=== PATIENT | female | born 1940 | race Caucasian/White ===

== ENCOUNTER 2017-05-30 01:22 | Inpatient (IN) | payer MEDICARE ==
[2017-05-30 02:49] LABS: #Basophils 0.1 thou/uL (0.0-0.2); #Eosinphils 0.4 thou/uL (0.0-0.7); #Lymphocytes 1.4 thou/uL (1.20-3.40); #Monocytes 0.7 thou/uL (0.11-0.59); #Neutrophils 4.2 thou/uL (1.40-6.50); %Basophils 0.9 % (0.0-1.0); %Eosinophils 5.6 % (0.0-10.0); %Lymphocytes 21.1 % (21.0-51.0); %Monocytes 10.3 % (0.0-10.0); %Neutrophils 62.1 % (42.0-75.0); Hemoglobin 11.1 g/dL (12.0-16.0); Mean Corpuscular HGB CONC 33.6 g/dL (32.0-36.0); Mean Corpuscular Hemoglobin 33.8 pg (27.0-31.0); Mean Platelet Volume 9.4 fL (7.4-10.4); Platelet Count 146 thou/uL (130-400); RBC Distribution Width 15.7 % (11.5-14.5); White Blood Cell (WBC) Count 6.8 thou/uL (4.8-10.8)
[2017-05-30 03:03] LABS: Anion Gap 23 mmol/L (10-20); BUN (Urea Nitrogen) 61 mg/dL (9.8-20.1); Calc. Creatinine Clearance 0 mL/min (70-130); Calcium 8.5 mg/dL (7.8-10.44); Carbon Dioxide 17 mmol/L (23-31); Chloride 103 mmol/L (98-107); Estimated GFR-MDRD 6; Glucose 126 mg/dL (83-110); Potassium 4.5 mmol/L (3.5-5.1); Sodium 138 mmol/L (136-145)
--- NOTE | 2017-05-30 05:19 | HP-2 ---
CODE STATUS: FULL. PRIMARY CARE PHYSICIAN: Mahi peterson. ATTENDING: Dr. Davenport. RESIDENT: Dr. Ad Shafer. SPECIALIST: Dr. Lamb with Nephrology. CHIEF COMPLAINT: Dialysis port fell out. HISTORY OF PRESENT ILLNESS: A 76-year-old female presents after having her dialysis port follow up d uring sleep. She states she does not recall how it occurred, but notes that she rolled over and felt something wet. She states she had dialysis on Thursday, and Thursday and has not missed any recent appointments. She denies any complaints at this time. Also, notes a black great toe on her left foot. She states that the pain has been in her foot at times because of that as well. She has seen a shadow graph weight operator for that and the shadow graph weight operator is now recommended for a vascular surgeon to manage her toe. No other complaints at this time. PAST MEDICAL HISTORY: Significant for diabetes mellitus type 2, hyperlipidemia, hypertension, end-st age renal disease on hemodialysis Tuesdays, , Saturdays and diastolic congestive heart failu re. PAST SURGICAL HISTORY: Heart valve replacement and triple bypass, hysterectomy, dialysis fistula maeve cement, hernia repair and a left shoulder surgery. ALLERGIES: BACTRIM, CIPRO, CODEINE, PENICILLIN, and SULFA. MEDICATIONS: 1. Carvedilol 6.25 mg b.i.d. 2. Hydralazine 50 mg t.i.d. 3. Pantoprazole 40 mg daily. 4. Glipizide 10 mg daily. 5. Aspirin 325 mg daily. 6. Sensipar 30 mg daily. 7. Renvela 1600 mg t.i.d. FAMILY HISTORY: Noncontributory. SOCIAL HISTORY: No tobacco, alcohol, or drug use. REVIEW OF SYSTEMS: General: Denies any fevers, chills, or weight changes. Eyes: Denies vision katrin nges or eye pain. ENT: Denies nasal congestion or rhinorrhea. Respiratory: Denies cough, congesti on, shortness of breath. Cardiovascular: Denies chest pain, palpitation. GI: Denies nausea, vomit ing. Genitourinary: Denies incontinence, dysuria. Skin: Denies rashes or lesions. Musculoskeleta l: Denies pain, tenderness, stiffness, swelling, arthritis, and joints. Neurologic: Denies any wea kness, numbness. Psychiatric: Denies any anxiety, depression. PHYSICAL EXAMINATION: VITAL SIGNS: BP was 174/68, pulse was 67, respiration is 20, and temperature max is 97.8, pulse ox 9 6% on room air, current weight is 84 kilos. GENERAL: Alert and oriented, and appropriately interactive. HEENT: Eyes: PERRLA. Conjunctivae within normal limits. ENT: Tympanic membranes are pearly shaver without bulging or erythema. Nasal mucosa and oropharynx wi thin normal limits. NECK: Supple, no lymphadenopathy, no thyromegaly. CARDIAC: Regular rate and rhythm with 2/6 systolic ejection murmur present at the left sternal borde r. Radial and pedal pulses equal bilaterally. She also has a left AV fistula in her left arm for di alysis. RESPIRATORY: Normal effort, no retraction clear. LUNGS: Clear to auscultation bilaterally. SKIN: Warm and dry. ABDOMEN: Soft, nontender to palpation. Bowel sounds are present x4. No masses or distention. EXTREMITIES: No clubbing, cyanosis with trace edema present. She does have an eschar on her left gr eat toe approximately 50% of her left great toe. MUSCULOSKELETAL: Structure, tone, muscle strength, range of motion within normal limits. NEUROLOGIC: No focal motor neurologic deficits. Sensation within normal limits. Cranial nerves II- XII grossly intact. GCS was 15. Psych was appropriate. LABORATORY DATA: White blood cell count 6.8, platelet count 146, hemoglobin 11.1, hematocrit 33.2, M CV 100.0, percent neutrophils 62.1. Sodium 138, potassium 4.5, chloride 103.4, bicarbonate 17, BUN 1 6, creatinine 7.11, glucose 126, calcium 8.5. ASSESSMENT AND PLAN: A 76-year-old female. 1. End-stage renal disease on hemodialysis port removal. General surgery consultation for [facility] as well as Dr. Lamb consult for hemodialysis to keep her on Thursday, , and Thursday [facility]. 2. Eschar on her left great toe. General Surgery consult/wound care would be of benefit to this pat ient as well as pain control will be used. 3. Diastolic congestive heart failure. No signs or symptoms currently, but will monitor fluid statu s. 4. Hypertension. Continue her home meds. 5. Diabetes mellitus, we will give her Accu-Cheks and continue her home meds. 6. Chronic anemia likely secondary to #1. We will trend her CBC. 7. Hyperlipidemia. She is currently unmedicated. We will check a fasting lipid panel and initiate statin therapy going forward because of her risk factors. DISPOSITION LENGTH OF HOSPITAL STAY: Will be surgical and 1. Symptomatic medications will be provided. History and physical exam as well as management has been discussed with Dr. Davenport.
[2017-05-30] MEDS ORDERED: Ondansetron HCl/PF 4 MG/2 ML Vial ONE (05:40)
[2017-05-30] MEDS ORDERED: HumaLOG 300 UNITS/3 ML VIAL SC PRN (07:33)
[2017-05-30] MEDS ORDERED: Dextrose 5% in Water 1,000 ML IV PRN (07:33)
[2017-05-30] MEDS ORDERED: Dextrose 50% Abboject 50 ML SYRINGE SLOW IVP PRN (07:33)
[2017-05-30] MEDS ORDERED: Acetaminophen 325 MG TAB PO PRN (07:33)
[2017-05-30 07:57] LABS: Cardiac Risk 6.4 (Less than 4.5)
--- NOTE | 2017-05-30 09:59 | OP ---
DATE OF PROCEDURE: 05/30/2017 PREOPERATIVE DIAGNOSIS: End-stage renal disease, dialysis dependent. POSTOPERATIVE DIAGNOSIS: End-stage renal disease, dialysis dependent. PROCEDURES PERFORMED: Placement of right femoral Trialysis, temporary dialysis catheter. INDICATIONS FOR PROCEDURE: A 76-year-old woman with history of dialysis dependent, end-stage renal d isease. The tunneled catheter was inadvertently pulled out last night by the patient. She requires urgent dialysis and I have been asked to place a temporary dialysis catheter for that purpose. DESCRIPTION OF PROCEDURE: Informed consent obtained from the patient. She was placed in supine posi tion. Her right groin was sterilely prepped and draped in the usual fashion. The skin is anesthetiz ed with 1% lidocaine. I palpated the right femoral artery then cannulated the right femoral vein med ial to this using an 18-gauge introducer needle returning dark venous blood. A guidewire was passed through the needle and advanced into the right femoral vein without resistance. Needle was withdrawn over the guidewire. A stab incision is made adjacent to the guidewire using an 11 scalpel. Dilator was passed over the guidewire dilating subcutaneous tissues. A triple lumen dialysis catheter was t hen advanced over the guidewire and placed in the right femoral vein without resistance. The needle was withdrawn. Dark venous blood was aspirated from all 3 ports, which were then flushed with saline followed by heparin. Catheter was secured to right groin using 3-0 nylon suture at 2 points. Biopa tch and sterile dressings was applied. The patient tolerated the procedure without any apparent comp lication and remains hemodynamically stable following completion procedure.
--- NOTE | 2017-05-30 10:25 | PDOC.EVN ---
Attending Addendum - Attending Addendum I personally evaluated the patient and discussed the management with Dr. Shafer. I agree with the History, Examination, Assessment and Plan documented in his H& P with any addition or exceptions noted below. Patient with is on HD using temporary catheter until her graft has matured admitted after her catheter became dislodged and fell out. She is asymptomatic. She received her normal HD session prior to this incident. General surgery will be consulted for temporary catheter placement, and Nephrology consulted for HD today. Further mgmt per Nephrology as to whether she can be discharged after HD or if she needs to remain for monitoring.
[2017-05-30] MEDS: Sevelamer Carbonate 800 MG TAB PO SCH ×3 (10:26→21:26)
[2017-05-30] MEDS: Aspirin 81 mg Enteric Coated Tablet PO SCH (10:26)
[2017-05-30] MEDS: hydrALAZINE 25 MG TAB PO SCH ×3 (10:26→23:37)
[2017-05-30] MEDS: Carvedilol 6.25 MG TAB PO SCH ×2 (10:27→21:25)
[2017-05-30] MEDS: Famotidine 20 MG TAB PO SCH (10:28)
[2017-05-30] MEDS: Cinacalcet HCl 30 MG TAB PO SCH (10:28)
[2017-05-30] MEDS: Heparin 5,000 UNITS/ML VIAL SC SCH ×2 (10:28→16:13)
--- NOTE | 2017-05-30 14:27 | CON ---
DATE OF CONSULTATION: 05/30/2017 NEPHROLOGY CONSULTATION REASON FOR CONSULTATION: End-stage renal disease. HISTORY OF PRESENT ILLNESS: This is a 76-year-old female who presented to the hospital after her acc ess got dislodged. The patient denies headache, numbness, tingling or weakness and has minimal dyspn ea on exertion. PAST MEDICAL HISTORY: Significant for hypertension, anemia, end-stage renal disease, congestive hear t failure, coronary artery disease, hernia repair, tunneled dialysis catheter, hysterectomy, left hank ulder surgery, and heart valve replacement. SOCIAL HISTORY: No alcohol or drug use. FAMILY HISTORY: Negative for ESRD. HOME MEDICATIONS: List reviewed. HOSPITAL MEDICATIONS: Reviewed. ALLERGIES: Reviewed. REVIEW OF SYSTEMS: A 15point review of systems was performed and was negative except for positives n oted above. GENERAL: Weakness- HEAD: Headache- NECK: No swelling or lumps. NOSE: No epistaxis or discharge. EYES: No diplopia or pain. RESPIRATORY: Dyspnea- CARDIOVASCULAR: Chest pain- GASTROINTESTINAL: Nausea- /FUNERAL ARRANGER: Hematuria- MUSCULOSKELETAL: No joint pain. NEUROPSYCHIATIC SYSTEMS: No suicidal ideation. No ideation. SKIN: Denies any rash or ulcer. CONSTITUTIONAL: No fever or chills. PHYSICAL EXAMINATION: GENERAL: Patient is awake, alert. VITAL SIGNS: Afebrile, pulse 81, breathing at 16, blood pressure 130/62. HEAD/NECK: Normocephalic. Atraumatic. EYES: EOMI. No deformity. EARS: Clear. No ulcers. NOSE: Intact. No lesions. MOUTH: Clear. No discharge. THROAT: Clear. No exudate. LUNGS: Clear. No crackles. CARDIAC: S1, S2. No rub. ABDOMEN: Benign. BS+. GENITALIA/RECTUM: Allen absent. BACK/EXTREMITIES: Edema 0+ Ulcer- NEUROLOGICAL: Alert and motor intact. SKIN: Rash- Bruise- LYMPHATICS: Edema- Ulcer- LABORATORY DATA: Show potassium is 4.5. ASSESSMENT AND RECOMMENDATIONS: 1. Stage 6 chronic kidney disease with dyspnea and volume overload. We will plan hemodialysis. 2. Hypertension, plan ultrafiltration. 3. Anemia, stable. 4. Medications based on glomerular filtration rate are appropriate. Field access surgery consult ap preciated for dialysis catheter insertion.
[2017-05-30] MEDS: Ondansetron ODT 4 MG TAB PO PRN (15:21)
[2017-05-30] MEDS ORDERED: hydrALAZINE 20 MG/ML VIAL SLOW IVP PRN (18:50)
[2017-05-30] MEDS: Atorvastatin Calcium 40 MG TAB PO SCH (23:37)
[2017-05-31] MEDS: Ondansetron HCl/PF 4 MG/2 ML Vial IVP PRN ×3 (00:07→16:52)
[2017-05-31 06:29] LABS: Anion Gap 16 mmol/L (10-20); BUN (Urea Nitrogen) 27 mg/dL (9.8-20.1); Calc. Creatinine Clearance 14 mL/min (70-130); Calcium 9.1 mg/dL (7.8-10.44); Carbon Dioxide 27 mmol/L (23-31); Chloride 98 mmol/L (98-107); Estimated GFR-MDRD 9; Glucose 74 mg/dL (83-110); Potassium 4.7 mmol/L (3.5-5.1); Sodium 136 mmol/L (136-145)
--- NOTE | 2017-05-31 07:29 | PDOC.FM ---
- Subjective Subjective: Patient doing well this AM. She reports that yesterday she had some nausea and vomiting during dialysis and had to stop dialysis 1 hour early. She also has had some pain with her left great toe wound, but that has improved with medication. She has been able to tolerate PO since dialysis and her N/V has improved. - Objective MAR Reviewed: Yes Vital Signs & Weight: Vital Signs (12 hours) Temp Pulse Resp BP BP Pulse Ox 05/31/17 03:51 97.9 F 61 16 164/68 H 92 L 05/31/17 00:00 97.7 F 63 16 169/67 H 94 L 05/30/17 23:37 147/70 H 05/30/17 21:25 147/70 H 05/30/17 20:00 97.7 F 59 L 16 141/63 H 94 L I&O: 05/30/17 05/31/17 06/01/17 06:59 06:59 06:59 Intake Total 240 Balance 240 Result Diagrams: 05/30/17 02:30 05/31/17 05:39 <Denice Harper - Last Filed: 05/31/17 07:27> - Objective Vital Signs & Weight: Vital Signs (12 hours) Temp Pulse Resp BP BP Pulse Ox 05/31/17 09:15 97.9 F 62 16 185/80 H 98 05/31/17 08:27 164/68 H 05/31/17 08:26 61 164/68 H 05/31/17 03:51 97.9 F 61 16 164/68 H 92 L 05/31/17 00:00 97.7 F 63 16 169/67 H 94 L 05/30/17 23:37 147/70 H I&O: 05/30/17 05/31/17 06/01/17 06:59 06:59 06:59 Intake Total 240 Balance 240 Result Diagrams: 05/30/17 02:30 05/31/17 05:39 <Last Davenport - Last Filed: 05/31/17 10:09> Phys Exam - Physical Examination Constitutional: NAD HEENT: moist MMs Respiratory: no wheezing, no rales, no rhonchi, clear to auscultation bilateral Cardiovascular: RRR, no significant murmur, no rub Gastrointestinal: soft, non-tender, no distention, positive bowel sounds Musculoskeletal: no edema, pulses present Neurological: non-focal, moves all 4 limbs Psychiatric: normal affect, A&O x 3 Deviation from normal: black eschar on left great toe <Denice Harper - Last Filed: 05/31/17 07:27> Dx/Plan (1) End stage renal disease on dialysis Code(s): N18.6 - END STAGE RENAL DISEASE; Z99.2 - DEPENDENCE ON RENAL DIALYSIS Status: Chronic (2) Ulcer of toe of left foot Code(s): L97.529 - NON-PRESSURE CHRONIC ULCER OTH PRT LEFT FOOT W UNSP SEVERITY Status: Acute QualifierTitle: Non-pressure ulcer stage: unspecified non-pressure ulcer stage Qualified Code(s): L97.529 - Non-pressure chronic ulcer of other part of left foot with unspecified severity (3) Anemia of renal disease Code(s): D63.1 - ANEMIA IN CHRONIC KIDNEY DISEASE Status: Chronic (4) Diabetes type 2, controlled Code(s): E11.9 - TYPE 2 DIABETES MELLITUS WITHOUT COMPLICATIONS Status: Chronic QualifierTitle: Diabetes mellitus complication status: with skin complications Diabetes mellitus complication detail: with foot ulcer Diabetes mellitus cluster bore operator insulin use: without prison use Qualified Code( s): E11.621 - Type 2 diabetes mellitus with foot ulcer; L97.509 - Non-pressure chronic ulcer of other part of unspecified foot with unspecified severity; L97.509 - Non-pressure chronic ulcer of other part of unspecified foot with unspecified severity; L97.509 - Non-pressure chronic ulcer of other part of unspecified foot with unspecified severity; L97.509 - Non-pressure chronic ulcer of other part of unspecified foot with unspecified severity (5) HLD (hyperlipidemia) Code(s): E78.5 - HYPERLIPIDEMIA, UNSPECIFIED Status: Chronic QualifierTitle: Hyperlipidemia type: unspecified (6) HTN (hypertension) Code(s): I10 - ESSENTIAL (PRIMARY) HYPERTENSION Status: Chronic QualifierTitle: Hypertension type: essential hypertension - Plan Plan: 1. ESRD on HD T//Thu, lost dialysis access when port fell out on 05/30. Temporary R Fem Trialysis Cath placed by Dr. Moya on 05/30 Patient received dialysis on 05/30, but it was cut one hour short 2/2 N/V -Dr. Pickens has been consulted, appreciate recs -Will follow nephro recs for permanent dialysis access. The patient has a left arm fistula that Dr. Feldman placed that has never been approved for access due to patient's limited ability to get rides she never made an appointment. It could be an option to have this evaluated while the patient is in the hospital to see if this could be used as her permanent access. 2. L great toe eschar/ulcer Patient was seeing a hotel controller, but he recommended for her to see a surgeon. -Pain control -Will have the patient f/u outpatient as this was not her reason for admission and there is no signs of infection at this time. 3. HTN The patient's BP were very elevated in the past 24 hours, however all of her BP meds were held due to her nausea. Will control her nausea and instruct the nurses to give the BP medications. -continue home meds 4. DM2 -continue glipizide -Accuchecks ACHS 5. HLD -continue home meds 6. Anemia of CKD -stable, will monitor <Denice Harper - Last Filed: 05/31/17 07:27> Attending Addendum - Attending Addendum I personally evaluated the patient and discussed the management with Dr. Harper. I agree with the History, Examination, Assessment and Plan documented above with any addition or exceptions noted below. Patient with elevated BP today 2/2 nausea and inability to take her medications overnight. She feels improved this morning. Had HD yesterday, though short session per patient due to not feeling well. Has temporary HD catheter in place. Await further nephro recs, consider discharge later today if no further HD. Consult wound care for her necrotic toe and will need outpatient follow up for debridement/amputation. No evidence of infection at this time and can defer further mgmt to outpatient setting. <Last Davenport - Last Filed: 05/31/17 10:09>
[2017-05-31] MEDS: hydrALAZINE 25 MG TAB PO SCH ×3 (08:26→22:01)
[2017-05-31] MEDS: Heparin 5,000 UNITS/ML VIAL SC SCH ×4 (08:26→21:21)
[2017-05-31] MEDS: Carvedilol 6.25 MG TAB PO SCH ×2 (08:27→16:53)
[2017-05-31] MEDS: Sevelamer Carbonate 800 MG TAB PO SCH ×3 (08:27→16:53)
[2017-05-31] MEDS: Cinacalcet HCl 30 MG TAB PO SCH (08:27)
[2017-05-31] MEDS: Famotidine 20 MG TAB PO SCH (08:27)
[2017-05-31] MEDS: Aspirin 81 mg Enteric Coated Tablet PO SCH (08:28)
--- NOTE | 2017-05-31 11:53 | PRG ---
DATE OF SERVICE: 05/31/2017 SUBJECTIVE: This is a 76-year-old female being seen for end-stage renal disease. The patient denies any nausea, vomiting or chest pain. PHYSICAL EXAMINATION: GENERAL: Patient is awake, alert. VITAL SIGNS: Afebrile, pulse 80, breathing at 16, blood pressure 164/68. HEAD/NECK: Normocephalic. Atraumatic. EYES: EOMI. No deformity. EARS: Clear. No ulcers. NOSE: Intact. No lesions. MOUTH: Clear. No discharge. THROAT: Clear. No exudate. LUNGS: Clear. No crackles. CARDIAC: S1, S2. No rub. ABDOMEN: Benign. BS+. GENITALIA/RECTUM: Allen absent. BACK/EXTREMITIES: Edema 0+ Ulcer- NEUROLOGICAL: Alert and motor intact. SKIN: Rash- Bruise- LYMPHATICS: Edema- Ulcer- LABORATORY DATA: Show hemoglobin 11.1. ASSESSMENT AND RECOMMENDATIONS: 1. Stage 6 chronic kidney disease. Plan hemodialysis on Thursday, failed access. The patient's AV f istula has not matured and will need repositioning. Dr. Feldman will be consulted. 2. Anemia, stable. 3. Medications based on GFR are appropriate.
[2017-05-31] MEDS: Atorvastatin Calcium 40 MG TAB PO SCH (21:21)
--- NOTE | 2017-06-01 06:47 | PDOC.FM ---
- Subjective Subjective: Patient doing well this AM. No significant overnight events. Patient denies any chest pain or shortness of breath. She states that she got her left AV fistula awhile ago, but was never able to get it verified as site for dialysis because she did not return to Dr. Feldman's office due to transportation issues. Additionally, patient has left great toe eschar/ulcer which has been present for >1 year. It developed after patient tried to self remove ingrown toenail. She was seeing english composition instructor who recommended vascular studies be performed. She was never able to get those done due to transportation issues. - Objective MAR Reviewed: Yes Vital Signs & Weight: Vital Signs (12 hours) Temp Pulse Resp BP Pulse Ox 06/01/17 04:01 98.2 F 72 16 164/87 H 91 L 06/01/17 00:00 98.3 F 71 16 153/69 H 93 L 05/31/17 22:01 61 05/31/17 20:00 98.6 F 61 16 97 05/31/17 19:38 98.6 F 61 16 157/72 H 57 L I&O: 05/30/17 05/31/17 06/01/17 06:59 06:59 06:59 Intake Total 240 350 Balance 240 350 Result Diagrams: 05/30/17 02:30 05/31/17 05:39 EKG Reviewed by me: Yes Radiology Reviewed by me: Yes <Chica Prajapati - Last Filed: 06/01/17 08:38> - Objective Vital Signs & Weight: Vital Signs (12 hours) Temp Pulse Resp BP BP Pulse Ox 06/01/17 08:34 142/54 H 06/01/17 08:33 72 06/01/17 08:00 97.6 F 86 20 161/73 H 96 06/01/17 04:01 98.2 F 72 16 164/87 H 91 L 06/01/17 00:00 98.3 F 71 16 153/69 H 93 L I&O: 05/31/17 06/01/17 06/02/17 06:59 06:59 06:59 Intake Total 240 350 Balance 240 350 Result Diagrams: 05/30/17 02:30 05/31/17 05:39 <Fabrice Tim - Last Filed: 06/01/17 10:47> Phys Exam - Physical Examination Constitutional: NAD HEENT: moist MMs Neck: supple Respiratory: no wheezing, no rales, no rhonchi, clear to auscultation bilateral Cardiovascular: RRR 2/6 systolic murmur Gastrointestinal: soft, no distention Musculoskeletal: no edema 1+ pedal pulses Neurological: non-focal, moves all 4 limbs Psychiatric: A&O x 3 Skin: no rash, cap refill <2 seconds <Chica Prajapati - Last Filed: 06/01/17 08:38> Dx/Plan (1) End stage renal disease on dialysis Code(s): N18.6 - END STAGE RENAL DISEASE; Z99.2 - DEPENDENCE ON RENAL DIALYSIS Status: Chronic (2) Ulcer of toe of left foot Code(s): L97.529 - NON-PRESSURE CHRONIC ULCER OTH PRT LEFT FOOT W UNSP SEVERITY Status: Acute QualifierTitle: Non-pressure ulcer stage: unspecified non-pressure ulcer stage Qualified Code(s): L97.529 - Non-pressure chronic ulcer of other part of left foot with unspecified severity (3) H/O aortic valve replacement Code(s): Z95.2 - PRESENCE OF PROSTHETIC HEART VALVE Status: Chronic (4) Anemia of renal disease Code(s): D63.1 - ANEMIA IN CHRONIC KIDNEY DISEASE Status: Chronic (5) CAD (coronary artery disease) Code(s): I25.10 - ATHSCL HEART DISEASE OF [place] CORONARY ARTERY W/O ANG PCTRS Status: Chronic (6) Diabetes type 2, controlled Code(s): E11.9 - TYPE 2 DIABETES MELLITUS WITHOUT COMPLICATIONS Status: Chronic QualifierTitle: Diabetes mellitus complication status: with skin complications Diabetes mellitus complication detail: with foot ulcer Diabetes mellitus local company intermodal truck driver insulin use: without snf use Qualified Code( s): E11.621 - Type 2 diabetes mellitus with foot ulcer; L97.509 - Non-pressure chronic ulcer of other part of unspecified foot with unspecified severity; L97.509 - Non-pressure chronic ulcer of other part of unspecified foot with unspecified severity; L97.509 - Non-pressure chronic ulcer of other part of unspecified foot with unspecified severity; L97.509 - Non-pressure chronic ulcer of other part of unspecified foot with unspecified severity (7) HLD (hyperlipidemia) Code(s): E78.5 - HYPERLIPIDEMIA, UNSPECIFIED Status: Chronic QualifierTitle: Hyperlipidemia type: unspecified Qualified Code(s): E78.5 - Hyperlipidemia, unspecified (8) HTN (hypertension) Code(s): I10 - ESSENTIAL (PRIMARY) HYPERTENSION Status: Chronic QualifierTitle: Hypertension type: essential hypertension Qualified Code( s): I10 - Essential (primary) hypertension - Plan Plan: 1. ESRD on HD T//Thu, lost dialysis access when port fell out on 05/30. -Temporary R Fem Trialysis Cath placed by Dr. Moya on 05/30 -Patient received dialysis on 05/30, but it was cut one hour short 05/29 N/V -Dr. Pickens has been consulted, appreciate recs -Will follow nephro recs for permanent dialysis access. The patient has a left arm fistula that Dr. Feldman placed on 07/09/16 that has never been approved for access due to patient's limited ability to get rides. She never made an appointment. It could be an option to have this evaluated while the patient is in the hospital to see if this could be used as her permanent access. -Consult Dr. Feldman this AM -Plans for dialysis 06/[address]ens 2. L great toe eschar/ulcer -Patient was seeing a english composition instructor, but he recommended for her to see a surgeon/ vascular specialist -Pain control -Consider consulting general surgery 3. HTN -continue home meds -BP 142/54 this AM 4. DM2 -continue glipizide -Accuchecks ACHS 5. HLD -continue home meds 6. Anemia of CKD -stable, will monitor <Chica Prajapati - Last Filed: 06/01/17 08:38> Attending Addendum - Attending Addendum I personally evaluated the patient and discussed the management with Dr. Prajapati I agree with the History, Examination, Assessment and Plan documented above with any addition or exceptions noted below. We have consulted Dr. Feldman this morning as she originally was her surgeon for her AV fistula, she will come by today or tomorrow regarding permanent access. TCOMs or MARII today as well as CV surgery recs for eschar vs dry gangrene of L great toe. <Fabrice Tim - Last Filed: 06/01/17 10:47>
[2017-06-01] MEDS: Sevelamer Carbonate 800 MG TAB PO SCH ×3 (08:31→17:43)
[2017-06-01] MEDS: Cinacalcet HCl 30 MG TAB PO SCH (08:32)
[2017-06-01] MEDS: hydrALAZINE 25 MG TAB PO SCH ×3 (08:33→21:49)
[2017-06-01] MEDS: Famotidine 20 MG TAB PO SCH (08:33)
[2017-06-01] MEDS: Carvedilol 6.25 MG TAB PO SCH ×2 (08:34→17:43)
[2017-06-01] MEDS: Aspirin 81 mg Enteric Coated Tablet PO SCH (08:34)
[2017-06-01] MEDS: Heparin 5,000 UNITS/ML VIAL SC SCH ×3 (08:34→21:50)
--- NOTE | 2017-06-01 11:54 | PRG ---
DATE OF SERVICE: 06/01/2017 SUBJECTIVE: Patient was seen and examined at bedside and overnight events noted. Patient denies any shortness of breath or chest pain or palpitation. No history of nausea or vomiting or diarrhea or f ever or chills or cramps. OBJECTIVE: General: This is a well-built female in no apparent distress. VITAL SIGNS: Temperature 97, pulse 72, respirations 18, blood pressure 148/54. HEENT: Atraumatic, normocephalic, Oral mucosa is moist. Neck: Supple. Cardiovascular: S1 and S2 heard. Rate and rhythm regular. Respiratory: Clear to auscultation. Gastrointestinal: Abdomen is soft. Musculoskeletal: No tenderness. No edema. Dermatologic: No skin rash. Neurologic: Alert and awake and oriented X3. No focal neurologic deficits. Moving all the extremitie s. Psychiatric: Mood and affect normal. LABORATORY DATA: Not done today. ASSESSMENT AND PLAN: 1. End-stage renal disease. Continue on dialysis. 2. The patient had access evaluation by a surgeon, we will consult. 3. Anemia, stable. 4. Edema, controlled. 5. Hypertension. 6. Consult Surgery for access evaluation. We will follow.
--- NOTE | 2017-06-01 18:01 | CON ---
DATE OF CONSULTATION: 06/01/2017 REASON FOR CONSULTATION: Need for dialysis access. HISTORY: Ms. Moyer is a 76-year-old woman, who inadvertently pulled out her tunneled hemodialysis catheter. She states that she does not remember how it happened, but when she woke up the catheter was out and she was bleeding from the exit site. Her family helped pressure at the site and called 911. She was quite pale by the report, but did not pass out and has not needed to be transfused. A temporary hemodialysis catheter has been placed in her right groin by Dr. Moya, but she requires permanent access. She has had multiple access procedures on her right upper extremity and had an AV fistula with basilic outflow on the left, but did not return to have a transposed. PAST MEDICAL HISTORY: Diabetes, morbid obesity, hyperlipidemia, hypertension, end-stage renal failure on dialysis, and diastolic congestive heart failure. PAST SURGICAL HISTORY: Three-vessel coronary artery bypass grafting with heart valve replacements, hysterectomy, multiple fistula placements and transpositions on the right side. She has also undergone multiple angioplasties and stenting. She has also had a hernia repair and left shoulder surgery. ALLERGIES: She reports allergies to BACTRIM, CIPRO, CODEINE, PENICILLIN, SULFA , AND HYDROCODONE. OUTPATIENT MEDICATIONS: Include carvedilol, hydralazine, pantoprazole, glipizide, aspirin, Sensipar, and Renvela. FAMILY HISTORY: Noncontributory. SOCIAL HISTORY: She does not smoke, drink or use illicit drugs. REVIEW OF SYSTEMS: Ten system review of systems is negative except as per HPI. She does report a chronic sore on her left great toe where she removed an ingrown toenail and the area turned black and this is not healed. She saw a potato sorter, but he did not want to do anything to it. She also reports that she has a small bed sore as well as some excoriations in the sacral area, but these are healing. PHYSICAL EXAMINATION: VITAL SIGNS: She has been afebrile since her admission. Heart rate 72, respirations 20, 96% saturated on room air, blood pressure 142/54. GENERAL: Reveals an elderly woman, in no acute distress. She is not flushed or toxic in appearance. She is not jaundiced or icteric. HEENT: Unremarkable. NECK: Supple, without lymphadenopathy or thyroid nodules. HEART: Regular in its rate and rhythm with a soft systolic murmur. LUNGS: Clear to auscultation bilaterally. ABDOMEN: Soft, nondistended, and nontender. EXTREMITIES: She has multiple surgical scars on both upper arms. The previous brachiobasilic fistula appears to be thrombosed. There is no palpable thrill and no audible bruit and the superficial veins of the upper arm are varicose. She has a gangrenous patch on the tip of her left great toe without erythema, swelling or fluctuance. No palpable pedal or popliteal pulses, but she has good femoral pulses bilaterally. No sores on the right foot and mild ankle edema. NEUROLOGIC: No focal deficits. PSYCHIATRIC: Alert, oriented, and appropriate. BACK: She has some superficial excoriations to the right sacral area and a grade I decubitus over the sacral area. LABORATORY DATA: White count is normal at 6.8, hematocrit 33.2, platelets 146, BUN and creatinine are 27 and 4.55. Blood sugars have ranged from 73 to 140. Electrolytes are unremarkable. ASSESSMENT AND PLAN: End-stage renal failure with need for permanent access. She currently has a Trialysis catheter in her right groin, but will require a tunneled catheter for ongoing outpatient hemodialysis. She does require a fistula or graft long-term. Unfortunately, she has exhausted most of her veins in the upper arm and the basilic fistula, which was placed last year, appears to have thrombosed. I have ordered bilateral upper extremity vein mapping to see if she has any remaining patent veins. I suspect that the right arm is not usable since she has already had a transposition on that side as well as multiple angioplasties and stents in the axillary area, so we will hope that her axillary vein on the left is patent and accessible. She will likely require a graft. This may worsen the venous hypertension in her left arm; however. She also has dry gangrene of the left great toe with no current signs of infection, but she is at risk for this and may not heal, and may require amputation. I have recommended that she see a vascular surgeon for this problem to see if they can improve the blood flow to her legs. I have asked Dr. Mims's group to see her on a nonurgent basis. Also, ordered repeat labs for the morning. It does not appear that she has had any repeat labs since her admission even though her hemoglobin and hematocrit were very low a that point. Her family reports that she lost a lot of blood when her catheter came out and lab was drawn immediately after this event so this may not represent her true equilibrated hematocrit. ELAINE
--- NOTE | 2017-06-01 19:41 | ULT ---
VEIN MAPPING OF UPPER EXTREMITIES FOR DIALYSIS ACCESS: Technique: Bilateral upper extremity venous duplex study in the veins of upper extremities including color doppler with spectral analysis. Indication: Endstage renal disease. Assess for possible site for venous dialysis fistula. FINDINGS: RIGHT UPPER EXTREMITY Right basilic vein: At the shoulder the right basilic vein measures 1.7 cm. The right basilic vein is unable to be visual ized distal to the proximal humerus. Right cephalic vein: Shoulder 3.4 Proximal humerus 3.7 Middle humerus 3.3 Distal humerus 2.7 Elbow 2.9 Mid forearm 2.8 Right brachial artery 2.8 Right radial artery 1.5 Right ulnar artery 1.8 LEFT UPPER EXTREMITY: Left basilic vein: Shoulder 4.5 Proximal humerus 2.8 Middle humerus 2.1 Distal humerus 2.1 Elbow 1.4 Mid forearm 0.6 Left cephalic vein: Shoulder .9 Proximal humerus 1.5 Mid humerus 1.1 Distal humerus 1.7 Elbow 0.8 Cephalic vein below the elbow was not visualized. Left brachial artery 5.7 Left radial artery 0.7 Left ulnar artery 1.7 Both subclavian veins and axillary veins are patent with normal flow seen with spectral analysis. POS: KAREN
[2017-06-01] MEDS: Atorvastatin Calcium 40 MG TAB PO SCH (21:49)
--- NOTE | 2017-06-01 23:40 | CON ---
DATE OF CONSULTATION: 06/01/2017. REQUESTING PHYSICIAN: Luis Carlos Feldman MD CHIEF COMPLAINT: Left great toe pain. HISTORY OF PRESENT ILLNESS: The patient is a 76-year-old diabetic dialysis patient with known elliott ry disease. She has been dialyzing through a tunneled dialysis catheter that came out when she turne d over in bed and she presented to the hospital. She currently is dialyzing through a temporary cath eter placed in the right groin. She was noted to have a gangrenous tip to the left great toe. She s aid that she was trying to deal with an ingrown toenail herself about 2 months ago, and since trying to manipulate that nail, the tip of the toe has turned dark and scaly with dry gangrenous changes. PAST MEDICAL HISTORY: Significant for diabetes; hyperlipidemia; hypertension; end-stage renal diseas e on a Thursday, , and Thursday dialysis schedule. PAST SURGICAL HISTORY: She has undergone coronary artery bypass grafting and "valve replacement." MEDICATIONS: Coreg 6.25 mg b.i.d., hydralazine 50 mg t.i.d., pantoprazole 40 mg a day, glipizide 10 mg a day, aspirin 325 mg a day, Sensipar 30 mg a day, Renvela 1600 mg t.i.d. ALLERGIES: She reports adverse reaction to CODEINE that causes nausea, vomiting, and hallucinations severe enough that she is not willing to even attempt hydrocodone or oxycodone. She also reports all ergies to BACTRIM, CIPRO, and PENICILLIN; all of which cause rash. REVIEW OF SYSTEMS: Negative for any fever or chills. Negative for any erythema around her wound. N egative for any eye, speech, facial, or extremity symptoms consistent with TIAs. Negative for chest pain. PHYSICAL EXAMINATION: GENERAL: She is an elderly woman in no distress. VITAL SIGNS: Temperature is 98.9, heart rates in the low 50s to low 60s, blood pressure 142/54, room air O2 sats are in the mid 90s. Height is 5 feet tall, weight is 184 pounds. NECK: She has soft bilateral carotid bruits. No JVD. CHEST: Clear to auscultation. CARDIOVASCULAR: Regular rate and rhythm. She has a well-healed surgical scar, status post sternotom y and status post left lower extremity vein harvest. She has palpable radial pulses. She has a dial ysis catheter in the right groin. EXTREMITIES: She has a bounding left femoral pulse. Not able to palpate popliteal, dorsalis pedis, or posterior tibial pulses. She has dry gangrenous changes at the tip of her left great toe. NEUROLOGIC: Grossly nonfocal. LABORATORY DATA: She has a white count of 6.8, hemoglobin 11.1, hematocrit 33.2, platelets 146,000. Her glucoses have ranged from mid 70s to about 140 over the last 24 hours and was 126 on admission. IMPRESSION AND RECOMMENDATIONS: Dry gangrenous changes affecting the left lower extremity. She has a bounding left femoral pulse. I am not able to feel pulses below that point on the left lower extre mity. Unfortunately, vein has already been harvested from that leg, limiting our options for revascu larization should she need an infragenicular procedure. Recommend conventional arteriography to demo nstrate her arterial anatomy and plan out revascularization strategies. From my perspective, these c an be arranged as an outpatient. She is otherwise ready to go home once her dialysis access is dealt with.
--- NOTE | 2017-06-02 07:34 | PDOC.FM ---
- Subjective Subjective: Patient doing well this AM. No significant overnight events. Patient to have tunneled catheter placed as well as possible AV fistula today. She denies any chest pain, shortness of breath or palpitations. - Objective MAR Reviewed: Yes Vital Signs & Weight: Vital Signs (12 hours) Temp Pulse Resp BP BP Pulse Ox 06/02/17 03:47 55 L 192/78 H 06/02/17 00:00 97.7 F 55 L 16 145/65 H 95 06/01/17 21:49 59 L 06/01/17 20:00 98.2 F 59 L 16 164/56 H 93 L Weight Admit Weight 83.659 kg Weight 83.659 kg I&O: 06/01/17 06/02/17 06/03/17 06:59 06:59 06:59 Intake Total 350 Balance 350 Result Diagrams: 05/30/17 02:30 05/31/17 05:39 EKG Reviewed by me: Yes Radiology Reviewed by me: Yes <Chica Prajapati - Last Filed: 06/02/17 08:44> - Objective Vital Signs & Weight: Vital Signs (12 hours) Temp Pulse Resp BP BP Pulse Ox 06/02/17 03:47 55 L 192/78 H 06/02/17 00:00 97.7 F 55 L 16 145/65 H 95 Weight Admit Weight 83.659 kg Weight 83.659 kg I&O: 06/01/17 06/02/17 06/03/17 06:59 06:59 06:59 Intake Total 350 240 Balance 350 240 Result Diagrams: 05/30/17 02:30 05/31/17 05:39 <Fabrice Tim - Last Filed: 06/02/17 10:09> Phys Exam - Physical Examination Constitutional: NAD HEENT: moist MMs Neck: supple Respiratory: clear to auscultation bilateral Cardiovascular: RRR Gastrointestinal: soft, positive bowel sounds Musculoskeletal: no edema Non-palpable pulses below femoral artery Neurological: non-focal, moves all 4 limbs Psychiatric: normal affect Skin: no rash, cap refill <2 seconds <Chica Prajapati - Last Filed: 06/02/17 08:44> Dx/Plan (1) End stage renal disease on dialysis Code(s): N18.6 - END STAGE RENAL DISEASE; Z99.2 - DEPENDENCE ON RENAL DIALYSIS Status: Chronic (2) Dry gangrene Code(s): I96 - GANGRENE, NOT ELSEWHERE CLASSIFIED Status: Acute (3) H/O aortic valve replacement Code(s): Z95.2 - PRESENCE OF PROSTHETIC HEART VALVE Status: Chronic (4) Anemia of renal disease Code(s): D63.1 - ANEMIA IN CHRONIC KIDNEY DISEASE Status: Chronic (5) CAD (coronary artery disease) Code(s): I25.10 - ATHSCL HEART DISEASE OF [place] CORONARY ARTERY W/O ANG PCTRS Status: Chronic (6) Diabetes type 2, controlled Code(s): E11.9 - TYPE 2 DIABETES MELLITUS WITHOUT COMPLICATIONS Status: Chronic QualifierTitle: Diabetes mellitus complication status: with skin complications Diabetes mellitus complication detail: with foot ulcer Diabetes mellitus intermission coordinator insulin use: without intermission coordinator use Qualified Code( s): E11.621 - Type 2 diabetes mellitus with foot ulcer; L97.509 - Non-pressure chronic ulcer of other part of unspecified foot with unspecified severity; L97.509 - Non-pressure chronic ulcer of other part of unspecified foot with unspecified severity; L97.509 - Non-pressure chronic ulcer of other part of unspecified foot with unspecified severity; L97.509 - Non-pressure chronic ulcer of other part of unspecified foot with unspecified severity (7) HLD (hyperlipidemia) Code(s): E78.5 - HYPERLIPIDEMIA, UNSPECIFIED Status: Chronic QualifierTitle: Hyperlipidemia type: unspecified Qualified Code(s): E78.5 - Hyperlipidemia, unspecified (8) HTN (hypertension) Code(s): I10 - ESSENTIAL (PRIMARY) HYPERTENSION Status: Chronic QualifierTitle: Hypertension type: essential hypertension Qualified Code( s): I10 - Essential (primary) hypertension - Plan Plan: 1. ESRD on HD T//Thu, lost dialysis access when port fell out on 05/30. -Temporary R Fem Trialysis Cath placed by Dr. Moya on 05/30 -Patient received dialysis on 05/30, but it was cut one hour short 05/29 N/V -Dr. Pickens has been consulted, appreciate recs -Will follow nephro recs for permanent dialysis access. The patient has a left arm fistula that Dr. Feldman placed on 3/15/17 that has never been approved for access due to patient's limited ability to get rides. She never made an appointment. It could be an option to have this evaluated while the patient is in the hospital to see if this could be used as her permanent access. -Consulted general surgery; appreciate recs - Plan for tunneled catheter and possible AV fistula today -Plans for dialysis 06/[address] Pickens 2. L great toe dry gangrene -Patient was seeing a superintendent of generation, but he recommended for her to see a surgeon/ vascular specialist -Pain control -CV surgery consulted; appreciate recs -TCOM studies pending -CV Sx recommends outpatient angiography 3. HTN -continue home meds -adjust BP medications if still elevated after dialysis; patient did not receive full course of dialysis the other day due to N/V 4. DM2 -continue glipizide -Accuchecks ACHS 5. HLD -continue home meds 6. Anemia of CKD -stable, will monitor <Chica Prajapati - Last Filed: 06/02/17 08:44> Attending Addendum - Attending Addendum I personally evaluated the patient and discussed the management with Dr. Prajapati I agree with the History, Examination, Assessment and Plan documented above with any addition or exceptions noted below. Pt is in dialysis this AM. Plan to follow up outpatient with CV surgery regarding her dry gangrene of the left great toe. Plan for permanent access with Dr. Feldman this stay. Need to work on vein mapping. <Fabrice Tim - Last Filed: 06/02/17 10:09>
[2017-06-02 09:08] LABS: HBSAg Index 0.25 S/CO (0-0.99); Hep B Surf Ag Non-Reactive S/CO (NonReactive)
[2017-06-02] MEDS: Cinacalcet HCl 30 MG TAB PO SCH (13:51)
[2017-06-02] MEDS: Carvedilol 6.25 MG TAB PO SCH ×2 (13:51→18:04)
[2017-06-02] MEDS: Sevelamer Carbonate 800 MG TAB PO SCH ×3 (13:51→18:04)
[2017-06-02] MEDS: Aspirin 81 mg Enteric Coated Tablet PO SCH (13:52)
[2017-06-02] MEDS: Famotidine 20 MG TAB PO SCH (13:52)
[2017-06-02] MEDS: Heparin 5,000 UNITS/ML VIAL SC SCH ×3 (13:55→21:23)
[2017-06-02] MEDS: hydrALAZINE 25 MG TAB PO SCH ×3 (13:56→21:23)
[2017-06-02] MEDS ORDERED: CEFAZOLIN/Water 2 GM/20 ML SYRINGE ONE (15:22)
[2017-06-02] MEDS ORDERED: Heparin 10,000 UNITS/1 ML VIAL ONE (15:26)
[2017-06-02] MEDS ORDERED: Sodium Chloride 0.9% 20 ML ONE (15:26)
[2017-06-02] MEDS ORDERED: Heparin 5,000 UNITS/ML VIAL ONE (15:26)
[2017-06-02] MEDS ORDERED: Protamine Sulfate 50 MG/5 ML VIAL ONE (15:26)
[2017-06-02] MEDS ORDERED: Lidocaine 1% w/Epinephrine 1:200K 30 ML VIAL ONE (15:26)
[2017-06-02] MEDS ORDERED: Midazolam HCl 2 mg/2 ml Vial ONE (15:27)
[2017-06-02] MEDS ORDERED: Fentanyl 100 MCG/2 ML VIAL ONE ×3 (15:27→17:43)
[2017-06-02] MEDS ORDERED: Lidocaine 1% PF 5 ML VIAL ONE (16:14)
[2017-06-02] MEDS ORDERED: Ondansetron HCl/PF 4 MG/2 ML Vial ONE (16:14)
[2017-06-02] MEDS ORDERED: PROPOFOL 200 MG/20 ML VIAL ONE (16:14)
[2017-06-02] MEDS ORDERED: PHENYLEPHRINE-NS 100 MCG/ML 10 ML SYRINGE ONE (16:14)
[2017-06-02] MEDS ORDERED: Heparin 10,000 UNITS/ 10 ML VIAL ONE (16:14)
[2017-06-02] MEDS ORDERED: Promethazine HCl 25 MG/ML VIAL SLOW IVP PRN (19:04)
[2017-06-02] MEDS ORDERED: Ondansetron HCl/PF 4 MG/2 ML Vial IVP PRN (19:04)
[2017-06-02] MEDS ORDERED: Promethazine HCl 25 MG/ML VIAL IM PRN (19:04)
--- NOTE | 2017-06-02 19:22 | PRG ---
DATE OF SERVICE: 06/02/2017 SUBJECTIVE: Patient was seen and examined at bedside and overnight events noted. Patient denies any shortness of breath or chest pain or palpitation. No history of nausea or vomiting or diarrhea or f ever or chills or cramps. OBJECTIVE: GENERAL: This is an obese female and in no apparent distress. VITAL SIGNS: Temperature 98.1, pulse 60, respiratory rate 18, blood pressure 140/62. HEENT: Atraumatic, normocephalic. Oral mucosa is moist NECK: Supple CARDIOVASCULAR: S1, S2 heard. Rate and rhythm regular. RESPIRATORY: Clear to auscultation. GASTROINTESTINAL: Abdomen is soft. MUSCULOSKELETAL: No tenderness. No edema. DERMATOLOGIC: No skin rash. NEUROLOGIC: Alert and awake and oriented x3. No focal neurologic deficits. Moving all the extremit ies. PSYCHIATRIC: Mood and affect normal. LABORATORY DATA: . ASSESSMENT AND PLAN: 1. End-stage renal disease, currently on dialysis TTS. 2. Hypertension. 3. Edema. 4. Anemia. Plan is to continue on dialysis as tolerated and follow up with Surgery for access placement.
[2017-06-02] MEDS ORDERED: Promethazine HCl 25 MG/ML VIAL ONE (19:59)
--- NOTE | 2017-06-02 20:34 | RAD ---
PORTABLE CHEST: 06/02/17 HISTORY: Hemodialysis catheter. COMPARISON: 07/07/16. A large bore dual lumen central line is in place. Tip overlies the SVC. The lungs are clear. No pneum othorax or infiltrate. Postop sternotomy change. Heart size is within normal range. IMPRESSION: No acute abnormality. POS: KAREN
[2017-06-02] MEDS: Atorvastatin Calcium 40 MG TAB PO SCH (21:23)
[2017-06-02] MEDS: traMADol HCl 50 MG TAB PO PRN (23:19)
[2017-06-02] MEDS: Ondansetron ODT 4 MG TAB PO PRN (23:20)
--- NOTE | 2017-06-03 06:56 | PDOC.FM ---
- Subjective Subjective: Patient doing well this AM. No significant overnight events. She had dialysis yesterday and went down to OR to have tunneled catheter placed, along with AV fistula. She is doing well. She states that she is ready to go home. - Objective MAR Reviewed: Yes Vital Signs & Weight: Vital Signs (12 hours) Temp Pulse Resp BP BP Pulse Ox 06/03/17 04:00 97.6 F 71 16 146/75 H 93 L 06/02/17 21:23 72 175/92 H 06/02/17 21:05 97.4 F L 72 16 175/92 H 97 Weight Admit Weight 83.659 kg Weight 83.659 kg I&O: 06/01/17 06/02/17 06/03/17 06:59 06:59 06:59 Intake Total 350 480 Balance 350 480 Result Diagrams: 05/30/17 02:30 05/31/17 05:39 EKG Reviewed by me: Yes Radiology Reviewed by me: Yes <Chica Prajapati - Last Filed: 06/03/17 09:11> - Objective Vital Signs & Weight: Vital Signs (12 hours) Temp Pulse Resp BP BP Pulse Ox 06/03/17 09:25 73 175/92 H 06/03/17 07:21 97.8 F 73 12 144/70 H 93 L 06/03/17 04:00 97.6 F 71 16 146/75 H 93 L Weight Admit Weight 83.659 kg Weight 83.659 kg I&O: 06/02/17 06/03/17 06/04/17 06:59 06:59 06:59 Intake Total 480 Balance 480 Result Diagrams: 06/03/17 09:30 05/31/17 05:39 <Fabrcie Tim - Last Filed: 06/03/17 10:13> Phys Exam - Physical Examination Constitutional: NAD HEENT: moist MMs Neck: supple Respiratory: no wheezing, clear to auscultation bilateral Cardiovascular: RRR systolic murmur Gastrointestinal: soft, positive bowel sounds no pulses palpable on left below femoral pulse Bandage around left cubital fossa Neurological: non-focal Psychiatric: A&O x 3 Skin: no rash, cap refill <2 seconds Deviation from normal: tunneled catheter in place on left <Chica Prajapati - Last Filed: 06/03/17 09:11> Dx/Plan (1) End stage renal disease on dialysis Code(s): N18.6 - END STAGE RENAL DISEASE; Z99.2 - DEPENDENCE ON RENAL DIALYSIS Status: Chronic (2) Dry gangrene Code(s): I96 - GANGRENE, NOT ELSEWHERE CLASSIFIED Status: Acute (3) H/O aortic valve replacement Code(s): Z95.2 - PRESENCE OF PROSTHETIC HEART VALVE Status: Chronic (4) Anemia of renal disease Code(s): D63.1 - ANEMIA IN CHRONIC KIDNEY DISEASE Status: Chronic (5) CAD (coronary artery disease) Code(s): I25.10 - ATHSCL HEART DISEASE OF [place] CORONARY ARTERY W/O ANG PCTRS Status: Chronic (6) Diabetes type 2, controlled Code(s): E11.9 - TYPE 2 DIABETES MELLITUS WITHOUT COMPLICATIONS Status: Chronic QualifierTitle: Diabetes mellitus complication status: with skin complications Diabetes mellitus complication detail: with foot ulcer Diabetes mellitus mcc insulin use: without termite control service representative use Qualified Code( s): E11.621 - Type 2 diabetes mellitus with foot ulcer; L97.509 - Non-pressure chronic ulcer of other part of unspecified foot with unspecified severity; L97.509 - Non-pressure chronic ulcer of other part of unspecified foot with unspecified severity; L97.509 - Non-pressure chronic ulcer of other part of unspecified foot with unspecified severity; L97.509 - Non-pressure chronic ulcer of other part of unspecified foot with unspecified severity (7) HLD (hyperlipidemia) Code(s): E78.5 - HYPERLIPIDEMIA, UNSPECIFIED Status: Chronic QualifierTitle: Hyperlipidemia type: unspecified Qualified Code(s): E78.5 - Hyperlipidemia, unspecified (8) HTN (hypertension) Code(s): I10 - ESSENTIAL (PRIMARY) HYPERTENSION Status: Chronic QualifierTitle: Hypertension type: essential hypertension Qualified Code( s): I10 - Essential (primary) hypertension - Plan Plan: 1. ESRD on HD T//Thu, lost dialysis access when port fell out on 05/30. -Temporary R Fem Trialysis Cath placed by Dr. Moya on 05/30 -Patient received dialysis on 05/30, but it was cut one hour short 05/29 N/V -Received dialysis yesterday 2/6 -Dr. Pickens has been consulted, appreciate recs -Will follow nephro recs for permanent dialysis access. The patient has a left arm fistula that Dr. Feldman placed on 07/09/16 that has never been approved for access due to patient's limited ability to get rides. -Consulted general surgery; appreciate recs -Plan for tunneled catheter and possible AV fistula; waiting on operative report 2. L great toe dry gangrene -Patient was seeing a director process engineering, but he recommended for her to see a surgeon/ vascular specialist -Pain control -CV surgery consulted; appreciate recs -TCOM studies pending -CV Sx recommends outpatient angiography 3. HTN -continue home meds -adjust BP medications -Increased dose of hydralazine for better control 4. DM2 -continue glipizide -Accuchecks ACHS 5. HLD -continue home meds 6. Anemia of CKD -stable, will monitor Dispo: Stable. Possible d/c home today if ok by surgery. <Chica Prajapati - Last Filed: 06/03/17 09:11> Attending Addendum - Attending Addendum I personally evaluated the patient and discussed the management with Dr. Prajapati I agree with the History, Examination, Assessment and Plan documented above with any addition or exceptions noted below. Pt had revision of fistula. We have increased her hydralazine to better control blood pressure. Will await recommendations form surgery prior to discharge, likely today. Follow up outpatient with CV surgery regarding dry gangrene. <Fabrice Tim - Last Filed: 06/03/17 10:13>
[2017-06-03] MEDS ORDERED: Docusate 100 MG CAP PO SCH (09:00)
[2017-06-03] MEDS ORDERED: Lisinopril 2.5 MG TAB PO SCH (09:00)
[2017-06-03] MEDS ORDERED: Polyethylene Glycol 3350 17 GM Packet PO SCH (09:00)
[2017-06-03] MEDS: Aspirin 81 mg Enteric Coated Tablet PO SCH (09:25)
[2017-06-03] MEDS: Carvedilol 6.25 MG TAB PO SCH ×2 (09:25→18:21)
[2017-06-03] MEDS: hydrALAZINE 25 MG TAB PO SCH ×2 (09:25→14:37)
[2017-06-03] MEDS: Sevelamer Carbonate 800 MG TAB PO SCH ×3 (09:25→18:21)
[2017-06-03] MEDS: Cinacalcet HCl 30 MG TAB PO SCH (09:26)
[2017-06-03] MEDS: Famotidine 20 MG TAB PO SCH (09:26)
[2017-06-03] MEDS: Heparin 5,000 UNITS/ML VIAL SC SCH ×2 (09:26→16:13)
[2017-06-03 09:41] LABS: #Basophils 0.1 thou/uL (0.0-0.2); #Eosinphils 0.4 thou/uL (0.0-0.7); #Lymphocytes 1.1 thou/uL (1.20-3.40); #Neutrophils 6.2 thou/uL (1.40-6.50); %Basophils 0.9 % (0.0-1.0); %Eosinophils 4.9 % (0.0-10.0); %Lymphocytes 12.1 % (21.0-51.0); %Monocytes 11.7 % (0.0-10.0); %Neutrophils 70.3 % (42.0-75.0); Hemoglobin 12.9 g/dL (12.0-16.0); Mean Corpuscular HGB CONC 33.3 g/dL (32.0-36.0); Mean Corpuscular Hemoglobin 33.8 pg (27.0-31.0); Mean Platelet Volume 9.3 fL (7.4-10.4); Platelet Count 139 thou/uL (130-400); RBC Distribution Width 15.3 % (11.5-14.5); Red Blood Cell (RBC) Count 3.82 mill/uL (4.20-5.40); White Blood Cell (WBC) Count 8.8 thou/uL (4.8-10.8)
[2017-06-03 10:25] LABS: Anion Gap 17 mmol/L (10-20); Carbon Dioxide 27 mmol/L (23-31); Chloride 97 mmol/L (98-107); Potassium 4.6 mmol/L (3.5-5.1); Sodium 136 mmol/L (136-145)
[2017-06-03 10:26] LABS: ALT (SGPT) 9 U/L (8-55); AST (SGOT) 18 U/L (5-34); Albumin 4.1 g/dL (3.4-4.8); Alkaline Phosphatase 76 U/L (40-150); BUN (Urea Nitrogen) 32 mg/dL (9.8-20.1); Bilirubin, Total 0.6 mg/dL (0.2-1.2); Calc. Creatinine Clearance 11 mL/min (70-130); Calcium 9.1 mg/dL (7.8-10.44); Estimated GFR-MDRD 7; Glucose 121 mg/dL (83-110); Protein, Total 8.1 g/dL (6.0-8.3)
--- NOTE | 2017-06-03 12:51 | PRG ---
Patient Name: COURT BAPTISTE Date of service: 06/03/2017 Subjective: Patient was seen and examined at bedside and overnight events noted. Patient denies any shortness of breath or chest pain or palpitation. No history of nausea or vomiting or diarrhea or fever or chills or cramps. Objective: General: This is a well-built female in no apparent distress. Vital signs: Temperature 97, pulse 70, respiratory rate 18, blood pressure 144/70. HEENT: Atraumatic, normocephalic. Oral mucosa is moist. Neck: Supple. Cardiovascular: S1 S2 heard. Rate and rhythm regular. Respiratory: Clear to auscultation Gastrointestinal: Abdomen is soft. Musculoskeletal: No tenderness. No edema. Dermatologic: No skin rash. Neurologic: Alert and awake and oriented X3. No focal neurologic deficits. Moving all the extremit ies. Psychiatric: Mood and affect normal. LABORATORY DATA: Potassium is 4.6, BUN 32, creatinine 5.8. ASSESSMENT AND PLAN: 1. End-stage renal disease. We continue on hemodialysis as tolerated. 2. Cirrhosis. 3. Hypertension, remove fluid. 4. Edema, controlled. 5. Anemia, continue with dialysis. Hemoglobin is stable. Will monitor. Plan is to continue on dialysis as tolerated.
[2017-06-03 13:29] VITALS: BMI 35.9
[2017-06-03] MEDS: traMADol HCl 50 MG TAB PO PRN (14:37)
[2017-06-03] MEDS ORDERED: Heparin 10,000 UNITS/ 10 ML VIAL ONE (16:04)
[2017-06-03] MEDS: Ondansetron HCl/PF 4 MG/2 ML Vial IVP PRN (18:16)
[2017-06-03 20:57] VITALS: BP 138/71; TEMP 97.9
--- NOTE | 2017-06-04 14:44 | DIS-2 ---
DATE OF ADMISSION: 05/30/2017 DATE OF DISCHARGE: 06/03/2017 ADMITTING ATTENDING: Dr. Last Davenport DISCHARGE ATTENDING: Dr. Fabrice Tim RESIDENT: Dr. Chica Prajapati PROCEDURES: 1. Placement of right femoral Trialysis, temporary dialysis catheter. 2. Vein mapping of upper extremities for dialysis access showed both subclavian veins and axillary veins are patent with normal flow seen on spectral analysis. 3. Tunneled catheter was placed along with AV graft on the left. PRIMARY DIAGNOSES: 1. End-stage renal disease on hemodialysis, status post accidental removal of the port. 2. Dry gangrene on the left great toe. 3. Diastolic congestive heart failure. SECONDARY DIAGNOSES: 1. Chronic anemia, likely secondary to end-stage renal disease. 2. Hyperlipidemia. 3. History of aortic valve replacement. DISCHARGE MEDICATIONS: 1. Atorvastatin 40 mg oral at bedtime. 2. Senna Calcite HCL or Sensipar 30 mg oral every morning with breakfast. 3. Hydralazine 75 mg oral 3 times daily. 4. Sevelamer carbonate 1600 mg oral 3 times daily with meals. 5. Tramadol 50 mg oral q.12 hours as needed. 6. Gabapentin 1 tablet oral twice daily. 7. Insulin Glargine 10 units subcu at bedtime. 8. Carvedilol 6.25 mg oral twice daily with meals. 9. Pantoprazole 40 mg oral daily. 10. Glipizide 5 mg oral daily. 11. Aspirin 325 mg oral daily. DISCONTINUED MEDICATIONS: Hydralazine 50 mg oral 3 times daily changed to 75 mg TID. HISTORY OF PRESENT ILLNESS AND HOSPITAL COURSE: This is a 76-year-old female that presented after having her dialysis port fall out during sleep. She states that she did not recall how it occurred, but noted that she rolled over and felt something wet. She states that she receives dialysis on Thursday, , and Thursday and has not missed any recent appointments. She denies any complaints at this time. Also, she was noted to have a black great toe on her left foot. She states that pain has been in her foot at times because of that as well. This has been present for approximately 1 year; however, she has been told in the past that she needs to have this evaluated via vascular studies , but she has had trouble with transportation and has not been able to get this done. She has seen a maintenance and engineering manager and the maintenance and engineering manager is the one that recommended a vascular surgeon consultation to manage her toe. She had no other complaints at admission. The patient remained stable throughout the course of her hospital stay. Dr. Feldman was consulted as this is the surgeon who performed the AV fistula on the basilic outflow on the left; however, the patient never came back to have it transposed to use as a permanent access site. Dr. Feldman opted to place a tunneled catheter for dialysis as well as an AV fistula on the left for permanent access. Of note, the patient had multiple fistula placements and transpositions on the right side and has undergone multiple angioplasties and stenting. The patient did well status post procedures. Her hemoglobin remained stable at 12.9. The patient did not experience any complications. She received hemodialysis on her scheduled appointment days and was followed closely by Nephrology. There was some difficulty controlling the patient's blood pressure. This was initially thought to be due to the fact that during dialysis session they had to cut it short due to nausea and vomiting and thus they were not able to get off the intended amount of fluid. Blood pressures remained high even after a second dialysis session thus her hydralazine was increased from 50 mg t.i.d. to 75 mg t.i.d. in an effort to lower her blood pressure. The patient did well throughout the course of her hospital stay until a catheter was placed and AV fistula graft was performed on the left upper extremity as indicated previously. The patient is to return in approximately [address] Feldman to reassess AV fistula site. DISPOSITION: Stable. DISCHARGE INSTRUCTIONS: 1. Location: Home. 2. Activity: As tolerated. 3. Diet: Diabetic diet, heart healthy diet, low sodium diet. 4. Followup: The patient is to follow up with primary care physician within 7 days from discharge to ensure that everything is being followed appropriately. Additionally, the patient is to follow up with Dr. Feldman in 2-3 weeks to have the fistula site reassessed. [facility]
--- NOTE | 2017-06-04 14:44 | OP ---
DATE OF PROCEDURE: 06/02/2017 PROCEDURE PERFORMED: Placement of left IJ tunneled hemodialysis catheter and left brachial artery to axillary vein AV graft on 06/12/2017. PREOPERATIVE DIAGNOSIS: End-stage renal failure. POSTOPERATIVE DIAGNOSIS: End-stage renal failure. HISTORY: Ms. Moyer is a 76-year-old woman with end-stage renal failure. She has had multiple access procedures on the right upper extremity and a previous attempted fistula on the left, which thrombosed. She inadvertently pulled out her tunneled hemodialysis catheter and requires placement of a tunneled hemodialysis catheter. Recommendation was made to perform a left AV graft under the same anesthesia for long-term access. The patient was agreeable to this. She did not have any adequate appearing veins on preoperative vein mapping on the left and prefers not to have a procedure on the right. She has peripheral vascular disease and pulses at the wrist are somewhat difficult to palpate, although Nabil testing was normal. She does have an upper arm cephalic on the left, which looks like it could potentially be usable and if this is adequate, then fistula would be performed; however, the patient was told that she would likely need to have the graft. PROCEDURE IN DETAIL: After informed consent was obtained and appropriate preoperative antibiotics administered, the patient was taken to the operating room where she was placed in supine position and anesthesia was administered. She was prepped and draped in the standard sterile fashion and the patent compressible right IJ vein identified by ultrasound. Local anesthesia was infused and the vein was accessed, but the wire would not thread pass the clavicle. On ultrasound, the vein appeared to get smaller in this area and was felt that she likely had a stricture or stenosis. Decision was made to place the catheter on the left side. The patent compressible left IJ vein was identified. Local anesthesia was infused to the skin and subcutaneous tissues overlying this and the vein was accessed under direct ultrasound guidance with excellent flow of dark venous non-pulsatile blood. A wire threaded and was confirmed to be in the superior vena cava by fluoroscopy. Local anesthesia was infused to the skin and subcutaneous tissues overlying the left neck and chest and incisions made at the IJ access site and the infraclavicular area. A left IJ tunneled hemodialysis catheter was brought up from the infraclavicular wound to the IJ access site. The vein was sequentially dilated over the wire and a dilator and sheath placed over the wire following which the dilator and wire were removed leaving the sheath in place. The catheter was tunneled through the sheath, which was split and removed leaving the catheter in place. This was confirmed to be in good position and superior vena cava without kinking or twisting of the course of the catheter. Both ports easily aspirated dark venous nonpulsatile blood and easily flushed without resistance. Heparin was instilled to the quantity specified on the hub and the ports were clamped and capped. The left IJ access site was closed in layers with 4-0 Monocryl suture and Dermabond applied. The skin was snugged up around the catheter at the exit site and Dermabond applied there as well. The hub was secured to the skin with nylon sutures. Once the Dermabond was dry, a Biopatch and Tegaderm dressing was placed and attention was turned to the left AV fistula. The left arm was prepped and draped in standard sterile fashion and anesthesia at the antecubital area was confirmed. An incision was made between the antecubital vein and the palpable brachial pulse and dissection carried down to the antecubital vein. The cephalic vein appeared to be adequate in caliber and quality and was dissected free, ligated and spatulated; however, a dilator would not pass through the vein at the antecubital level and was felt that the vein above this level would not reach over to the artery; therefore, this was ligated. The basilic vein was also stenotic at the antecubital level, so the decision was made to place a graft. An incision was made in the axillary area and dissection carried down to the axillary vein, which was of good caliber and quality. A 12 mm Liz-Wick tunneler was brought up from the antecubital to the axillary position and the 12 mm tip replaced with a 6 mm tip. A tapered PTFE graft was then attached to the Liz-Wick tunneler and brought down to the antecubital incision. Dissection was carried out to the brachial artery, which was of good caliber and quality to support a graft. The radial and ulnar branches were identified and vessel loops placed around all three branches. 4000 units of heparin were administered and allowed to circulate for 3 minutes following which the artery was clamped. An anterior arteriotomy was created and extended with Boone scissors and a 6 mm Prolene suture used to create an end -to-side anastomosis to the tapered portion of the PTFE graft with excellent technical results. The inflow was released and no bleeding seen from the anastomosis. The graft was clamped and flow restored through the distal arteries. The graft was then irrigated with heparinized saline and attention turned to the venous anastomosis. Vessel loops were used to occlude the vein proximally and distally. An anterior arteriotomy was created and extended with Boone scissors and an end-to-side anastomosis was created with a running 6-0 Prolene suture with excellent technical result. Prior to tying down the anastomosis, the inflow was released to flush the graft following which flow was established through the vein. Both anastomoses had excellent hemostasis with some minor oozing through the needle holes, which sealed quickly. The wounds were irrigated and hemostasis verified. The heparin was reversed and excellent flow through the graft was verified by Doppler and by palpation of the axillary vein. Surgicel was placed to the incisions and also into the tunnel around the graft. Skin incisions were closed with a running 3-0 subcutaneous suture and running 4-0 subcuticular Monocryl suture. Dermabond dressings were placed and once the Dermabond was dry an Rodrigo wrap was placed to the upper arm, the patient was taken to the recovery room in good condition. Estimated blood loss was minimal. There were no complications. There were no specimens. ELAINE
== END 2017-06-03 20:30 | disposition home or self-care (01) | DRG 264 ==
LOC: ERS 01:22 → SJJU 07:12 → OBSVTOIN 07:33
PROVIDERS: ADMIT Student in an Organized Health Care Education/Training Program; ATTEND Student in an Organized Health Care Education/Training Program
PROC: 5A1D70Z Performance of Urinary Filtration, Intermittent, Less than 6 Hours Per Day (ICD-10-PCS; principal; 2017-05-30)
PROC: 06HY33Z Insertion of Infusion Device into Lower Vein, Percutaneous Approach (ICD-10-PCS; 2017-05-30)
PROC: B54PZZZ Ultrasonography of Bilateral Upper Extremity Veins (ICD-10-PCS; 2017-06-01)
PROC: 5A1D70Z Performance of Urinary Filtration, Intermittent, Less than 6 Hours Per Day (ICD-10-PCS; 2017-06-02)
PROC: 03180JD Bypass Left Brachial Artery to Upper Arm Vein with Synthetic Substitute, Open Approach (ICD-10-PCS; 2017-06-02)
PROC: 02HV33Z Insertion of Infusion Device into Superior Vena Cava, Percutaneous Approach (ICD-10-PCS; 2017-06-02)
DX: T82.42XA Displacement of vascular dialysis catheter, initial encounter (principal); I13.2 Hypertensive heart and chronic kidney disease with heart failure and with stage 5 chronic kidney disease, or end stage renal disease; I96 Gangrene, not elsewhere classified; N18.6 End stage renal disease; E11.22 Type 2 diabetes mellitus with diabetic chronic kidney disease; I50.32 Chronic diastolic (congestive) heart failure; E11.52 Type 2 diabetes mellitus with diabetic peripheral angiopathy with gangrene; E78.5 Hyperlipidemia, unspecified; K21.9 Gastro-esophageal reflux disease without esophagitis; I25.10 Atherosclerotic heart disease of native coronary artery without angina pectoris; D63.1 Anemia in chronic kidney disease; Z99.2 Dependence on renal dialysis; Z88.1 Allergy status to other antibiotic agents; Z88.5 Allergy status to narcotic agent; Z88.0 Allergy status to penicillin; Z88.2 Allergy status to sulfonamides; Z79.84 Long term (current) use of oral hypoglycemic drugs; Z79.82 Long term (current) use of aspirin; Z79.899 Other long term (current) drug therapy; Z95.2 Presence of prosthetic heart valve; Z95.1 Presence of aortocoronary bypass graft; Y83.8 Other surgical procedures as the cause of abnormal reaction of the patient, or of later complication, without mention of misadventure at the time of the procedure
CPT/HCPCS: 36415; 36416; 71045; 80048; 80053; 80061; 85025; 87340; 90935; 93970; 96374; 96375; A4216; A4353; C1752; C1769; G0257; G0365; J0360; J1642; J1644; J2001; J2250; J2270; J2405; J2550; J2704; J2720; J3010; L8670; Q0162

== ENCOUNTER 2017-07-24 12:34 | Inpatient (IN) | payer MEDICARE ==
[~2017-07-24 12:34] MED LIST: Heparin 1,000 UNITS/ML VIAL ONE; ISOVUE-370 76%-LOCM 1 ML ONE
--- NOTE | 2017-07-24 13:17 | RAD ---
CHEST 1 VIEW: HISTORY: Chest pain. COMPARISON: Chest radiograph 06/02/17. FINDINGS: Dialysis catheter tip extends to the brachiocephalic confluence. Mild pulmonary venous congestion an d early edema. There is a small left effusion. Cardiac silhouette is similar. Aortic valve replace ment is present. IMPRESSION: Findings suggesting mild volume overload. POS: [facility]
[2017-07-24 13:18] LABS: #Basophils 0.1 thou/uL (0.0-0.2); #Eosinphils 0.3 thou/uL (0.0-0.7); #Lymphocytes 0.9 thou/uL (1.20-3.40); #Monocytes 0.5 thou/uL (0.11-0.59); #Neutrophils 4.8 thou/uL (1.40-6.50); %Eosinophils 3.9 % (0.0-10.0); %Lymphocytes 14.2 % (21.0-51.0); %Monocytes 7.9 % (0.0-10.0); Hemoglobin 12.1 g/dL (12.0-16.0); Mean Corpuscular HGB CONC 32.4 g/dL (32.0-36.0); Mean Corpuscular Hemoglobin 33.8 pg (27.0-31.0); Mean Platelet Volume 10.4 fL (7.4-10.4); Platelet Count 134 thou/uL (130-400); RBC Distribution Width 14.7 % (11.5-14.5); Red Blood Cell (RBC) Count 3.58 mill/uL (4.20-5.40); White Blood Cell (WBC) Count 6.6 thou/uL (4.8-10.8)
[2017-07-24 13:44] LABS: CKMB 0.8 ng/mL (0-6.6); Troponin I Less than 0.010 ng/mL (< 0.028)
[2017-07-24 13:49] LABS: ALT (SGPT) 20 U/L (8-55); AST (SGOT) 31 U/L (5-34); Alkaline Phosphatase 95 U/L (40-150); Anion Gap 22 mmol/L (10-20); BUN (Urea Nitrogen) 109 mg/dL (9.8-20.1); Bilirubin, Total 0.6 mg/dL (0.2-1.2); CK (CPK) 30 U/L (29-168); Calc. Creatinine Clearance 0 mL/min (70-130); Calcium 9.2 mg/dL (7.8-10.44); Carbon Dioxide 19 mmol/L (23-31); Chloride 103 mmol/L (98-107); Estimated GFR-MDRD 4; Globulin 4.1 g/dL (2.4-3.5); Glucose 77 mg/dL (83-110); Lipase 32 U/L (8-78); Magnesium 2.8 mg/dL (1.6-2.6); Potassium 5.9 mmol/L (3.5-5.1); Protein, Total 8.1 g/dL (6.0-8.3); Sodium 138 mmol/L (136-145)
--- NOTE | 2017-07-24 14:14 | RAD ---
LEFT TOES 3 VIEWS: HISTORY: Pain. COMPARISON: None. FINDINGS: There are severe vascular calcifications. Bones are osteopenic. Soft tissue ulcer in the tip of the great toe distal phalanx with underling cortical erosions. Os perineum is present. IMPRESSION: Soft tissue ulcer of the distal phalanx of the great toe with underlying osseous erosion of the tuft. This is suggestive of osteomyelitis. POS: [facility]
[2017-07-24] MEDS ORDERED: Calcium Chloride 1 GM/10 ML Abboject SYRINGE ONE ×2 (14:53→14:55)
[2017-07-24] MEDS ORDERED: Insulin Regular 300 UNITS/3 ML VIAL ONE (14:53)
[2017-07-24] MEDS ORDERED: Dextrose 50% Abboject 50 ML SYRINGE ONE (14:53)
[2017-07-24] MEDS ORDERED: Vancomycin HCl 1 GM in Premix Bag 1 BAG IVPB SCH ×2 (15:45→16:00)
[2017-07-24] MEDS ORDERED: Nitroglycerin 0.4 MG TAB (25 Tab Bottle) PO PRN (15:50)
[2017-07-24] MEDS ORDERED: Acetaminophen 650 MG Suppository PR PRN (15:50)
[2017-07-24] MEDS ORDERED: HOLD VANCOMYCIN FOR LEVEL >20 FS SCH (16:00)
[2017-07-24] MEDS ORDERED: Vancomycin HCl 750 MG in Sodium Chloride 0.9% 250 ML 250 ML IVPB SCH (16:00)
[2017-07-24] MEDS ORDERED: Vancomycin Sliding Scale 1 EACH FS ONE (16:00)
[2017-07-24] MEDS ORDERED: Vancomycin HCl 1.25 GM in Sodium Chloride 0.9% 250 ML 250 ML IVPB SCH (16:00)
--- NOTE | 2017-07-24 16:23 | ULT ---
ULTRASOUND VENOUS DOPPLER LEFT UPPER EXTREMITY 07/24/17 HISTORY: Pain and swelling of the fistula graft. COMPARISON: None. TECHNIQUE: Real time shaver scale color doppler and spectral analysis as well as augmentation and compression left upper extremity venous system is performed. There is inability to compress the left internal jugular vein, although there was flow within it, alb eit diminished with velocity less than 20 cm/s. The left internal jugular vein is small. There is thrombosis of the subclavian vein. There is a large thrombus at the graft insertion of the a xillary vein which is incompletely occlusive. Abnormal soft tissue edema throughout the left upper extremity. The graft itself is patent. Graft velocities proximally are 170 cm/s. Mid graft velocity is 141 cm/s and distal graft velocity is approximately 150 cm/s. IMPRESSION: 1. Noncompressible left internal jugular vein with slow flow and narrowing suggesting stenosis. 2. Thrombosis left subclavian vein. 3. Thrombus of the graft insertion left axillary vein incompletely occlusive. POS: [facility]
--- NOTE | 2017-07-24 16:23 | RAD ---
LEFT HUMERUS 2 VIEWS: HISTORY: Chest pressure. Arm pain. COMPARISON: None. FINDINGS: There is extensive swelling of the arm. Graft is noted over the left axilla. Advanced degenerative disease of the glenohumeral and acromioclavicular joints with distal clavicular osteolysis. IMPRESSION: Severe soft tissue swelling. POS: [facility]
--- NOTE | 2017-07-24 17:04 | PDOC.EVN ---
Event Note - Event Note Event Note: Discussed with pt re: DVT. Discussed benefits vs. risks of anticoagulation, including risks of potentially fatal bleeding. After discussion pt made an informed decision to proceed with anticoagulation. Will start pt on heparin drip for now, in case pt needs any surgical procedures in the next few days. ER physician is also ordering a CTA to r/o PE.
[2017-07-24 17:34] LABS: HBSAg Index 0.22 S/CO (0-0.99); Hep B Surf Ag Non-Reactive S/CO (NonReactive)
[2017-07-24 17:47] LABS: Hemoglobin 12.6 g/dL (12.0-16.0); Platelet Count 110 thou/uL (130-400)
--- NOTE | 2017-07-24 18:01 | HP ---
PRIMARY CARE PROVIDER: Kerri Lira MD CHIEF COMPLAINT: Chest discomfort. HISTORY OF PRESENT ILLNESS: Ms. Moyer is a pleasant 76-year-old lady who was seen at [facility] on 07/24/2017. She reports that she was sitting in her recliner chair earlier today. She usually sleeps in the recliner chair. This is because of shortness of breath with lying down. She woke up this morning with chest tightness. She describes it as a sensation of tightness, nonradiating, accompanied by shortness of breath, but not accompanied by nausea, vomiting or lightheadedness. No known aggravating or relieving factors, lasted a few hours until she came to the emergency room. She also reports that she has gangrene of her left great toe. She was supposed to see the vascular surgeon yesterday as outpatient. Therefore, she missed her hemodialysis. However, she also did not make it to the vascular surgeon's office. She reports that her cloth winder is Dr. Newsome. Currently, the patient does not have any chest pain. REVIEW OF SYSTEMS: The following complete review of systems was negative, unless otherwise mentioned in the HPI or below: Constitutional: Weight loss or gain, ability to conduct usual activities. Skin: Rash, itching. Eyes: Double vision, pain. ENT/Mouth: Nose bleeding, neck stiffness, pain, tenderness. Cardiovascular: Palpitations, dyspnea on exertion, orthopnea. Respiratory: Shortness of breath, wheezing, cough, hemoptysis, fever or night sweats. Gastrointestinal: Poor appetite, abdominal pain, heartburn, nausea, vomiting, constipation, or diarrhea. Genitourinary: Urgency, frequency, dysuria, nocturia. Musculoskeletal: Pain, swelling. Neurologic/Psychiatric: Anxiety, depression. Allergy/Immunologic: Skin rash, bleeding tendency. PAST MEDICAL HISTORY: Significant for diabetes mellitus type 2; dyslipidemia; hypertension; end-stage renal disease, on hemodialysis; and diastolic congestive heart failure. PAST SURGICAL HISTORY: Significant for heart valve replacement and triple bypass, hysterectomy, dialysis fistula placement, hernia repair, left shoulder surgery, dialysis port fell out in 05/2017 and she was hospitalized at this facility and underwent placement of right femoral Trialysis temporary dialysis catheter, placement of tunneled catheters along with AV graft on the left side. FAMILY HISTORY: No family history of premature coronary artery disease. ALLERGIES: BACTRIM, CIPRO, CODEINE, PENICILLIN, and SULFA. CURRENT MEDICATIONS: Include carvedilol 6.25 mg 2 times a day, hydralazine 50 mg 3 times a day, pantoprazole 40 mg daily, glipizide 10 mg daily, Renvela 1600 mg t.i.d., Lyrica 75 mg daily, trazodone 150 mg daily, and escitalopram 10 mg daily. SOCIAL HISTORY: The patient denies tobacco use, alcohol use or recreational drug use. She lives with her daughter. CODE STATUS: I discussed her code status. She is FULL CODE. Her daughter is the substitute decision maker. PHYSICAL EXAMINATION: GENERAL: Ms. Moyer is awake and alert, not in acute distress. VITAL SIGNS: Pulse is 61, respiratory rate is 17. She is afebrile. She is saturating 94% on room air. Blood pressure is 177/56. EYES: No scleral icterus. No conjunctival pallor. ENT: Moist mucosal membranes, no oropharyngeal erythema or exudates. NECK: Supple, nontender, normal range of movement, trachea is midline. RESPIRATORY: Accessory muscles of breathing are not active. Chest wall movements are symmetric bilaterally. Lung exam reveals a few bibasilar crackles. CARDIOVASCULAR: S1 and S2 are heard, regular. LUNGS: Peripheral pulses palpable. No carotid bruit, no pericardial rub. ABDOMEN: Soft, nontender, bowel sounds heard, no hepatomegaly, no splenomegaly. NEUROLOGIC: Cranial nerves II-XII intact. Deep tendon reflexes are 2+. MUSCULOSKELETAL: Power is 5/5 in all four extremities. She has edema of the left upper extremity, worse in the left upper arm. SKIN: The patient has gangrene over the tip of her left great toe. Otherwise, no rashes or subcutaneous nodules. LYMPHATIC: No cervical lymphadenopathy. PSYCHIATRIC: Normal mood, normal affect. The patient is oriented to person, place, and time. LABORATORY DATA: Mr. Moyer's labs and investigations were reviewed. I reviewed her electrocardiogram, which shows normal sinus rhythm, no ST changes to suggest an acute coronary syndrome. I also reviewed her chest x-ray, which shows pulmonary venous congestion. She also had x-rays of the left great toe, which showed soft tissue ulcer of the distal phalanx of the great toe with underlying osseous erosion of the tuft, suggestive of osteomyelitis. She also had ultrasound of the left upper extremity, which showed noncompressible left IJV with small amount of fluid and narrowing suggesting stenosis, thrombosis of left subclavian vein and thrombosis of the graft insertion of left axillary vein and completely occlusive. She also had x-rays of the left humerus, which showed soft tissue swelling. She has a normal white count, normal hemoglobin, normal platelet count, normal sodium, elevated potassium of 5.9, elevated blood urea nitrogen of 109, elevated creatinine of 10.24, elevated magnesium of 2.8, unremarkable liver profile, normal lipase, elevated BNP of 847 and troponin I that is negative x2. ASSESSMENT AND PLAN: Ms. Herrera is a pleasant 76-year-old lady who was seen at [facility] on 07/24/2017. Her problem list includes: 1. Chest pain: Ms. Moyer will be admitted to the hospital for further workup including telemetry monitoring and a stress test. We will continue her home medications for now. She is currently free of chest pain. We will administer nitrates as needed. 2. Deep vein thrombosis: ER physician is discussing her case with general surgeon for help with management, given her recent AV fistula. The patient will likely need to be started on heparin drip and transitioned to warfarin. 3. Toe gangrene: We will continue her on intravenous vancomycin for now. We will consult Vascular Surgery once acute cardiac issues including chest pain, resolved. 4. Diabetes mellitus. Resume home medications, start Accu-Cheks and insulin sliding scale. 5. Hypertension: Monitor vital signs, titrate antihypertensives as needed. 6. Volume overload: I discussed her case with her director of home care hospice for hemodialysis. 7. End-stage renal disease: Dialysis per Nephrology Service. Many thanks for allowing me to participate in your patient's care. Please feel free to contact me with any questions or concerns. LEVEL OF RISK: High. LEVEL OF COMPLEXITY: High. MTDD
--- NOTE | 2017-07-24 18:21 | CON ---
DATE OF CONSULTATION: 07/24/2017 NEPHROLOGY CONSULT REASON FOR CONSULTATION: Hyperkalemia as well as metabolic acidosis and uremia. HISTORY OF PRESENT ILLNESS: This is a very pleasant 76-year-old female with a history of end-stage r enal disease on hemodialysis Thursday, , and Thursday, presented to the hospital after missing dialysis and yesterday was noted to have severe metabolic acidosis as well as hyperkalemia and we we re consulted. The patient at this time denies any nausea or vomiting, but has dyspnea on minimal exe rtion. The patient denies any fever, chills, headache, numbness, tingling or weakness. The patient states she is taking her blood pressure medications regularly. PAST MEDICAL HISTORY: Significant for end-stage renal disease, hypertension, diabetes mellitus, mckinley nary artery disease, history of CABG, history of aortic valve replacement, hysterectomy, right fistul a repair, hernia repair, cholecystectomy, and history of thrombosis. HOME MEDICATIONS: List reviewed. HOSPITAL MEDICATIONS: Reviewed. ALLERGIES: Reviewed. SOCIAL HISTORY: No alcohol or drug use. FAMILY HISTORY: Negative for ESRD. REVIEW OF SYSTEMS: A 15-point review of systems was performed and negative except positives noted ab ove. General: Weakness-. Head: Headache-. Neck: No swelling or lumps. Nose: No epistaxis or d ischarge. Eyes: No diplopia or pain. Respiratory: Dyspnea-. Cardiovascular: Chest pain-. Gastr ointestinal: Nausea-. Genitourinary/Gynecology: Hematuria-. Musculoskeletal: No joint pain. [place] ropsychiatric Systems: No suicidal ideation. No ideation. Skin: Denies any rash or ulcer. Consti tutional: No fever or chills. PHYSICAL EXAMINATION: GENERAL: Patient is awake, alert. VITAL SIGNS: Afebrile, pulse 75, breathing 16, blood pressure 130/70. GENERAL APPEARANCE AND MENTAL STATUS: Fair. HEAD/NECK: Normocephalic. Atraumatic. EYES: EOMI. No deformity. EARS: Clear. No ulcers. NOSE: Intact. No lesions. MOUTH: Clear. No discharge. THROAT: Clear. No exudate. LUNGS: Clear. No crackles. CARDIAC: S1, S2. No rub. ABDOMEN: Benign. BS+. GENITALIA/RECTUM: Allen absent. BACK/EXTREMITIES: Edema 0+ Ulcer- NEUROLOGICAL: Alert and motor intact. SKIN: Rash- Bruise- LYMPHATICS: Edema- Ulcer- LABORATORY DATA: Potassium 5.9, creatinine is 10.24, BUN 109. ASSESSMENT AND RECOMMENDATIONS: 1. Stage 6 chronic kidney disease. We will plan urgent hemodialysis. 3. Hyperkalemia. Plan dialysis. 4. Metabolic acidosis. Plan dialysis. 5. Uremia, plan dialysis. 6. Subclavian vein thrombosis. Management per primary team. 7. Uremia, plan dialysis, congestive heart failure. Plan dialysis.
[2017-07-24 19:47] LABS: Troponin I Less than 0.010 ng/mL (< 0.028)
[2017-07-24 20:29] LABS: Vancomycin, Random 19.5 ug/mL (See Comment)
[2017-07-24] MEDS ORDERED: Heparin 5,000 UNITS/ML VIAL SC SCH (21:00)
[2017-07-24] MEDS: Vancomycin HCl 500 MG in Sodium Chloride 0.9% 100 ML IVPB SCH (21:05)
[2017-07-24 23:05] LABS: INR-International Normal Ratio 1.1; Prothrombin Time 14.2 SEC (12.0-14.7)
[2017-07-24] MEDS: Heparin 10,000 UNITS/ 10 ML VIAL SLOW IVP SCH (23:12)
[2017-07-24] MEDS: Heparin 25,000 units/D5W 500 ML IVPB SCH (23:14)
--- NOTE | 2017-07-25 00:03 | CT ---
CTA OF THE THORAX UTILIZING IV CONTRAST AND 3D REFORMATTED IMAGING 07/24/17 INDICATION: Shortness of breath, upper chest pain. FINDINGS: No definite central or segmental pulmonary embolus is evident. Postprocedural changes of an aortic va lvular replacement and CABG. There is nonspecific ground glass opacity seen within the lingula, left lower lobe and right lower lobe which is nonspecific. Some subsegmental volume loss within the right middle lobe. No pleural effusion or pneumothorax is evident. There are gallstones within the gallbla dder. No definite acute osseous abnormality is evident. There is scattered degenerative and osteoarth ritic change. IMPRESSION: 1. No central or segmental pulmonary embolus demonstrated. 2. Nonspecific patchy areas of ground glass opacity within the lingula, left lower lobe and righ t lower lobe may reflect areas of subsegmental volume loss; however, early air space opacity from vol ume overload cannot be entirely excluded. An atypical infectious process also can produce a similar a ppearance. Would recommend correlation with the patient's clinical exam. 3. Postsurgical change of the chest consistent with aortic valvular replacement and coronary art katherine bypass graft. 4. Cholelithiasis. 5. Left IJ dialysis catheter projecting to the level of the SVC. POS: [facility]
[2017-07-25 05:39] LABS: #Basophils 0.1 thou/uL (0.0-0.2); #Eosinphils 0.2 thou/uL (0.0-0.7); #Lymphocytes 0.8 thou/uL (1.20-3.40); #Monocytes 0.5 thou/uL (0.11-0.59); #Neutrophils 3.2 thou/uL (1.40-6.50); %Basophils 1.1 % (0.0-1.0); %Eosinophils 4.6 % (0.0-10.0); %Lymphocytes 15.9 % (21.0-51.0); %Monocytes 11.3 % (0.0-10.0); Hemoglobin 10.5 g/dL (12.0-16.0); Mean Corpuscular HGB CONC 33.1 g/dL (32.0-36.0); Mean Corpuscular Hemoglobin 33.7 pg (27.0-31.0); Mean Platelet Volume 10.1 fL (7.4-10.4); Platelet Count 117 thou/uL (130-400); RBC Distribution Width 14.2 % (11.5-14.5); Red Blood Cell (RBC) Count 3.11 mill/uL (4.20-5.40); White Blood Cell (WBC) Count 4.8 thou/uL (4.8-10.8)
[2017-07-25 05:57] LABS: Anion Gap 13 mmol/L (10-20); BUN (Urea Nitrogen) 62 mg/dL (9.8-20.1); Calc. Creatinine Clearance 9 mL/min (70-130); Calcium 8.6 mg/dL (7.8-10.44); Carbon Dioxide 27 mmol/L (23-31); Chloride 101 mmol/L (98-107); Estimated GFR-MDRD 6; Glucose 99 mg/dL (83-110); Potassium 3.7 mmol/L (3.5-5.1); Sodium 137 mmol/L (136-145)
[2017-07-25 06:13] LABS: PTT Greater than 250.0 SEC (22.9-36.1)
[2017-07-25] MEDS ORDERED: Regadenoson 0.4 MG/5 ML SYRINGE ONE (07:24)
[2017-07-25] MEDS ORDERED: FLU VACC TS2017-18 (>65YR) 0.5 ML SYRINGE IM ONE (09:00)
[2017-07-25 10:18] LABS: Vancomycin, Trough 16.6 ug/mL
[2017-07-25] MEDS ORDERED: Heparin 1,000 UNITS/ML VIAL ONE (11:11)
--- NOTE | 2017-07-25 11:21 | PRG ---
DATE OF SERVICE: 07/25/2017 SUBJECTIVE: This is a 76-year-old female being seen for end-stage renal disease. The patient denies any nausea, vomiting or chest pain. PHYSICAL EXAMINATION: GENERAL: Patient is awake, alert. VITAL SIGNS: Afebrile, pulse 59, breathing 16, blood pressure 168/69. HEAD/NECK: Normocephalic. Atraumatic. EYES: EOMI. No deformity. EARS: Clear. No ulcers. NOSE: Intact. No lesions. MOUTH: Clear. No discharge. THROAT: Clear. No exudate. LUNGS: Clear. No crackles. CARDIAC: S1, S2. No rub. ABDOMEN: Benign. BS+. GENITALIA/RECTUM: Allen absent. BACK/EXTREMITIES: Edema 0+ Ulcer- NEUROLOGICAL: Alert and motor intact. SKIN: Rash- Bruise- LYMPHATICS: Edema- Ulcer- LABORATORY DATA: Show hemoglobin 10.5. ASSESSMENT AND PLAN: 1. Stage 6 chronic kidney disease. Continue hemodialysis. 2. Hypertension, stable. 3. Anemia, stable. 4. Medications based on glomerular filtration rate are appropriate.
[2017-07-25] MEDS: Vancomycin HCl 500 MG in Sodium Chloride 0.9% 100 ML IVPB SCH (12:27)
--- NOTE | 2017-07-25 16:07 | PDOC.PN ---
- Subjective Encounter Start Date: 07/25/17 Encounter Start Time: 16:01 Pt seen for followup re: chest pain. Reports chest pain better. No nausea, vomiting or diarrhea. - Objective Resuscitation Status: Resuscitation Status FULL:Full Resuscitation MAR Reviewed: Yes Vital Signs & Weight: Vital Signs (12 hours) Temp Pulse Resp BP Pulse Ox 07/25/17 08:00 97.9 F 61 18 158/71 H 100 07/25/17 05:32 92 L 07/25/17 04:30 97.7 F 57 L 20 168/69 H 92 L Weight Weight 181 lb 6.4 oz I&O: 07/24/17 07/25/17 07/26/17 06:59 06:59 06:59 Intake Total 1400 Balance 1400 Result Diagrams: 07/25/17 04:50 07/25/17 04:50 Additional Labs: Accuchecks 07/25/17 11:09 POC Glucose 79 EKG Reviewed by me: Yes (Tele: NSR) Phys Exam - Physical Examination Obese HEENT: PERRLA, moist MMs, sclera anicteric, oral pharynx no lesions Neck: no nodes, no JVD, supple, full ROM Respiratory: no wheezing, no rales, no rhonchi, clear to auscultation bilateral Cardiovascular: RRR, no rub Gastrointestinal: soft, positive bowel sounds LUE swelling Neurological: moves all 4 limbs Psychiatric: normal affect Deviation from normal: L great toe gangrene Dx/Plan (1) Chest pain Code(s): R07.9 - CHEST PAIN, UNSPECIFIED Status: Acute Comment: No PE on CTA chest. Pt to have stress test. Chest discomfort could be secondary to volume overload as well. (2) DVT (deep venous thrombosis) Code(s): I82.409 - ACUTE EMBOLISM AND THOMBOS UNSP DEEP VN UNSP LOWER EXTREMITY Status: Acute Comment: continue heparin drip, consult Dr. Feldman on Thursday (AV fistula). (3) Dry gangrene Code(s): I96 - GANGRENE, NOT ELSEWHERE CLASSIFIED Status: Acute Comment: continue IV antibiotics as below. Pt will need gen surg or vascular surg consult on Thursday. (4) Osteomyelitis Code(s): M86.9 - OSTEOMYELITIS, UNSPECIFIED Status: Acute Comment: L great toe. Continue antibiotics (5) Diabetes type 2, controlled Code(s): E11.9 - TYPE 2 DIABETES MELLITUS WITHOUT COMPLICATIONS Status: Chronic Qualifiers: Diabetes mellitus ferry terminal supervisor insulin use: without ferry terminal supervisor use Diabetes mellitus complication status: with skin complications Diabetes mellitus complication detail: with foot ulcer Qualified Code(s): E11.621 - Type 2 diabetes mellitus with foot ulcer; L97.509 - Non-pressure chronic ulcer of other part of unspecified foot with unspecified severity; L97.509 - Non- pressure chronic ulcer of other part of unspecified foot with unspecified severity; L97.509 - Non-pressure chronic ulcer of other part of unspecified foot with unspecified severity; L97.509 - Non-pressure chronic ulcer of other part of unspecified foot with unspecified severity Comment: continue accuchecks, insulin sliding scale (6) End stage renal disease on dialysis Code(s): N18.6 - END STAGE RENAL DISEASE; Z99.2 - DEPENDENCE ON RENAL DIALYSIS Status: Chronic Comment: Dialysis per nephrology service (7) H/O aortic valve replacement Code(s): Z95.2 - PRESENCE OF PROSTHETIC HEART VALVE Status: Chronic (8) HLD (hyperlipidemia) Code(s): E78.5 - HYPERLIPIDEMIA, UNSPECIFIED Status: Chronic Qualifiers: Hyperlipidemia type: unspecified Qualified Code(s): E78.5 - Hyperlipidemia , unspecified (9) HTN (hypertension) Code(s): I10 - ESSENTIAL (PRIMARY) HYPERTENSION Status: Chronic Qualifiers: Hypertension type: essential hypertension Qualified Code(s): I10 - Essential (primary) hypertension - Plan continue antibiotics * . Review of Systems - Review of Systems Constitutional: negative: fever, chills, sweats, weakness, malaise Respiratory: negative: Cough, Dry, Shortness of Breath, Hemoptysis, SOB with Excertion, Pleuritic Pain, Sputum, Wheezing Cardiovascular: chest pain. negative: palpitations, orthopnea, paroxysmal nocturnal dyspnea, edema, light headedness Gastrointestinal: negative: Nausea, Vomiting, Abdominal Pain, Diarrhea, Constipation, Melena, Hematochezia Genitourinary: negative: Dysuria, Frequency, Incontinence, Hematuria, Retention - Medications/Allergies Allergies/Adverse Reactions: Allergies Allergy/AdvReac Type Severity Reaction Status Date / Time ciprofloxacin [From Cipro] Allergy Intermediate Nausea Verified 07/24/17 20:22 Penicillins Allergy Intermediate Hives Verified 07/24/17 20:22 codeine [Codeine] Allergy Anxiety Verified 07/24/17 20:22 hydrocodone Allergy Nausea Verified 07/24/17 20:22 Sulfa (Sulfonamide Allergy Verified 07/24/17 20:22 Antibiotics) sulfamethoxazole Allergy Verified 07/24/17 20:22 [From Bactrim] trimethoprim [From Bactrim] Allergy Verified 07/24/17 20:22 Medications: Current Medications Acetaminophen (Tylenol) 650 mg PO Q4H PRN PRN Reason: Headache/Fever or Pain Acetaminophen (Tylenol) 650 mg [place] Q4H PRN PRN Reason: Headache/Fever or Pain Heparin Sodium (Porcine) (Heparin 1,000 Units/Ml (10 Ml)) 0 units SLOW IVP ASDIR [facility] PRN Reason: Protocol Last Admin: 07/24/17 23:12 Dose: 6,596 unit Vancomycin HCl 1.25 gm/ Sodium (Chloride) 250 mls @ 166.667 mls/hr IVPB WILLCALL [facility] Vancomycin HCl 1 gm/ Device 200 mls @ 200 mls/hr IVPB [facility] Vancomycin HCl 750 mg/ Sodium (Chloride) 250 mls @ 250 mls/hr IVPB [facility] Vancomycin HCl 500 mg/ Sodium (Chloride) 100 mls @ 100 mls/hr IVPB WILLCALL [facility] Last Admin: 07/25/17 12:27 Dose: 100 mls Heparin Sodium/Dextrose (Heparin 25,000 Units/D5w 500 Ml) 500 mls @ 0 mls/hr IVPB INF [facility]; Per Protocol PRN Reason: Protocol Last Admin: 07/24/17 23:14 Dose: 500 mls Miscellaneous Medication (Pharmacy To Dose) 1 each IVPB ONE PRN PRN Reason: Pharmacy to dose Stop: 08/23/17 15:47 Nitroglycerin (Nitrostat) 0.4 mg PO Q5MIN PRN PRN Reason: Chest Pain Hold Vancomycin For (Level >20) 0 each FS .AT DIALYSIS [facility]
[2017-07-25] MEDS ORDERED: traZODone HCl 150 MG TAB PO PRN (16:26)
[2017-07-25] MEDS ORDERED: traMADol HCl 50 MG TAB PO PRN (16:26)
[2017-07-25] MEDS ORDERED: Escitalopram Oxalate 10 mg Tablet PO PRN (16:26)
[2017-07-25] MEDS ORDERED: Carvedilol 6.25 MG TAB PO SCH (17:00)
[2017-07-25 17:23] LABS: PTT 161.1 SEC (22.9-36.1)
[2017-07-25] MEDS: Sevelamer Carbonate 800 MG TAB PO SCH (17:38)
--- NOTE | 2017-07-25 19:18 | NM ---
STRESS ONLY MYOCARDIAL PERFUSION EVALUATION: 07/25/17 INDICATION: Chest pain, coronary artery disease, CABG, ABR, CHF, hypertension, diabetes mellitus, dyslipidemia, p revious Cardiolite scan in 2015. IMPRESSION: No evidence to suggest myocardial ischemia on the stress only examination. There is normal wall motio n and thickening. Estimated LVEF is 82%. COMMENTS: No myocardial perfusion defect is evident. There was normal wall motion and thickening. LVEF is 82%. Not appreciably changed from the comparison. POS: [facility]
[2017-07-25] MEDS ORDERED: Non-Formulary Item 1 EACH (Insulin Glargine,Hum.Rec.Anlog 10 UNIT) SQ SCH (21:00)
[2017-07-25] MEDS: Insulin Detemir 100 UNITS/ML 10 UNITS in Pre-Filled Syringe SC SCH (21:02)
[2017-07-25] MEDS: hydrALAZINE 25 MG TAB PO SCH (21:06)
[2017-07-25] MEDS: Atorvastatin Calcium 40 MG TAB PO SCH (21:07)
[2017-07-25] MEDS ORDERED: Pregabalin 75 MG CAP PO SCH (21:15)
[2017-07-26] MEDS: Acetaminophen 325 MG TAB PO PRN (03:04)
[2017-07-26] MEDS: Heparin 25,000 units/D5W 500 ML IVPB SCH (03:04)
[2017-07-26] MEDS ORDERED: Mag-Al 1200 mg/1200 mg/30 ML UDCUP PO PRN (04:02)
[2017-07-26] MEDS: Ondansetron HCl/PF 4 MG/2 ML Vial SLOW IVP PRN ×2 (04:06→09:22)
[2017-07-26 05:58] LABS: #Basophils 0.1 thou/uL (0.0-0.2); #Eosinphils 0.2 thou/uL (0.0-0.7); #Lymphocytes 0.9 thou/uL (1.20-3.40); #Monocytes 0.6 thou/uL (0.11-0.59); #Neutrophils 3.7 thou/uL (1.40-6.50); %Basophils 0.9 % (0.0-1.0); %Eosinophils 3.3 % (0.0-10.0); %Lymphocytes 16.5 % (21.0-51.0); %Neutrophils 68.2 % (42.0-75.0); Hemoglobin 10.6 g/dL (12.0-16.0); Mean Corpuscular HGB CONC 32.9 g/dL (32.0-36.0); Mean Corpuscular Hemoglobin 33.4 pg (27.0-31.0); Mean Platelet Volume 9.3 fL (7.4-10.4); Platelet Count 105 thou/uL (130-400); RBC Distribution Width 14.3 % (11.5-14.5); Red Blood Cell (RBC) Count 3.17 mill/uL (4.20-5.40); White Blood Cell (WBC) Count 5.4 thou/uL (4.8-10.8)
[2017-07-26 06:18] LABS: Anion Gap 13 mmol/L (10-20); BUN (Urea Nitrogen) 35 mg/dL (9.8-20.1); Calc. Creatinine Clearance 13 mL/min (70-130); Calcium 8.4 mg/dL (7.8-10.44); Carbon Dioxide 26 mmol/L (23-31); Chloride 98 mmol/L (98-107); Estimated GFR-MDRD 9; Glucose 99 mg/dL (83-110); Potassium 4.1 mmol/L (3.5-5.1); Sodium 133 mmol/L (136-145)
[2017-07-26] MEDS ORDERED: Senokot 8.6 MG TAB PO PRN (07:54)
[2017-07-26] MEDS ORDERED: Calcium Carbonate 500 MG ChewTAB PO PRN (07:54)
[2017-07-26] MEDS ORDERED: Loperamide HCl 2 MG CAP PO PRN (07:54)
[2017-07-26] MEDS ORDERED: Ondansetron ODT 4 MG TAB PO PRN (07:54)
[2017-07-26] MEDS ORDERED: Artificial Tear Sol 15 ML BOT EA EYE PRN (07:54)
[2017-07-26] MEDS ORDERED: Zolpidem Tartrate 5 MG TAB PO PRN (07:54)
[2017-07-26] MEDS ORDERED: Chloraseptic Spray 180 ml Bottle PO PRN (07:54)
[2017-07-26] MEDS ORDERED: Milk Of Magnesia 30 ML UDCUP PO PRN (07:54)
[2017-07-26] MEDS ORDERED: Diabetic Tussin 200 MG/10 ML UDCUP PO PRN (07:54)
[2017-07-26] MEDS ORDERED: Eucerin (Mineral Oil/Petrolatum,White) 30 gm Jar TOP PRN (07:54)
[2017-07-26] MEDS ORDERED: Loratadine 10 MG TAB PO PRN (07:54)
[2017-07-26] MEDS ORDERED: Sodium Chloride 0.65% Nasal 44 ML BOT EA NARE PRN (07:54)
[2017-07-26] MEDS: Cinacalcet HCl 30 MG TAB PO SCH (08:48)
[2017-07-26] MEDS: Aspirin 325 MG TAB PO SCH (08:48)
[2017-07-26] MEDS: hydrALAZINE 25 MG TAB PO SCH ×3 (08:49→20:33)
[2017-07-26] MEDS: Sevelamer Carbonate 800 MG TAB PO SCH ×3 (08:49→17:59)
--- NOTE | 2017-07-26 11:17 | PRG ---
DATE OF SERVICE: 07/26/2017 SUBJECTIVE: This is a 76-year-old female being seen for end-stage renal disease. The patient denies any nausea, vomiting, or chest pain. OBJECTIVE: GENERAL: Patient is awake, alert. VITAL SIGNS: Afebrile, pulse 60, breathing 16, blood pressure 139/85. GENERAL APPEARANCE AND MENTAL STATUS: Fair. HEAD/NECK: Normocephalic. Atraumatic. EYES: EOMI. No deformity. EARS: Clear. No ulcers. NOSE: Intact. No lesions. MOUTH: Clear. No discharge. THROAT: Clear. No exudate. LUNGS: Clear. No crackles. CARDIAC: S1, S2. No rub. ABDOMEN: Benign. BS+. GENITALIA/RECTUM: Allen absent. BACK/EXTREMITIES: Edema 0+ Ulcer- NEUROLOGICAL: Alert and motor intact. SKIN: Rash- Bruise- LYMPHATICS: Edema- Ulcer- LABORATORY: Hemoglobin 10.6. IMPRESSION AND RECOMMENDATIONS: 1. CKD Stage 6 to chronic kidney disease, continue hemodialysis. 2. Hypertension, stable. 3. Medications based on glomerular filtration rate are appropriate. 4. Anemia stable. MTDD
--- NOTE | 2017-07-26 11:33 | PDOC.PN ---
- Subjective Encounter Start Date: 07/26/17 Encounter Start Time: 08:20 -: old records requested/rev Patient seen and examined. today she is not feeling good, has nausea and vomiting. No overnight events pt required new IV, she is found with yellowish drainage underneath of her HD dressing site - Objective Resuscitation Status: Resuscitation Status FULL:Full Resuscitation MAR Reviewed: Yes Vital Signs & Weight: Vital Signs (12 hours) Temp Pulse Resp BP BP Pulse Ox 07/26/17 10:34 139/85 07/26/17 09:11 97.7 F 60 16 94 L 07/26/17 08:49 60 147/64 H 07/26/17 08:17 97.7 F 60 16 147/64 H 94 L 07/26/17 04:13 98.1 F 55 L 14 173/80 H 94 L 07/26/17 02:36 96 Weight Weight 184 lb 6.4 oz I&O: 07/25/17 07/26/17 07/27/17 06:59 06:59 06:59 Intake Total 0 960 Output Total 1400 Balance -1400 960 Result Diagrams: 07/26/17 05:07 07/26/17 05:07 Additional Labs: Accuchecks 07/26/17 07/26/17 07/26/17 10:57 05:45 04:22 POC Glucose 163 H 108 101 07/25/17 07/25/17 07/25/17 20:42 16:44 05:50 POC Glucose 151 H 102 88 EKG Reviewed by me: Yes Phys Exam - Physical Examination Constitutional: NAD HEENT: PERRLA, moist MMs, sclera anicteric Neck: no JVD, supple HD tunneled catheter with mild erythema Respiratory: no wheezing, no rales, no rhonchi Cardiovascular: RRR, no significant murmur, no rub Gastrointestinal: soft, non-tender, no distention, positive bowel sounds Musculoskeletal: no edema, pulses present Neurological: non-focal, normal sensation, moves all 4 limbs Lymphatic: no nodes Psychiatric: normal affect, A&O x 3 Skin: no rash, normal turgor Dx/Plan (1) Chest pain Code(s): R07.9 - CHEST PAIN, UNSPECIFIED Status: Acute Comment: ruled out ACS (2) Left subclavian vein thrombosis Code(s): I82.B12 - ACUTE EMBOLISM AND THROMBOSIS OF LEFT SUBCLAVIAN VEIN Status: Acute Comment: on heparin drip (3) Osteomyelitis of toe of left foot Code(s): M86.9 - OSTEOMYELITIS, UNSPECIFIED Status: Acute Comment: will consult ID today (4) Anemia of renal disease Code(s): D63.1 - ANEMIA IN CHRONIC KIDNEY DISEASE Status: Chronic (5) CAD (coronary artery disease) Code(s): I25.10 - ATHSCL HEART DISEASE OF [place] CORONARY ARTERY W/O ANG PCTRS Status: Chronic (6) Cholelithiases Code(s): K80.20 - CALCULUS OF GALLBLADDER W/O CHOLECYSTITIS W/O OBSTRUCTION Status: Chronic (7) Diabetes type 2, controlled Code(s): E11.9 - TYPE 2 DIABETES MELLITUS WITHOUT COMPLICATIONS Status: Chronic Qualifiers: Diabetes mellitus intermediate teacher insulin use: without intermediate teacher use Diabetes mellitus complication status: with skin complications Diabetes mellitus complication detail: with foot ulcer Qualified Code(s): E11.621 - Type 2 diabetes mellitus with foot ulcer; L97.509 - Non-pressure chronic ulcer of other part of unspecified foot with unspecified severity; L97.509 - Non- pressure chronic ulcer of other part of unspecified foot with unspecified severity; L97.509 - Non-pressure chronic ulcer of other part of unspecified foot with unspecified severity; L97.509 - Non-pressure chronic ulcer of other part of unspecified foot with unspecified severity Comment: continue accuchecks, insulin sliding scale (8) End stage renal disease on dialysis Code(s): N18.6 - END STAGE RENAL DISEASE; Z99.2 - DEPENDENCE ON RENAL DIALYSIS Status: Chronic Comment: Dialysis per nephrology service (9) GERD (gastroesophageal reflux disease) Code(s): K21.9 - GASTRO-ESOPHAGEAL REFLUX DISEASE WITHOUT ESOPHAGITIS Status: Chronic (10) H/O aortic valve replacement Code(s): Z95.2 - PRESENCE OF PROSTHETIC HEART VALVE Status: Chronic (11) HLD (hyperlipidemia) Code(s): E78.5 - HYPERLIPIDEMIA, UNSPECIFIED Status: Chronic Qualifiers: Hyperlipidemia type: unspecified Qualified Code(s): E78.5 - Hyperlipidemia , unspecified (12) HTN (hypertension) Code(s): I10 - ESSENTIAL (PRIMARY) HYPERTENSION Status: Chronic Qualifiers: Hypertension type: essential hypertension Qualified Code(s): I10 - Essential (primary) hypertension (13) Macrocytic anemia Code(s): D53.9 - NUTRITIONAL ANEMIA, UNSPECIFIED Status: Chronic (14) Obesity (BMI 30-39.9) Code(s): E66.9 - OBESITY, UNSPECIFIED Status: Chronic (15) Secondary hyperparathyroidism of renal origin Code(s): N25.81 - SECONDARY HYPERPARATHYROIDISM OF RENAL ORIGIN Status: Chronic - Plan cont current plan of care, continue antibiotics * will consider warfarin on discharge * continue vancomycin * medication reviewed as below * symptomatic treatment * ID consult * continue heparin drip. * repeat labs tomorrow Review of Systems - Review of Systems Constitutional: negative: fever, chills, sweats, weakness, malaise, other Eyes: negative: Pain, Vision Change, Conjunctivae Inflammation, Eyelid Inflammation, Redness, Other ENT: negative: Ear Pain, Ear Discharge, Nose Pain, Nose Discharge, Nose Congestion, Mouth Pain, Mouth Swelling, Throat Pain, Throat Swelling, Other Respiratory: negative: Cough, Dry, Shortness of Breath, Hemoptysis, SOB with Excertion, Pleuritic Pain, Sputum, Wheezing Cardiovascular: negative: chest pain, palpitations, orthopnea, paroxysmal nocturnal dyspnea, edema, light headedness, other Gastrointestinal: Nausea, Vomiting. negative: Abdominal Pain, Diarrhea, Constipation, Melena, Hematochezia, Other Genitourinary: negative: Dysuria, Frequency, Incontinence, Hematuria, Retention , Other Musculoskeletal: negative: Neck Pain, Shoulder Pain, Arm Pain, Back Pain, Hand Pain, Leg Pain, Foot Pain, Other Skin: negative: Rash, Lesions, [place], Bruising, Other - Medications/Allergies Allergies/Adverse Reactions: Allergies Allergy/AdvReac Type Severity Reaction Status Date / Time ciprofloxacin [From Cipro] Allergy Intermediate Nausea Verified 07/24/17 20:22 Penicillins Allergy Intermediate Hives Verified 07/24/17 20:22 codeine [Codeine] Allergy Anxiety Verified 07/24/17 20:22 hydrocodone Allergy Nausea Verified 07/24/17 20:22 Sulfa (Sulfonamide Allergy Verified 07/24/17 20:22 Antibiotics) sulfamethoxazole Allergy Verified 07/24/17 20:22 [From Bactrim] trimethoprim [From Bactrim] Allergy Verified 07/24/17 20:22 Medications: Current Medications Acetaminophen (Tylenol) 650 mg PO Q4H PRN PRN Reason: Headache/Fever or Pain Last Admin: 07/26/17 03:04 Dose: 650 mg Al Hydroxide/Mg Hydroxide (Maalox) 30 ml PO Q4H PRN PRN Reason: Heartburn or Indigestion Last Admin: 07/26/17 04:10 Dose: 30 ml Artificial Tears (Tears Renewed 15ml Bottle) 0 drop EA EYE PRN PRN PRN Reason: Dry Eyes Aspirin (Aspirin) 325 mg PO DAILY [facility] Last Admin: 07/26/17 08:48 Dose: 325 mg Atorvastatin Calcium (Lipitor) 40 mg PO HS [facility] Last Admin: 07/25/17 21:07 Dose: 40 mg Calcium Carbonate (Tums) 1,000 mg PO Q4H PRN PRN Reason: Heartburn or Indigestion Cinacalcet (Sensipar) 30 mg PO QAM[facility] Last Admin: 07/26/17 08:48 Dose: 30 mg Escitalopram Oxalate (Lexapro) 10 mg PO HS PRN PRN Reason: Insomnia Glipizide (Glucotrol Xl) 10 mg PO DAILY [facility] Last Admin: 07/26/17 08:50 Dose: Not Given Guaifenesin (Robitussin Sf) 200 mg PO Q4H PRN PRN Reason: Cough Heparin Sodium (Porcine) (Heparin 1,000 Units/Ml (10 Ml)) 0 units SLOW IVP ASDIR [facility] PRN Reason: Protocol Last Admin: 07/24/17 23:12 Dose: 6,596 unit Hydralazine HCl (Apresoline) 50 mg PO TID [facility] Last Admin: 07/26/17 08:49 Dose: 50 mg Hydralazine HCl (Apresoline) 10 mg SLOW IVP Q4H PRN PRN Reason: Systolic BP > 180 Vancomycin HCl 1.25 gm/ Sodium (Chloride) 250 mls @ 166.667 mls/hr IVPB WILLCALL [facility] Vancomycin HCl 1 gm/ Device 200 mls @ 200 mls/hr IVPB WILLCALL [facility] Vancomycin HCl 750 mg/ Sodium (Chloride) 250 mls @ 250 mls/hr IVPB [facility] Vancomycin HCl 500 mg/ Sodium (Chloride) 100 mls @ 100 mls/hr IVPB WILLCALL [facility] Last Admin: 07/25/17 12:27 Dose: 100 mls Heparin Sodium/Dextrose (Heparin 25,000 Units/D5w 500 Ml) 500 mls @ 0 mls/hr IVPB INF [facility]; Per Protocol PRN Reason: Protocol Last Admin: 07/26/17 03:04 Dose: 500 mls Insulin Detemir 10 units/ (Miscellaneous Medication) 0.1 mls @ 0 mls/hr SC HS [facility] Last Admin: 07/25/17 21:02 Dose: Not Given Loperamide HCl (Imodium) 2 mg PO PRN PRN PRN Reason: Diarrhea/Loose Stools Loratadine (Claritin) 10 mg PO DAILYPRN PRN PRN Reason: Sinus Symptoms Magnesium Hydroxide (Milk Of Magnesium) 30 ml PO DAILYPRN PRN PRN Reason: Constipation Mineral Oil/White Petrolatum (Eucerin Cream) 0 gm TOP BIDPRN PRN PRN Reason: Dry Skin Miscellaneous Medication (Pharmacy To Dose) 1 each IVPB ONE PRN PRN Reason: Pharmacy to dose Stop: 08/23/17 15:47 Nitroglycerin (Nitrostat) 0.4 mg PO Q5MIN PRN PRN Reason: Chest Pain Hold Vancomycin For (Level >20) 0 each FS .AT DIALYSIS [facility] Ondansetron HCl (Zofran) 4 mg SLOW IVP Q6H PRN PRN Reason: Nausea/Vomiting Last Admin: 07/26/17 09:22 Dose: 4 mg Ondansetron HCl (Zofran Odt) 4 mg PO Q6H PRN PRN Reason: Nausea/Vomiting Pantoprazole Sodium (Protonix) 40 mg PO DAILY [facility] Last Admin: 07/26/17 08:48 Dose: 40 mg Phenol (Chloraseptic [place] 180 Ml Bot) 0 ml PO PRN PRN PRN Reason: Sore Throat Pregabalin (Lyrica) 75 mg PO [facility] Senna (Senokot) 2 tab PO HSPRN PRN PRN Reason: Constipation Sevelamer Carbonate (Renvela) 1,600 mg PO TID-[facility] Last Admin: 07/26/17 08:49 Dose: Not Given Sodium Chloride ([place]es Nasal [place] 0.65%) 0 ml EA NARE QIDPRN PRN PRN Reason: Nasal Congestion Tramadol HCl (Ultram) 50 mg PO Q12H PRN PRN Reason: Pain Last Admin: 07/25/17 22:51 Dose: 50 mg Trazodone HCl (Desyrel) 150 mg PO HS PRN PRN Reason: Insomnia Zolpidem Tartrate (Ambien) 5 mg PO HSPRN PRN PRN Reason: Insomnia
[2017-07-26 13:09] LABS: PTT 128.3 SEC (22.9-36.1)
[2017-07-26] MEDS: Warfarin Sodium 5 MG TAB PO SCH (17:59)
--- NOTE | 2017-07-26 18:15 | ULT ---
DOPPLER ARTERIAL EVALUATION OF THE LEFT LOWER EXTREMITY WITH SPECTRAL ANALYSIS: Indication: dry gangrene of the left first toe with peripheral vascular disease. FINDINGS: There is elevated velocity to the level of mid common femoral artery suspicious for high grade stenos is at the level of the common femoral artery. There is very slow antegrade monophasic waveform from t he remaining superficial femoral artery through the profunda femoral artery, left popliteal artery, l eft posterior tibial artery, left anterior artery with no appreciably flow documented at the dorsalis pedis consistent with complete occlusion. IMPRESSION: 1. High grade stenosis at the level of the left common femoral artery with tardus parvus type wavefor m involving the remaining arterial structures of the left lower extremity. 2. Complete occlusion of the left dorsalis pedis. POS: [facility]
--- NOTE | 2017-07-26 18:18 | CON ---
DATE OF CONSULTATION: 07/26/2017 REASON FOR CONSULTATION: Left first toe area of dry gangrene and inflammatory changes. HISTORY OF PRESENT ILLNESS: A 76-year-old patient who has a history of type 2 diabetes mellitus with peripheral vascular disease and end-stage renal disease on hemodialysis through a left IJ tunneled c atheter as well as history of coronary artery disease with bypass graft surgery and heart valve repla cement who has a chronic area of ulceration at the tip of the left first toe associated with dry gang dinora. The patient was supposed to see of one of our vascular surgeons tomorrow, but was admitted bec ause of worsening dyspnea. She has some chest tightness as well. No headaches, no visual symptoms t hroughout. No nasal symptoms, sore throat, odynophagia, dysphagia, no back or neck pain, no cough, n o abdominal pain or diarrhea. No genitourinary symptoms and no joint symptoms. PAST MEDICAL HISTORY: Type 2 diabetes, dyslipidemia, end-stage renal disease, coronary artery diseas e, peripheral vascular disease, hemodialysis through a catheter left neck tunneled into the right IJ from the subclavian region. She also has AV fistula which was being used, but now had probably devel oped thrombus. PAST SURGICAL HISTORY: Includes heart valve replacement, triple bypass surgery, hysterectomy, fistul a placement, hernia repair. FAMILY HISTORY: Noncontributory. ALLERGIES: BACTRIM, CIPRO, CODEINE, PENICILLIN, and SULFA DRUGS. MEDICATIONS: Hydralazine, pantoprazole, glipizide, Renvela, Lyrica, trazodone, and citalopram. SOCIAL HISTORY: Never a smoker. CURRENT MEDICATIONS: In addition to the above include vancomycin, sliding scale and warfarin. PHYSICAL EXAMINATION: VITAL SIGNS: T-max 98.6, blood pressure 150/70, pulse 60, respirations 16, O2 sat 93%. SKIN: Shows area of dry gangrene at the tip of the left first toe. A little bit of erythema around the left first toe. Patient has tunneled hemodialysis catheter to the left IJ position externalizing through the left subclavian region. There is an area of erythema in the superior segment of the cat heter site. Very sharp edges under the dressing most likely due to contact dermatitis from the dress ing. The exit site of the catheter appears to be normal. She has an area of induration in the left upper extremity, probably associated with thrombosis of the previous AV fistula access. No lymphaden opathy. HEENT: Ocular movements are conjugate. Oral cavity with still quite a few teeth in place with marke d decay. NECK: Supple, no jugular vein distention. LUNGS: With symmetric air entry. HEART: S1 and S2, regular rate. ABDOMEN: Soft, nondistended or tender. No ascites. No bladder distention. I could not feel any po pliteal or dorsalis pedis pulses in either lower extremity. She is able to move extremities on comma nds. NEUROLOGIC: Her cognitive function appeared to be intact. LABORATORY DATA: White cell count 6.6, hemoglobin 12, and platelets 134. Sodium 133, creatinine 4.8 5. Liver profile normal. Albumin 4.0. BNP 4847. Microbiology studies; two sets of blood cultures thus far no growth. IMAGING STUDIES: There is a toe x-ray from the end of June this year with soft tissue ulcer and und erlying osseous erosion of the tuft suggestive of osteomyelitis. ASSESSMENT: 1. End-stage renal disease associated with diabetes mellitus type 2 on hemodialysis through a tunnel ed catheter, likely thrombosed AV fistula. 2. Contact dermatitis associated with dressing for the left tunneled hemodialysis catheter. 3. Chronic peripheral vascular disease in lower extremities with likely both little macro and microv ascular disease. This is associated with chronic ulcer at the distal end of the left first toe. DISCUSSION: Although she might have an early element of cellulitis, it is more likely that the mauricio es reflect the chronic vascular insufficiency. She needs a vascular evaluation of arterial Dopplers and probably an angiogram to define if she is eligible for percutaneous intervention to improve the s upply to the left foot. I would avoid amputation at this point in time because of the likely risk of nonhealing and further higher levels of amputation. If she would not be eligible for any revascular ization, it is likely that patient would eventually require higher levels of amputation. Antimicrobi als have been started. Those can be discontinued once there is further improvement of inflammatory c hanges or may be transition to oral combination of minocycline and clindamycin for discharge planning . Again, the most important intervention here is to evaluate vascular status with initially an ultra sound and then eventually more invasive vascular study to determine the feasibility for improvement o f the supply to the left foot.
[2017-07-26] MEDS: Insulin Detemir 100 UNITS/ML 10 UNITS in Pre-Filled Syringe SC SCH (20:32)
[2017-07-26] MEDS: Pregabalin 75 MG CAP PO SCH (20:33)
[2017-07-26] MEDS: Atorvastatin Calcium 40 MG TAB PO SCH (20:33)
[2017-07-27 05:57] LABS: #Eosinphils 0.3 thou/uL (0.0-0.7); #Lymphocytes 0.8 thou/uL (1.20-3.40); #Monocytes 0.5 thou/uL (0.11-0.59); #Neutrophils 3.5 thou/uL (1.40-6.50); %Basophils 0.9 % (0.0-1.0); %Eosinophils 5.7 % (0.0-10.0); %Lymphocytes 15.6 % (21.0-51.0); %Monocytes 9.6 % (0.0-10.0); %Neutrophils 68.2 % (42.0-75.0); Hemoglobin 11.4 g/dL (12.0-16.0); Mean Corpuscular HGB CONC 32.9 g/dL (32.0-36.0); Mean Corpuscular Hemoglobin 33.9 pg (27.0-31.0); Mean Platelet Volume 9.4 fL (7.4-10.4); Platelet Count 119 thou/uL (130-400); Red Blood Cell (RBC) Count 3.35 mill/uL (4.20-5.40); White Blood Cell (WBC) Count 5.1 thou/uL (4.8-10.8)
[2017-07-27 06:08] LABS: PTT 70.7 SEC (22.9-36.1)
[2017-07-27 06:29] LABS: Anion Gap 15 mmol/L (10-20); BUN (Urea Nitrogen) 48 mg/dL (9.8-20.1); Calc. Creatinine Clearance 10 mL/min (70-130); Calcium 8.4 mg/dL (7.8-10.44); Carbon Dioxide 25 mmol/L (23-31); Chloride 95 mmol/L (98-107); Estimated GFR-MDRD 6; Glucose 102 mg/dL (83-110); Phosphorus 6.5 mg/dL (2.3-4.7); Potassium 4.4 mmol/L (3.5-5.1); Sodium 131 mmol/L (136-145)
[2017-07-27] MEDS: Sevelamer Carbonate 800 MG TAB PO SCH ×3 (08:47→17:01)
[2017-07-27] MEDS: hydrALAZINE 25 MG TAB PO SCH ×3 (08:47→20:31)
[2017-07-27] MEDS: Aspirin 325 MG TAB PO SCH (08:47)
[2017-07-27] MEDS: Cinacalcet HCl 30 MG TAB PO SCH (08:48)
[2017-07-27 10:02] LABS: INR-International Normal Ratio 1.1; Prothrombin Time 14.2 SEC (12.0-14.7)
[2017-07-27] MEDS: Heparin 25,000 units/D5W 500 ML IVPB SCH (10:10)
--- NOTE | 2017-07-27 10:40 | PDOC.PN ---
- Subjective Encounter Start Date: 07/27/17 Encounter Start Time: 08:50 Patient seen and examined. No new complaints. No overnight events - Objective Resuscitation Status: Resuscitation Status FULL:Full Resuscitation MAR Reviewed: Yes Vital Signs & Weight: Vital Signs (12 hours) Temp Pulse Resp BP Pulse Ox 07/27/17 08:43 98.6 F 56 L 17 123/56 L 92 L 07/27/17 08:00 98.6 F 56 L 17 07/27/17 07:26 95 07/27/17 05:27 97.9 F 68 16 156/67 H 07/27/17 05:14 93 L Weight Admit Weight 181 lb 6.4 oz Weight 184 lb I&O: 07/26/17 07/27/17 07/28/17 06:59 06:59 06:59 Intake Total 960 875 Output Total 300 Balance 960 575 Result Diagrams: 07/27/17 05:38 07/27/17 05:38 Additional Labs: Accuchecks 07/27/17 07/26/17 07/26/17 05:43 20:33 16:36 POC Glucose 101 125 H 170 H 07/26/17 10:57 POC Glucose 163 H Radiology Reviewed by me: Yes (US leg) EKG Reviewed by me: Yes Phys Exam - Physical Examination Constitutional: NAD HEENT: PERRLA, moist MMs, sclera anicteric Neck: no JVD, supple Respiratory: no wheezing, no rales, no rhonchi Cardiovascular: RRR, no significant murmur, no rub Gastrointestinal: soft, non-tender, no distention, positive bowel sounds left UE edema, gangrene toe left great toe Neurological: non-focal, normal sensation Lymphatic: no nodes Psychiatric: normal affect, A&O x 3 Skin: no rash, normal turgor Dx/Plan (1) Chest pain Code(s): R07.9 - CHEST PAIN, UNSPECIFIED Status: Acute Comment: ruled out ACS (2) Left subclavian vein thrombosis Code(s): I82.B12 - ACUTE EMBOLISM AND THROMBOSIS OF LEFT SUBCLAVIAN VEIN Status: Acute Comment: on heparin drip (3) Osteomyelitis of toe of left foot Code(s): M86.9 - OSTEOMYELITIS, UNSPECIFIED Status: Acute Comment: will consult ID today (4) Anemia of renal disease Code(s): D63.1 - ANEMIA IN CHRONIC KIDNEY DISEASE Status: Chronic (5) CAD (coronary artery disease) Code(s): I25.10 - ATHSCL HEART DISEASE OF [place] CORONARY ARTERY W/O ANG PCTRS Status: Chronic (6) Cholelithiases Code(s): K80.20 - CALCULUS OF GALLBLADDER W/O CHOLECYSTITIS W/O OBSTRUCTION Status: Chronic (7) Diabetes type 2, controlled Code(s): E11.9 - TYPE 2 DIABETES MELLITUS WITHOUT COMPLICATIONS Status: Chronic Qualifiers: Diabetes mellitus terminal supervisor insulin use: without jail use Diabetes mellitus complication status: with skin complications Diabetes mellitus complication detail: with foot ulcer Qualified Code(s): E11.621 - Type 2 diabetes mellitus with foot ulcer; L97.509 - Non-pressure chronic ulcer of other part of unspecified foot with unspecified severity; L97.509 - Non- pressure chronic ulcer of other part of unspecified foot with unspecified severity; L97.509 - Non-pressure chronic ulcer of other part of unspecified foot with unspecified severity; L97.509 - Non-pressure chronic ulcer of other part of unspecified foot with unspecified severity Comment: continue accuchecks, insulin sliding scale (8) End stage renal disease on dialysis Code(s): N18.6 - END STAGE RENAL DISEASE; Z99.2 - DEPENDENCE ON RENAL DIALYSIS Status: Chronic Comment: Dialysis per nephrology service (9) GERD (gastroesophageal reflux disease) Code(s): K21.9 - GASTRO-ESOPHAGEAL REFLUX DISEASE WITHOUT ESOPHAGITIS Status: Chronic (10) H/O aortic valve replacement Code(s): Z95.2 - PRESENCE OF PROSTHETIC HEART VALVE Status: Chronic (11) HLD (hyperlipidemia) Code(s): E78.5 - HYPERLIPIDEMIA, UNSPECIFIED Status: Chronic Qualifiers: Hyperlipidemia type: unspecified Qualified Code(s): E78.5 - Hyperlipidemia , unspecified (12) HTN (hypertension) Code(s): I10 - ESSENTIAL (PRIMARY) HYPERTENSION Status: Chronic Qualifiers: Hypertension type: essential hypertension Qualified Code(s): I10 - Essential (primary) hypertension (13) Macrocytic anemia Code(s): D53.9 - NUTRITIONAL ANEMIA, UNSPECIFIED Status: Chronic (14) Obesity (BMI 30-39.9) Code(s): E66.9 - OBESITY, UNSPECIFIED Status: Chronic (15) Secondary hyperparathyroidism of renal origin Code(s): N25.81 - SECONDARY HYPERPARATHYROIDISM OF RENAL ORIGIN Status: Chronic (16) PVD (peripheral vascular disease) Code(s): I73.9 - PERIPHERAL VASCULAR DISEASE, UNSPECIFIED Status: Chronic - Plan cont current plan of care, continue antibiotics * dr shea consulted for nonfunctioning AV fistula. * if not plan for any surgery, then will continue warfarin * continue heparin drip for bridging * continue vancomycin with HD * pt is not a candidate for surgery for toe gangrene due to her severe vascular disease * will consult palliative care for goal of care * prognosis is poor * high risk for readmission * medication reviewed as below * symptomatic treatment Review of Systems - Review of Systems ENT: Nose Congestion. negative: Ear Pain, Ear Discharge, Nose Pain, Nose Discharge, Mouth Pain, Mouth Swelling, Throat Pain, Throat Swelling, Other Respiratory: negative: Cough, Dry, Shortness of Breath, Hemoptysis, SOB with Excertion, Pleuritic Pain, Sputum, Wheezing Cardiovascular: negative: chest pain, palpitations, orthopnea, paroxysmal nocturnal dyspnea, edema, light headedness, other Gastrointestinal: negative: Nausea, Vomiting, Abdominal Pain, Diarrhea, Constipation, Melena, Hematochezia, Other Genitourinary: negative: Dysuria, Frequency, Incontinence, Hematuria, Retention , Other Musculoskeletal: negative: Neck Pain, Shoulder Pain, Arm Pain, Back Pain, Hand Pain, Leg Pain, Foot Pain, Other Skin: negative: Rash, Lesions, [place], Bruising, Other - Medications/Allergies Allergies/Adverse Reactions: Allergies Allergy/AdvReac Type Severity Reaction Status Date / Time ciprofloxacin [From Cipro] Allergy Intermediate Nausea Verified 07/24/17 20:22 Penicillins Allergy Intermediate Hives Verified 07/24/17 20:22 codeine [Codeine] Allergy Anxiety Verified 07/24/17 20:22 hydrocodone Allergy Nausea Verified 07/24/17 20:22 Sulfa (Sulfonamide Allergy Verified 07/24/17 20:22 Antibiotics) sulfamethoxazole Allergy Verified 07/24/17 20:22 [From Bactrim] trimethoprim [From Bactrim] Allergy Verified 07/24/17 20:22 Medications: Current Medications Acetaminophen (Tylenol) 650 mg PO Q4H PRN PRN Reason: Headache/Fever or Pain Last Admin: 07/26/17 03:04 Dose: 650 mg Al Hydroxide/Mg Hydroxide (Maalox) 30 ml PO Q4H PRN PRN Reason: Heartburn or Indigestion Last Admin: 07/26/17 04:10 Dose: 30 ml Artificial Tears (Tears Renewed 15ml Bottle) 0 drop EA EYE PRN PRN PRN Reason: Dry Eyes Aspirin (Aspirin) 325 mg PO DAILY [facility] Last Admin: 07/27/17 08:47 Dose: 325 mg Atorvastatin Calcium (Lipitor) 40 mg PO HS [facility] Last Admin: 07/26/17 20:33 Dose: 40 mg Calcium Carbonate (Tums) 1,000 mg PO Q4H PRN PRN Reason: Heartburn or Indigestion Cinacalcet (Sensipar) 30 mg PO QAM-[facility] Last Admin: 07/27/17 08:48 Dose: 30 mg Escitalopram Oxalate (Lexapro) 10 mg PO HS PRN PRN Reason: Insomnia Glipizide (Glucotrol Xl) 10 mg PO DAILY [facility] Last Admin: 07/27/17 08:48 Dose: 10 mg Guaifenesin (Robitussin Sf) 200 mg PO Q4H PRN PRN Reason: Cough Heparin Sodium (Porcine) (Heparin 1,000 Units/Ml (10 Ml)) 0 units SLOW IVP ASDIR [facility] PRN Reason: Protocol Last Admin: 07/24/17 23:12 Dose: 6,596 unit Hydralazine HCl (Apresoline) 50 mg PO TID [facility] Last Admin: 07/27/17 08:47 Dose: 50 mg Hydralazine HCl (Apresoline) 10 mg SLOW IVP Q4H PRN PRN Reason: Systolic BP > 180 Vancomycin HCl 1.25 gm/ Sodium (Chloride) 250 mls @ 166.667 mls/hr IVPB WILLCALL [facility] Vancomycin HCl 1 gm/ Device 200 mls @ 200 mls/hr IVPB WILLCALL [facility] Vancomycin HCl 750 mg/ Sodium (Chloride) 250 mls @ 250 mls/hr IVPB WILLCALL [facility] Vancomycin HCl 500 mg/ Sodium (Chloride) 100 mls @ 100 mls/hr IVPB WILLCALL [facility] Last Admin: 07/25/17 12:27 Dose: 100 mls Heparin Sodium/Dextrose (Heparin 25,000 Units/D5w 500 Ml) 500 mls @ 0 mls/hr IVPB INF [facility]; Per Protocol PRN Reason: Protocol Last Admin: 07/27/17 10:10 Dose: 500 mls Insulin Detemir 10 units/ (Miscellaneous Medication) 0.1 mls @ 0 mls/hr [facility] Last Admin: 07/26/17 20:32 Dose: Not Given Loperamide HCl (Imodium) 2 mg PO PRN PRN PRN Reason: Diarrhea/Loose Stools Loratadine (Claritin) 10 mg PO DAILYPRN PRN PRN Reason: Sinus Symptoms Magnesium Hydroxide (Milk Of Magnesium) 30 ml PO DAILYPRN PRN PRN Reason: Constipation Mineral Oil/White Petrolatum (Eucerin Cream) 0 gm TOP BIDPRN PRN PRN Reason: Dry Skin Miscellaneous Medication (Pharmacy To Dose) 1 each IVPB ONE PRN PRN Reason: Pharmacy to dose Stop: 08/23/17 15:47 Miscellaneous Medication (Pharmacy To Dose) 0 each PO ASDIR PRN PRN Reason: Pharmacy to Dose WARFARIN Nitroglycerin (Nitrostat) 0.4 mg PO Q5MIN PRN PRN Reason: Chest Pain Hold Vancomycin For (Level >20) 0 each FS .AT DIALYSIS [facility] Ondansetron HCl (Zofran) 4 mg SLOW IVP Q6H PRN PRN Reason: Nausea/Vomiting Last Admin: 07/26/17 09:22 Dose: 4 mg Ondansetron HCl (Zofran Odt) 4 mg PO Q6H PRN PRN Reason: Nausea/Vomiting Pantoprazole Sodium (Protonix) 40 mg PO DAILY [facility] Last Admin: 07/27/17 08:48 Dose: 40 mg Phenol (Chloraseptic [place] 180 Ml Bot) 0 ml PO PRN PRN PRN Reason: Sore Throat Pregabalin (Lyrica) [address] [facility] Last Admin: 07/26/17 20:33 Dose: 75 mg Senna (Senokot) 2 tab PO HSPRN PRN PRN Reason: Constipation Sevelamer Carbonate (Renvela) 1,600 mg PO TID-[facility] Last Admin: 07/27/17 08:47 Dose: 1,600 mg Sodium Chloride ([place] Nasal [place] 0.65%) 0 ml EA NARE QIDPRN PRN PRN Reason: Nasal Congestion Tramadol HCl (Ultram) 50 mg PO Q12H PRN PRN Reason: Pain Last Admin: 07/25/17 22:51 Dose: 50 mg Trazodone HCl (Desyrel) 150 mg PO HS PRN PRN Reason: Insomnia Warfarin Sodium (Coumadin) 5 mg PO 1700 [facility] Last Admin: 07/26/17 17:59 Dose: 5 mg Zolpidem Tartrate (Ambien) 5 mg PO HSPRN PRN PRN Reason: Insomnia
[2017-07-27] MEDS: Heparin 10,000 UNITS/ 10 ML VIAL SLOW IVP SCH (12:24)
[2017-07-27] MEDS ORDERED: Clindamycin/D5W 900 MG in Premix Bag 1 BAG IVPB SCH (14:45)
[2017-07-27] MEDS ORDERED: Vancomycin HCl 1 GM in Premix Bag 1 BAG IVPB SCH (14:45)
[2017-07-27] MEDS: Warfarin Sodium 5 MG TAB PO SCH (17:01)
--- NOTE | 2017-07-27 18:02 | PRG ---
DATE OF SERVICE: 07/27/2017 SUBJECTIVE: Ms. Moyer is awake, alert. Denies any respiratory symptoms or abdominal pain. Left foot is status quo. OBJECTIVE: VITAL SIGNS: Unremarkable except for moderate elevation of systolic blood pressure. EXTREMITIES: Left foot is about the same with the distal areas of dry gangrene. Slight erythema in the first toe, left side. LUNGS: Clear. HEART: S1, S2 regular rate. ABDOMEN: Soft and not distended. LABORATORY DATA: White cell count is 5.1, hemoglobin 11.4, platelets 119, 68% neutrophils. Sodium 1 31, creatinine 6.33. Liver profile is normal. The ultrasound of the extremity showed high grade luisana nosis in left common femoral artery with complete occlusion in dorsalis pedis. ASSESSMENT AND DISCUSSION: End-stage renal disease with type 2 diabetes, on hemodialysis with tunnel ed catheter. Contact dermatitis with left tunneled dialysis catheter and peripheral vascular disease with severe atherosclerotic obstruction of the left lower extremity with evidence of distal gangrene of the left first toe. The changes are likely due to ischemia. This is probably associated with samantha th macro as well as microvascular disease. Probably, we will need a vascular study to see if she is amenable to revascularization either percutaneous or operative. The antimicrobials can be transition ed to oral as I had noted.
--- NOTE | 2017-07-27 19:06 | PRG ---
DATE OF SERVICE: 07/27/2017 SUBJECTIVE: Patient was seen and examined at bedside and overnight events noted. Patient denies any shortness of breath or chest pain or palpitation. No history of nausea or vomiting or diarrhea or f ever or chills or cramps. OBJECTIVE: GENERAL: This is a well-built female in no apparent distress. VITAL SIGNS: Temperature 98.6, pulse 65, respiratory rate 18 and blood pressure 139/63. HEENT: Atraumatic, normocephalic. Oral mucosa is moist. NECK: Supple. CARDIOVASCULAR: S1, S2 heard. Rate and rhythm regular. RESPIRATORY: Clear to auscultation. GASTROINTESTINAL: Abdomen is soft. MUSCULOSKELETAL: No tenderness. No edema. DERMATOLOGIC: No skin rash. NEUROLOGIC: Alert, awake and oriented x3. No focal neurologic deficits. Moving all the extremities . PSYCHIATRIC: Mood and affect normal. LABORATORY DATA: Potassium is 4.4, BUN is 48 and creatinine is 6.3. ASSESSMENT AND PLAN: 1. End-stage renal disease, continue on hemodialysis. 2. Dialysis access with continued clotting, multiple episodes of clotting and multiple accesses clot chidi. The patient was to be started on peritoneal dialysis. We will recommend a Hematology/Oncology consult to rule out any hypercoagulable state. 2. Hypertension. 3. Edema, controlled. 4. We will continue to follow. We will continue dialysis as tolerated. I appreciate help from Bry murphy.
[2017-07-27] MEDS: Atorvastatin Calcium 20 MG TAB PO SCH (20:31)
[2017-07-27] MEDS: Pregabalin 75 MG CAP PO SCH (20:31)
[2017-07-27] MEDS: Insulin Detemir 100 UNITS/ML 10 UNITS in Pre-Filled Syringe SC SCH (20:32)
[2017-07-28] MEDS: hydrALAZINE 20 MG/ML VIAL SLOW IVP PRN (03:57)
--- NOTE | 2017-07-28 04:28 | CON ---
DATE OF CONSULTATION: 07/27/2017 REASON FOR CONSULTATION: Need for dialysis access. HISTORY: Ms. Moyer is a 76-year-old woman with multiple failed dialysis procedures in the past. She recently underwent a left upper arm AV graft as she had no suitable veins in either arm. This was patent and appeared to be well healed when I saw her in my clinic 2 weeks ago and she had no swelling in her arm at that time. She came to the emergency room for multiple reasons including missing dialysis and chest pain with shortness of breath. She was admitted to the Medicine Service, but was noted in the emergency room to have significant swelling of her left arm. She reports that this has been present since her operation, but when I saw her in my clinic 2 weeks ago she did not have any significant edema. She was found on ultrasound to have thrombosis of her subclavian vein, although her graft was patent. There was some nonoccluding clot in the axillary vein as well. She has had multiple thrombosed accesses in the past. She also has a gangrenous lesion of her left great toe. I had referred her to Vascular Surgery for this and she was supposed to follow up with her vascular surgeon, but missed that appointment as well due to weather. She denies any fevers or chills and states that she is not having any chest pain or shortness of breath at this time. She has a left IJ tunneled hemodialysis catheter which is currently being used for dialysis access. PAST MEDICAL HISTORY: Morbid obesity, type 2 diabetes and end-stage renal failure on hemodialysis and diastolic congestive heart failure and hypertension. PAST SURGICAL HISTORY: Triple bypass, aortic and heart valve replacement surgery, hysterectomy, multiple dialysis procedures on both arms, hernia repair with recurrent hernia, shoulder surgery and multiple dialysis catheters. FAMILY HISTORY: Noncontributory. ALLERGIES: She has multiple allergies including BACTRIM, CIPRO, CODEINE, PENICILLIN and SULFA. OUTPATIENT MEDICATIONS: Carvedilol, hydralazine, pantoprazole, glipizide, Renvela, Lyrica, trazodone and escitalopram. SOCIAL HISTORY: She does not smoke, drink or use illicit drugs. REVIEW OF SYSTEMS: Ten system review of systems is negative except per HPI. She denies any rest pain, but does sleep sitting up in a recliner. PHYSICAL EXAMINATION: VITAL SIGNS: The patient has been afebrile during this hospitalization. Heart rate in the 60s, blood pressure moderately elevated in the 150s to 160s systolic , breathing 20 times a minute and room air sats in the low 90s. GENERAL: Reveals a pleasant elderly woman in no acute distress. She is not flushed or toxic in appearance. She is not cyanotic and is breathing easily. HEENT: Unremarkable. Left IJ tunneled dialysis catheter is in place. HEART: Regular in its rate and rhythm with a soft systolic murmur. LUNGS: Clear to auscultation anteriorly. ABDOMEN: Soft, nontender, nondistended. She has a recurrent ventral incisional hernia with palpable mesh in the hernia sac. EXTREMITIES: Her feet are cool, but pink. She has dry gangrene of the left great toe. No palpable pedal or popliteal pulses. Her left arm has significant edema, which is new since I last saw her. Her graft is still palpable near the antecubital fossa, but more difficult to feel in the upper arm due to the edema. There is a palpable thrill and an audible bruit. Her hand is pink and warm with normal capillary refill. IMAGING: X-ray of the foot shows some tuft erosion. CTA was negative for large pulmonary emboli. Vascular ultrasound is as per HPI. Stress test was performed over the weekend and no perfusion defect was noted. Her ejection fraction was 82%. There was normal wall motion. ASSESSMENT: Left subclavian vein thrombosis. This may be related to the presence of a tunneled dialysis catheter in the left IJ position, but the patient may also have a hypercoagulable state. She has had multiple problems with thrombosis of her access surgeries in the past and it is actually quite difficult to thrombose the subclavian vein with a patent functioning graft. At this point, the graft is not usable because of the edema in the arm and the proximal thrombosis, but she is on anticoagulation and may with time recannulate her subclavian vein. Unless this happens, the graft will not really be usable for permanent access. She is running out of access options due to exhausted veins in both arms. If she underwent a graft in her thigh I am worried that this could hasten the ischemic process in her feet and potentially lead to amputation. Her teachers assistant has discussed transitioning her to peritoneal dialysis and I think this may be her best remaining option at this point. She will require repair of her recurrent ventral hernia. This should be able to be done laparoscopically at the same time as her peritoneal dialysis catheter placement. The inherent risks of surgery include, but are not limited to bleeding, infection, risks of anesthesia, damage to internal structures, recurrence of the hernia, and worsening thromboembolic phenomenon due to need to hold anticoagulation perioperatively. She will need to be on long-term oral anticoagulation, so I would prefer to go ahead and get her procedures done during this hospitalization, so we do not need to interrupt this or bridge her. She is currently on IV heparin which could be held perioperatively. I anticipate that she would need to be off of anticoagulation less than 48 hours. The patient is in agreement with this plan and I have placed her on the OR schedule for tomorrow. She will be n.p.o. after midnight and we will hold her heparin beginning the day of the procedure. ELAINE
[2017-07-28 05:36] LABS: INR-International Normal Ratio 1.1; Prothrombin Time 14.5 SEC (12.0-14.7)
[2017-07-28] MEDS ORDERED: Dextrose 50% Abboject 50 ML SYRINGE ONE ×2 (05:55→12:50)
[2017-07-28 07:15] LABS: INR-International Normal Ratio 1.1; PTT 34.7 SEC (22.9-36.1); Prothrombin Time 14.3 SEC (12.0-14.7)
[2017-07-28 07:16] LABS: D-Dimer Test 1.26 *mcg/mL (0.27-0.43)
[2017-07-28 09:41] LABS: Vancomycin, Random 7.2 ug/mL (See Comment)
[2017-07-28] MEDS ORDERED: Dexamethasone 20 MG/5 ML VIAL ONE (11:45)
[2017-07-28] MEDS ORDERED: PROPOFOL 200 MG/20 ML VIAL ONE (11:45)
[2017-07-28] MEDS ORDERED: Ondansetron HCl/PF 4 MG/2 ML Vial ONE (11:45)
[2017-07-28] MEDS ORDERED: Lidocaine 1% PF 5 ML VIAL ONE (11:45)
[2017-07-28] MEDS ORDERED: Glycopyrrolate 0.2 MG/ML 5 ML SYRINGE ONE (11:45)
[2017-07-28] MEDS ORDERED: ePHEDrine/0.9% NaCl/PF SYRINGE 50 mg/10 ml ONE (11:45)
[2017-07-28] MEDS ORDERED: Clindamycin/D5W 900 mg/50 ml Premix Bag ONE (12:28)
[2017-07-28] MEDS ORDERED: Bupivacaine/Epinephrine 0.25% 30 ML VIAL ONE (12:32)
[2017-07-28] MEDS ORDERED: Heparin 10,000 UNITS/1 ML VIAL ONE (12:32)
[2017-07-28] MEDS ORDERED: Fentanyl 100 MCG/2 ML VIAL ONE (12:46)
[2017-07-28] MEDS ORDERED: Midazolam HCl 2 mg/2 ml Vial ONE (12:46)
--- NOTE | 2017-07-28 12:47 | PDOC.PN ---
- Subjective Encounter Start Date: 07/28/17 Encounter Start Time: 09:30 pt seen in HD room, Patient seen and examined. No new complaints. No overnight events - Objective Resuscitation Status: Resuscitation Status FULL:Full Resuscitation MAR Reviewed: Yes Vital Signs & Weight: Vital Signs (12 hours) Temp Pulse Resp BP BP Pulse Ox 07/28/17 04:00 97.5 F L 65 20 188/79 H 94 L 07/28/17 03:57 66 188/79 H 07/28/17 03:24 92 L Weight Admit Weight 181 lb 6.4 oz Weight 184 lb I&O: 07/27/17 07/28/17 07/29/17 06:59 06:59 06:59 Intake Total 875 1305 Output Total 300 250 Balance 575 1055 Result Diagrams: 07/27/17 05:38 07/27/17 05:38 Additional Labs: Accuchecks 07/28/17 07/28/17 07/27/17 06:28 05:54 20:49 POC Glucose 141 H 40 L* 69 L 07/27/17 16:39 POC Glucose 65 L Phys Exam - Physical Examination Constitutional: NAD HEENT: PERRLA, moist MMs, sclera anicteric Neck: no JVD, supple Respiratory: no wheezing, no rales, no rhonchi Cardiovascular: RRR, no significant murmur, no rub Gastrointestinal: soft, non-tender, no distention, positive bowel sounds Musculoskeletal: no edema, pulses present dry gangren left toe Neurological: non-focal, normal sensation Lymphatic: no nodes Psychiatric: normal affect, A&O x 3 Skin: no rash, normal turgor Dx/Plan (1) Left subclavian vein thrombosis Code(s): I82.B12 - ACUTE EMBOLISM AND THROMBOSIS OF LEFT SUBCLAVIAN VEIN Status: Acute Comment: on heparin drip (2) Osteomyelitis of toe of left foot Code(s): M86.9 - OSTEOMYELITIS, UNSPECIFIED Status: Acute Comment: (3) Chest pain Code(s): R07.9 - CHEST PAIN, UNSPECIFIED Status: Resolved Comment: ruled out ACS (4) Anemia of renal disease Code(s): D63.1 - ANEMIA IN CHRONIC KIDNEY DISEASE Status: Chronic (5) CAD (coronary artery disease) Code(s): I25.10 - ATHSCL HEART DISEASE OF [place] CORONARY ARTERY W/O ANG PCTRS Status: Chronic (6) Cholelithiases Code(s): K80.20 - CALCULUS OF GALLBLADDER W/O CHOLECYSTITIS W/O OBSTRUCTION Status: Chronic Qualifiers: Cholelithiasis location: gallbladder Cholecystitis acuity: chronic Biliary obstruction: without biliary obstruction (7) Diabetes type 2, controlled Code(s): E11.9 - TYPE 2 DIABETES MELLITUS WITHOUT COMPLICATIONS Status: Chronic Qualifiers: 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 Diabetes mellitus complication status: with skin complications Diabetes mellitus complication detail: with foot ulcer Qualified Code(s): E11.621 - Type 2 diabetes mellitus with foot ulcer; L97.509 - Non-pressure chronic ulcer of other part of unspecified foot with unspecified severity; L97.509 - Non- pressure chronic ulcer of other part of unspecified foot with unspecified severity; L97.509 - Non-pressure chronic ulcer of other part of unspecified foot with unspecified severity; L97.509 - Non-pressure chronic ulcer of other part of unspecified foot with unspecified severity Comment: continue accuchecks, insulin sliding scale (8) End stage renal disease on dialysis Code(s): N18.6 - END STAGE RENAL DISEASE; Z99.2 - DEPENDENCE ON RENAL DIALYSIS Status: Chronic Comment: Dialysis per nephrology service (9) GERD (gastroesophageal reflux disease) Code(s): K21.9 - GASTRO-ESOPHAGEAL REFLUX DISEASE WITHOUT ESOPHAGITIS Status: Chronic (10) H/O aortic valve replacement Code(s): Z95.2 - PRESENCE OF PROSTHETIC HEART VALVE Status: Chronic (11) HLD (hyperlipidemia) Code(s): E78.5 - HYPERLIPIDEMIA, UNSPECIFIED Status: Chronic Qualifiers: Hyperlipidemia type: unspecified Qualified Code(s): E78.5 - Hyperlipidemia , unspecified (12) HTN (hypertension) Code(s): I10 - ESSENTIAL (PRIMARY) HYPERTENSION Status: Chronic Qualifiers: Hypertension type: essential hypertension Qualified Code(s): I10 - Essential (primary) hypertension (13) Macrocytic anemia Code(s): D53.9 - NUTRITIONAL ANEMIA, UNSPECIFIED Status: Chronic (14) Obesity (BMI 30-39.9) Code(s): E66.9 - OBESITY, UNSPECIFIED Status: Chronic (15) Secondary hyperparathyroidism of renal origin Code(s): N25.81 - SECONDARY HYPERPARATHYROIDISM OF RENAL ORIGIN Status: Chronic (16) PVD (peripheral vascular disease) Code(s): I73.9 - PERIPHERAL VASCULAR DISEASE, UNSPECIFIED Status: Chronic - Plan cont current plan of care, continue antibiotics * currently on HD with tunneled HD catheter * she is not a candidate for any HD catheter access * today plan for PD catheter placement and lap repair of hernia * will add folic acid, vitamin B12 and vitamin B6 for hyper homocystenemia * medication reviewed as below * symptomatic treatment. * continue heparin drip with warfarin after surgery today Review of Systems - Review of Systems ENT: negative: Ear Pain, Ear Discharge, Nose Pain, Nose Discharge, Nose Congestion, Mouth Pain, Mouth Swelling, Throat Pain, Throat Swelling, Other Respiratory: negative: Cough, Dry, Shortness of Breath, Hemoptysis, SOB with Excertion, Pleuritic Pain, Sputum, Wheezing Cardiovascular: negative: chest pain, palpitations, orthopnea, paroxysmal nocturnal dyspnea, edema, light headedness, other Gastrointestinal: negative: Nausea, Vomiting, Abdominal Pain, Diarrhea, Constipation, Melena, Hematochezia, Other Genitourinary: negative: Dysuria, Frequency, Incontinence, Hematuria, Retention , Other Musculoskeletal: negative: Neck Pain, Shoulder Pain, Arm Pain, Back Pain, Hand Pain, Leg Pain, Foot Pain, Other Skin: negative: Rash, Lesions, [place], Bruising, Other - Medications/Allergies Allergies/Adverse Reactions: Allergies Allergy/AdvReac Type Severity Reaction Status Date / Time ciprofloxacin [From Cipro] Allergy Intermediate Nausea Verified 07/24/17 20:22 Penicillins Allergy Intermediate Hives Verified 07/24/17 20:22 codeine [Codeine] Allergy Anxiety Verified 07/24/17 20:22 hydrocodone Allergy Nausea Verified 07/24/17 20:22 Sulfa (Sulfonamide Allergy Verified 07/24/17 20:22 Antibiotics) sulfamethoxazole Allergy Verified 07/24/17 20:22 [From Bactrim] trimethoprim [From Bactrim] Allergy Verified 07/24/17 20:22 Medications: Current Medications Acetaminophen (Tylenol) 650 mg PO Q4H PRN PRN Reason: Headache/Fever or Pain Last Admin: 07/26/17 03:04 Dose: 650 mg Al Hydroxide/Mg Hydroxide (Maalox) 30 ml PO Q4H PRN PRN Reason: Heartburn or Indigestion Last Admin: 07/26/17 04:10 Dose: 30 ml Artificial Tears (Tears Renewed 15ml Bottle) 0 drop EA EYE PRN PRN PRN Reason: Dry Eyes Aspirin (Aspirin) 325 mg PO DAILY [facility] Last Admin: 07/27/17 08:47 Dose: 325 mg Atorvastatin Calcium (Lipitor) 40 mg PO HS [facility] Last Admin: 07/27/17 20:31 Dose: 40 mg Calcium Carbonate (Tums) 1,000 mg PO Q4H PRN PRN Reason: Heartburn or Indigestion Cinacalcet (Sensipar) 30 mg PO QAM-[facility] Last Admin: 07/27/17 08:48 Dose: 30 mg Cyanocobalamin (Vitamin B-12) 1,000 mcg PO DAILY [facility] Escitalopram Oxalate (Lexapro) 10 mg PO HS PRN PRN Reason: Insomnia Fluticasone Propionate (Flonase Nasal [place]) 0 gm NASAL DAILY [facility] Folic Acid (Folvite) 1 mg PO DAILY [facility] Guaifenesin (Robitussin Sf) 200 mg PO Q4H PRN PRN Reason: Cough Hydralazine HCl (Apresoline) 50 mg PO TID [facility] Last Admin: 07/27/17 20:31 Dose: 50 mg Hydralazine HCl (Apresoline) 10 mg SLOW IVP Q4H PRN PRN Reason: Systolic BP > 180 Last Admin: 07/28/17 03:57 Dose: 10 mg Vancomycin HCl 1.25 gm/ Sodium (Chloride) 250 mls @ 166.667 mls/hr IVPB WILLCALL [facility] Vancomycin HCl 1 gm/ Device 200 mls @ 200 mls/hr IVPB WILLCALL RADHA Vancomycin HCl 750 mg/ Sodium (Chloride) 250 mls @ 250 mls/hr IVPB [facility]CALL [facility] Vancomycin HCl 500 mg/ Sodium (Chloride) 100 mls @ 100 mls/hr IVPB [facility]CALL [facility] Last Admin: 07/25/17 12:27 Dose: 100 mls Insulin Detemir 10 units/ (Miscellaneous Medication) 0.1 mls @ 0 mls/hr SC HS [facility] Last Admin: 07/27/17 20:32 Dose: Not Given Clindamycin Phosphate/Dextrose (900 mg/ Device) 50 mls @ 100 mls/hr IVPB ONCALL -OR RADHA Stop: 07/28/17 23:59 Vancomycin HCl 1 gm/ Device 200 mls @ 200 mls/hr IVPB ONCALL-OR [facility] Stop: 07/28/17 23:59 Loperamide HCl (Imodium) 2 mg PO PRN PRN PRN Reason: Diarrhea/Loose Stools Loratadine (Claritin) 10 mg PO DAILYPRN PRN PRN Reason: Sinus Symptoms Magnesium Hydroxide (Milk Of Magnesium) 30 ml PO DAILYPRN PRN PRN Reason: Constipation Mineral Oil/White Petrolatum (Eucerin Cream) 0 gm TOP BIDPRN PRN PRN Reason: Dry Skin Miscellaneous Medication (Pharmacy To Dose) 1 each IVPB ONE PRN PRN Reason: Pharmacy to dose Stop: 08/23/17 15:47 Miscellaneous Medication (Pharmacy To Dose) 0 each PO ASDIR PRN PRN Reason: Pharmacy to Dose WARFARIN Nitroglycerin (Nitrostat) 0.4 mg PO Q5MIN PRN PRN Reason: Chest Pain Hold Vancomycin For (Level >20) 0 each FS .AT DIALYSIS [facility] Ondansetron HCl (Zofran) 4 mg SLOW IVP Q6H PRN PRN Reason: Nausea/Vomiting Last Admin: 07/26/17 09:22 Dose: 4 mg Ondansetron HCl (Zofran Odt) 4 mg PO Q6H PRN PRN Reason: Nausea/Vomiting Pantoprazole Sodium (Protonix) 40 mg PO DAILY [facility] Last Admin: 07/27/17 08:48 Dose: 40 mg Phenol (Chloraseptic [place] 180 Ml Bot) 0 ml PO PRN PRN PRN Reason: Sore Throat Pregabalin (Lyrica) 75 mg PO [facility] Last Admin: 07/27/17 20:31 Dose: 75 mg Pyridoxine HCl (Vitamin B 6) 50 mg PO DAILY [facility] Senna (Senokot) 2 tab PO HSPRN PRN PRN Reason: Constipation Sevelamer Carbonate (Renvela) 1,600 mg PO TID-[facility] Last Admin: 07/27/17 17:01 Dose: 1,600 mg Sodium Chloride ([place] Nasal [place] 0.65%) 0 ml EA NARE QIDPRN PRN PRN Reason: Nasal Congestion Tramadol HCl (Ultram) 50 mg PO Q12H PRN PRN Reason: Pain Last Admin: 07/25/17 22:51 Dose: 50 mg Trazodone HCl (Desyrel) 150 mg PO HS PRN PRN Reason: Insomnia Warfarin Sodium (Coumadin) 5 mg PO 1700 RADHA Last Admin: 07/27/17 17:01 Dose: Not Given Zolpidem Tartrate (Ambien) 5 mg PO HSPRN PRN PRN Reason: Insomnia
[2017-07-28] MEDS ORDERED: Fentanyl 250 MCG/5 ML VIAL ONE (12:50)
[2017-07-28] MEDS: Sevelamer Carbonate 800 MG TAB PO SCH ×3 (14:22→18:07)
[2017-07-28] MEDS: hydrALAZINE 25 MG TAB PO SCH ×3 (14:22→21:49)
[2017-07-28] MEDS ORDERED: hydrALAZINE 20 MG/ML VIAL ONE (15:34)
[2017-07-28] MEDS ORDERED: Promethazine HCl 25 MG/ML VIAL IM PRN (15:38)
[2017-07-28] MEDS ORDERED: Promethazine HCl 25 MG/ML VIAL SLOW IVP PRN (15:38)
[2017-07-28] MEDS ORDERED: Promethazine HCl 25 MG/ML VIAL ONE (15:59)
[2017-07-28] MEDS: Aspirin 325 MG TAB PO SCH (16:51)
[2017-07-28] MEDS: Cyanocobalamin (Vitamin B-12) 1,000 MCG TAB PO SCH (16:51)
[2017-07-28] MEDS: Cinacalcet HCl 30 MG TAB PO SCH (16:51)
[2017-07-28] MEDS: Fluticasone Propionate Nasal Spray 16 gm Bottle NASAL SCH (16:52)
[2017-07-28] MEDS: Folic Acid 1 MG TAB PO SCH (16:53)
[2017-07-28] MEDS: pyridOXINE 50 MG (B6) TAB PO SCH (16:54)
[2017-07-28] MEDS ORDERED: Morphine 5 MG/ML SYRINGE SLOW IVP PRN ×2 (17:47)
[2017-07-28] MEDS ORDERED: traMADol HCl 50 MG TAB PO PRN ×2 (17:48)
[2017-07-28] MEDS: Warfarin Sodium 5 MG TAB PO SCH (18:07)
[2017-07-28] MEDS: Pregabalin 75 MG CAP PO SCH (21:48)
[2017-07-28] MEDS: Atorvastatin Calcium 20 MG TAB PO SCH (21:50)
[2017-07-29] MEDS: Insulin Detemir 100 UNITS/ML 10 UNITS in Pre-Filled Syringe SC SCH (02:03)
[2017-07-29 06:04] LABS: INR-International Normal Ratio 1.1; Prothrombin Time 14.5 SEC (12.0-14.7)
[2017-07-29] MEDS: Aspirin 325 MG TAB PO SCH (09:38)
[2017-07-29] MEDS: Sevelamer Carbonate 800 MG TAB PO SCH ×3 (09:38→17:21)
[2017-07-29] MEDS: Cinacalcet HCl 30 MG TAB PO SCH (09:39)
[2017-07-29] MEDS: hydrALAZINE 25 MG TAB PO SCH ×3 (09:39→23:00)
[2017-07-29] MEDS: pyridOXINE 50 MG (B6) TAB PO SCH (09:40)
[2017-07-29] MEDS: Cyanocobalamin (Vitamin B-12) 1,000 MCG TAB PO SCH (09:40)
[2017-07-29] MEDS: Folic Acid 1 MG TAB PO SCH (09:40)
--- NOTE | 2017-07-29 10:11 | PDOC.PN ---
- Subjective Encounter Start Date: 07/29/17 Encounter Start Time: 07:50 Patient seen and examined. No new complaints. No overnight events PD catheter placed yesterday - Objective Resuscitation Status: Resuscitation Status FULL:Full Resuscitation MAR Reviewed: Yes Vital Signs & Weight: Vital Signs (12 hours) Temp Pulse Resp BP BP Pulse Ox 07/29/17 09:39 61 161/72 H 07/29/17 08:00 97.0 F L 61 18 161/72 H 98 07/29/17 04:00 98.1 F 62 19 110/71 96 07/29/17 00:29 98.3 F 65 18 183/76 H 95 Weight Admit Weight 181 lb 6.4 oz Weight 184 lb I&O: 07/28/17 07/29/17 07/30/17 06:59 06:59 06:59 Intake Total 1305 200 Output Total 250 0 Balance 1055 200 Result Diagrams: 07/27/17 05:38 07/27/17 05:38 Additional Labs: Accuchecks 07/29/17 07/28/17 07/28/17 06:32 21:06 17:25 POC Glucose 138 H 182 H 160 H 07/28/17 07/28/17 13:50 12:50 POC Glucose 137 H 80 Phys Exam - Physical Examination Constitutional: NAD HEENT: PERRLA, moist MMs, sclera anicteric Neck: no JVD, supple Respiratory: no wheezing, no rales, no rhonchi Cardiovascular: RRR, no significant murmur, no rub Gastrointestinal: soft, non-tender, no distention, positive bowel sounds PD catheter+ left UE swelling Neurological: non-focal, normal sensation Lymphatic: no nodes Psychiatric: normal affect Skin: no rash, normal turgor Dx/Plan (1) Left subclavian vein thrombosis Code(s): I82.B12 - ACUTE EMBOLISM AND THROMBOSIS OF LEFT SUBCLAVIAN VEIN Status: Acute Comment: on heparin drip (2) Osteomyelitis of toe of left foot Code(s): M86.9 - OSTEOMYELITIS, UNSPECIFIED Status: Acute Comment: (3) Chest pain Code(s): R07.9 - CHEST PAIN, UNSPECIFIED Status: Resolved Comment: ruled out ACS (4) Anemia of renal disease Code(s): D63.1 - ANEMIA IN CHRONIC KIDNEY DISEASE Status: Chronic (5) CAD (coronary artery disease) Code(s): I25.10 - ATHSCL HEART DISEASE OF [place] CORONARY ARTERY W/O ANG PCTRS Status: Chronic (6) Cholelithiases Code(s): K80.20 - CALCULUS OF GALLBLADDER W/O CHOLECYSTITIS W/O OBSTRUCTION Status: Chronic Qualifiers: Cholelithiasis location: gallbladder Cholecystitis acuity: chronic Biliary obstruction: without biliary obstruction (7) Diabetes type 2, controlled Code(s): E11.9 - TYPE 2 DIABETES MELLITUS WITHOUT COMPLICATIONS Status: Chronic Qualifiers: 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 Diabetes mellitus complication status: with skin complications Diabetes mellitus complication detail: with foot ulcer Qualified Code(s): E11.621 - Type 2 diabetes mellitus with foot ulcer; L97.509 - Non-pressure chronic ulcer of other part of unspecified foot with unspecified severity; L97.509 - Non- pressure chronic ulcer of other part of unspecified foot with unspecified severity; L97.509 - Non-pressure chronic ulcer of other part of unspecified foot with unspecified severity; L97.509 - Non-pressure chronic ulcer of other part of unspecified foot with unspecified severity Comment: continue accuchecks, insulin sliding scale (8) End stage renal disease on dialysis Code(s): N18.6 - END STAGE RENAL DISEASE; Z99.2 - DEPENDENCE ON RENAL DIALYSIS Status: Chronic Comment: Dialysis per nephrology service (9) GERD (gastroesophageal reflux disease) Code(s): K21.9 - GASTRO-ESOPHAGEAL REFLUX DISEASE WITHOUT ESOPHAGITIS Status: Chronic (10) H/O aortic valve replacement Code(s): Z95.2 - PRESENCE OF PROSTHETIC HEART VALVE Status: Chronic (11) HLD (hyperlipidemia) Code(s): E78.5 - HYPERLIPIDEMIA, UNSPECIFIED Status: Chronic Qualifiers: Hyperlipidemia type: unspecified Qualified Code(s): E78.5 - Hyperlipidemia , unspecified (12) HTN (hypertension) Code(s): I10 - ESSENTIAL (PRIMARY) HYPERTENSION Status: Chronic Qualifiers: Hypertension type: essential hypertension Qualified Code(s): I10 - Essential (primary) hypertension (13) Macrocytic anemia Code(s): D53.9 - NUTRITIONAL ANEMIA, UNSPECIFIED Status: Chronic (14) Obesity (BMI 30-39.9) Code(s): E66.9 - OBESITY, UNSPECIFIED Status: Chronic (15) Secondary hyperparathyroidism of renal origin Code(s): N25.81 - SECONDARY HYPERPARATHYROIDISM OF RENAL ORIGIN Status: Chronic (16) PVD (peripheral vascular disease) Code(s): I73.9 - PERIPHERAL VASCULAR DISEASE, UNSPECIFIED Status: Chronic (17) Hyperhomocysteinemia Code(s): E72.11 - HOMOCYSTINURIA Status: Acute - Plan cont current plan of care, continue antibiotics, PT/OT, secondary social studies teacher * continue heparin drip * increase warfarin * monitor inr * pt is asking for SNU/rehab evaluation * consult case management director * medication reviewed as below * symptomatic treatment * continue vancomycin for now * oncology consulted for hypercoagulable state * consult CT surgeon for PVD. * keep left UE elevated, apply bandage for swelling Review of Systems - Review of Systems Eyes: negative: Pain, Vision Change, Conjunctivae Inflammation, Eyelid Inflammation, Redness, Other ENT: negative: Ear Pain, Ear Discharge, Nose Pain, Nose Discharge, Nose Congestion, Mouth Pain, Mouth Swelling, Throat Pain, Throat Swelling, Other Respiratory: negative: Cough, Dry, Shortness of Breath, Hemoptysis, SOB with Excertion, Pleuritic Pain, Sputum, Wheezing Cardiovascular: negative: chest pain, palpitations, orthopnea, paroxysmal nocturnal dyspnea, edema, light headedness, other Gastrointestinal: negative: Nausea, Vomiting, Abdominal Pain, Diarrhea, Constipation, Melena, Hematochezia, Other Genitourinary: negative: Dysuria, Frequency, Incontinence, Hematuria, Retention , Other Musculoskeletal: negative: Neck Pain, Shoulder Pain, Arm Pain, Back Pain, Hand Pain, Leg Pain, Foot Pain, Other Skin: negative: Rash, Lesions, [place], Bruising, Other - Medications/Allergies Allergies/Adverse Reactions: Allergies Allergy/AdvReac Type Severity Reaction Status Date / Time ciprofloxacin [From Cipro] Allergy Intermediate Nausea Verified 07/24/17 20:22 Penicillins Allergy Intermediate Hives Verified 07/24/17 20:22 codeine [Codeine] Allergy Anxiety Verified 07/24/17 20:22 hydrocodone Allergy Nausea Verified 07/24/17 20:22 Sulfa (Sulfonamide Allergy Verified 07/24/17 20:22 Antibiotics) sulfamethoxazole Allergy Verified 07/24/17 20:22 [From Bactrim] trimethoprim [From Bactrim] Allergy Verified 07/24/17 20:22 Medications: Current Medications Acetaminophen (Tylenol) 650 mg PO Q4H PRN PRN Reason: Headache/Fever or Pain Last Admin: 07/26/17 03:04 Dose: 650 mg Al Hydroxide/Mg Hydroxide (Maalox) 30 ml PO Q4H PRN PRN Reason: Heartburn or Indigestion Last Admin: 07/26/17 04:10 Dose: 30 ml Artificial Tears (Tears Renewed 15ml Bottle) 0 drop EA EYE PRN PRN PRN Reason: Dry Eyes Aspirin (Aspirin) 325 mg PO DAILY [facility] Last Admin: 07/29/17 09:38 Dose: 325 mg Atorvastatin Calcium (Lipitor) 40 mg PO HS [facility] Last Admin: 07/28/17 21:50 Dose: 40 mg Calcium Carbonate (Tums) 1,000 mg PO Q4H PRN PRN Reason: Heartburn or Indigestion Cinacalcet (Sensipar) 30 mg PO QA[facility] Last Admin: 07/29/17 09:39 Dose: 30 mg Cyanocobalamin (Vitamin B-12) 1,000 mcg PO DAILY [facility] Last Admin: 07/29/17 09:40 Dose: 1,000 mcg Escitalopram Oxalate (Lexapro) 10 mg PO HS PRN PRN Reason: Insomnia Fluticasone Propionate (Flonase Nasal [place]) 0 gm NASAL DAILY [facility] Last Admin: 07/28/17 16:52 Dose: Not Given Folic Acid (Folvite) 1 mg PO DAILY [facility] Last Admin: 07/29/17 09:40 Dose: 1 mg Guaifenesin (Robitussin Sf) 200 mg PO Q4H PRN PRN Reason: Cough Hydralazine HCl (Apresoline) 50 mg PO TID [facility] Last Admin: 07/29/17 09:39 Dose: 50 mg Hydralazine HCl (Apresoline) 10 mg SLOW IVP Q4H PRN PRN Reason: Systolic BP > 180 Last Admin: 07/28/17 03:57 Dose: 10 mg Vancomycin HCl 1.25 gm/ Sodium (Chloride) 250 mls @ 166.667 mls/hr IVPB WILLCALL [facility] Vancomycin HCl 1 gm/ Device 200 mls @ 200 mls/hr IVPB [facility]CALL [facility] Vancomycin HCl 750 mg/ Sodium (Chloride) 250 mls @ 250 mls/hr IVPB [facility] Vancomycin HCl 500 mg/ Sodium (Chloride) 100 mls @ 100 mls/hr IVPB [facility]CALL [facility] Last Admin: 07/25/17 12:27 Dose: 100 mls Insulin Detemir 10 units/ (Miscellaneous Medication) 0.1 mls @ 0 mls/hr [facility] Last Admin: 07/29/17 02:03 Dose: Not Given Loperamide HCl (Imodium) 2 mg PO PRN PRN PRN Reason: Diarrhea/Loose Stools Loratadine (Claritin) 10 mg PO DAILYPRN PRN PRN Reason: Sinus Symptoms Magnesium Hydroxide (Milk Of Magnesium) 30 ml PO DAILYPRN PRN PRN Reason: Constipation Mineral Oil/White Petrolatum (Eucerin Cream) 0 gm TOP BIDPRN PRN PRN Reason: Dry Skin Miscellaneous Medication (Pharmacy To Dose) 1 each IVPB ONE PRN PRN Reason: Pharmacy to dose Stop: 08/23/17 15:47 Miscellaneous Medication (Pharmacy To Dose) 0 each PO ASDIR PRN PRN Reason: Pharmacy to Dose W[facility]FARIN Morphine Sulfate (Morphine) 1 mg SLOW IVP Q2H PRN PRN Reason: .SEVERE PAIN 1ST LINE Morphine Sulfate (Morphine) 2 mg SLOW IVP Q2H PRN PRN Reason: SEVERE PAIN 2ND LINE Morphine Sulfate (Morphine) 4 mg SLOW IVP Q2H PRN PRN Reason: SEVERE PAIN 3RD LINE Nitroglycerin (Nitrostat) 0.4 mg PO Q5MIN PRN PRN Reason: Chest Pain Hold Vancomycin For (Level >20) 0 each FS .AT DIALYSIS [facility] Ondansetron HCl (Zofran) 4 mg SLOW IVP Q6H PRN PRN Reason: Nausea/Vomiting Last Admin: 07/26/17 09:22 Dose: 4 mg Ondansetron HCl (Zofran Odt) 4 mg PO Q6H PRN PRN Reason: Nausea/Vomiting Pantoprazole Sodium (Protonix) 40 mg PO DAILY [facility] Last Admin: 07/29/17 09:40 Dose: 40 mg Phenol (Chloraseptic [place] 180 Ml Bot) 0 ml PO PRN PRN PRN Reason: Sore Throat Pregabalin (Lyrica) 75 mg PO [facility] Last Admin: 07/28/17 21:48 Dose: 75 mg Pyridoxine HCl (Vitamin B 6) 50 mg PO DAILY [facility] Last Admin: 07/29/17 09:40 Dose: 50 mg Senna (Senokot) 2 tab PO HSPRN PRN PRN Reason: Constipation Sevelamer Carbonate (Renvela) 1,600 mg PO TID-[facility] Last Admin: 07/29/17 09:38 Dose: 1,600 mg Sodium Chloride ([place] Nasal [place] 0.65%) 0 ml EA NARE QIDPRN PRN PRN Reason: Nasal Congestion Tramadol HCl (Ultram) 50 mg PO Q12H PRN PRN Reason: Pain Last Admin: 07/25/17 22:51 Dose: 50 mg Tramadol HCl (Ultram) 50 mg PO Q4H PRN PRN Reason: MILD-MOD Pain 1ST LINE Last Admin: 07/28/17 21:49 Dose: 50 mg Tramadol HCl (Ultram) 100 mg PO Q4H PRN PRN Reason: MILD-MOD PAIN 2ND LINE Trazodone HCl (Desyrel) 150 mg PO HS PRN PRN Reason: Insomnia Warfarin Sodium (Coumadin) 5 mg PO 1700 [facility] Zolpidem Tartrate (Ambien) 5 mg PO HSPRN PRN PRN Reason: Insomnia
--- NOTE | 2017-07-29 10:21 | PRG ---
DATE OF SERVICE: 07/28/2017 SUBJECTIVE: Patient was seen and examined at bedside and overnight events noted. Patient denies any shortness of breath or chest pain or palpitation. No history of nausea or vomiting or diarrhea or f ever or chills or cramps. OBJECTIVE: GENERAL: This is a well-built white female in no apparent distress. VITAL SIGNS: Temperature 97.5, pulse 65, respiratory rate 18, blood pressure 188/79. HEENT: Atraumatic, normocephalic. Oral mucosa is moist. NECK: Supple. CARDIOVASCULAR: S1, S2 heard. Rate and rhythm regular. RESPIRATORY: Clear to auscultation. GASTROINTESTINAL: Abdomen is soft. MUSCULOSKELETAL: No tenderness. 1+ edema. DERMATOLOGIC: No skin rash. NEUROLOGIC: Alert and awake and oriented x3. No focal neurologic deficits. Moving all the extremiti es. PSYCHIATRIC: Mood and affect normal. LABORATORY DATA: No labs done today. ASSESSMENT AND PLAN: 1. End-stage renal disease. Continue on hemodialysis Thursday, , and Thursday. The patient might need to switch to PD catheter . 2. Hypertension. 3. Edema. 4. Anemia. 5. Plan is to continue on dialysis as tolerated. The patient having repeated clotting of her access . We will have HEME/ONC evaluation , panel ordered. We will follow.
--- NOTE | 2017-07-29 11:23 | CON ---
DATE OF CONSULTATION: 07/29/2017 REQUESTING PHYSICIAN: Dr. Pat REASON FOR CONSULTATION: Dry gangrenous changes left great toe. HISTORY OF PRESENT ILLNESS: The patient is a 76-year-old diabetic, dialysis patient. I saw her in may when she was hospitalized to address loss of her dialysis access. At that time she was dialyzing through a dialysis catheter that had come out when she turned over in bed and a right femo ral venous catheter had been placed for temporary access. She was noted to have an eschar at the tip of her left great toe at that time and upon questioning, she related to me that she had cut herself trimming her toenails and it just simply had never healed. The plan at that time had been to address her dialysis access and then electively deal with her vascular disease. She did not keep her clinic appointments because of transportation issues and another time the roads being impassable after a he tremayne rain, but she was recently admitted with some chest pain that she had had that sounds like it has been attributed to volume overload because she missed dialysis. In the meantime, the size of the es hi on the tip of her toe has gotten a bit larger, but it still only involves the tip of the left gr eat toe. PAST MEDICAL HISTORY: Significant for diabetes, hypertension, end-stage renal disease, dialyzing on Thursday, , and Thursday schedule and in 2014, she underwent replacement of her aortic valve w ith a 19 mm Perimount Magna bioprosthesis and bypass of her LAD with a left TERENCE and bypass of diagona l and obtuse marginal with a vein harvested from the left lower extremity. MEDICATIONS: Coreg, hydralazine, pantoprazole, glipizide, aspirin, Sensipar, Renvela. She has been placed on vancomycin. ALLERGIES: She gets nausea and vomiting and dysphoria with CODEINE, severely enough that she voiced an unwillingness to even attempt HYDROCODONE OR OXYCODONE. She develops rashes with BACTRIM, CIPRO a nd PENICILLIN. REVIEW OF SYSTEMS: Positive for recent chest pain. Negative for any eye, speech, facial or extremit y symptoms suggestive of transient ischemic attacks. PHYSICAL EXAMINATION: GENERAL: She is in no distress, comfortable in the bed postop day 1 following laparoscopic placement of peritoneal dialysis catheter. VITAL SIGNS: Heart rate 61, blood pressure 161/72. T-max since cheerleading coach on 07/25/2017 when she was admitted has been 98.7. EXTREMITIES: She has easily palpable femoral pulses, without any palpable pulses below that level on either side, although both feet are fairly warm. Most of the tip of the left great toe is involved with eschar. There is no cellulitic changes. She had previously been noted to have asymptomatic car otid bruits. She has well-healed surgical scars status post sternotomy and left lower extremity vein harvest. IMPRESSION AND RECOMMENDATIONS: Nonhealing wound. It sounds like it is traumatic in origin rather t bernal spontaneous tissue loss. The patient probably would warrant revascularization rather than a toe amputation as the toe is possibly still salvageable and there is some question whether a toe amputati on would heal without revascularization. I have spoken with one of my partners about performing kolby riography to map out her arterial anatomy so that a revascularization strategy can be formulated.
[2017-07-29] MEDS: Fluticasone Propionate Nasal Spray 16 gm Bottle NASAL SCH (12:05)
--- NOTE | 2017-07-29 14:57 | PRG ---
DATE OF SERVICE: 07/29/2017 NEPHROLOGY PROGRESS NOTE SUBJECTIVE: Patient was seen and examined at bedside and overnight events noted. Patient denies any shortness of breath or chest pain or palpitation. No history of nausea or vomiting or diarrhea or f ever or chills or cramps. OBJECTIVE: GENERAL: This is a well-built female in no apparent distress. VITAL SIGNS: Temperature 97.0, pulse 61, respiratory rate 18, blood pressure 161/72. HEENT: Atraumatic, normocephalic. Oral mucosa is moist. NECK: Supple. CARDIOVASCULAR: S1, S2 heard. Rate and rhythm regular. RESPIRATORY: Clear to auscultation. GASTROINTESTINAL: Abdomen is soft. MUSCULOSKELETAL: No tenderness. No edema. DERMATOLOGIC: No skin rash. NEUROLOGIC: Alert and awake and oriented x3. No focal neurologic deficits. Moving all the extremiti es. PSYCHIATRIC: Mood and affect normal. LABORATORY DATA: Not done today. ASSESSMENT AND PLAN: 1. End-stage renal disease, continue on hemodialysis on Thursday, , and Thursday. 2. Hypertension. 3. Edema, controlled. 4. Anemia. We will monitor. 5. Plan is to continue dialysis as tolerated.
--- NOTE | 2017-07-29 15:14 | PDOC.OP ---
Operative Note - Operative Note Operative Note: PROCEDURE: Laparoscopic PD catheter placement and repair of recurrent ventral incisional hernia DATE OF PROCEDURE: 08/24/2017 SURGEON: Luis Carlos Feldman M.D. PREOPERATIVE DIAGNOSES: End-stage renal failure POSTOPERATIVE DIAGNOSIS: End-stage renal failure HISTORY: Patient with end-stage renal failure previously on hemodialysis. She has exhausted access in her right arm and has developed a left subclavian thrombosis. She has severe peripheral vascular disease with dry gangrene so a graft in her thighs not felt to be appropriate. Laparoscopic peritoneal catheter placement was requested by nephrology. PROCEDURE IN DETAIL: After informed consent was obtained and appropriate preoperative antibiotics administered, the patient was taken to the operating room, placed in supine position and general endotracheal anesthesia was administered. The abdomen was prepped and draped in standard sterile fashion and local anesthesia was infused the skin and subcutaneous tissues at the left subcostal position. A transverse skin incision was made and the fascia was elevated. A Veress needle was placed into the abdominal cavity and carbon dioxide gas insufflated. Opening pressure was less than 5 and carbon dioxide gas easily insufflated to an intra-abdominal pressure 15 which the patient tolerated well. The Veress needle was withdrawn and a Bowring port advanced under direct laparoscopic vision into the abdominal cavity which was carefully examined. There was no evidence of Veress needle or of trocar injury. There were dense omental adhesions at the level of the recurrent ventral incisional hernia near the umbilicus, and filmy omental adhesions without evidence of her hernia at the upper abdominal location. Local anesthesia was infused to the skin and subcutaneous tissues at the left lateral location and a trocar was placed at that location. The omentum was drawn down out of the hernia sac. This was done with some difficulty as it was densely adherent some mesh which was also within the hernia sac. Electrocautery was used for hemostasis as necessary and once the omentum was reduced this was carefully examined and hemostasis confirmed. The filmy upper midline adhesions were left in place. The hernia defect measured 5 x 8 cm so an 11 x 14 cm mesh was selected. An 8 mm trocar was placed in the right lateral position tunneled through the subcutaneous and then exiting just above the border of the posterior rectus sheath. The mesh was attempted be placed to this but would not fit. Therefore the subcostal trochars replaced with a 12 mm trocar and the mesh placed through this position. The mesh was unfurled taking care to place the coated nonadherent surface facing the bowel. Ethibond sutures were secured trans-fascially at the 4 cardinal locations 3 cm away from the border of the hernia defect and secured to the fascia. Secure strap device was used to fix the mesh circumferentially under direct laparoscopic vision with excellent coverage of the defect. Attention was then turned to placement of the peritoneal dialysis catheter. The patient was placed in Trendelenburg and the small intestine easily was drawn up out of the pelvis. The patient was noted to have a deep sulcus adjacent to the rectum suitable for placement of the catheter and the omentum did not seem to reach down to the pelvis. The peritoneal dialysis catheter advanced through the right lateral 8 mm trocar. The catheter was held in place with the inner cuff just inside the rectus sheath as the trocar was withdrawn. The end of the catheter was placed down into the rectal cul-de-sac and saline infused into the abdominal cavity. The catheter was placed to gravity and easily drained the fluid. The left subcostal trocar was then withdrawn and a 0 Vicryl suture on a GraNee needle used to close the fascial incision. The suture was placed but not tied down at this point. The trocar was then replaced at the right upper quadrant location and the left lateral abdominal trocar withdrawn and the fascia closed at that location with a 0 Vicryl suture on a GraNee needle. This was secured and hemostasis verified. Carbon dioxide was allowed to desufflate through the left subcostal trocar which was then withdrawn and the previously placed suture secured. The skin incisions were then closed with 4-0 subcuticular Monocryl sutures and Dermabond placed. The peritoneal dialysis catheter was positioned with the external cuff in the subcutaneous tissues and the skin was snugged up around the peritoneal dialysis catheter exit site with 4 -0 subcuticular Monocryl sutures and Dermabond placed there as well. Once the Dermabond was dry a gauze and Tegaderm dressing was placed to the external portion of the peritoneal dialysis catheter and the patient was extubated and taken to the recovery room in good condition. Estimated blood loss was minimal. There were no complications. There were no specimens.
--- NOTE | 2017-07-29 16:39 | PRG ---
DATE OF SERVICE: 07/29/2017 SUBJECTIVE: Ms. Moyer is feeling okay today. She is sore at her operative site. She is tolerat ing her diet and not nauseated. Her left arm is not hurting her much, but it is still swollen. She is afebrile with moderate hypertension, but other vital signs are good. Her left arm is slightly les s swollen than yesterday. She has removed her Rodrigo wrap to eat her lunch. Her incisions are clean, d ry, and intact and there is no evidence of hernia on examination. The PD site is clean. ASSESSMENT: Status post laparoscopic peritoneal dialysis catheter and ventral hernia repair, doing w ell. It is okay to restart her anticoagulation as needed. From my standpoint, I recommend continued elevation of her left arm. I will see her back in my clinic in a couple of weeks.
[2017-07-29] MEDS ORDERED: Warfarin Sodium 5 MG TAB PO SCH (17:00)
[2017-07-29] MEDS: Warfarin Sodium 7.5 MG TAB PO SCH ×2 (17:21→18:14)
[2017-07-29] MEDS: Atorvastatin Calcium 20 MG TAB PO SCH (22:59)
[2017-07-29] MEDS: Pregabalin 75 MG CAP PO SCH (22:59)
[2017-07-29] MEDS: Morphine 5 MG/ML SYRINGE SLOW IVP PRN (23:12)
[2017-07-30] MEDS: Insulin Detemir 100 UNITS/ML 10 UNITS in Pre-Filled Syringe SC SCH ×2 (02:12→20:56)
[2017-07-30] MEDS: hydrALAZINE 20 MG/ML VIAL SLOW IVP PRN ×2 (04:34→11:54)
[2017-07-30 05:17] LABS: #Basophils 0.1 thou/uL (0.0-0.2); #Eosinphils 0.4 thou/uL (0.0-0.7); #Lymphocytes 1.1 thou/uL (1.20-3.40); #Monocytes 0.7 thou/uL (0.11-0.59); #Neutrophils 4.1 thou/uL (1.40-6.50); %Basophils 0.9 % (0.0-1.0); %Eosinophils 6.5 % (0.0-10.0); %Lymphocytes 16.4 % (21.0-51.0); %Monocytes 11.4 % (0.0-10.0); %Neutrophils 64.7 % (42.0-75.0); Mean Corpuscular Hemoglobin 33.3 pg (27.0-31.0); Mean Platelet Volume 8.7 fL (7.4-10.4); Platelet Count 142 thou/uL (130-400); Red Blood Cell (RBC) Count 3.31 mill/uL (4.20-5.40); White Blood Cell (WBC) Count 6.4 thou/uL (4.8-10.8)
[2017-07-30 05:18] LABS: INR-International Normal Ratio 1.1; Prothrombin Time 14.6 SEC (12.0-14.7)
[2017-07-30 05:23] LABS: Albumin 3.6 g/dL (3.4-4.8); Anion Gap 15 mmol/L (10-20); BUN (Urea Nitrogen) 43 mg/dL (9.8-20.1); BUN/Creatinine Ratio 6.32; Calc. Creatinine Clearance 9 mL/min (70-130); Calcium 8.5 mg/dL (7.8-10.44); Carbon Dioxide 25 mmol/L (23-31); Chloride 95 mmol/L (98-107); Estimated GFR-MDRD 6; Glucose 105 mg/dL (83-110); Phosphorus 6.2 mg/dL (2.3-4.7); Potassium 4.5 mmol/L (3.5-5.1); Sodium 130 mmol/L (136-145)
[2017-07-30] MEDS ORDERED: Lidocaine 1% (PF) 30 ML VIAL ONE (08:04)
[2017-07-30] MEDS: Cinacalcet HCl 30 MG TAB PO SCH (08:17)
[2017-07-30] MEDS ORDERED: Midazolam HCl 2 mg/2 ml Vial ONE (08:35)
[2017-07-30] MEDS ORDERED: Fentanyl 100 MCG/2 ML VIAL ONE (08:35)
[2017-07-30] MEDS ORDERED: Heparin 10,000 UNITS/1 ML VIAL ONE (08:36)
[2017-07-30] MEDS ORDERED: hydrALAZINE 20 MG/ML VIAL ONE (09:54)
[2017-07-30] MEDS ORDERED: Protamine Sulfate 50 MG/5 ML VIAL ONE (09:55)
[2017-07-30] MEDS ORDERED: Iopamidol 370 76% 50 ML VIAL FS ONE (10:25)
[2017-07-30] MEDS ORDERED: Metoprolol Tartrate 5 MG/5 ML VIAL ONE (10:35)
[2017-07-30] MEDS: Sevelamer Carbonate 800 MG TAB PO SCH ×3 (11:31→18:05)
[2017-07-30] MEDS: Folic Acid 1 MG TAB PO SCH (11:53)
[2017-07-30] MEDS: Aspirin 325 MG TAB PO SCH (11:53)
[2017-07-30] MEDS: Cyanocobalamin (Vitamin B-12) 1,000 MCG TAB PO SCH (11:53)
[2017-07-30] MEDS: pyridOXINE 50 MG (B6) TAB PO SCH (11:53)
[2017-07-30] MEDS: hydrALAZINE 25 MG TAB PO SCH ×3 (11:54→20:34)
--- NOTE | 2017-07-30 11:57 | PRG ---
DATE OF SERVICE: 07/30/2017 SUBJECTIVE: Patient was seen and examined at bedside and overnight events noted. Patient denies any shortness of breath or chest pain or palpitation. No history of nausea or vomiting or diarrhea or f ever or chills or cramps. OBJECTIVE: GENERAL: This is an obese female in no apparent distress. VITAL SIGNS: Temperature is 97, pulse 70, respiratory rate 18 and blood pressure 177/72. HEENT: Atraumatic, normocephalic. Oral mucosa is moist. NECK: Supple. CARDIOVASCULAR: S1, S2 heard. Rate and rhythm regular. RESPIRATORY: Clear to auscultation. GASTROINTESTINAL: Abdomen is soft. MUSCULOSKELETAL: No tenderness. No edema. DERMATOLOGIC: No skin rash. NEUROLOGIC: Alert and awake and oriented x3. No focal neurologic deficits. Moving all the extremit ies. PSYCHIATRIC: Mood and affect normal. LABORATORY DATA: Potassium is 4.5, BUN is 43 and creatinine is 6.8. ASSESSMENT AND PLAN: 1. End-stage renal disease, continue on hemodialysis as tolerated Thursday, , and Thursday. 2. Edema, controlled. 3. Hypertension. 4. Anemia. Monitor hemoglobin. 5. We will continue on dialysis as tolerated.
--- NOTE | 2017-07-30 12:04 | PDOC.PN ---
- Subjective Encounter Start Date: 07/30/17 Encounter Start Time: 08:15 Patient seen and examined. No new complaints. No overnight events - Objective Resuscitation Status: Resuscitation Status FULL:Full Resuscitation MAR Reviewed: Yes Vital Signs & Weight: Vital Signs (12 hours) Temp Pulse Resp BP BP Pulse Ox 07/30/17 11:49 97.5 F L 66 18 197/79 H 99 07/30/17 08:05 97.7 F 70 16 177/72 H 97 07/30/17 04:34 68 182/75 H 07/30/17 04:00 98.5 F 66 14 182/75 H 98 Weight Admit Weight 181 lb 6.4 oz Weight 175 lb 11.335 oz I&O: 07/29/17 07/30/17 07/31/17 06:59 06:59 06:59 Intake Total 200 1280 Output Total 0 50 Balance 200 1230 Result Diagrams: 07/30/17 04:57 07/30/17 04:57 Additional Labs: Accuchecks 07/30/17 07/30/17 07/29/17 11:03 06:48 20:44 POC Glucose 116 H 112 H 145 H 07/29/17 15:51 POC Glucose 153 H EKG Reviewed by me: Yes Phys Exam - Physical Examination Constitutional: NAD HEENT: PERRLA, moist MMs, sclera anicteric Neck: no JVD, supple Respiratory: no wheezing, no rales, no rhonchi Cardiovascular: RRR, no significant murmur, no rub HD catheter tunneled on left side Gastrointestinal: soft, non-tender, no distention, positive bowel sounds PD catheter+ Musculoskeletal: no edema, pulses present gangrene toe of left great toe Neurological: non-focal, normal sensation Psychiatric: normal affect, A&O x 3 Skin: no rash, normal turgor Dx/Plan (1) Left subclavian vein thrombosis Code(s): I82.B12 - ACUTE EMBOLISM AND THROMBOSIS OF LEFT SUBCLAVIAN VEIN Status: Acute Comment: on heparin drip (2) Osteomyelitis of toe of left foot Code(s): M86.9 - OSTEOMYELITIS, UNSPECIFIED Status: Acute Comment: (3) Chest pain Code(s): R07.9 - CHEST PAIN, UNSPECIFIED Status: Resolved Comment: ruled out ACS (4) Anemia of renal disease Code(s): D63.1 - ANEMIA IN CHRONIC KIDNEY DISEASE Status: Chronic (5) CAD (coronary artery disease) Code(s): I25.10 - ATHSCL HEART DISEASE OF [place] CORONARY ARTERY W/O ANG PCTRS Status: Chronic (6) Cholelithiases Code(s): K80.20 - CALCULUS OF GALLBLADDER W/O CHOLECYSTITIS W/O OBSTRUCTION Status: Chronic Qualifiers: Cholelithiasis location: gallbladder Cholecystitis acuity: chronic Biliary obstruction: without biliary obstruction (7) Diabetes type 2, controlled Code(s): E11.9 - TYPE 2 DIABETES MELLITUS WITHOUT COMPLICATIONS Status: Chronic Qualifiers: Diabetes mellitus joint terminal attack controller insulin use: without senior care use Diabetes mellitus complication status: with skin complications Diabetes mellitus complication detail: with foot ulcer Qualified Code(s): E11.621 - Type 2 diabetes mellitus with foot ulcer; L97.509 - Non-pressure chronic ulcer of other part of unspecified foot with unspecified severity; L97.509 - Non- pressure chronic ulcer of other part of unspecified foot with unspecified severity; L97.509 - Non-pressure chronic ulcer of other part of unspecified foot with unspecified severity; L97.509 - Non-pressure chronic ulcer of other part of unspecified foot with unspecified severity Comment: continue accuchecks, insulin sliding scale (8) End stage renal disease on dialysis Code(s): N18.6 - END STAGE RENAL DISEASE; Z99.2 - DEPENDENCE ON RENAL DIALYSIS Status: Chronic Comment: Dialysis per nephrology service (9) GERD (gastroesophageal reflux disease) Code(s): K21.9 - GASTRO-ESOPHAGEAL REFLUX DISEASE WITHOUT ESOPHAGITIS Status: Chronic (10) H/O aortic valve replacement Code(s): Z95.2 - PRESENCE OF PROSTHETIC HEART VALVE Status: Chronic (11) HLD (hyperlipidemia) Code(s): E78.5 - HYPERLIPIDEMIA, UNSPECIFIED Status: Chronic Qualifiers: Hyperlipidemia type: unspecified Qualified Code(s): E78.5 - Hyperlipidemia , unspecified (12) HTN (hypertension) Code(s): I10 - ESSENTIAL (PRIMARY) HYPERTENSION Status: Chronic Qualifiers: Hypertension type: essential hypertension Qualified Code(s): I10 - Essential (primary) hypertension (13) Macrocytic anemia Code(s): D53.9 - NUTRITIONAL ANEMIA, UNSPECIFIED Status: Chronic (14) Obesity (BMI 30-39.9) Code(s): E66.9 - OBESITY, UNSPECIFIED Status: Chronic (15) Secondary hyperparathyroidism of renal origin Code(s): N25.81 - SECONDARY HYPERPARATHYROIDISM OF RENAL ORIGIN Status: Chronic (16) PVD (peripheral vascular disease) Code(s): I73.9 - PERIPHERAL VASCULAR DISEASE, UNSPECIFIED Status: Chronic (17) Hyperhomocysteinemia Code(s): E72.11 - HOMOCYSTINURIA Status: Acute - Plan cont current plan of care, continue antibiotics, PT/OT, social services designee * continue heparin drip with warfarin until INR therapeutic * continue antibiotics as per dr renee on discharge * await rehab decision * today plan for angiogram and possible revascularization based on that finding * medication reviewed as below * symptomatic treatment. Review of Systems - Review of Systems ENT: negative: Ear Pain, Ear Discharge, Nose Pain, Nose Discharge, Nose Congestion, Mouth Pain, Mouth Swelling, Throat Pain, Throat Swelling, Other Respiratory: negative: Cough, Dry, Shortness of Breath, Hemoptysis, SOB with Excertion, Pleuritic Pain, Sputum, Wheezing Cardiovascular: negative: chest pain, palpitations, orthopnea, paroxysmal nocturnal dyspnea, edema, light headedness, other Gastrointestinal: negative: Nausea, Vomiting, Abdominal Pain, Diarrhea, Constipation, Melena, Hematochezia, Other Genitourinary: negative: Dysuria, Frequency, Incontinence, Hematuria, Retention , Other Musculoskeletal: negative: Neck Pain, Shoulder Pain, Arm Pain, Back Pain, Hand Pain, Leg Pain, Foot Pain, Other Skin: negative: Rash, Lesions, [place], Bruising, Other - Medications/Allergies Allergies/Adverse Reactions: Allergies Allergy/AdvReac Type Severity Reaction Status Date / Time ciprofloxacin [From Cipro] Allergy Intermediate Nausea Verified 07/24/17 20:22 Penicillins Allergy Intermediate Hives Verified 07/24/17 20:22 codeine [Codeine] Allergy Anxiety Verified 07/24/17 20:22 hydrocodone Allergy Nausea Verified 07/24/17 20:22 Sulfa (Sulfonamide Allergy Verified 07/24/17 20:22 Antibiotics) sulfamethoxazole Allergy Verified 07/24/17 20:22 [From Bactrim] trimethoprim [From Bactrim] Allergy Verified 07/24/17 20:22 Medications: Current Medications Acetaminophen (Tylenol) 650 mg PO Q4H PRN PRN Reason: Headache/Fever or Pain Last Admin: 07/26/17 03:04 Dose: 650 mg Al Hydroxide/Mg Hydroxide (Maalox) 30 ml PO Q4H PRN PRN Reason: Heartburn or Indigestion Last Admin: 07/26/17 04:10 Dose: 30 ml Artificial Tears (Tears Renewed 15ml Bottle) 0 drop EA EYE PRN PRN PRN Reason: Dry Eyes Aspirin (Aspirin) 325 mg PO DAILY [facility] Last Admin: 07/30/17 11:53 Dose: 325 mg Atorvastatin Calcium (Lipitor) 40 mg PO HS [facility] Last Admin: 07/29/17 22:59 Dose: 40 mg Calcium Carbonate (Tums) 1,000 mg PO Q4H PRN PRN Reason: Heartburn or Indigestion Cinacalcet (Sensipar) 30 mg PO QA-[facility] Last Admin: 07/29/17 09:39 Dose: 30 mg Cyanocobalamin (Vitamin B-12) 1,000 mcg PO DAILY [facility] Last Admin: 07/30/17 11:53 Dose: 1,000 mcg Escitalopram Oxalate (Lexapro) 10 mg PO HS PRN PRN Reason: Insomnia Fluticasone Propionate (Flonase Nasal [place]) 0 gm NASAL DAILY [facility] Last Admin: 07/29/17 12:05 Dose: 2 spr Folic Acid (Folvite) 1 mg PO DAILY [facility] Last Admin: 07/30/17 11:53 Dose: 1 mg Guaifenesin (Robitussin Sf) 200 mg PO Q4H PRN PRN Reason: Cough Hydralazine HCl (Apresoline) 50 mg PO TID [facility] Last Admin: 07/30/17 11:54 Dose: Not Given Hydralazine HCl (Apresoline) 10 mg SLOW IVP Q4H PRN PRN Reason: Systolic BP > 180 Last Admin: 07/30/17 11:54 Dose: 10 mg Vancomycin HCl 1.25 gm/ Sodium (Chloride) 250 mls @ 166.667 mls/hr IVPB WILLCALL [facility] Vancomycin HCl 1 gm/ Device 200 mls @ 200 mls/hr IVPB [facility] Vancomycin HCl 750 mg/ Sodium (Chloride) 250 mls @ 250 mls/hr IVPB [facility] Vancomycin HCl 500 mg/ Sodium (Chloride) 100 mls @ 100 mls/hr IVPB [facility] Last Admin: 07/25/17 12:27 Dose: 100 mls Insulin Detemir 10 units/ (Miscellaneous Medication) 0.1 mls @ 0 mls/hr [facility] Last Admin: 07/30/17 02:12 Dose: Not Given Loperamide HCl (Imodium) 2 mg PO PRN PRN PRN Reason: Diarrhea/Loose Stools Loratadine (Claritin) 10 mg PO DAILYPRN PRN PRN Reason: Sinus Symptoms Magnesium Hydroxide (Milk Of Magnesium) 30 ml PO DAILYPRN PRN PRN Reason: Constipation Mineral Oil/White Petrolatum (Eucerin Cream) 0 gm TOP BIDPRN PRN PRN Reason: Dry Skin Miscellaneous Medication (Pharmacy To Dose) 1 each IVPB ONE PRN PRN Reason: Pharmacy to dose Stop: 08/23/17 15:47 Miscellaneous Medication (Pharmacy To Dose) 0 each PO ASDIR PRN PRN Reason: Pharmacy to Dose WARFARIN Morphine Sulfate (Morphine) 1 mg SLOW IVP Q2H PRN PRN Reason: .SEVERE PAIN 1ST LINE Last Admin: 07/29/17 23:12 Dose: 1 mg Morphine Sulfate (Morphine) 2 mg SLOW IVP Q2H PRN PRN Reason: SEVERE PAIN 2ND LINE Morphine Sulfate (Morphine) 4 mg SLOW IVP Q2H PRN PRN Reason: SEVERE PAIN 3RD LINE Nitroglycerin (Nitrostat) 0.4 mg PO Q5MIN PRN PRN Reason: Chest Pain Hold Vancomycin For (Level >20) 0 each FS .AT DIALYSIS [facility] Ondansetron HCl (Zofran) 4 mg SLOW IVP Q6H PRN PRN Reason: Nausea/Vomiting Last Admin: 07/26/17 09:22 Dose: 4 mg Ondansetron HCl (Zofran Odt) 4 mg PO Q6H PRN PRN Reason: Nausea/Vomiting Pantoprazole Sodium (Protonix) 40 mg PO DAILY [facility] Last Admin: 07/30/17 11:53 Dose: 40 mg Phenol (Chloraseptic Ken[place] 180 Ml Bot) 0 ml PO PRN PRN PRN Reason: Sore Throat Pregabalin (Lyrica) 75 mg PO [facility] Last Admin: 07/29/17 22:59 Dose: 75 mg Pyridoxine HCl (Vitamin B 6) 50 mg PO DAILY [facility] Last Admin: 07/30/17 11:53 Dose: 50 mg Senna (Senokot) 2 tab PO HSPRN PRN PRN Reason: Constipation Sevelamer Carbonate (Renvela) 1,600 mg PO TID-[facility] Last Admin: 07/30/17 11:31 Dose: Not Given Sodium Chloride ([place] Nasal [place] 0.65%) 0 ml EA NARE QIDPRN PRN PRN Reason: Nasal Congestion Tramadol HCl (Ultram) 50 mg PO Q4H PRN PRN Reason: MILD-MOD Pain 1ST LINE Last Admin: 07/28/17 21:49 Dose: 50 mg Tramadol HCl (Ultram) 100 mg PO Q4H PRN PRN Reason: MILD-MOD PAIN 2ND LINE Last Admin: 07/29/17 15:01 Dose: 100 mg Trazodone HCl (Desyrel) 150 mg PO HS PRN PRN Reason: Insomnia Warfarin Sodium (Coumadin) 7.5 mg PO 1700 RADHA Zolpidem Tartrate (Ambien) 5 mg PO HSPRN PRN PRN Reason: Insomnia
[2017-07-30] MEDS: Fluticasone Propionate Nasal Spray 16 gm Bottle NASAL SCH (12:16)
--- NOTE | 2017-07-30 12:20 | OP ---
DATE OF OPERATION: 07/30/2017 PREOPERATIVE DIAGNOSIS: Peripheral vascular disease with left great toe ulceration. POSTOPERATIVE DIAGNOSIS: Peripheral vascular disease with left great toe ulceration. PROCEDURE: 1. Abdominal Aortogram x2. 2. Left external iliac angiogram. 3. Left common femoral artery angiogram. 4. Left superficial femoral artery angiogram. 5. Left popliteal artery angiogram. 6. Left tibioperoneal trunk angiogram. 7. Left peroneal artery angiogram. 8. Left posterior tibial artery angiogram. 9. Left peroneal artery [employer]CR[employer]E [place]ON with a 2.5 x 60 [place] balloon taken to 8 mmHg for 2 minutes. 10. Left posterior tibial artery [place]CR[employer] [place]ON with a 2.5 x 60 [place] balloon taken to 6 mmHg for 2 minutes. 11. Left distal SFA [place]CR[employer]E [place]ON with a 5 x 60 Lutonix drug-eluting balloon taken to 8 mmHg for 3 minutes. 12. Left proximal SFA [place]CR[place]E [place]ON with a 5 x 40 Lutonix drug-eluting balloon taken to 6 mmHg for 3 minutes. 13. US guided vascular access TOTAL CONTRAST: 54 mL. TOTAL FLUORO TIME 13.5 minutes. MEDICATIONS: Heparin 1000 units, protamine 25 mg. Sedation 1 mg Versed and 25 mcg fentanyl. PROCEDURE IN DETAIL: After consent was obtained, the patient was brought to laboratory manager, placed in supine position on the laboratory manager table. Appropriate monitoring was placed. Groins were prepped and draped in usual sterile fashion. IV sedation was begun. Using ultrasound guidance, the right groin was anesthetized and percutaneous access to the common femoral artery obtained. A micropuncture sheath was placed. The sheath was then exchanged for a 5- [place] sheath. Contra catheter was passed in the upper abdominal aorta. Hand injected aortogram was performed showing an angulated aorta. There was no significant aortic stenosis. Contra catheter was withdrawn to the aortic bifurcation and a secondhand injected arteriogram was performed alluding the iliac vasculature showing no evidence of any significant stenosis. The Contra catheter was guided over the aortic bifurcation and positioned in the external iliac artery. Hand injected arteriogram was performed and using digital angiography contrast was chased from groin to foot. The common iliac and common femoral arteries were widely patent. Proximal superficial femoral artery had an occlusion for a less than 2 cm segment. The profunda was widely patent. Superficial femoral artery reconstituted and more distally had a longer segment approximately 5 cm occlusion. The distal superficial femoral artery and popliteal artery were patent. The Contra catheter was exchanged over an angled Glidewire for an angled glide catheter. This was positioned in the common femoral artery. Hand ejected angulated arteriogram was performed opening the femoral bifurcation. Roadmapping was used to guide the catheter and guidewire through the area of occlusion into the superficial femoral artery. Hand injected arteriogram was again performed and roadmapping was used to guide the catheter and guidewire through the area of occlusion in the superficial femoral artery. Catheter was positioned in the popliteal artery. Hand injected arteriogram was performed and the tibial arteries were illuminated. The anterior tibial artery was widely patent and a large vessel which passed down into the foot. Both the posterior tibial and peroneal arteries were nearly occluded for approximately 1 cm at their origin. The angled glide catheter and Glidewire were used to traverse the near occlusion in the peroneal artery. Glidewire was removed. Hand injected arteriogram was performed. The tip of the catheter in the peroneal artery confirming intraluminal location. An 014 Luge wire was then placed. Catheter was removed and a 2.5 x 60 [place] balloon was selected. This was positioned and inflated over the area of near occlusion. Balloon was removed. An angled glide catheter positioned in the tibioperoneal trunk. Hand injected arteriogram was performed and showed a good result from the angioplasty. The loose wire was removed and the peroneal guided down into the posterior tibial artery. Catheter was positioned in the distal posterior tibial artery and hand injected arteriogram performed confirming intraluminal location. Luge wire was left in place and the catheter removed. The 2.5 x 60 [place] balloon was used to angioplasty the proximal posterior tibial artery. Balloon was removed with guidewire left in place. The angled glide catheter was then used to inject to the tibioperoneal trunk showing an excellent result in both the posterior tibial and peroneal arteries. A Magic Torque guidewire was then replaced after removing the Luge wire. A 5 x 60 Lutonix balloon was selected for angioplasty of the distal SFA. Hand injected arteriogram was performed. Tip of the sheath in the superficial femoral artery and the balloon was then positioned in appropriate position. Balloon was inflated for 3 minutes. Over the area of near occlusion. Followup angiogram showed an excellent result. Angled views were then used to open the femoral artery bifurcation. Hand injected arteriogram was performed through the sheath in the external iliac artery. A 5 x 40 Lutonix balloon was inflated up to 6 mmHg for 3 minutes and the area of occlusion in the proximal SFA. Followup angiogram showed an excellent result. Sheath was withdrawn back into the right iliac system. Guidewire was then removed. Sheath was removed after checking the ACT which was treated with protamine. Manual pressure was held for hemostasis. After adequate hemostasis had been obtained, the patient was transferred to the recovery area and back to the floor in good condition. ELAINE
[2017-07-30] MEDS ORDERED: Warfarin Sodium 7.5 MG TAB PO SCH (17:00)
[2017-07-30] MEDS: Morphine 5 MG/ML SYRINGE SLOW IVP PRN (19:01)
[2017-07-30] MEDS: Pregabalin 75 MG CAP PO SCH (20:33)
[2017-07-30] MEDS: Atorvastatin Calcium 20 MG TAB PO SCH (20:33)
[2017-07-31 05:21] LABS: INR-International Normal Ratio 1.1; Prothrombin Time 14.7 SEC (12.0-14.7)
[2017-07-31] MEDS: Cinacalcet HCl 30 MG TAB PO SCH (08:31)
[2017-07-31] MEDS: Sevelamer Carbonate 800 MG TAB PO SCH ×3 (08:32→17:22)
[2017-07-31] MEDS: Clopidogrel Bisulfate 75 MG TAB PO SCH (08:32)
[2017-07-31] MEDS: Folic Acid 1 MG TAB PO SCH (08:33)
[2017-07-31] MEDS: pyridOXINE 50 MG (B6) TAB PO SCH (08:33)
[2017-07-31] MEDS: Aspirin 325 MG TAB PO SCH (08:33)
[2017-07-31] MEDS: Cyanocobalamin (Vitamin B-12) 1,000 MCG TAB PO SCH (08:33)
[2017-07-31] MEDS: Fluticasone Propionate Nasal Spray 16 gm Bottle NASAL SCH (08:34)
[2017-07-31] MEDS: hydrALAZINE 25 MG TAB PO SCH ×3 (08:34→23:05)
[2017-07-31] MEDS: Morphine 5 MG/ML SYRINGE SLOW IVP PRN (09:38)
--- NOTE | 2017-07-31 11:11 | PDOC.PN ---
- Subjective Encounter Start Date: 07/31/17 Encounter Start Time: 07:30 Patient seen and examined. No new complaints. No overnight events - Objective Resuscitation Status: Resuscitation Status FULL:Full Resuscitation MAR Reviewed: Yes Vital Signs & Weight: Vital Signs (12 hours) Temp Pulse Resp BP Pulse Ox 07/31/17 08:27 97.8 F 78 17 140/61 96 07/31/17 04:00 98.3 F 67 18 138/61 96 Weight Admit Weight 181 lb 6.4 oz Weight 180 lb 12.465 oz I&O: 07/30/17 07/31/17 08/01/17 06:59 06:59 06:59 Intake Total 1280 420 Output Total 50 0 Balance 1230 420 Result Diagrams: 07/30/17 04:57 07/30/17 04:57 Additional Labs: Accuchecks 07/31/17 07/30/17 07/30/17 05:43 21:02 11:03 POC Glucose 115 H 162 H 116 H EKG Reviewed by me: Yes Phys Exam - Physical Examination Constitutional: NAD HEENT: PERRLA, moist MMs, sclera anicteric Neck: no JVD, supple Respiratory: no wheezing, no rales, no rhonchi Cardiovascular: RRR, no significant murmur, no rub Tunneled catheter+ Gastrointestinal: soft, non-tender, no distention, positive bowel sounds PD catheter+, Musculoskeletal: no edema, pulses present Neurological: non-focal, normal sensation Lymphatic: no nodes Psychiatric: normal affect Skin: no rash, normal turgor Dx/Plan (1) Left subclavian vein thrombosis Code(s): I82.B12 - ACUTE EMBOLISM AND THROMBOSIS OF LEFT SUBCLAVIAN VEIN Status: Acute Comment: on heparin drip (2) Osteomyelitis of toe of left foot Code(s): M86.9 - OSTEOMYELITIS, UNSPECIFIED Status: Acute Comment: (3) Chest pain Code(s): R07.9 - CHEST PAIN, UNSPECIFIED Status: Resolved Comment: ruled out ACS (4) Anemia of renal disease Code(s): D63.1 - ANEMIA IN CHRONIC KIDNEY DISEASE Status: Chronic (5) CAD (coronary artery disease) Code(s): I25.10 - ATHSCL HEART DISEASE OF [place] CORONARY ARTERY W/O ANG PCTRS Status: Chronic (6) Cholelithiases Code(s): K80.20 - CALCULUS OF GALLBLADDER W/O CHOLECYSTITIS W/O OBSTRUCTION Status: Chronic Qualifiers: Cholelithiasis location: gallbladder Cholecystitis acuity: chronic Biliary obstruction: without biliary obstruction (7) Diabetes type 2, controlled Code(s): E11.9 - TYPE 2 DIABETES MELLITUS WITHOUT COMPLICATIONS Status: Chronic Qualifiers: 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: without truck trailer mechanic use Diabetes mellitus complication status: with skin complications Diabetes mellitus complication detail: with foot ulcer Qualified Code(s): E11.621 - Type 2 diabetes mellitus with foot ulcer; L97.509 - Non-pressure chronic ulcer of other part of unspecified foot with unspecified severity; L97.509 - Non- pressure chronic ulcer of other part of unspecified foot with unspecified severity; L97.509 - Non-pressure chronic ulcer of other part of unspecified foot with unspecified severity; L97.509 - Non-pressure chronic ulcer of other part of unspecified foot with unspecified severity Comment: continue accuchecks, insulin sliding scale (8) End stage renal disease on dialysis Code(s): N18.6 - END STAGE RENAL DISEASE; Z99.2 - DEPENDENCE ON RENAL DIALYSIS Status: Chronic Comment: Dialysis per nephrology service (9) GERD (gastroesophageal reflux disease) Code(s): K21.9 - GASTRO-ESOPHAGEAL REFLUX DISEASE WITHOUT ESOPHAGITIS Status: Chronic (10) H/O aortic valve replacement Code(s): Z95.2 - PRESENCE OF PROSTHETIC HEART VALVE Status: Chronic (11) HLD (hyperlipidemia) Code(s): E78.5 - HYPERLIPIDEMIA, UNSPECIFIED Status: Chronic Qualifiers: Hyperlipidemia type: unspecified Qualified Code(s): E78.5 - Hyperlipidemia , unspecified (12) HTN (hypertension) Code(s): I10 - ESSENTIAL (PRIMARY) HYPERTENSION Status: Chronic Qualifiers: Hypertension type: essential hypertension Qualified Code(s): I10 - Essential (primary) hypertension (13) Macrocytic anemia Code(s): D53.9 - NUTRITIONAL ANEMIA, UNSPECIFIED Status: Chronic (14) Obesity (BMI 30-39.9) Code(s): E66.9 - OBESITY, UNSPECIFIED Status: Chronic (15) Secondary hyperparathyroidism of renal origin Code(s): N25.81 - SECONDARY HYPERPARATHYROIDISM OF RENAL ORIGIN Status: Chronic (16) PVD (peripheral vascular disease) Code(s): I73.9 - PERIPHERAL VASCULAR DISEASE, UNSPECIFIED Status: Chronic (17) Hyperhomocysteinemia Code(s): E72.11 - HOMOCYSTINURIA Status: Acute - Plan cont current plan of care, continue antibiotics, PT/OT, social services manager * angiography done * medically stable * tele unremarkable * today dc tele * transfer to medical * medication reviewed as below * symptomatic treatment * await rehab decision * continue vancomycin with HD * she will not need iv antibiotics on discharge. Review of Systems - Review of Systems Eyes: negative: Pain, Vision Change, Conjunctivae Inflammation, Eyelid Inflammation, Redness, Other ENT: negative: Ear Pain, Ear Discharge, Nose Pain, Nose Discharge, Nose Congestion, Mouth Pain, Mouth Swelling, Throat Pain, Throat Swelling, Other Respiratory: negative: Cough, Dry, Shortness of Breath, Hemoptysis, SOB with Excertion, Pleuritic Pain, Sputum, Wheezing Cardiovascular: negative: chest pain, palpitations, orthopnea, paroxysmal nocturnal dyspnea, edema, light headedness, other Gastrointestinal: negative: Nausea, Vomiting, Abdominal Pain, Diarrhea, Constipation, Melena, Hematochezia, Other Genitourinary: negative: Dysuria, Frequency, Incontinence, Hematuria, Retention , Other Musculoskeletal: negative: Neck Pain, Shoulder Pain, Arm Pain, Back Pain, Hand Pain, Leg Pain, Foot Pain, Other Skin: negative: Rash, Lesions, [place], Bruising, Other - Medications/Allergies Allergies/Adverse Reactions: Allergies Allergy/AdvReac Type Severity Reaction Status Date / Time ciprofloxacin [From Cipro] Allergy Intermediate Nausea Verified 07/24/17 20:22 Penicillins Allergy Intermediate Hives Verified 07/24/17 20:22 codeine [Codeine] Allergy Anxiety Verified 07/24/17 20:22 hydrocodone Allergy Nausea Verified 07/24/17 20:22 Sulfa (Sulfonamide Allergy Verified 07/24/17 20:22 Antibiotics) sulfamethoxazole Allergy Verified 07/24/17 20:22 [From Bactrim] trimethoprim [From Bactrim] Allergy Verified 07/24/17 20:22 Medications: Current Medications Acetaminophen (Tylenol) 650 mg PO Q4H PRN PRN Reason: Headache/Fever or Pain Last Admin: 07/26/17 03:04 Dose: 650 mg Al Hydroxide/Mg Hydroxide (Maalox) 30 ml PO Q4H PRN PRN Reason: Heartburn or Indigestion Last Admin: 07/26/17 04:10 Dose: 30 ml Artificial Tears (Tears Renewed 15ml Bottle) 0 drop EA EYE PRN PRN PRN Reason: Dry Eyes Aspirin (Aspirin) 325 mg PO DAILY [facility] Last Admin: 07/31/17 08:33 Dose: 325 mg Atorvastatin Calcium (Lipitor) 40 mg PO HS [facility] Last Admin: 07/30/17 20:33 Dose: 40 mg Calcium Carbonate (Tums) 1,000 mg PO Q4H PRN PRN Reason: Heartburn or Indigestion Cinacalcet (Sensipar) 30 mg PO QAM[facility] Last Admin: 07/31/17 08:31 Dose: 30 mg Clopidogrel Bisulfate (Plavix) 75 mg PO DAILY [facility] Last Admin: 07/31/17 08:32 Dose: 75 mg Cyanocobalamin (Vitamin B-12) 1,000 mcg PO DAILY [facility] Last Admin: 07/31/17 08:33 Dose: 1,000 mcg Escitalopram Oxalate (Lexapro) 10 mg PO HS PRN PRN Reason: Insomnia Fluticasone Propionate (Flonase Nasal [place]) 0 gm NASAL DAILY [facility] Last Admin: 07/31/17 08:34 Dose: Not Given Folic Acid (Folvite) 1 mg PO DAILY [facility] Last Admin: 07/31/17 08:33 Dose: 1 mg Guaifenesin (Robitussin Sf) 200 mg PO Q4H PRN PRN Reason: Cough Hydralazine HCl (Apresoline) 50 mg PO TID [facility] Last Admin: 07/31/17 08:34 Dose: 50 mg Hydralazine HCl (Apresoline) 10 mg SLOW IVP Q4H PRN PRN Reason: Systolic BP > 180 Last Admin: 07/30/17 11:54 Dose: 10 mg Vancomycin HCl 1.25 gm/ Sodium (Chloride) 250 mls @ 166.667 mls/hr IVPB WILLCALL [facility] Vancomycin HCl 1 gm/ Device 200 mls @ 200 mls/hr IVPB WILLCALL [facility] Vancomycin HCl 750 mg/ Sodium (Chloride) 250 mls @ 250 mls/hr IVPB [facility]CALL [facility] Vancomycin HCl 500 mg/ Sodium (Chloride) 100 mls @ 100 mls/hr IVPB [facility]CALL [facility] Last Admin: 07/25/17 12:27 Dose: 100 mls Insulin Detemir 10 units/ (Miscellaneous Medication) 0.1 mls @ 0 mls/hr [facility] Last Admin: 07/30/17 20:56 Dose: Not Given Loperamide HCl (Imodium) 2 mg PO PRN PRN PRN Reason: Diarrhea/Loose Stools Loratadine (Claritin) 10 mg PO DAILYPRN PRN PRN Reason: Sinus Symptoms Magnesium Hydroxide (Milk Of Magnesium) 30 ml PO DAILYPRN PRN PRN Reason: Constipation Mineral Oil/White Petrolatum (Eucerin Cream) 0 gm TOP BIDPRN PRN PRN Reason: Dry Skin Miscellaneous Medication (Pharmacy To Dose) 1 each IVPB ONE PRN PRN Reason: Pharmacy to dose Stop: 08/23/17 15:47 Miscellaneous Medication (Pharmacy To Dose) 0 each PO ASDIR PRN PRN Reason: Pharmacy to Dose WARFARIN Morphine Sulfate (Morphine) 1 mg SLOW IVP Q2H PRN PRN Reason: .SEVERE PAIN 1ST LINE Last Admin: 07/31/17 09:38 Dose: 1 mg Morphine Sulfate (Morphine) 2 mg SLOW IVP Q2H PRN PRN Reason: SEVERE PAIN 2ND LINE Morphine Sulfate (Morphine) 4 mg SLOW IVP Q2H PRN PRN Reason: SEVERE PAIN 3RD LINE Nitroglycerin (Nitrostat) 0.4 mg PO Q5MIN PRN PRN Reason: Chest Pain Hold Vancomycin For (Level >20) 0 each FS .AT DIALYSIS [facility] Ondansetron HCl (Zofran) 4 mg SLOW IVP Q6H PRN PRN Reason: Nausea/Vomiting Last Admin: 07/26/17 09:22 Dose: 4 mg Ondansetron HCl (Zofran Odt) 4 mg PO Q6H PRN PRN Reason: Nausea/Vomiting Pantoprazole Sodium (Protonix) 40 mg PO DAILY [facility] Last Admin: 07/31/17 08:33 Dose: 40 mg Phenol (Chloraseptic [place] 180 Ml Bot) 0 ml PO PRN PRN PRN Reason: Sore Throat Pregabalin (Lyrica) 75 mg PO [facility] Last Admin: 07/30/17 20:33 Dose: 75 mg Pyridoxine HCl (Vitamin B 6) 50 mg PO DAILY [facility] Last Admin: 07/31/17 08:33 Dose: 50 mg Senna (Senokot) 2 tab PO HSPRN PRN PRN Reason: Constipation Sevelamer Carbonate (Renvela) 1,600 mg PO TID-[facility] Last Admin: 07/31/17 08:32 Dose: 1,600 mg Sodium Chloride ([place] Nasal [place] 0.65%) 0 ml EA NARE QIDPRN PRN PRN Reason: Nasal Congestion Tramadol HCl (Ultram) 50 mg PO Q4H PRN PRN Reason: MILD-MOD Pain 1ST LINE Last Admin: 07/28/17 21:49 Dose: 50 mg Tramadol HCl (Ultram) 100 mg PO Q4H PRN PRN Reason: MILD-MOD PAIN 2ND LINE Last Admin: 07/29/17 15:01 Dose: 100 mg Trazodone HCl (Desyrel) 150 mg PO HS PRN PRN Reason: Insomnia Warfarin Sodium (Coumadin) 7.5 mg PO 1700 [facility] Last Admin: 07/30/17 19:05 Dose: 7.5 mg Zolpidem Tartrate (Ambien) 5 mg PO HSPRN PRN PRN Reason: Insomnia
--- NOTE | 2017-07-31 11:41 | PRG ---
DATE OF SERVICE: 07/31/2017 SUBJECTIVE: Patient was seen and examined at bedside and overnight events noted. Patient denies any shortness of breath or chest pain or palpitation. No history of nausea or vomiting or diarrhea or f ever or chills or cramps. OBJECTIVE: GENERAL: This is an obese female in no apparent distress. VITAL SIGNS: Temperature 97.8, pulse 70, respiratory 18, blood pressure 140/61. HEENT: Atraumatic, normocephalic. Oral mucosa is moist. NECK: Supple. CARDIOVASCULAR: S1, S2 heard. Rate and rhythm regular. RESPIRATORY: Clear to auscultation. GASTROINTESTINAL: Abdomen is soft. MUSCULOSKELETAL: No tenderness, no edema. DERMATOLOGIC: No skin rash. NEUROLOGIC: Alert and awake and oriented x3. No focal neurologic deficits. Moving all the extremit ies. PSYCHIATRIC: Mood and affect normal. LABORATORY DATA: Not done today. ASSESSMENT AND PLAN: 1. End-stage renal disease. Continue on hemodialysis as tolerated, Thursday, , Thursday. Garg d dialysis today, tolerated well. 2. PD catheter placed. Complains of mild pain from hernia repair. 3. Edema. 4. Hypertension. 5. Anemia. Plan is to continue on dialysis as tolerated, Thursday, , and Thursday.
[2017-07-31 12:14] LABS: Protein C Activity 74 % (78-152)
[2017-07-31 12:17] LABS: Factor VIII Test 241.6 % ACTIVE (56-157)
[2017-07-31 13:57] LABS: Vancomycin, Random 14.1 ug/mL (See Comment)
[2017-07-31] MEDS: Warfarin Sodium 10 MG TAB PO SCH (17:22)
[2017-07-31] MEDS: Pregabalin 75 MG CAP PO SCH (23:05)
[2017-07-31] MEDS: Atorvastatin Calcium 20 MG TAB PO SCH (23:06)
[2017-07-31] MEDS: Insulin Detemir 100 UNITS/ML 10 UNITS in Pre-Filled Syringe SC SCH (23:09)
[2017-08-01 04:23] LABS: INR-International Normal Ratio 1.2; Prothrombin Time 15.8 SEC (12.0-14.7)
--- NOTE | 2017-08-01 10:07 | PDOC.PN ---
- Subjective Encounter Start Date: 08/01/17 Encounter Start Time: 07:40 Patient seen and examined. No new complaints. No overnight events - Objective Resuscitation Status: Resuscitation Status FULL:Full Resuscitation MAR Reviewed: Yes Vital Signs & Weight: Vital Signs (12 hours) Temp Pulse Resp BP Pulse Ox 08/01/17 07:21 98.2 F 70 18 92 L 07/31/17 23:05 70 177/72 H Weight Admit Weight 181 lb 6.4 oz Weight 180 lb 12.465 oz I&O: 07/31/17 08/01/17 08/02/17 06:59 06:59 06:59 Intake Total 420 450 Output Total 0 Balance 420 450 Result Diagrams: 07/30/17 04:57 07/30/17 04:57 Additional Labs: Accuchecks 08/01/17 07/31/17 07/31/17 04:16 23:24 16:07 POC Glucose 101 134 H 105 07/31/17 11:26 POC Glucose 176 H Phys Exam - Physical Examination Constitutional: NAD HEENT: PERRLA, moist MMs, sclera anicteric Neck: no JVD, supple Respiratory: no wheezing, no rales, no rhonchi Cardiovascular: RRR, no significant murmur, no rub tunneled HD catheter + Gastrointestinal: soft, non-tender, no distention, positive bowel sounds PD catheter+, Musculoskeletal: no edema, pulses present left foot with dressing Neurological: non-focal, normal sensation Lymphatic: no nodes Psychiatric: normal affect Skin: no rash, normal turgor Dx/Plan (1) Left subclavian vein thrombosis Code(s): I82.B12 - ACUTE EMBOLISM AND THROMBOSIS OF LEFT SUBCLAVIAN VEIN Status: Acute Comment: on warfarin (2) Osteomyelitis of toe of left foot Code(s): M86.9 - OSTEOMYELITIS, UNSPECIFIED Status: Acute Comment: on vancomycin with HD (3) Anemia of renal disease Code(s): D63.1 - ANEMIA IN CHRONIC KIDNEY DISEASE Status: Chronic (4) CAD (coronary artery disease) Code(s): I25.10 - ATHSCL HEART DISEASE OF [place] CORONARY ARTERY W/O ANG PCTRS Status: Chronic (5) Cholelithiases Code(s): K80.20 - CALCULUS OF GALLBLADDER W/O CHOLECYSTITIS W/O OBSTRUCTION Status: Chronic Qualifiers: Cholelithiasis location: gallbladder Cholecystitis acuity: chronic Biliary obstruction: without biliary obstruction (6) Diabetes type 2, controlled Code(s): E11.9 - TYPE 2 DIABETES MELLITUS WITHOUT COMPLICATIONS Status: Chronic Qualifiers: Diabetes mellitus long-term insulin use: without intermodal truck driver use Diabetes mellitus complication status: with skin complications Diabetes mellitus complication detail: with foot ulcer Qualified Code(s): E11.621 - Type 2 diabetes mellitus with foot ulcer; L97.509 - Non-pressure chronic ulcer of other part of unspecified foot with unspecified severity; L97.509 - Non- pressure chronic ulcer of other part of unspecified foot with unspecified severity; L97.509 - Non-pressure chronic ulcer of other part of unspecified foot with unspecified severity; L97.509 - Non-pressure chronic ulcer of other part of unspecified foot with unspecified severity Comment: continue accuchecks, insulin sliding scale (7) End stage renal disease on dialysis Code(s): N18.6 - END STAGE RENAL DISEASE; Z99.2 - DEPENDENCE ON RENAL DIALYSIS Status: Chronic Comment: Dialysis per nephrology service (8) GERD (gastroesophageal reflux disease) Code(s): K21.9 - GASTRO-ESOPHAGEAL REFLUX DISEASE WITHOUT ESOPHAGITIS Status: Chronic (9) H/O aortic valve replacement Code(s): Z95.2 - PRESENCE OF PROSTHETIC HEART VALVE Status: Chronic (10) HLD (hyperlipidemia) Code(s): E78.5 - HYPERLIPIDEMIA, UNSPECIFIED Status: Chronic Qualifiers: Hyperlipidemia type: unspecified Qualified Code(s): E78.5 - Hyperlipidemia , unspecified (11) HTN (hypertension) Code(s): I10 - ESSENTIAL (PRIMARY) HYPERTENSION Status: Chronic Qualifiers: Hypertension type: essential hypertension Qualified Code(s): I10 - Essential (primary) hypertension (12) Macrocytic anemia Code(s): D53.9 - NUTRITIONAL ANEMIA, UNSPECIFIED Status: Chronic (13) Obesity (BMI 30-39.9) Code(s): E66.9 - OBESITY, UNSPECIFIED Status: Chronic (14) Secondary hyperparathyroidism of renal origin Code(s): N25.81 - SECONDARY HYPERPARATHYROIDISM OF RENAL ORIGIN Status: Chronic (15) PVD (peripheral vascular disease) Code(s): I73.9 - PERIPHERAL VASCULAR DISEASE, UNSPECIFIED Status: Chronic (16) Hyperhomocysteinemia Code(s): E72.11 - HOMOCYSTINURIA Status: Acute - Plan cont current plan of care, continue antibiotics * continue increased dose of warfarin, still subtherapeutic INR,. * await rehab placement * wound care * HD as per nephrology * medication reviewed as below * symptomatic treatment Review of Systems - Review of Systems ENT: negative: Ear Pain, Ear Discharge, Nose Pain, Nose Discharge, Nose Congestion, Mouth Pain, Mouth Swelling, Throat Pain, Throat Swelling, Other Respiratory: negative: Cough, Dry, Shortness of Breath, Hemoptysis, SOB with Excertion, Pleuritic Pain, Sputum, Wheezing Cardiovascular: negative: chest pain, palpitations, orthopnea, paroxysmal nocturnal dyspnea, edema, light headedness, other Gastrointestinal: negative: Nausea, Vomiting, Abdominal Pain, Diarrhea, Constipation, Melena, Hematochezia, Other Genitourinary: negative: Dysuria, Frequency, Incontinence, Hematuria, Retention , Other Musculoskeletal: negative: Neck Pain, Shoulder Pain, Arm Pain, Back Pain, Hand Pain, Leg Pain, Foot Pain, Other Skin: negative: Rash, Lesions, [place], Bruising, Other - Medications/Allergies Allergies/Adverse Reactions: Allergies Allergy/AdvReac Type Severity Reaction Status Date / Time ciprofloxacin [From Cipro] Allergy Intermediate Nausea Verified 07/24/17 20:22 Penicillins Allergy Intermediate Hives Verified 07/24/17 20:22 codeine [Codeine] Allergy Anxiety Verified 07/24/17 20:22 hydrocodone Allergy Nausea Verified 07/24/17 20:22 Sulfa (Sulfonamide Allergy Verified 07/24/17 20:22 Antibiotics) sulfamethoxazole Allergy Verified 07/24/17 20:22 [From Bactrim] trimethoprim [From Bactrim] Allergy Verified 07/24/17 20:22 Medications: Current Medications Acetaminophen (Tylenol) 650 mg PO Q4H PRN PRN Reason: Headache/Fever or Pain Last Admin: 07/26/17 03:04 Dose: 650 mg Al Hydroxide/Mg Hydroxide (Maalox) 30 ml PO Q4H PRN PRN Reason: Heartburn or Indigestion Last Admin: 07/26/17 04:10 Dose: 30 ml Artificial Tears (Tears Renewed 15ml Bottle) 0 drop EA EYE PRN PRN PRN Reason: Dry Eyes Aspirin (Aspirin) 325 mg PO DAILY [facility] Last Admin: 07/31/17 08:33 Dose: 325 mg Atorvastatin Calcium (Lipitor) 40 mg PO HS [facility] Last Admin: 07/31/17 23:06 Dose: 40 mg Calcium Carbonate (Tums) 1,000 mg PO Q4H PRN PRN Reason: Heartburn or Indigestion Cinacalcet (Sensipar) 30 mg PO QAM[facility] Last Admin: 07/31/17 08:31 Dose: 30 mg Clopidogrel Bisulfate (Plavix) 75 mg PO DAILY [facility] Last Admin: 07/31/17 08:32 Dose: 75 mg Cyanocobalamin (Vitamin B-12) 1,000 mcg PO DAILY [facility] Last Admin: 07/31/17 08:33 Dose: 1,000 mcg Escitalopram Oxalate (Lexapro) 10 mg PO HS PRN PRN Reason: Insomnia Fluticasone Propionate (Flonase Nasal [place]) 0 gm NASAL DAILY [facility] Last Admin: 07/31/17 08:34 Dose: Not Given Folic Acid (Folvite) 1 mg PO DAILY [facility] Last Admin: 07/31/17 08:33 Dose: 1 mg Guaifenesin (Robitussin Sf) 200 mg PO Q4H PRN PRN Reason: Cough Hydralazine HCl (Apresoline) 50 mg PO TID [facility] Last Admin: 07/31/17 23:05 Dose: 50 mg Hydralazine HCl (Apresoline) 10 mg SLOW IVP Q4H PRN PRN Reason: Systolic BP > 180 Last Admin: 07/30/17 11:54 Dose: 10 mg Vancomycin HCl 1.25 gm/ Sodium (Chloride) 250 mls @ 166.667 mls/hr IVPB [facility] Vancomycin HCl 1 gm/ Device 200 mls @ 200 mls/hr [facility]PB [facility] Vancomycin HCl 750 mg/ Sodium (Chloride) 250 mls @ 250 mls/hr [facility] Vancomycin HCl 500 mg/ Sodium (Chloride) 100 mls @ 100 mls/hr [facility] Last Admin: 07/25/17 12:27 Dose: 100 mls Insulin Detemir 10 units/ (Miscellaneous Medication) 0.1 mls @ 0 mls/hr SC [facility] Last Admin: 07/31/17 23:09 Dose: Not Given Loperamide HCl (Imodium) 2 mg PO PRN PRN PRN Reason: Diarrhea/Loose Stools Loratadine (Claritin) 10 mg PO DAILYPRN PRN PRN Reason: Sinus Symptoms Magnesium Hydroxide (Milk Of Magnesium) 30 ml PO DAILYPRN PRN PRN Reason: Constipation Mineral Oil/White Petrolatum (Eucerin Cream) 0 gm TOP BIDPRN PRN PRN Reason: Dry Skin Miscellaneous Medication (Pharmacy To Dose) 1 each IVPB ONE PRN PRN Reason: Pharmacy to dose Stop: 08/23/17 15:47 Miscellaneous Medication (Pharmacy To Dose) 0 each PO ASDIR PRN PRN Reason: Pharmacy to Dose WARFARIN Morphine Sulfate (Morphine) 1 mg SLOW IVP Q2H PRN PRN Reason: .SEVERE PAIN 1ST LINE Last Admin: 07/31/17 09:38 Dose: 1 mg Morphine Sulfate (Morphine) 2 mg SLOW IVP Q2H PRN PRN Reason: SEVERE PAIN 2ND LINE Morphine Sulfate (Morphine) 4 mg SLOW IVP Q2H PRN PRN Reason: SEVERE PAIN 3RD LINE Nitroglycerin (Nitrostat) 0.4 mg PO Q5MIN PRN PRN Reason: Chest Pain Hold Vancomycin For (Level >20) 0 each FS .AT DIALYSIS [facility] Ondansetron HCl (Zofran) 4 mg SLOW IVP Q6H PRN PRN Reason: Nausea/Vomiting Last Admin: 07/26/17 09:22 Dose: 4 mg Ondansetron HCl (Zofran Odt) 4 mg PO Q6H PRN PRN Reason: Nausea/Vomiting Pantoprazole Sodium (Protonix) 40 mg PO DAILY [facility] Last Admin: 07/31/17 08:33 Dose: 40 mg Phenol (Chloraseptic [place] 180 Ml Bot) 0 ml PO PRN PRN PRN Reason: Sore Throat Pregabalin (Lyrica) 75 mg PO [facility] Last Admin: 07/31/17 23:05 Dose: 75 mg Pyridoxine HCl (Vitamin B 6) 50 mg PO DAILY [facility] Last Admin: 07/31/17 08:33 Dose: 50 mg Senna (Senokot) 2 tab PO HSPRN PRN PRN Reason: Constipation Sevelamer Carbonate (Renvela) 1,600 mg PO TID-[facility] Last Admin: 07/31/17 17:22 Dose: 1,600 mg Sodium Chloride ([place] Nasal [place] 0.65%) 0 ml EA NARE QIDPRN PRN PRN Reason: Nasal Congestion Tramadol HCl (Ultram) 50 mg PO Q4H PRN PRN Reason: MILD-MOD Pain 1ST LINE Last Admin: 07/28/17 21:49 Dose: 50 mg Tramadol HCl (Ultram) 100 mg PO Q4H PRN PRN Reason: MILD-MOD PAIN 2ND LINE Last Admin: 07/29/17 15:01 Dose: 100 mg Trazodone HCl (Desyrel) 150 mg PO HS PRN PRN Reason: Insomnia Warfarin Sodium (Coumadin) 10 mg PO 1700 [facility] Last Admin: 07/31/17 17:22 Dose: 10 mg Zolpidem Tartrate (Ambien) 5 mg PO HSPRN PRN PRN Reason: Insomnia
[2017-08-01] MEDS: Cinacalcet HCl 30 MG TAB PO SCH (10:12)
[2017-08-01] MEDS: Sevelamer Carbonate 800 MG TAB PO SCH ×3 (10:12→15:46)
[2017-08-01] MEDS: Fluticasone Propionate Nasal Spray 16 gm Bottle NASAL SCH (10:13)
[2017-08-01 11:05] LABS: Vancomycin, Random 7.4 ug/mL (See Comment)
[2017-08-01] MEDS ORDERED: Heparin 1,000 UNITS/ML VIAL ONE (11:11)
[2017-08-01] MEDS: Aspirin 325 MG TAB PO SCH (15:31)
[2017-08-01] MEDS: hydrALAZINE 25 MG TAB PO SCH ×3 (15:31→20:56)
[2017-08-01] MEDS: Cyanocobalamin (Vitamin B-12) 1,000 MCG TAB PO SCH (15:31)
[2017-08-01] MEDS: Folic Acid 1 MG TAB PO SCH (15:32)
[2017-08-01] MEDS: pyridOXINE 50 MG (B6) TAB PO SCH (15:32)
[2017-08-01] MEDS: Clopidogrel Bisulfate 75 MG TAB PO SCH (15:32)
[2017-08-01] MEDS: Warfarin Sodium 10 MG TAB PO SCH (15:36)
--- NOTE | 2017-08-01 17:21 | PRG ---
DATE OF SERVICE: 08/01/2017 SUBJECTIVE: Patient was seen and examined at bedside and overnight events noted. Patient denies any shortness of breath or chest pain or palpitation. No history of nausea or vomiting or diarrhea or f ever or chills or cramps. OBJECTIVE: GENERAL: This is an obese female in no apparent distress. VITAL SIGNS: Temperature 98.6, pulse 69, blood pressure 148/64. HEENT: Atraumatic, normocephalic. Oral mucosa is moist. NECK: Supple. CARDIOVASCULAR: S1, S2 heard. Rate and rhythm regular. RESPIRATORY: Clear to auscultation. GASTROINTESTINAL: Abdomen is soft. MUSCULOSKELETAL: No tenderness. No edema. DERMATOLOGIC: No skin rash. NEUROLOGIC: Alert and awake and oriented x3. No focal neurologic deficits. Moving all the extremit ies. PSYCHIATRIC: Mood and affect normal. LABORATORY DATA: No labs done today. ASSESSMENT AND PLAN: 1. End-stage renal disease, on hemodialysis. 2. Edema, controlled. 3. Hypertension. 4. Anemia. We will monitor hemoglobin. 5. Plan is to continue on dialysis Thursday, , and Thursday as tolerated.
[2017-08-01] MEDS: Insulin Detemir 100 UNITS/ML 10 UNITS in Pre-Filled Syringe SC SCH (20:40)
[2017-08-01] MEDS: Atorvastatin Calcium 20 MG TAB PO SCH (20:54)
[2017-08-01] MEDS: Pregabalin 75 MG CAP PO SCH (20:54)
[2017-08-02 04:36] LABS: INR-International Normal Ratio 1.9
[2017-08-02] MEDS: pyridOXINE 50 MG (B6) TAB PO SCH (08:33)
[2017-08-02] MEDS: Aspirin 325 MG TAB PO SCH (08:34)
[2017-08-02] MEDS: Folic Acid 1 MG TAB PO SCH (08:34)
[2017-08-02] MEDS: Clindamycin 150 MG CAP PO SCH ×3 (08:34→23:49)
[2017-08-02] MEDS: hydrALAZINE 25 MG TAB PO SCH ×3 (08:34→20:35)
[2017-08-02] MEDS: Cinacalcet HCl 30 MG TAB PO SCH (08:34)
[2017-08-02] MEDS: Cyanocobalamin (Vitamin B-12) 1,000 MCG TAB PO SCH (08:34)
[2017-08-02] MEDS: Sevelamer Carbonate 800 MG TAB PO SCH ×3 (08:34→16:45)
[2017-08-02] MEDS: Clopidogrel Bisulfate 75 MG TAB PO SCH (08:34)
--- NOTE | 2017-08-02 09:18 | PDOC.PN ---
- Subjective Encounter Start Date: 08/02/17 Encounter Start Time: 07:10 Patient seen and examined. c/o constipation. No overnight events - Objective Resuscitation Status: Resuscitation Status FULL:Full Resuscitation MAR Reviewed: Yes Vital Signs & Weight: Vital Signs (12 hours) Temp Pulse Resp BP BP Pulse Ox 08/02/17 08:34 72 135/56 L 08/02/17 07:48 98.2 F 71 16 135/56 L 91 L 08/02/17 02:00 94 L 08/02/17 00:00 98.2 F 66 18 119/87 98 Weight Admit Weight 181 lb 6.4 oz Weight 179 lb 3.773 oz I&O: 08/01/17 08/02/17 08/03/17 06:59 06:59 06:59 Intake Total 450 360 Balance 450 360 Result Diagrams: 07/30/17 04:57 07/30/17 04:57 Additional Labs: Accuchecks 08/02/17 08/01/17 08/01/17 04:54 20:54 12:52 POC Glucose 105 105 130 H Phys Exam - Physical Examination Constitutional: NAD HEENT: PERRLA, moist MMs, sclera anicteric Neck: no JVD, supple Respiratory: no wheezing, no rales, no rhonchi Cardiovascular: RRR, no significant murmur, no rub HD tunneled catheter+ Gastrointestinal: soft, non-tender, no distention, positive bowel sounds PD catheter+ Musculoskeletal: no edema, pulses present Neurological: non-focal, normal sensation Psychiatric: normal affect, A&O x 3 Skin: no rash, normal turgor Dx/Plan (1) Left subclavian vein thrombosis Code(s): I82.B12 - ACUTE EMBOLISM AND THROMBOSIS OF LEFT SUBCLAVIAN VEIN Status: Acute Comment: on warfarin (2) Osteomyelitis of toe of left foot Code(s): M86.9 - OSTEOMYELITIS, UNSPECIFIED Status: Acute Comment: on vancomycin with HD (3) Anemia of renal disease Code(s): D63.1 - ANEMIA IN CHRONIC KIDNEY DISEASE Status: Chronic (4) CAD (coronary artery disease) Code(s): I25.10 - ATHSCL HEART DISEASE OF [place] CORONARY ARTERY W/O ANG PCTRS Status: Chronic (5) Cholelithiases Code(s): K80.20 - CALCULUS OF GALLBLADDER W/O CHOLECYSTITIS W/O OBSTRUCTION Status: Chronic Qualifiers: Cholelithiasis location: gallbladder Cholecystitis acuity: chronic Biliary obstruction: without biliary obstruction (6) Diabetes type 2, controlled Code(s): E11.9 - TYPE 2 DIABETES MELLITUS WITHOUT COMPLICATIONS Status: Chronic Qualifiers: Diabetes mellitus halfway insulin use: without halfway use Diabetes mellitus complication status: with skin complications Diabetes mellitus complication detail: with foot ulcer Qualified Code(s): E11.621 - Type 2 diabetes mellitus with foot ulcer; L97.509 - Non-pressure chronic ulcer of other part of unspecified foot with unspecified severity; L97.509 - Non- pressure chronic ulcer of other part of unspecified foot with unspecified severity; L97.509 - Non-pressure chronic ulcer of other part of unspecified foot with unspecified severity; L97.509 - Non-pressure chronic ulcer of other part of unspecified foot with unspecified severity Comment: continue accuchecks, insulin sliding scale (7) End stage renal disease on dialysis Code(s): N18.6 - END STAGE RENAL DISEASE; Z99.2 - DEPENDENCE ON RENAL DIALYSIS Status: Chronic Comment: Dialysis per nephrology service (8) GERD (gastroesophageal reflux disease) Code(s): K21.9 - GASTRO-ESOPHAGEAL REFLUX DISEASE WITHOUT ESOPHAGITIS Status: Chronic (9) H/O aortic valve replacement Code(s): Z95.2 - PRESENCE OF PROSTHETIC HEART VALVE Status: Chronic (10) HLD (hyperlipidemia) Code(s): E78.5 - HYPERLIPIDEMIA, UNSPECIFIED Status: Chronic Qualifiers: Hyperlipidemia type: unspecified Qualified Code(s): E78.5 - Hyperlipidemia , unspecified (11) HTN (hypertension) Code(s): I10 - ESSENTIAL (PRIMARY) HYPERTENSION Status: Chronic Qualifiers: Hypertension type: essential hypertension Qualified Code(s): I10 - Essential (primary) hypertension (12) Macrocytic anemia Code(s): D53.9 - NUTRITIONAL ANEMIA, UNSPECIFIED Status: Chronic (13) Obesity (BMI 30-39.9) Code(s): E66.9 - OBESITY, UNSPECIFIED Status: Chronic (14) Secondary hyperparathyroidism of renal origin Code(s): N25.81 - SECONDARY HYPERPARATHYROIDISM OF RENAL ORIGIN Status: Chronic (15) PVD (peripheral vascular disease) Code(s): I73.9 - PERIPHERAL VASCULAR DISEASE, UNSPECIFIED Status: Chronic (16) Hyperhomocysteinemia Code(s): E72.11 - HOMOCYSTINURIA Status: Acute - Plan cont current plan of care, continue antibiotics, PT/OT, criminal justice social worker * DC vancomycin * start oral minocycline and clindamycin as per ID * await rehab placement * fleet enema for constipation * medication reviewed as below * symptomatic treatment. Review of Systems - Review of Systems Constitutional: negative: fever, chills, sweats, weakness, malaise, other Eyes: negative: Pain, Vision Change, Conjunctivae Inflammation, Eyelid Inflammation, Redness, Other ENT: negative: Ear Pain, Ear Discharge, Nose Pain, Nose Discharge, Nose Congestion, Mouth Pain, Mouth Swelling, Throat Pain, Throat Swelling, Other Respiratory: negative: Cough, Dry, Shortness of Breath, Hemoptysis, SOB with Excertion, Pleuritic Pain, Sputum, Wheezing Cardiovascular: negative: chest pain, palpitations, orthopnea, paroxysmal nocturnal dyspnea, edema, light headedness, other Gastrointestinal: Constipation. negative: Nausea, Vomiting, Abdominal Pain, Diarrhea, Melena, Hematochezia, Other Genitourinary: negative: Dysuria, Frequency, Incontinence, Hematuria, Retention , Other Musculoskeletal: negative: Neck Pain, Shoulder Pain, Arm Pain, Back Pain, Hand Pain, Leg Pain, Foot Pain, Other Skin: negative: Rash, Lesions, [place], Bruising, Other - Medications/Allergies Allergies/Adverse Reactions: Allergies Allergy/AdvReac Type Severity Reaction Status Date / Time ciprofloxacin [From Cipro] Allergy Intermediate Nausea Verified 07/24/17 20:22 Penicillins Allergy Intermediate Hives Verified 07/24/17 20:22 codeine [Codeine] Allergy Anxiety Verified 07/24/17 20:22 hydrocodone Allergy Nausea Verified 07/24/17 20:22 Sulfa (Sulfonamide Allergy Verified 07/24/17 20:22 Antibiotics) sulfamethoxazole Allergy Verified 07/24/17 20:22 [From Bactrim] trimethoprim [From Bactrim] Allergy Verified 07/24/17 20:22 Medications: Current Medications Acetaminophen (Tylenol) 650 mg PO Q4H PRN PRN Reason: Headache/Fever or Pain Last Admin: 07/26/17 03:04 Dose: 650 mg Al Hydroxide/Mg Hydroxide (Maalox) 30 ml PO Q4H PRN PRN Reason: Heartburn or Indigestion Last Admin: 07/26/17 04:10 Dose: 30 ml Artificial Tears (Tears Renewed 15ml Bottle) 0 drop EA EYE PRN PRN PRN Reason: Dry Eyes Aspirin (Aspirin) 325 mg PO DAILY [facility] Last Admin: 08/02/17 08:34 Dose: 325 mg Atorvastatin Calcium (Lipitor) 40 mg PO HS [facility] Last Admin: 08/01/17 20:54 Dose: 40 mg Calcium Carbonate (Tums) 1,000 mg PO Q4H PRN PRN Reason: Heartburn or Indigestion Cinacalcet (Sensipar) 30 mg PO QAM-[facility] Last Admin: 08/02/17 08:34 Dose: 30 mg Clindamycin HCl (Cleocin) 300 mg PO 0000,0800,1600 [facility] Last Admin: 08/02/17 08:34 Dose: 300 mg Clopidogrel Bisulfate (Plavix) 75 mg PO DAILY [facility] Last Admin: 08/02/17 08:34 Dose: 75 mg Cyanocobalamin (Vitamin B-12) 1,000 mcg PO DAILY [facility] Last Admin: 08/02/17 08:34 Dose: 1,000 mcg Escitalopram Oxalate (Lexapro) 10 mg PO HS PRN PRN Reason: Insomnia Fluticasone Propionate (Flonase Nasal [place]) 0 gm NASAL DAILY [facility] Last Admin: 08/01/17 10:13 Dose: 2 spr Folic Acid (Folvite) 1 mg PO DAILY [facility] Last Admin: 08/02/17 08:34 Dose: 1 mg Guaifenesin (Robitussin Sf) 200 mg PO Q4H PRN PRN Reason: Cough Hydralazine HCl (Apresoline) 50 mg PO TID [facility] Last Admin: 08/02/17 08:34 Dose: 50 mg Hydralazine HCl (Apresoline) 10 mg SLOW IVP Q4H PRN PRN Reason: Systolic BP > 180 Last Admin: 07/30/17 11:54 Dose: 10 mg Insulin Detemir 10 units/ (Miscellaneous Medication) 0.1 mls @ 0 mls/hr [facility] Last Admin: 08/01/17 20:40 Dose: Not Given Loperamide HCl (Imodium) 2 mg PO PRN PRN PRN Reason: Diarrhea/Loose Stools Loratadine (Claritin) 10 mg PO DAILYPRN PRN PRN Reason: Sinus Symptoms Magnesium Hydroxide (Milk Of Magnesium) 30 ml PO DAILYPRN PRN PRN Reason: Constipation Mineral Oil/White Petrolatum (Eucerin Cream) 0 gm TOP BIDPRN PRN PRN Reason: Dry Skin Minocycline HCl (Minocycline Hcl) 100 mg PO BID [facility] Last Admin: 08/02/17 08:35 Dose: 100 mg Miscellaneous Medication (Pharmacy To Dose) 0 each PO ASDIR PRN PRN Reason: Pharmacy to Dose WARFARIN Morphine Sulfate (Morphine) 1 mg SLOW IVP Q2H PRN PRN Reason: .SEVERE PAIN 1ST LINE Last Admin: 07/31/17 09:38 Dose: 1 mg Morphine Sulfate (Morphine) 2 mg SLOW IVP Q2H PRN PRN Reason: SEVERE PAIN 2ND LINE Nitroglycerin (Nitrostat) 0.4 mg PO Q5MIN PRN PRN Reason: Chest Pain Hold Vancomycin For (Level >20) 0 each FS .AT DIALYSIS [facility] Ondansetron HCl (Zofran) 4 mg SLOW IVP Q6H PRN PRN Reason: Nausea/Vomiting Last Admin: 07/26/17 09:22 Dose: 4 mg Ondansetron HCl (Zofran Odt) 4 mg PO Q6H PRN PRN Reason: Nausea/Vomiting Pantoprazole Sodium (Protonix) 40 mg PO DAILY [facility] Last Admin: 08/02/17 08:34 Dose: 40 mg Phenol (Chloraseptic [place] 180 Ml Bot) 0 ml PO PRN PRN PRN Reason: Sore Throat Polyethylene Glycol (Miralax) 17 gm PO DAILYPRN PRN PRN Reason: Constipation Pregabalin (Lyrica) 75 mg PO [facility] Last Admin: 08/01/17 20:54 Dose: 75 mg Pyridoxine HCl (Vitamin B 6) 50 mg PO DAILY [facility] Last Admin: 08/02/17 08:33 Dose: 50 mg Senna (Senokot) 2 tab PO HSPRN PRN PRN Reason: Constipation Sevelamer Carbonate (Renvela) 1,600 mg PO TID-[facility] Last Admin: 08/02/17 08:34 Dose: 1,600 mg Sodium Chloride ([place] Nasal [place] 0.65%) 0 ml EA NARE QIDPRN PRN PRN Reason: Nasal Congestion Tramadol HCl (Ultram) 50 mg PO Q4H PRN PRN Reason: MILD-MOD Pain 1ST LINE Last Admin: 07/28/17 21:49 Dose: 50 mg Trazodone HCl (Desyrel) 150 mg PO HS PRN PRN Reason: Insomnia Warfarin Sodium (Coumadin) 5 mg PO 1700 [facility] Zolpidem Tartrate (Ambien) 5 mg PO HSPRN PRN PRN Reason: Insomnia
[2017-08-02] MEDS ORDERED: Fleet Enema 133 ML BOT PR SCH (09:30)
--- NOTE | 2017-08-02 15:01 | PRG ---
DATE OF SERVICE: 08/02/2017 SUBJECTIVE: Patient was seen and examined at bedside and overnight events noted. Patient denies any shortness of breath or chest pain or palpitation. No history of nausea or vomiting or diarrhea or f ever or chills or cramps. OBJECTIVE: GENERAL: This is a well-built female in no apparent distress. VITAL SIGNS: Temperature 98.2, pulse 71, respirations 18, blood pressure 134/56. HEENT: Atraumatic, normocephalic. Oral mucosa is moist. NECK: Supple CARDIOVASCULAR: S1, S2 heard. Rate and rhythm regular. RESPIRATORY: Clear to auscultation. GASTROINTESTINAL: Abdomen is soft. MUSCULOSKELETAL: No tenderness. No edema. DERMATOLOGIC: No skin rash. NEUROLOGIC: Alert and awake and oriented x3. No focal neurologic deficits. Moving all the extremit ies. PSYCHIATRIC: Mood and affect normal. LABORATORY DATA: Not done today. ASSESSMENT AND PLAN: 1. End-stage renal disease, on hemodialysis. 2. Edema, controlled. 3. Hypertension. 4. Anemia. Plan is to continue on dialysis Thursday, , and Thursday as tolerated. Follow up with outpati ent dialysis clinic for PD catheter.
[2017-08-02] MEDS: Polyethylene Glycol 3350 17 GM Packet PO PRN (16:44)
[2017-08-02] MEDS ORDERED: Promethazine HCl 25 MG/ML VIAL IM/IV SCH (16:45)
[2017-08-02] MEDS: Fluticasone Propionate Nasal Spray 16 gm Bottle NASAL SCH (16:46)
[2017-08-02] MEDS ORDERED: Warfarin Sodium 2.5 MG TAB PO SCH (17:00)
[2017-08-02] MEDS ORDERED: Warfarin Sodium 5 MG TAB PO SCH (17:00)
[2017-08-02] MEDS: Atorvastatin Calcium 20 MG TAB PO SCH (20:36)
[2017-08-02] MEDS: Pregabalin 75 MG CAP PO SCH (20:36)
[2017-08-02] MEDS: Insulin Detemir 100 UNITS/ML 10 UNITS in Pre-Filled Syringe SC SCH (20:40)
[2017-08-03 04:59] LABS: INR-International Normal Ratio 2.8
[2017-08-03 05:00] LABS: #Basophils 0.1 thou/uL (0.0-0.2); #Eosinphils 0.5 thou/uL (0.0-0.7); #Lymphocytes 1.2 thou/uL (1.20-3.40); #Monocytes 0.9 thou/uL (0.11-0.59); #Neutrophils 4.3 thou/uL (1.40-6.50); %Eosinophils 7.5 % (0.0-10.0); %Lymphocytes 17.1 % (21.0-51.0); %Monocytes 12.8 % (0.0-10.0); %Neutrophils 61.6 % (42.0-75.0); Mean Corpuscular HGB CONC 33.5 g/dL (32.0-36.0); Mean Corpuscular Hemoglobin 33.1 pg (27.0-31.0); Mean Corpuscular Volume 98.8 fl (81.0-99.0); Mean Platelet Volume 8.5 fL (7.4-10.4); Platelet Count 188 thou/uL (130-400); RBC Distribution Width 14.1 % (11.5-14.5); Red Blood Cell (RBC) Count 3.32 mill/uL (4.20-5.40)
[2017-08-03 05:03] LABS: Albumin 3.7 g/dL (3.4-4.8); Anion Gap 16 mmol/L (10-20); BUN (Urea Nitrogen) 53 mg/dL (9.8-20.1); BUN/Creatinine Ratio 7.38; Calc. Creatinine Clearance 9 mL/min (70-130); Calcium 8.9 mg/dL (7.8-10.44); Carbon Dioxide 27 mmol/L (23-31); Chloride 93 mmol/L (98-107); Estimated GFR-MDRD 6; Glucose 121 mg/dL (83-110); Phosphorus 4.7 mg/dL (2.3-4.7); Potassium 4.6 mmol/L (3.5-5.1); Sodium 131 mmol/L (136-145)
[2017-08-03] MEDS: Folic Acid 1 MG TAB PO SCH (07:47)
[2017-08-03] MEDS: Cinacalcet HCl 30 MG TAB PO SCH (07:47)
[2017-08-03] MEDS: Clopidogrel Bisulfate 75 MG TAB PO SCH (07:47)
[2017-08-03] MEDS: pyridOXINE 50 MG (B6) TAB PO SCH (07:47)
[2017-08-03] MEDS: Clindamycin 150 MG CAP PO SCH ×2 (07:48→15:12)
--- NOTE | 2017-08-03 07:48 | DIS ---
PRIMARY CARE PHYSICIAN: Liz Taveras MD DATE OF ADMISSION: 07/24/2017 DATE OF DISCHARGE: 08/03/2017 DISCHARGE DISPOSITION: Rehabilitation. 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 SECONDARY DISCHARGE DIAGNOSES: Anemia of renal disease, coronary artery disease, cholelithiasis, faith betes type 2 disease, ESRD on hemodialysis, gastroesophageal reflux disease, history of aortic valve replacement, dyslipidemia, hypertension, macrocytic anemia, peripheral vascular disease, secondary hy perparathyroidism of renal origin. PRIMARY PROCEDURE/OPERATION: Patient was getting maintenance hemodialysis while in hospital. The [place] had angiography by Dr. Kareem Davis. The patient had a peritoneal dialysis catheter and a lap aroscopic ventral hernia repair by Dr. Feldman. RADIOLOGICAL INVESTIGATION: CT angiography on admission negative for pulmonary embolism. It showed cholelithiasis, nonspecific patchy area of ground glass opacity within the lingula, post-surgical katrin nges of aortic valve replacement and CABG. Chest x-ray on admission showed mild volume overload. To e x-ray on admission showed soft tissue ulcer of the distal phalanx of the great toe suggestive of os teomyelitis. Humeral x-ray negative for any fracture or dislocation, showed soft tissue swelling. U ltrasound of upper extremity showed narrowing of left internal jugular vein thrombosis of left subcla vian vein thrombosis of the graft stress test was negative for any reversible ischemia. Lower extrem ity Doppler ultrasound was suggestive of high-grade stenoses and left common femoral artery and compl ete occlusion of left dorsalis pedis. SIGNIFICANT LABORATORY DATA: WBC 7.0, hemoglobin 11.0, platelet 188. INR 2.8. Sodium 131, potassiu m 4.6, BUN 53, creatinine 7.18, calcium 8.9, phosphorus 4.7, albumin 3.7. DISCHARGE MEDICATIONS: Aspirin 81 mg p.o. daily, Lipitor 40 mg p.o. at bedtime, Coreg 6.25 mg p.o. b .i.d., Sensipar 30 mg p.o. daily, clindamycin 300 mg p.o. q.8 hourly for 10 days, Plavix 75 mg p.o. d aily, vitamin B12 of 1000 mcg p.o. daily, Lexapro 10 mg p.o. at bedtime p.r.n., folic acid 1 mg p.o. daily, hydralazine 50 mg p.o. t.i.d., Lantus insulin 10 units subcutaneously at bedtime, minocycline 100 mg p.o. b.i.d. for 10 days, Protonix 40 mg p.o. daily, MiraLax 17 grams p.o. daily p.r.n., pyrido xine 550 mg p.o. daily, Renvela 1600 mg p.o. t.i.d., tramadol 50 mg q.12 hourly p.r.n., trazodone 150 mg p.o. at bedtime p.r.n., warfarin 5 mg p.o. daily, goal of INR is 2-3. CONTRAINDICATIONS: None. CODE STATUS: FULL CODE. INPATIENT CONSULTANTS: Dr. Pickens was following for maintenance hemodialysis. Dr. Wilkinson was consulted for osteomyelitis of the left great toe. Dr. Feldman was consulted for dialysis graft thrombosis. Hematology/Oncology was following while in hospital for hypercoagulable state. Dr. Kareem Malagon wa s consulted for angiography. TEST RESULTS PENDING ON DISCHARGE: Hypercoagulable workup. ALLERGIES: CIPRO, PENICILLIN, CODEINE, HYDROCODONE. DISCHARGE PLAN: Post hospital, the patient is planned for discharge to rehabilitation. Subsequently , patient will follow up with primary care physician and above-mentioned it architecture consultant as needed. HOSPITAL COURSE: A 76-year-old female who was admitted by Dr. Alvares on 07/24/2017. Please see his H and P for further detail. The patient presented to ER with chest discomfort. She was admitted to t elemetry floor and she had serial cardiac enzyme that were negative. Patient underwent stress test a nd that came back negative as well. Patient was also having left upper extremity swelling and that is for ultrasound was done and it show ed thrombosis of the left subclavian vein as well as thrombosis of the AV fistula graft. At that poi nt, the patient was treated with heparin drip. We were monitoring heparin drip as per protocol order . Patient also had a left great toe ulcer and that is why we did an x-ray which suggestive of osteomyel itis of the left great toe. We consulted Dr. Wilkinson and Dr. Wilkinson ordered a vascular ultrasound which was showing high grade stenosis of left common femoral vein and complete occlusion of the dorsalis p hola artery. At that point, we consulted Cardiovascular. Cardiovascular surgeon did angiography and possible revascularization. The patient was not required any surgery for toe osteomyelitis. Patidevika maldonado was receiving vancomycin with hemodialysis and Dr. Wilkinson recommended to change to minocycline and c lindamycin for another 10 days. Wound care team was also following while in hospital. Regarding kidney failure, patient was getting maintenance hemodialysis with Dr. Pickens. The patient wa s having multiple dialysis access occlusion and that is why we sent hypercoagulable workup and Hemato logy was consulted, complete hypercoagulable workup is pending. Dr. Feldman ran out all options to p ut him access for hemodialysis and that is why during this admission, the peritoneal dialysis cathete r was placed and her ventral hernia was repaired laparoscopically. The patient was also started on Plavix by CT surgeon. At that point, we discontinued heparin drip an d changed to warfarin and warfarin dose adjusted to the level to maintain therapeutic range. Patient is doing very well. She is tolerating p.o. well. She became very weak physically while in h ospital and that is why with help of supportive employment case manager, we arranged rehabilitation for her. Upon stabiliz ation, we also transferred to the medical floor where patient continued to get her maintenance hemodi alysis and her home medication. The patient's INR needs to be monitored every day basis and dose nee ds to be adjusted. PHYSICAL EXAMINATION: The patient is seen and examined at bedside today. VITAL SIGNS: Her current vital signs, temperature 97.7, pulse 63, respiratory rate 18, saturation 92 % on room air, blood pressure 150/81, weight 183 pounds. GENERAL: The patient is currently alert, awake, no obvious acute distress. HEAD: Normocephalic, atraumatic. LUNGS: Clear to auscultation without any rhonchi or rales. CARDIAC: S1, S2 regular without any murmur. ABDOMEN: Soft and benign. Peritoneal dialysis catheter in place. EXTREMITIES: No edema. NEUROLOGIC: Nonfocal examination. Once patient have rehabilitation arranged, then we will consider discharging this patient to [facility].
[2017-08-03] MEDS: Sevelamer Carbonate 800 MG TAB PO SCH ×3 (07:49→17:13)
[2017-08-03] MEDS: Aspirin 325 MG TAB PO SCH (07:49)
[2017-08-03] MEDS: Fluticasone Propionate Nasal Spray 16 gm Bottle NASAL SCH (07:50)
[2017-08-03] MEDS: Cyanocobalamin (Vitamin B-12) 1,000 MCG TAB PO SCH (07:50)
[2017-08-03] MEDS: hydrALAZINE 25 MG TAB PO SCH ×3 (07:50→20:40)
--- NOTE | 2017-08-03 09:25 | PDOC.PN ---
- Subjective Encounter Start Date: 08/03/17 Encounter Start Time: 07:40 Patient seen and examined. No new complaints. No overnight events - Objective Resuscitation Status: Resuscitation Status FULL:Full Resuscitation MAR Reviewed: Yes Vital Signs & Weight: Vital Signs (12 hours) Temp Pulse Resp BP Pulse Ox 08/03/17 08:00 97.6 F 63 20 142/55 H 92 L 08/03/17 04:00 97.7 F 63 150/81 H 92 L 08/02/17 23:46 98.1 F 75 17 130/59 L 93 L Weight Admit Weight 181 lb 6.4 oz Weight 183 lb 6.793 oz I&O: 08/02/17 08/03/17 08/04/17 06:59 06:59 06:59 Intake Total 360 1040 Balance 360 1040 Result Diagrams: 08/03/17 04:29 08/03/17 04:29 Additional Labs: Accuchecks 08/03/17 08/02/17 08/02/17 04:59 20:41 16:17 POC Glucose 126 H 152 H 120 H 08/02/17 11:35 POC Glucose 192 H Phys Exam - Physical Examination Constitutional: NAD HEENT: PERRLA, moist MMs, sclera anicteric Neck: no JVD, supple Respiratory: no wheezing, no rales, no rhonchi Cardiovascular: RRR, no significant murmur, no rub PD catheter+ Gastrointestinal: soft, non-tender, no distention Musculoskeletal: no edema, pulses present Neurological: non-focal, normal sensation Lymphatic: no nodes Psychiatric: normal affect, A&O x 3 Dx/Plan (1) Left subclavian vein thrombosis Code(s): I82.B12 - ACUTE EMBOLISM AND THROMBOSIS OF LEFT SUBCLAVIAN VEIN Status: Acute Comment: on warfarin (2) Osteomyelitis of toe of left foot Code(s): M86.9 - OSTEOMYELITIS, UNSPECIFIED Status: Acute Comment: on vancomycin with HD (3) Anemia of renal disease Code(s): D63.1 - ANEMIA IN CHRONIC KIDNEY DISEASE Status: Chronic (4) CAD (coronary artery disease) Code(s): I25.10 - ATHSCL HEART DISEASE OF [place] CORONARY ARTERY W/O ANG PCTRS Status: Chronic (5) Cholelithiases Code(s): K80.20 - CALCULUS OF GALLBLADDER W/O CHOLECYSTITIS W/O OBSTRUCTION Status: Chronic Qualifiers: Cholelithiasis location: gallbladder Cholecystitis acuity: chronic Biliary obstruction: without biliary obstruction (6) Diabetes type 2, controlled Code(s): E11.9 - TYPE 2 DIABETES MELLITUS WITHOUT COMPLICATIONS Status: Chronic Qualifiers: Diabetes mellitus senior care insulin use: without local intermodal truck driver use Diabetes mellitus complication status: with skin complications Diabetes mellitus complication detail: with foot ulcer Qualified Code(s): E11.621 - Type 2 diabetes mellitus with foot ulcer; L97.509 - Non-pressure chronic ulcer of other part of unspecified foot with unspecified severity; L97.509 - Non- pressure chronic ulcer of other part of unspecified foot with unspecified severity; L97.509 - Non-pressure chronic ulcer of other part of unspecified foot with unspecified severity; L97.509 - Non-pressure chronic ulcer of other part of unspecified foot with unspecified severity Comment: continue accuchecks, insulin sliding scale (7) End stage renal disease on dialysis Code(s): N18.6 - END STAGE RENAL DISEASE; Z99.2 - DEPENDENCE ON RENAL DIALYSIS Status: Chronic Comment: Dialysis per nephrology service (8) GERD (gastroesophageal reflux disease) Code(s): K21.9 - GASTRO-ESOPHAGEAL REFLUX DISEASE WITHOUT ESOPHAGITIS Status: Chronic (9) H/O aortic valve replacement Code(s): Z95.2 - PRESENCE OF PROSTHETIC HEART VALVE Status: Chronic (10) HLD (hyperlipidemia) Code(s): E78.5 - HYPERLIPIDEMIA, UNSPECIFIED Status: Chronic Qualifiers: Hyperlipidemia type: unspecified Qualified Code(s): E78.5 - Hyperlipidemia , unspecified (11) HTN (hypertension) Code(s): I10 - ESSENTIAL (PRIMARY) HYPERTENSION Status: Chronic Qualifiers: Hypertension type: essential hypertension Qualified Code(s): I10 - Essential (primary) hypertension (12) Macrocytic anemia Code(s): D53.9 - NUTRITIONAL ANEMIA, UNSPECIFIED Status: Chronic (13) Obesity (BMI 30-39.9) Code(s): E66.9 - OBESITY, UNSPECIFIED Status: Chronic (14) Secondary hyperparathyroidism of renal origin Code(s): N25.81 - SECONDARY HYPERPARATHYROIDISM OF RENAL ORIGIN Status: Chronic (15) PVD (peripheral vascular disease) Code(s): I73.9 - PERIPHERAL VASCULAR DISEASE, UNSPECIFIED Status: Chronic (16) Hyperhomocysteinemia Code(s): E72.11 - HOMOCYSTINURIA Status: Acute - Plan cont current plan of care, continue antibiotics, PT/OT, social services analyst * medication reviewed as below * symptomatic treatment * stable for discharge once placement arranged * see discharge preeti. Review of Systems - Review of Systems ENT: negative: Ear Pain, Ear Discharge, Nose Pain, Nose Discharge, Nose Congestion, Mouth Pain, Mouth Swelling, Throat Pain, Throat Swelling, Other Respiratory: negative: Cough, Dry, Shortness of Breath, Hemoptysis, SOB with Excertion, Pleuritic Pain, Sputum, Wheezing Cardiovascular: negative: chest pain, palpitations, orthopnea, paroxysmal nocturnal dyspnea, edema, light headedness, other Gastrointestinal: negative: Nausea, Vomiting, Abdominal Pain, Diarrhea, Constipation, Melena, Hematochezia, Other Genitourinary: negative: Dysuria, Frequency, Incontinence, Hematuria, Retention , Other Musculoskeletal: negative: Neck Pain, Shoulder Pain, Arm Pain, Back Pain, Hand Pain, Leg Pain, Foot Pain, Other - Medications/Allergies Allergies/Adverse Reactions: Allergies Allergy/AdvReac Type Severity Reaction Status Date / Time ciprofloxacin [From Cipro] Allergy Intermediate Nausea Verified 07/24/17 20:22 Penicillins Allergy Intermediate Hives Verified 07/24/17 20:22 codeine [Codeine] Allergy Anxiety Verified 07/24/17 20:22 hydrocodone Allergy Nausea Verified 07/24/17 20:22 Sulfa (Sulfonamide Allergy Verified 07/24/17 20:22 Antibiotics) sulfamethoxazole Allergy Verified 07/24/17 20:22 [From Bactrim] trimethoprim [From Bactrim] Allergy Verified 07/24/17 20:22 Medications: Current Medications Acetaminophen (Tylenol) 650 mg PO Q4H PRN PRN Reason: Headache/Fever or Pain Last Admin: 07/26/17 03:04 Dose: 650 mg Al Hydroxide/Mg Hydroxide (Maalox) 30 ml PO Q4H PRN PRN Reason: Heartburn or Indigestion Last Admin: 07/26/17 04:10 Dose: 30 ml Artificial Tears (Tears Renewed 15ml Bottle) 0 drop EA EYE PRN PRN PRN Reason: Dry Eyes Aspirin (Aspirin) 325 mg PO DAILY RADHA Last Admin: 08/03/17 07:49 Dose: 325 mg Atorvastatin Calcium (Lipitor) 40 mg PO HS [facility] Last Admin: 08/02/17 20:36 Dose: 40 mg Calcium Carbonate (Tums) 1,000 mg PO Q4H PRN PRN Reason: Heartburn or Indigestion Cinacalcet (Sensipar) 30 mg PO QAM-WM [facility] Last Admin: 08/03/17 07:47 Dose: 30 mg Clindamycin HCl (Cleocin) 300 mg PO 0000,0800,1600 [facility] Last Admin: 08/03/17 07:48 Dose: 300 mg Clopidogrel Bisulfate (Plavix) 75 mg PO DAILY [facility] Last Admin: 08/03/17 07:47 Dose: 75 mg Cyanocobalamin (Vitamin B-12) 1,000 mcg PO DAILY [facility] Last Admin: 08/03/17 07:50 Dose: 1,000 mcg Escitalopram Oxalate (Lexapro) 10 mg PO HS PRN PRN Reason: Insomnia Fluticasone Propionate (Flonase Nasal [place]) 0 gm NASAL DAILY [facility] Last Admin: 08/03/17 07:50 Dose: Not Given Folic Acid (Folvite) 1 mg PO DAILY [facility] Last Admin: 08/03/17 07:47 Dose: 1 mg Guaifenesin (Robitussin Sf) 200 mg PO Q4H PRN PRN Reason: Cough Hydralazine HCl (Apresoline) 50 mg PO TID [facility] Last Admin: 08/03/17 07:50 Dose: 50 mg Hydralazine HCl (Apresoline) 10 mg SLOW IVP Q4H PRN PRN Reason: Systolic BP > 180 Last Admin: 07/30/17 11:54 Dose: 10 mg Insulin Detemir 10 units/ (Miscellaneous Medication) 0.1 mls @ 0 mls/hr [facility] Last Admin: 08/02/17 20:40 Dose: 0.1 mls Loperamide HCl (Imodium) 2 mg PO PRN PRN PRN Reason: Diarrhea/Loose Stools Loratadine (Claritin) 10 mg PO DAILYPRN PRN PRN Reason: Sinus Symptoms Magnesium Hydroxide (Milk Of Magnesium) 30 ml PO DAILYPRN PRN PRN Reason: Constipation Mineral Oil/White Petrolatum (Eucerin Cream) 0 gm TOP BIDPRN PRN PRN Reason: Dry Skin Minocycline HCl (Minocycline Hcl) 100 mg PO BID [facility] Last Admin: 08/03/17 07:54 Dose: 100 mg Miscellaneous Medication (Pharmacy To Dose) 0 each PO ASDIR PRN PRN Reason: Pharmacy to Dose WARFARIN Morphine Sulfate (Morphine) 1 mg SLOW IVP Q2H PRN PRN Reason: .SEVERE PAIN 1ST LINE Last Admin: 07/31/17 09:38 Dose: 1 mg Morphine Sulfate (Morphine) 2 mg SLOW IVP Q2H PRN PRN Reason: SEVERE PAIN 2ND LINE Nitroglycerin (Nitrostat) 0.4 mg PO Q5MIN PRN PRN Reason: Chest Pain Hold Vancomycin For (Level >20) 0 each FS .AT DIALYSIS [facility] Ondansetron HCl (Zofran) 4 mg SLOW IVP Q6H PRN PRN Reason: Nausea/Vomiting Last Admin: 07/26/17 09:22 Dose: 4 mg Ondansetron HCl (Zofran Odt) 4 mg PO Q6H PRN PRN Reason: Nausea/Vomiting Pantoprazole Sodium (Protonix) 40 mg PO DAILY [facility] Last Admin: 08/03/17 07:47 Dose: 40 mg Phenol (Chloraseptic [place] 180 Ml Bot) 0 ml PO PRN PRN PRN Reason: Sore Throat Polyethylene Glycol (Miralax) 17 gm PO DAILYPRN PRN PRN Reason: Constipation Last Admin: 08/02/17 16:44 Dose: 17 gm Pregabalin (Lyrica) 75 mg PO HS [facility] Last Admin: 08/02/17 20:36 Dose: 75 mg Pyridoxine HCl (Vitamin B 6) 50 mg PO DAILY [facility] Last Admin: 08/03/17 07:47 Dose: 50 mg Senna (Senokot) 2 tab PO HSPRN PRN PRN Reason: Constipation Sevelamer Carbonate (Renvela) 1,600 mg PO TID-[facility] Last Admin: 08/03/17 07:49 Dose: 1,600 mg Sodium Chloride ([place] Nasal [place] 0.65%) 0 ml EA NARE QIDPRN PRN PRN Reason: Nasal Congestion Tramadol HCl (Ultram) 50 mg PO Q4H PRN PRN Reason: MILD-MOD Pain 1ST LINE Last Admin: 07/28/17 21:49 Dose: 50 mg Trazodone HCl (Desyrel) 150 mg PO HS PRN PRN Reason: Insomnia Warfarin Sodium (Coumadin) 2.5 mg PO 1700 RADHA Zolpidem Tartrate (Ambien) 5 mg PO HSPRN PRN PRN Reason: Insomnia
--- NOTE | 2017-08-03 11:55 | PRG ---
DATE OF SERVICE: 08/03/2017 SUBJECTIVE: A 76-year-old female being seen for end-stage renal disease. The patient denies any jenna sea, vomiting, or chest pain. PHYSICAL EXAMINATION: GENERAL APPEARANCE: The patient is awake and alert. VITAL SIGNS: Afebrile, pulse 60, breathing 16, blood pressure 103/55. HEAD/NECK: Normocephalic. Atraumatic. EYES: EOMI. No deformity. EARS: Clear. No ulcers. NOSE: Intact. No lesions. MOUTH: Clear. No discharge. THROAT: Clear. No exudate. LUNGS: Clear. No crackles. CARDIAC: S1, S2. No rub. ABDOMEN: Benign. BS+. GENITALIA/RECTUM: Allen absent. BACK/EXTREMITIES: Edema 0+ Ulcer- NEUROLOGICAL: Alert and motor intact. SKIN: Rash- Bruise- LYMPHATICS: Edema- Ulcer- LABORATORY DATA: Show hemoglobin 11. ASSESSMENT AND RECOMMENDATIONS: 1. Stage 6 chronic kidney disease. Continue hemodialysis. 2. Hypertension, stable. 3. Anemia, stable. 4. Medications based on glomerular filtration rate are appropriate.
[2017-08-03] MEDS ORDERED: Promethazine HCl 25 MG/ML VIAL IM/IV SCH (12:30)
[2017-08-03] MEDS ORDERED: Warfarin Sodium 5 MG TAB PO SCH (17:00)
[2017-08-03] MEDS: Atorvastatin Calcium 20 MG TAB PO SCH (20:40)
[2017-08-03] MEDS: Pregabalin 75 MG CAP PO SCH (20:40)
[2017-08-03] MEDS: Insulin Detemir 100 UNITS/ML 10 UNITS in Pre-Filled Syringe SC SCH (20:41)
[2017-08-04] MEDS: Clindamycin 150 MG CAP PO SCH ×4 (00:34→23:35)
[2017-08-04 01:09] LABS: Activated Protein C Resistance 2.7 ratio (.); Hexagonal Phospholipid Neut 5 sec (.)
[2017-08-04 05:30] LABS: INR-International Normal Ratio 3.8; Prothrombin Time 39.2 SEC (12.0-14.7)
[2017-08-04] MEDS: Sevelamer Carbonate 800 MG TAB PO SCH ×3 (07:50→17:38)
[2017-08-04] MEDS: Cinacalcet HCl 30 MG TAB PO SCH (07:50)
[2017-08-04] MEDS: hydrALAZINE 25 MG TAB PO SCH ×3 (07:50→20:50)
[2017-08-04] MEDS: Aspirin 325 MG TAB PO SCH (07:51)
[2017-08-04] MEDS: pyridOXINE 50 MG (B6) TAB PO SCH (07:51)
[2017-08-04] MEDS: Folic Acid 1 MG TAB PO SCH (07:51)
[2017-08-04] MEDS: Clopidogrel Bisulfate 75 MG TAB PO SCH (07:51)
[2017-08-04] MEDS: Cyanocobalamin (Vitamin B-12) 1,000 MCG TAB PO SCH (07:51)
[2017-08-04] MEDS: Fluticasone Propionate Nasal Spray 16 gm Bottle NASAL SCH (07:55)
--- NOTE | 2017-08-04 09:37 | PRG ---
DATE OF SERVICE: 08/04/2017 SUBJECTIVE: This is a 76-year-old female being seen for end-stage renal disease. Patient denies any nausea, vomiting or chest pain. PHYSICAL EXAMINATION: GENERAL: Patient is awake, alert. VITAL SIGNS: Afebrile, pulse 71, breathing 16, blood pressure 150/60. HEAD/NECK: Normocephalic. Atraumatic. EYES: EOMI. No deformity. EARS: Clear. No ulcers. NOSE: Intact. No lesions. MOUTH: Clear. No discharge. THROAT: Clear. No exudate. LUNGS: Clear. No crackles. CARDIAC: S1, S2. No rub. ABDOMEN: Benign. BS+. GENITALIA/RECTUM: Allen absent. BACK/EXTREMITIES: Edema 0+ Ulcer- NEUROLOGICAL: Alert and motor intact. SKIN: Rash- Bruise- LYMPHATICS: Edema- Ulcer- LABORATORY DATA: Show hemoglobin 11. ASSESSMENT AND PLAN: 1. Stage 6 chronic kidney disease, plan dialysis. 2. Hypertension, stable. 3. Anemia, stable. 4. Medications based on glomerular filtration rate are appropriate. MTDD
[2017-08-04] MEDS ORDERED: Heparin 10,000 UNITS/ 10 ML VIAL ONE (10:00)
--- NOTE | 2017-08-04 10:59 | PDOC.PN ---
- Subjective Encounter Start Date: 08/04/17 Encounter Start Time: 08:15 Patient seen and examined. No new complaints. No overnight events - Objective Resuscitation Status: Resuscitation Status FULL:Full Resuscitation MAR Reviewed: Yes Vital Signs & Weight: Vital Signs (12 hours) Temp Pulse Resp BP Pulse Ox 08/04/17 07:54 97.8 F 71 14 140/60 94 L 08/04/17 07:09 97.6 F 65 18 08/04/17 00:00 97.6 F 65 18 141/57 H 95 Weight Admit Weight 181 lb 6.4 oz Weight 187 lb 2.759 oz I&O: 08/03/17 08/04/17 08/05/17 06:59 06:59 06:59 Intake Total 1040 Balance 1040 Result Diagrams: 08/03/17 04:29 08/03/17 04:29 Additional Labs: Accuchecks 08/04/17 08/03/17 08/03/17 05:32 20:29 17:14 POC Glucose 159 H 117 H 219 H 08/03/17 11:33 POC Glucose 123 H Phys Exam - Physical Examination Constitutional: NAD HEENT: PERRLA, moist MMs, sclera anicteric Neck: no JVD, supple Respiratory: no wheezing, no rales, no rhonchi HD tunneled catheter+ Cardiovascular: RRR, no significant murmur, no rub Gastrointestinal: soft, non-tender, no distention, positive bowel sounds PD catheter+ Musculoskeletal: no edema, pulses present left great toe with dressing-dry gangrene changes at tip Neurological: non-focal, normal sensation Lymphatic: no nodes Psychiatric: normal affect, A&O x 3 Skin: no rash, normal turgor Dx/Plan (1) Left subclavian vein thrombosis Code(s): I82.B12 - ACUTE EMBOLISM AND THROMBOSIS OF LEFT SUBCLAVIAN VEIN Status: Acute Comment: on warfarin (2) Osteomyelitis of toe of left foot Code(s): M86.9 - OSTEOMYELITIS, UNSPECIFIED Status: Acute Comment: (3) Anemia of renal disease Code(s): D63.1 - ANEMIA IN CHRONIC KIDNEY DISEASE Status: Chronic (4) CAD (coronary artery disease) Code(s): I25.10 - ATHSCL HEART DISEASE OF [place] CORONARY ARTERY W/O ANG PCTRS Status: Chronic (5) Cholelithiases Code(s): K80.20 - CALCULUS OF GALLBLADDER W/O CHOLECYSTITIS W/O OBSTRUCTION Status: Chronic Qualifiers: Cholelithiasis location: gallbladder Cholecystitis acuity: chronic Biliary obstruction: without biliary obstruction (6) Diabetes type 2, controlled Code(s): E11.9 - TYPE 2 DIABETES MELLITUS WITHOUT COMPLICATIONS Status: Chronic Qualifiers: Diabetes mellitus furniture sander insulin use: without furniture sander use Diabetes mellitus complication status: with skin complications Diabetes mellitus complication detail: with foot ulcer Qualified Code(s): E11.621 - Type 2 diabetes mellitus with foot ulcer; L97.509 - Non-pressure chronic ulcer of other part of unspecified foot with unspecified severity; L97.509 - Non- pressure chronic ulcer of other part of unspecified foot with unspecified severity; L97.509 - Non-pressure chronic ulcer of other part of unspecified foot with unspecified severity; L97.509 - Non-pressure chronic ulcer of other part of unspecified foot with unspecified severity Comment: continue accuchecks, insulin sliding scale (7) End stage renal disease on dialysis Code(s): N18.6 - END STAGE RENAL DISEASE; Z99.2 - DEPENDENCE ON RENAL DIALYSIS Status: Chronic Comment: Dialysis per nephrology service (8) GERD (gastroesophageal reflux disease) Code(s): K21.9 - GASTRO-ESOPHAGEAL REFLUX DISEASE WITHOUT ESOPHAGITIS Status: Chronic (9) H/O aortic valve replacement Code(s): Z95.2 - PRESENCE OF PROSTHETIC HEART VALVE Status: Chronic (10) HLD (hyperlipidemia) Code(s): E78.5 - HYPERLIPIDEMIA, UNSPECIFIED Status: Chronic Qualifiers: Hyperlipidemia type: unspecified Qualified Code(s): E78.5 - Hyperlipidemia , unspecified (11) HTN (hypertension) Code(s): I10 - ESSENTIAL (PRIMARY) HYPERTENSION Status: Chronic Qualifiers: Hypertension type: essential hypertension Qualified Code(s): I10 - Essential (primary) hypertension (12) Macrocytic anemia Code(s): D53.9 - NUTRITIONAL ANEMIA, UNSPECIFIED Status: Chronic (13) Obesity (BMI 30-39.9) Code(s): E66.9 - OBESITY, UNSPECIFIED Status: Chronic (14) Secondary hyperparathyroidism of renal origin Code(s): N25.81 - SECONDARY HYPERPARATHYROIDISM OF RENAL ORIGIN Status: Chronic (15) PVD (peripheral vascular disease) Code(s): I73.9 - PERIPHERAL VASCULAR DISEASE, UNSPECIFIED Status: Chronic (16) Hyperhomocysteinemia Code(s): E72.11 - HOMOCYSTINURIA Status: Acute - Plan cont current plan of care, continue antibiotics, clinical social work therapist * hold warfarin today * medication reviewed as below * symptomatic treatment * await rehab placement pending insurance approval * continue oral antibiotics as ordered below * HD today. * pt gets intermittent nausea or vomiting likely due to gastroparesis Review of Systems - Review of Systems Constitutional: negative: fever, chills, sweats, weakness, malaise, other Eyes: negative: Pain, Vision Change, Conjunctivae Inflammation, Eyelid Inflammation, Redness, Other ENT: negative: Ear Pain, Ear Discharge, Nose Pain, Nose Discharge, Nose Congestion, Mouth Pain, Mouth Swelling, Throat Pain, Throat Swelling, Other Respiratory: negative: Cough, Dry, Shortness of Breath, Hemoptysis, SOB with Excertion, Pleuritic Pain, Sputum, Wheezing Cardiovascular: negative: chest pain, palpitations, orthopnea, paroxysmal nocturnal dyspnea, edema, light headedness, other Gastrointestinal: negative: Nausea, Vomiting, Abdominal Pain, Diarrhea, Constipation, Melena, Hematochezia, Other Genitourinary: negative: Dysuria, Frequency, Incontinence, Hematuria, Retention , Other Musculoskeletal: negative: Neck Pain, Shoulder Pain, Arm Pain, Back Pain, Hand Pain, Leg Pain, Foot Pain, Other Skin: negative: Rash, Lesions, [place], Bruising, Other - Medications/Allergies Allergies/Adverse Reactions: Allergies Allergy/AdvReac Type Severity Reaction Status Date / Time ciprofloxacin [From Cipro] Allergy Intermediate Nausea Verified 07/24/17 20:22 Penicillins Allergy Intermediate Hives Verified 07/24/17 20:22 codeine [Codeine] Allergy Anxiety Verified 07/24/17 20:22 hydrocodone Allergy Nausea Verified 07/24/17 20:22 Sulfa (Sulfonamide Allergy Verified 07/24/17 20:22 Antibiotics) sulfamethoxazole Allergy Verified 07/24/17 20:22 [From Bactrim] trimethoprim [From Bactrim] Allergy Verified 07/24/17 20:22 Medications: Current Medications Acetaminophen (Tylenol) 650 mg PO Q4H PRN PRN Reason: Headache/Fever or Pain Last Admin: 07/26/17 03:04 Dose: 650 mg Al Hydroxide/Mg Hydroxide (Maalox) 30 ml PO Q4H PRN PRN Reason: Heartburn or Indigestion Last Admin: 07/26/17 04:10 Dose: 30 ml Artificial Tears (Tears Renewed 15ml Bottle) 0 drop EA EYE PRN PRN PRN Reason: Dry Eyes Aspirin (Aspirin) 325 mg PO DAILY [facility] Last Admin: 08/04/17 07:51 Dose: 325 mg Atorvastatin Calcium (Lipitor) 40 mg PO HS [facility] Last Admin: 08/03/17 20:40 Dose: 40 mg Calcium Carbonate (Tums) 1,000 mg PO Q4H PRN PRN Reason: Heartburn or Indigestion Cinacalcet (Sensipar) 30 mg PO QAM-[facility] Last Admin: 08/04/17 07:50 Dose: 30 mg Clindamycin HCl (Cleocin) 300 mg PO 0000,0800,1600 [facility] Last Admin: 08/04/17 07:50 Dose: 300 mg Clopidogrel Bisulfate (Plavix) 75 mg PO DAILY [facility] Last Admin: 08/04/17 07:51 Dose: 75 mg Cyanocobalamin (Vitamin B-12) 1,000 mcg PO DAILY [facility] Last Admin: 08/04/17 07:51 Dose: 1,000 mcg Escitalopram Oxalate (Lexapro) 10 mg PO HS PRN PRN Reason: Insomnia Fluticasone Propionate (Flonase Nasal [place]) 0 gm NASAL DAILY [facility] Last Admin: 08/04/17 07:55 Dose: 2 spr Folic Acid (Folvite) 1 mg PO DAILY [facility] Last Admin: 08/04/17 07:51 Dose: 1 mg Guaifenesin (Robitussin Sf) 200 mg PO Q4H PRN PRN Reason: Cough Hydralazine HCl (Apresoline) 50 mg PO TID [facility] Last Admin: 08/04/17 07:50 Dose: 50 mg Hydralazine HCl (Apresoline) 10 mg SLOW IVP Q4H PRN PRN Reason: Systolic BP > 180 Last Admin: 07/30/17 11:54 Dose: 10 mg Insulin Detemir 10 units/ (Miscellaneous Medication) 0.1 mls @ 0 mls/hr SC [facility] Last Admin: 08/03/17 20:41 Dose: Not Given Loperamide HCl (Imodium) 2 mg PO PRN PRN PRN Reason: Diarrhea/Loose Stools Loratadine (Claritin) 10 mg PO DAILYPRN PRN PRN Reason: Sinus Symptoms Magnesium Hydroxide (Milk Of Magnesium) 30 ml PO DAILYPRN PRN PRN Reason: Constipation Mineral Oil/White Petrolatum (Eucerin Cream) 0 gm TOP BIDPRN PRN PRN Reason: Dry Skin Minocycline HCl (Minocycline Hcl) 100 mg PO BID [facility] Last Admin: 08/04/17 07:49 Dose: 100 mg Miscellaneous Medication (Pharmacy To Dose) 0 each PO ASDIR PRN PRN Reason: Pharmacy to Dose WARFARIN Morphine Sulfate (Morphine) 1 mg SLOW IVP Q2H PRN PRN Reason: .SEVERE PAIN 1ST LINE Last Admin: 07/31/17 09:38 Dose: 1 mg Morphine Sulfate (Morphine) 2 mg SLOW IVP Q2H PRN PRN Reason: SEVERE PAIN 2ND LINE Nitroglycerin (Nitrostat) 0.4 mg PO Q5MIN PRN PRN Reason: Chest Pain Hold Vancomycin For (Level >20) 0 each FS .AT DIALYSIS [facility] Ondansetron HCl (Zofran) 4 mg SLOW IVP Q6H PRN PRN Reason: Nausea/Vomiting Last Admin: 07/26/17 09:22 Dose: 4 mg Ondansetron HCl (Zofran Odt) 4 mg PO Q6H PRN PRN Reason: Nausea/Vomiting Pantoprazole Sodium (Protonix) 40 mg PO DAILY [facility] Last Admin: 08/04/17 07:50 Dose: 40 mg Phenol (Chloraseptic [place] 180 Ml Bot) 0 ml PO PRN PRN PRN Reason: Sore Throat Polyethylene Glycol (Miralax) 17 gm PO DAILYPRN PRN PRN Reason: Constipation Last Admin: 08/02/17 16:44 Dose: 17 gm Pregabalin (Lyrica) 75 mg PO [facility] Last Admin: 08/03/17 20:40 Dose: 75 mg Pyridoxine HCl (Vitamin B 6) 50 mg PO DAILY [facility] Last Admin: 08/04/17 07:51 Dose: 50 mg Senna (Senokot) 2 tab PO HSPRN PRN PRN Reason: Constipation Sevelamer Carbonate (Renvela) 1,600 mg PO TID-[facility] Last Admin: 08/04/17 09:35 Dose: Not Given Sodium Chloride ([place] Nasal [place] 0.65%) 0 ml EA NARE QIDPRN PRN PRN Reason: Nasal Congestion Sodium Chloride (Flush - Normal Saline) 10 ml IVF Q12HR [facility] Last Admin: 08/04/17 07:56 Dose: 10 ml Sodium Chloride (Flush - Normal Saline) 10 ml IVF PRN PRN PRN Reason: Saline Flush Tramadol HCl (Ultram) 50 mg PO Q4H PRN PRN Reason: MILD-MOD Pain 1ST LINE Last Admin: 07/28/17 21:49 Dose: 50 mg Trazodone HCl (Desyrel) 150 mg PO HS PRN PRN Reason: Insomnia Warfarin Sodium (Coumadin) 2.5 mg PO 1700 [facility] Last Admin: 08/03/17 17:12 Dose: 2.5 mg Zolpidem Tartrate (Ambien) 5 mg PO HSPRN PRN PRN Reason: Insomnia
[2017-08-04 13:19] VITALS: BMI 36.5
[2017-08-04] MEDS: Pregabalin 75 MG CAP PO SCH (20:45)
[2017-08-04] MEDS: Atorvastatin Calcium 20 MG TAB PO SCH (20:50)
[2017-08-04] MEDS: Insulin Detemir 100 UNITS/ML 10 UNITS in Pre-Filled Syringe SC SCH (20:52)
[2017-08-05 05:13] LABS: INR-International Normal Ratio 2.6; Prothrombin Time 29.2 SEC (12.0-14.7)
[2017-08-05] MEDS: pyridOXINE 50 MG (B6) TAB PO SCH (08:25)
[2017-08-05] MEDS: Cyanocobalamin (Vitamin B-12) 1,000 MCG TAB PO SCH (08:25)
[2017-08-05] MEDS: Sevelamer Carbonate 800 MG TAB PO SCH ×2 (08:25→12:01)
[2017-08-05] MEDS: Clopidogrel Bisulfate 75 MG TAB PO SCH (08:26)
[2017-08-05] MEDS: Clindamycin 150 MG CAP PO SCH ×2 (08:26→15:10)
[2017-08-05] MEDS: Aspirin 325 MG TAB PO SCH (08:26)
[2017-08-05] MEDS: Folic Acid 1 MG TAB PO SCH (08:26)
[2017-08-05] MEDS: hydrALAZINE 25 MG TAB PO SCH ×2 (08:27→15:11)
[2017-08-05] MEDS: Fluticasone Propionate Nasal Spray 16 gm Bottle NASAL SCH (08:28)
[2017-08-05] MEDS: Cinacalcet HCl 30 MG TAB PO SCH (08:33)
[2017-08-05] MEDS: Polyethylene Glycol 3350 17 GM Packet PO PRN (08:33)
--- NOTE | 2017-08-05 08:47 | PDOC.PN ---
- Subjective Encounter Start Date: 08/05/17 Encounter Start Time: 07:00 Patient seen and examined. No new complaints. No overnight events had mild epistaxis, which is resolved - Objective Resuscitation Status: Resuscitation Status FULL:Full Resuscitation MAR Reviewed: Yes Vital Signs & Weight: Vital Signs (12 hours) Temp Pulse Resp BP Pulse Ox 08/05/17 08:27 76 138/69 08/05/17 07:59 99.2 F 76 16 91 L 08/04/17 21:00 99.2 F 76 16 08/04/17 20:50 76 127/57 L Weight Admit Weight 181 lb 6.4 oz Weight 187 lb 2.759 oz I&O: 08/04/17 08/05/17 08/06/17 06:59 06:59 06:59 Intake Total 550 Balance 550 Result Diagrams: 08/03/17 04:29 08/03/17 04:29 Additional Labs: Accuchecks 08/05/17 08/04/17 08/04/17 04:17 23:38 20:34 POC Glucose 94 154 H 157 H 08/04/17 16:31 POC Glucose 198 H Phys Exam - Physical Examination Constitutional: NAD HEENT: PERRLA, moist MMs, sclera anicteric Neck: no JVD, supple Respiratory: no wheezing, no rales, no rhonchi HD tunneled catheter Cardiovascular: RRR, no significant murmur, no rub Gastrointestinal: soft, non-tender, no distention, positive bowel sounds PD catheter+ Musculoskeletal: no edema, pulses present Neurological: non-focal, normal sensation Lymphatic: no nodes Psychiatric: normal affect, A&O x 3 Skin: no rash, normal turgor Dx/Plan (1) Left subclavian vein thrombosis Code(s): I82.B12 - ACUTE EMBOLISM AND THROMBOSIS OF LEFT SUBCLAVIAN VEIN Status: Acute Comment: on warfarin (2) Osteomyelitis of toe of left foot Code(s): M86.9 - OSTEOMYELITIS, UNSPECIFIED Status: Acute Comment: (3) Anemia of renal disease Code(s): D63.1 - ANEMIA IN CHRONIC KIDNEY DISEASE Status: Chronic (4) CAD (coronary artery disease) Code(s): I25.10 - ATHSCL HEART DISEASE OF [place] CORONARY ARTERY W/O ANG PCTRS Status: Chronic (5) Cholelithiases Code(s): K80.20 - CALCULUS OF GALLBLADDER W/O CHOLECYSTITIS W/O OBSTRUCTION Status: Chronic Qualifiers: Cholelithiasis location: gallbladder Cholecystitis acuity: chronic Biliary obstruction: without biliary obstruction (6) Diabetes type 2, controlled Code(s): E11.9 - TYPE 2 DIABETES MELLITUS WITHOUT COMPLICATIONS Status: Chronic Qualifiers: Diabetes mellitus terminal operations supervisor insulin use: without group home use Diabetes mellitus complication status: with skin complications Diabetes mellitus complication detail: with foot ulcer Qualified Code(s): E11.621 - Type 2 diabetes mellitus with foot ulcer; L97.509 - Non-pressure chronic ulcer of other part of unspecified foot with unspecified severity; L97.509 - Non- pressure chronic ulcer of other part of unspecified foot with unspecified severity; L97.509 - Non-pressure chronic ulcer of other part of unspecified foot with unspecified severity; L97.509 - Non-pressure chronic ulcer of other part of unspecified foot with unspecified severity Comment: continue accuchecks, insulin sliding scale (7) End stage renal disease on dialysis Code(s): N18.6 - END STAGE RENAL DISEASE; Z99.2 - DEPENDENCE ON RENAL DIALYSIS Status: Chronic Comment: Dialysis per nephrology service (8) GERD (gastroesophageal reflux disease) Code(s): K21.9 - GASTRO-ESOPHAGEAL REFLUX DISEASE WITHOUT ESOPHAGITIS Status: Chronic (9) H/O aortic valve replacement Code(s): Z95.2 - PRESENCE OF PROSTHETIC HEART VALVE Status: Chronic (10) HLD (hyperlipidemia) Code(s): E78.5 - HYPERLIPIDEMIA, UNSPECIFIED Status: Chronic Qualifiers: Hyperlipidemia type: unspecified Qualified Code(s): E78.5 - Hyperlipidemia , unspecified (11) HTN (hypertension) Code(s): I10 - ESSENTIAL (PRIMARY) HYPERTENSION Status: Chronic Qualifiers: Hypertension type: essential hypertension Qualified Code(s): I10 - Essential (primary) hypertension (12) Macrocytic anemia Code(s): D53.9 - NUTRITIONAL ANEMIA, UNSPECIFIED Status: Chronic (13) Obesity (BMI 30-39.9) Code(s): E66.9 - OBESITY, UNSPECIFIED Status: Chronic (14) Secondary hyperparathyroidism of renal origin Code(s): N25.81 - SECONDARY HYPERPARATHYROIDISM OF RENAL ORIGIN Status: Chronic (15) PVD (peripheral vascular disease) Code(s): I73.9 - PERIPHERAL VASCULAR DISEASE, UNSPECIFIED Status: Chronic (16) Hyperhomocysteinemia Code(s): E72.11 - HOMOCYSTINURIA Status: Acute - Plan cont current plan of care, continue antibiotics, PT/OT, social worker psychiatric * medication reviewed as below * symptomatic treatment * Dc to home with home health or rehab. Review of Systems - Review of Systems ENT: negative: Ear Pain, Ear Discharge, Nose Pain, Nose Discharge, Nose Congestion, Mouth Pain, Mouth Swelling, Throat Pain, Throat Swelling, Other Respiratory: negative: Cough, Dry, Shortness of Breath, Hemoptysis, SOB with Excertion, Pleuritic Pain, Sputum, Wheezing Cardiovascular: negative: chest pain, palpitations, orthopnea, paroxysmal nocturnal dyspnea, edema, light headedness, other Gastrointestinal: negative: Nausea, Vomiting, Abdominal Pain, Diarrhea, Constipation, Melena, Hematochezia, Other Genitourinary: negative: Dysuria, Frequency, Incontinence, Hematuria, Retention , Other Musculoskeletal: negative: Neck Pain, Shoulder Pain, Arm Pain, Back Pain, Hand Pain, Leg Pain, Foot Pain, Other Skin: negative: Rash, Lesions, [place], Bruising, Other - Medications/Allergies Allergies/Adverse Reactions: Allergies Allergy/AdvReac Type Severity Reaction Status Date / Time ciprofloxacin [From Cipro] Allergy Intermediate Nausea Verified 07/24/17 20:22 Penicillins Allergy Intermediate Hives Verified 07/24/17 20:22 codeine [Codeine] Allergy Anxiety Verified 07/24/17 20:22 hydrocodone Allergy Nausea Verified 07/24/17 20:22 Sulfa (Sulfonamide Allergy Verified 07/24/17 20:22 Antibiotics) sulfamethoxazole Allergy Verified 07/24/17 20:22 [From Bactrim] trimethoprim [From Bactrim] Allergy Verified 07/24/17 20:22 Medications: Current Medications Acetaminophen (Tylenol) 650 mg PO Q4H PRN PRN Reason: Headache/Fever or Pain Last Admin: 07/26/17 03:04 Dose: 650 mg Al Hydroxide/Mg Hydroxide (Maalox) 30 ml PO Q4H PRN PRN Reason: Heartburn or Indigestion Last Admin: 07/26/17 04:10 Dose: 30 ml Artificial Tears (Tears Renewed 15ml Bottle) 0 drop EA EYE PRN PRN PRN Reason: Dry Eyes Aspirin (Aspirin) 325 mg PO DAILY [facility] Last Admin: 08/05/17 08:26 Dose: 325 mg Atorvastatin Calcium (Lipitor) 40 mg PO HS [facility] Last Admin: 08/04/17 20:50 Dose: 40 mg Calcium Carbonate (Tums) 1,000 mg PO Q4H PRN PRN Reason: Heartburn or Indigestion Cinacalcet (Sensipar) 30 mg PO QAM-[facility] Last Admin: 08/05/17 08:33 Dose: 30 mg Clindamycin HCl (Cleocin) 300 mg PO 0000,0800,1600 [facility] Last Admin: 08/05/17 08:26 Dose: 300 mg Clopidogrel Bisulfate (Plavix) 75 mg PO DAILY [facility] Last Admin: 08/05/17 08:26 Dose: 75 mg Cyanocobalamin (Vitamin B-12) 1,000 mcg PO DAILY [facility] Last Admin: 08/05/17 08:25 Dose: 1,000 mcg Escitalopram Oxalate (Lexapro) 10 mg PO HS PRN PRN Reason: Insomnia Fluticasone Propionate (Flonase Nasal [place]) 0 gm NASAL DAILY [facility] Last Admin: 08/05/17 08:28 Dose: 2 spr Folic Acid (Folvite) 1 mg PO DAILY [facility] Last Admin: 08/05/17 08:26 Dose: 1 mg Guaifenesin (Robitussin Sf) 200 mg PO Q4H PRN PRN Reason: Cough Hydralazine HCl (Apresoline) 50 mg PO TID [facility] Last Admin: 08/05/17 08:27 Dose: 50 mg Hydralazine HCl (Apresoline) 10 mg SLOW IVP Q4H PRN PRN Reason: Systolic BP > 180 Last Admin: 07/30/17 11:54 Dose: 10 mg Insulin Detemir 10 units/ (Miscellaneous Medication) 0.1 mls @ 0 mls/hr SC [facility] Last Admin: 08/04/17 20:52 Dose: 0.1 mls Loperamide HCl (Imodium) 2 mg PO PRN PRN PRN Reason: Diarrhea/Loose Stools Loratadine (Claritin) 10 mg PO DAILYPRN PRN PRN Reason: Sinus Symptoms Magnesium Hydroxide (Milk Of Magnesium) 30 ml PO DAILYPRN PRN PRN Reason: Constipation Mineral Oil/White Petrolatum (Eucerin Cream) 0 gm TOP BIDPRN PRN PRN Reason: Dry Skin Minocycline HCl (Minocycline Hcl) 100 mg PO BID [facility] Last Admin: 08/05/17 08:26 Dose: 100 mg Miscellaneous Medication (Pharmacy To Dose) 0 each PO ASDIR PRN PRN Reason: Pharmacy to Dose WARFARIN Morphine Sulfate (Morphine) 1 mg SLOW IVP Q2H PRN PRN Reason: .SEVERE PAIN 1ST LINE Last Admin: 07/31/17 09:38 Dose: 1 mg Morphine Sulfate (Morphine) 2 mg SLOW IVP Q2H PRN PRN Reason: SEVERE PAIN 2ND LINE Nitroglycerin (Nitrostat) 0.4 mg PO Q5MIN PRN PRN Reason: Chest Pain Hold Vancomycin For (Level >20) 0 each FS .AT DIALYSIS [facility] Ondansetron HCl (Zofran) 4 mg SLOW IVP Q6H PRN PRN Reason: Nausea/Vomiting Last Admin: 07/26/17 09:22 Dose: 4 mg Ondansetron HCl (Zofran Odt) 4 mg PO Q6H PRN PRN Reason: Nausea/Vomiting Pantoprazole Sodium (Protonix) 40 mg PO DAILY [facility] Last Admin: 08/05/17 08:26 Dose: 40 mg Phenol (Chloraseptic [place] 180 Ml Bot) 0 ml PO PRN PRN PRN Reason: Sore Throat Polyethylene Glycol (Miralax) 17 gm PO DAILYPRN PRN PRN Reason: Constipation Last Admin: 08/05/17 08:33 Dose: 17 gm Pregabalin (Lyrica) 75 mg PO [facility] Last Admin: 08/04/17 20:45 Dose: 75 mg Pyridoxine HCl (Vitamin B 6) 50 mg PO DAILY [facility] Last Admin: 08/05/17 08:25 Dose: 50 mg Senna (Senokot) 2 tab PO HSPRN PRN PRN Reason: Constipation Sevelamer Carbonate (Renvela) 1,600 mg PO TID-[facility] Last Admin: 08/05/17 08:25 Dose: 1,600 mg Sodium Chloride ([place] Nasal [place] 0.65%) 0 ml EA NARE QIDPRN PRN PRN Reason: Nasal Congestion Sodium Chloride (Flush - Normal Saline) 10 ml IVF Q12HR [facility] Last Admin: 08/05/17 08:28 Dose: 10 ml Sodium Chloride (Flush - Normal Saline) 10 ml IVF PRN PRN PRN Reason: Saline Flush Tramadol HCl (Ultram) 50 mg PO Q4H PRN PRN Reason: MILD-MOD Pain 1ST LINE Last Admin: 07/28/17 21:49 Dose: 50 mg Trazodone HCl (Desyrel) 150 mg PO HS PRN PRN Reason: Insomnia Warfarin Sodium (Coumadin) 2.5 mg PO 1700 [facility] Zolpidem Tartrate (Ambien) 5 mg PO HSPRN PRN PRN Reason: Insomnia
[2017-08-05 08:51] VITALS: TEMP 99
[2017-08-05] MEDS ORDERED: Fleet Enema 133 ML BOT PR SCH (09:45)
--- NOTE | 2017-08-05 11:45 | ADD-DIS ---
ADDENDUM Please see my discharge summary dictated on 08/03/2017 for more detail. This patient was planned for discharge on that day. At that point, we were waiting for rehab placement. Unfortunately, the cristina ent was declined from her insurance for inpatient rehabilitation. After that, we discussed with the patient about next option and she decided to go home with home health and physical therapy and that w e are arranging with help of lining caser. Otherwise, the patient is medically stable for discharge. She is at high risk for recurrent admissio n given her multiple comorbidities. Patient has significant constipation and that is why she require d Fleet enema and the patient is instructed to use stool softener over the counter basis. The patient is seen and examined at bedside today. Please see my progress note from today for furthe r detail. Today, we have reduced dose of warfarin to 2.5 mg p.o. daily and the patient is instructed to monitor PT/INR with help of the Coumadin clinic versus primary care physician. Necessary patient instruction about any kind of bleeding with blood thinner medication was discussed with the patient.
--- NOTE | 2017-08-05 12:56 | PRG ---
DATE OF SERVICE: 08/05/2017 SUBJECTIVE: This is a 76-year-old female being seen for end-stage renal disease. The patient denies any nausea, vomiting, or chest pain. OBJECTIVE: GENERAL: The patient is awake, alert. VITAL SIGNS: Pulse 76, breathing 16, and blood pressure 130/69. GENERAL APPEARANCE AND MENTAL STATUS: Fair. HEAD/NECK: Normocephalic. Atraumatic. EYES: EOMI. No deformity. EARS: Clear. No ulcers. NOSE: Intact. No lesions. MOUTH: Clear. No discharge. THROAT: Clear. No exudate. LUNGS: Clear. No crackles. CARDIAC: S1, S2. No rub. ABDOMEN: Benign. BS+. GENITALIA/RECTUM: Allen absent. BACK/EXTREMITIES: Edema 0+ Ulcer- NEUROLOGICAL: Alert and motor intact. SKIN: Rash- Bruise- LYMPHATICS: Edema- Ulcer- LABORATORY DATA: Show hemoglobin 11. ASSESSMENT AND RECOMMENDATIONS: 1. Stage 6 chronic kidney disease, plan hemodialysis. 2. Hypertension, stable. 3. Anemia, stable. 5. Medication based on glomerular filtration rate are appropriate. The patient is okay for discharg e from Nephrology.
[2017-08-05 15:11] VITALS: BP 173/75
[2017-08-05] MEDS: Acetaminophen 325 MG TAB PO PRN (15:11)
[2017-08-05] MEDS ORDERED: Warfarin Sodium 2.5 MG TAB PO SCH (17:00)
--- NOTE | 2017-08-12 15:06 | EKG ---
Test Reason : CP Blood Pressure : / mmHG Vent. Rate : 050 BPM Atrial Rate : 050 BPM P-R Int : 196 ms QRS Dur : 082 ms QT Int : 464 ms P-R-T Axes : 066 068 088 degrees QTc Int : 423 ms Sinus bradycardia Otherwise normal ECG Confirmed by TY MOSS ([id number]), story editor FABI SALAZAR ([id number]) on 08/12/2017 3:05:21 PM Referred By: GLADYS OLSON Confirmed By:TY MOSS
--- NOTE | 2017-09-01 13:46 | STRESS ---
Acquisition Time: 2017-07-25 14:57:12 Total Exercise Time: 00:01:00 Test Indications: CHEST PAIN Medications: Protocol: LEXISCAN Max HR: 089 BPM 61% of Pred: 144 BPM Max BP: 120/080 mmHG Max Work Load: 1.0 METS THE PATIENT WAS INJECTED WITH LEXISCAN. SHE DID DEVELOP CHEST PAIN. THERE WAS NO SIGNIFICANT ST DEPRESSION. AWAIT NUCLEAR IMAGES FOR DEFINITIVE DIAGNOSIS. Confirmed by ERNESTINA ACUNA ([id number]), editorial writer TAMIKA COSTELLO ([id number]) on 09/01/2017 1:46:06 PM Referred By: MD Suze CLAROS Confirmed By:ERNESTINA ACUNA
== END 2017-08-05 15:40 | disposition home health service (06) | DRG 252 ==
LOC: ERS 12:34 → ERHOLD 15:21 → 2NO 18:04 → T4-A 07-31 15:56
PROVIDERS: ADMIT Internal Medicine; ATTEND Internal Medicine
PROC: 5A1D70Z Performance of Urinary Filtration, Intermittent, Less than 6 Hours Per Day (ICD-10-PCS; 2017-07-24)
PROC: 5A1D70Z Performance of Urinary Filtration, Intermittent, Less than 6 Hours Per Day (ICD-10-PCS; 2017-07-25)
PROC: C23GYZZ Positron Emission Tomographic (PET) Imaging of Myocardium using Other Radionuclide (ICD-10-PCS; 2017-07-26)
PROC: 0WUF4JZ Supplement Abdominal Wall with Synthetic Substitute, Percutaneous Endoscopic Approach (ICD-10-PCS; 2017-07-28)
PROC: 0WHG43Z Insertion of Infusion Device into Peritoneal Cavity, Percutaneous Endoscopic Approach (ICD-10-PCS; 2017-07-28)
PROC: 5A1D70Z Performance of Urinary Filtration, Intermittent, Less than 6 Hours Per Day (ICD-10-PCS; 2017-07-28)
PROC: 5A1D70Z Performance of Urinary Filtration, Intermittent, Less than 6 Hours Per Day (ICD-10-PCS; 2017-07-28)
PROC: B4101ZZ Fluoroscopy of Abdominal Aorta using Low Osmolar Contrast (ICD-10-PCS; principal; 2017-07-30)
PROC: 047U3Z1 Dilation of Left Peroneal Artery using Drug-Coated Balloon, Percutaneous Approach (ICD-10-PCS; 2017-07-30)
PROC: 047L3Z1 Dilation of Left Femoral Artery using Drug-Coated Balloon, Percutaneous Approach (ICD-10-PCS; 2017-07-30)
PROC: 047S3Z1 Dilation of Left Posterior Tibial Artery using Drug-Coated Balloon, Percutaneous Approach (ICD-10-PCS; 2017-07-30)
PROC: B41G1ZZ Fluoroscopy of Left Lower Extremity Arteries using Low Osmolar Contrast (ICD-10-PCS; 2017-07-30)
PROC: 5A1D70Z Performance of Urinary Filtration, Intermittent, Less than 6 Hours Per Day (ICD-10-PCS; 2017-07-30)
PROC: 5A1D70Z Performance of Urinary Filtration, Intermittent, Less than 6 Hours Per Day (ICD-10-PCS; 2017-08-01)
PROC: 3E1M39Z Irrigation of Peritoneal Cavity using Dialysate, Percutaneous Approach (ICD-10-PCS; 2017-08-04)
PROC: 5A1D70Z Performance of Urinary Filtration, Intermittent, Less than 6 Hours Per Day (ICD-10-PCS; 2017-08-04)
DX: I82.B12 Acute embolism and thrombosis of left subclavian vein (principal); N18.6 End stage renal disease; I13.2 Hypertensive heart and chronic kidney disease with heart failure and with stage 5 chronic kidney disease, or end stage renal disease; I96 Gangrene, not elsewhere classified; E87.2 Acidosis; E11.22 Type 2 diabetes mellitus with diabetic chronic kidney disease; E72.11 Homocystinuria; E11.69 Type 2 diabetes mellitus with other specified complication; M86.9 Osteomyelitis, unspecified; I50.33 Acute on chronic diastolic (congestive) heart failure; E11.52 Type 2 diabetes mellitus with diabetic peripheral angiopathy with gangrene; N25.81 Secondary hyperparathyroidism of renal origin; D63.1 Anemia in chronic kidney disease; Z95.1 Presence of aortocoronary bypass graft; Z99.2 Dependence on renal dialysis; Z79.84 Long term (current) use of oral hypoglycemic drugs; Z95.2 Presence of prosthetic heart valve; Z88.1 Allergy status to other antibiotic agents; Z88.5 Allergy status to narcotic agent; Z88.0 Allergy status to penicillin; Z88.2 Allergy status to sulfonamides; E66.9 Obesity, unspecified; Z68.36 Body mass index [BMI] 36.0-36.9, adult; K59.00 Constipation, unspecified; I25.10 Atherosclerotic heart disease of native coronary artery without angina pectoris; K21.9 Gastro-esophageal reflux disease without esophagitis; E78.5 Hyperlipidemia, unspecified; Z79.82 Long term (current) use of aspirin; Z79.01 Long term (current) use of anticoagulants; Z79.4 Long term (current) use of insulin; E87.5 Hyperkalemia; K80.20 Calculus of gallbladder without cholecystitis without obstruction
CPT/HCPCS: 36415; 36416; 37224; 37228; 37232; 71045; 71275; 76942; 78452; 80048; 80053; 80069; 80202; 81240; 82550; 82553; 83090; 83690; 83735; 83880; 84100; 84484; 85025; 85240; 85300; 85303; 85305; 85307; 85379; 85598; 85610; 85652; 85730; 86140; 87040; 87340; 90935; 93005; 93017; 93923; 94760; 96365; 96375; 99152; 99153; J2270; A4216; A9500; C1769; C1887; G0257; G8978-GP-CN; G8979-GP-CI; G8987-GO-CL; G8988-GO-CJ; J0360; J1100; J1644; J1815; J2001; J2250; J2405; J2550; J2704; J2720; J2785; J3010; J3370; J3490; J7050; Q0162

== ENCOUNTER 2017-10-27 18:10 | Observation (INO) | payer MEDICARE ==
[2017-10-27 21:30] LABS: INR-International Normal Ratio 1.2; PTT 29.6 SEC (22.9-36.1); Prothrombin Time 15.4 SEC (12.0-14.7)
[2017-10-27 21:51] VITALS: BMI 36.1
[2017-10-27] MEDS ORDERED: Ondansetron HCl/PF 4 MG/2 ML Vial IVP PRN (23:01)
--- NOTE | 2017-10-28 02:32 | HP ---
CODE STATUS: FULL CODE. PRIMARY CARE PHYSICIAN: Dr. Liz Taveras TIME OF EVALUATION: 8:00 p.m. CHIEF COMPLAINT: Dialysis port malfunction. HISTORY OF PRESENT ILLNESS: This is a 77-year-old female patient with past medical history of end-stage renal disease on hemodialysis, the patient has reported that she does not recall what was the last time that she got for hemodialysis, she has been told that in the last dialysis that the port was not working properly, for that reason she was sent to the ER. The patient reported no significant symptoms other than generalized weakness, symptoms are reported as mild to moderate, no shortness of breath. No clear triggers, or alleviating factors. REVIEW OF SYSTEMS: Constitutional: No fever, no chills, she reported generalized weakness. Respiratory: No cough, no sputum production or shortness of breath. Cardiovascular: No chest pain, palpitation, shortness of breath. Gastrointestinal: No nausea, vomiting, diarrhea or abdominal pain. PULP BLEACHER : No dizziness, headache, feeling lightheaded. Genitourinary: No burning with urination. Extremity: No leg swelling. All other systems were reviewed and were negative except for the findings mentioned above. PAST MEDICAL HISTORY: The patient had a history of end-stage renal disease on hemodialysis, diabetes, hyperlipidemia, and hypertension. She gets dialysis TTS , history of congestive heart failure. PAST SURGICAL HISTORY: Dialysis shunt, hernia repair, hysterectomy, patient also has peritoneal dialysis catheter that has not been used yet, heart valve replacement, CABG x3, left AV fistula. PSYCHIATRIC HISTORY: No history of psych history. FAMILY HISTORY: Mother Alzheimer, father history of lung cancer. MEDICATIONS: Carvedilol, hydralazine, pantoprazole, Renvela, Lyrica, warfarin, aspirin. PHYSICAL EXAMINATION: VITAL SIGNS: On presentation, blood pressure 163/75 with heart rate 56, respirations 12, temperature 97.9, oxygen saturation 95. GENERAL: The patient is alert, oriented, no acute distress. HEENT: Eye, normal conjunctivae. Moist oral mucosa, anicteric. NECK: No JVD. Left-sided dialysis catheter. RESPIRATORY: Bilateral air entry. No rales, no wheezing. Symmetric expansion. CARDIOVASCULAR: Normal rate, regular rhythm, no murmurs, no gallop. No edema. ABDOMEN: Soft, normal bowel sounds. The patient has a peritoneal dialysis catheter. MUSCULOSKELETAL: Baseline range of motion and strength. No tenderness. SKIN: Warm and intact. No pallor, no rash, no redness. NEUROLOGIC: Baseline sensorium. No evidence of any new focal weakness. Baseline speech. Cranial nerves seems to be intact. PSYCHIATRIC: Good mood. No anxiety. Oriented. Optimal judgment. LABORATORY DATA: Labs were reviewed. The patient's PT 15.4, INR 1.2, PTT 29.6 , glucose 85. Labs prior to transfer were discussed with the ER physician. The only positive lab reported both elevated BUN and creatinine and potassium 5.1. The rest was reported as normal. ASSESSMENT AND PLAN: The patient was placed in the hospital for a medical condition. 1. End-stage renal disease on hemodialysis. Patient gets dialysis TTS, her paste worker, Dr. Lamb has been called from the ER as per report, potassium 5.1. Discussed with the ER physician. BUN and creatinine is elevated than as expected given the renal failure and because the last hemodialysis have not been received completely. 2. Dialysis catheter malfunction, might need Surgery evaluation in the morning for replacement. 3. Uncontrolled hypertension, patient had systolic 163, is elevated, will need dialysis, reconcile home medications. 4. History of diabetes, is controlled, regular home meds, sliding scale. 5. Hyperlipidemia, low cholesterol diet is advised. 6. Obesity. Advised to lose weight. 7. History of congestive heart failure has been reported, patient will need dialysis for fluid removal, reconsult home medications. 8. Deep venous thrombosis prophylaxis. MTDD
[2017-10-28 06:18] LABS: INR-International Normal Ratio 1.3; Prothrombin Time 15.9 SEC (12.0-14.7)
[2017-10-28 06:25] LABS: #Basophils 0.1 thou/uL (0.0-0.2); #Eosinphils 0.6 thou/uL (0.0-0.7); #Lymphocytes 1.1 thou/uL (1.20-3.40); #Monocytes 0.6 thou/uL (0.11-0.59); #Neutrophils 3.6 thou/uL (1.40-6.50); %Basophils 1.3 % (0.0-1.0); %Eosinophils 10.1 % (0.0-10.0); %Lymphocytes 18.1 % (21.0-51.0); %Monocytes 9.8 % (0.0-10.0); %Neutrophils 60.8 % (42.0-75.0); Hemoglobin 11.1 g/dL (12.0-16.0); Mean Corpuscular HGB CONC 32.2 g/dL (32.0-36.0); Mean Corpuscular Hemoglobin 31.8 pg (27.0-31.0); Mean Corpuscular Volume 98.7 fL (78.0-98.0); Mean Platelet Volume 9.1 fL (7.4-10.4); Platelet Count 107 thou/uL (130-400); Red Blood Cell (RBC) Count 3.48 mill/uL (4.20-5.40); White Blood Cell (WBC) Count 5.9 thou/uL (4.8-10.8)
[2017-10-28 06:44] LABS: Anion Gap 19 mmol/L (10-20); Calc. Creatinine Clearance 6 mL/min (70-130); Calcium 8.9 mg/dL (7.8-10.44); Carbon Dioxide 15 mmol/L (23-31); Chloride 107 mmol/L (98-107); Estimated GFR-MDRD 4; Glucose 134 mg/dL (83-110); Potassium 5.1 mmol/L (3.5-5.1); Sodium 136 mmol/L (136-145)
[2017-10-28 06:55] LABS: BUN (Urea Nitrogen) 127 mg/dL (9.8-20.1)
[2017-10-28] MEDS: Carvedilol 6.25 MG TAB PO SCH ×2 (08:36→16:19)
[2017-10-28] MEDS: hydrALAZINE 25 MG TAB PO SCH ×3 (08:37→21:17)
[2017-10-28] MEDS: Aspirin 325 MG TAB PO SCH (08:37)
[2017-10-28] MEDS: Sevelamer Carbonate 800 MG TAB PO SCH ×4 (08:37→16:20)
[2017-10-28] MEDS: Pregabalin 75 MG CAP PO SCH (08:38)
[2017-10-28] MEDS ORDERED: Heparin 5,000 UNITS/ML VIAL SC SCH (09:00)
[2017-10-28] MEDS ORDERED: Activase 2 MG VIAL CATH SCH (10:00)
[2017-10-28 13:10] LABS: HBSAg Index 0.24 S/CO (0-0.99); Hep B Surf Ag Non-Reactive S/CO (NonReactive)
--- NOTE | 2017-10-28 13:17 | PRG ---
DATE OF SERVICE: 10/28/2017 SUBJECTIVE: This a 77-year-old female being seen for end-stage renal disease. The patient denies an y nausea, vomiting or chest pain. PHYSICAL EXAMINATION: GENERAL: Patient is awake, alert. VITAL SIGNS: Afebrile, pulse 61, breathing 16, blood pressure 179/62. OBJECTIVE: See above. Awake, alert, in no acute distress. GENERAL APPEARANCE AND MENTAL STATUS: Fair. HEAD/NECK: Normocephalic. Atraumatic. EYES: EOMI. No deformity. EARS: Clear. No ulcers. NOSE: Intact. No lesions. MOUTH: Clear. No discharge. THROAT: Clear. No exudate. LUNGS: Clear. No crackles. CARDIAC: S1, S2. No rub. ABDOMEN: Benign. BS+. GENITALIA/RECTUM: Allen absent. BACK/EXTREMITIES: Edema 0+ Ulcer- NEUROLOGICAL: Alert and motor intact. SKIN: Rash- Bruise- LYMPHATICS: Edema- Ulcer- LABORATORY DATA: Hemoglobin 9.1, potassium 5.1. ASSESSMENT AND RECOMMENDATIONS: 1. Stage 6 chronic kidney disease, plan hemodialysis. 2. Hypertension, stable. 3. Anemia, stable. 4. Medication based on glomerular filtration rate are appropriate. 5. Access is working. The patient's tunneled dialysis catheter can be removed.
[2017-10-28] MEDS ORDERED: Lidocaine 1% w/Epinephrine 1:200K 30 ML VIAL FS SCH (13:30)
--- NOTE | 2017-10-28 13:30 | CON ---
DATE OF CONSULTATION: 10/27/2017 NEPHROLOGY CONSULTATION REASON FOR CONSULTATION: Failed dialysis access. HISTORY OF PRESENT ILLNESS: This is a very pleasant, 77-year-old female, whose catheter has been not functioning for the last 1-2 weeks, presents to the hospital after unable to dialyze. The patient denies nausea, vomiting or chest pain. The patient had mild hyperkalemia and acidosis. PAST MEDICAL HISTORY: End-stage renal disease, hypertension, diabetes mellitus , coronary artery disease, CABG, aortic valve replacement, right AV fistula, hernia, cholecystectomy. MEDICATIONS: Reviewed. HOSPITAL MEDICATIONS: List reviewed. SOCIAL HISTORY: No alcohol or drug use. FAMILY HISTORY: Negative for ESRD. REVIEW OF SYSTEMS: A-12 point review of systems was performed and was negative except for positives noted above. General: Weakness. Head: Headache. Neck: No swelling or lumps. Nose: No epistaxis or discharge. Eyes: No diplopia or pain. Respiratory: Dyspnea. Cardiovascular: Chest pain. Gastrointestinal: Nausea. /MILLER ROD MILL: Hematuria. Musculoskeletal: No joint pain. Neuropsychiatic Systems: No suicidal ideation. No ideation. Skin: Denies any rash or ulcer. Constitutional: No fever or chills. PHYSICAL EXAMINATION: VITAL SIGNS: Afebrile, pulse 90, breathing 16, blood pressure 125/75. GENERAL APPEARANCE AND MENTAL STATUS: Fair. Patient is awake, alert. HEAD/NECK: Normocephalic. Atraumatic. EYES: EOMI. No deformity. EARS: Clear. No ulcers. NOSE: Intact. No lesions. MOUTH: Clear. No discharge. THROAT: Clear. No exudate. LUNGS: Clear. No crackles. CARDIAC: S1, S2. No rub. ABDOMEN: Benign. BS+. GENITALIA/RECTUM: Allen absent. BACK/EXTREMITIES: Edema 0+ Ulcer. NEUROLOGICAL: Alert and motor intact. SKIN: Rash- . Bruise -. LYMPHATICS: Edema- Ulcer- LABORATORY: potassium 5.2, bicarbonate 16. ASSESSMENT AND RECOMMENDATIONS: 1. Stage 6 chronic kidney disease. We will plan dialysis after catheter is fixed. 2. Metabolic acidosis. We will start sodium bicarbonate. 3. Hyperkalemia. Would give Kayexalate and bicarbonate. We will plan dialysis in the morning. [facility]
[2017-10-28] MEDS ORDERED: Lidocaine 1% w/Epinephrine 1:100K 20 ML VIAL NERVE BLCK SCH (15:00)
[2017-10-28] MEDS ORDERED: Lidocaine 1% w/Epinephrine 1:100K 20 ML VIAL FS SCH (15:15)
[2017-10-28] MEDS: Acetaminophen 325 MG TAB PO PRN ×2 (15:39→23:29)
[2017-10-28] MEDS: Warfarin Sodium 7.5 MG TAB PO SCH (16:19)
--- NOTE | 2017-10-28 17:28 | OP ---
PREOPERATIVE DIAGNOSES: Functional left arm dialysis graft, dysfunctional hemodialysis catheter. POSTOPERATIVE DIAGNOSES: Functional left arm dialysis graft, dysfunctional hemodialysis catheter. PROCEDURE: Removal of hemodialysis catheter, left IJ. SURGEON: Trino Pelayo M.D. ANESTHESIA: A 1% xylocaine with epinephrine. DESCRIPTION OF PROCEDURE: At the patient's bedside, the catheter exit site was prepared with alcohol and anesthetized with local anesthetic, 1% Xylocaine with epinephrine 10 mL. Sutures were removed. Catheter and cuff dissected free, pressure held to hemostatic. Patient tolerated procedure well.
--- NOTE | 2017-10-28 18:28 | PDOC.PN ---
- Subjective Encounter Start Date: 10/28/17 Encounter Start Time: 18:25 Subjective: f/u for non-functioning L IJ HD catheter s/p removal 10/28/17. No new -: complaints. Tolerating use of LUE AV fistula for HD. - Objective Resuscitation Status: Resuscitation Status FULL:Full Resuscitation MAR Reviewed: Yes Vital Signs & Weight: Vital Signs (12 hours) Temp Pulse Resp BP BP Pulse Ox 10/28/17 16:19 176/61 H 10/28/17 15:39 60 176/61 H 10/28/17 15:35 97.7 F 60 16 176/61 H 99 10/28/17 08:37 61 179/62 H 10/28/17 08:36 179/62 H 10/28/17 08:13 97.5 F L 61 16 179/62 H 96 10/28/17 08:00 97.5 F L 61 16 I&O: 10/27/17 10/28/17 10/29/17 06:59 06:59 06:59 Intake Total 120 Output Total 300 Balance -180 Result Diagrams: 10/28/17 05:54 10/28/17 05:54 Additional Labs: Accuchecks 10/28/17 10/28/17 10/27/17 16:10 06:19 22:15 POC Glucose 86 127 H 85 Laboratory Tests 10/28/17 05:54 PT 15.9 H INR 1.3 Phys Exam - Physical Examination Constitutional: NAD HEENT: PERRLA, sclera anicteric, oral pharynx no lesions Neck: no nodes, no JVD, supple, full ROM Respiratory: no wheezing, no rales, no rhonchi, clear to auscultation bilateral Cardiovascular: RRR, no significant murmur, no rub, gallop Gastrointestinal: soft, non-tender, no distention, positive bowel sounds LUE with AV fistula in place Musculoskeletal: no edema, pulses present Neurological: non-focal, normal sensation, moves all 4 limbs Psychiatric: normal affect, A&O x 3 Skin: no rash, normal turgor, cap refill <2 seconds Dx/Plan (1) Hemodialysis catheter malfunction Code(s): T82.41XA - BREAKDOWN (MECHANICAL) OF VASCULAR DIALYSIS CATHETER, INIT Status: Acute Comment: s/p removal of tunneled L IJ HD catheter, stable (2) Anemia of renal disease Code(s): D63.1 - ANEMIA IN CHRONIC KIDNEY DISEASE Status: Chronic Comment: Stable, no evidence of acute blood loss, serial CBC (3) End stage renal disease on dialysis Code(s): N18.6 - END STAGE RENAL DISEASE; Z99.2 - DEPENDENCE ON RENAL DIALYSIS Status: Chronic Comment: HD per Nephrology using LUE AV fistula (4) HTN (hypertension) Code(s): I10 - ESSENTIAL (PRIMARY) HYPERTENSION Status: Chronic Qualifiers: Hypertension type: essential hypertension Qualified Code(s): I10 - Essential (primary) hypertension Comment: Labile, follow trend post HD, may need additional titration of regimen - Plan PT/OT, elementary school social worker, out of bed/ambulate Stable overall -: HD per Renal service -: Continue Carvedilol and Hydralazine -: Discuss chronic anticoagulation with Coumadin -: AM lab: BMP, CBC * .
[2017-10-28] MEDS ORDERED: Non-Formulary Item 1 EACH (Insulin Glargine,Hum.Rec.Anlog [Lantus Solostar] 10 UNIT) SQ SCH (21:00)
[2017-10-28] MEDS ORDERED: Insulin Glargine 10 UNITS in Pre-Filled Syringe 1 EACH SC SCH (21:00)
--- NOTE | 2017-10-28 23:03 | OP ---
Report for dysfunctional hemodialysis catheter. She had a left arm dialysis graft placed over 4 week s ago. She has good thrill and bruit. I have asked hemodialysis to use that for access which they h ave successfully. Plan today is to remove her hemodialysis catheter. We will do this at the bedside under local. She understands risks and benefits and she consents.
[2017-10-29] MEDS ORDERED: Dextrose 5% in Water 1,000 ML IV PRN (04:18)
[2017-10-29] MEDS ORDERED: HumaLOG 300 UNITS/3 ML VIAL SC PRN (04:18)
[2017-10-29] MEDS ORDERED: Dextrose 50% Abboject 50 ML SYRINGE IVP PRN (04:18)
[2017-10-29] MEDS: Acetaminophen 325 MG TAB PO PRN (04:41)
[2017-10-29 06:01] LABS: Anion Gap 17 mmol/L (10-20); BUN (Urea Nitrogen) 48 mg/dL (9.8-20.1); Calc. Creatinine Clearance 11 mL/min (70-130); Calcium 9.4 mg/dL (7.8-10.44); Carbon Dioxide 25 mmol/L (23-31); Chloride 98 mmol/L (98-107); Estimated GFR-MDRD 7; Glucose 94 mg/dL (83-110); Potassium 4.1 mmol/L (3.5-5.1); Sodium 136 mmol/L (136-145)
[2017-10-29 06:17] LABS: Band 6 % (5-11); Eosinophils 5 % (0-10); Hemoglobin 12.1 g/dL (12.0-16.0); Lymphocytes 23 % (21-51); MDiff Complete? YES; Mean Corpuscular HGB CONC 33.9 g/dL (32.0-36.0); Mean Corpuscular Hemoglobin 32.6 pg (27.0-31.0); Mean Corpuscular Volume 96.2 fL (78.0-98.0); Mean Platelet Volume 8.8 fL (7.4-10.4); Monocytes 6 % (0-10); Neutrophil 60 % (42-75); PLT Morphology Comment Appears Decreased; Platelet Count 114 thou/uL (130-400); RBC Distribution Width 14.9 % (11.5-14.5); Red Blood Cell (RBC) Count 3.71 mill/uL (4.20-5.40); White Blood Cell (WBC) Count 5.8 thou/uL (4.8-10.8)
[2017-10-29 06:18] LABS: INR-International Normal Ratio 1.3; Prothrombin Time 15.8 SEC (12.0-14.7)
[2017-10-29] MEDS: Carvedilol 6.25 MG TAB PO SCH ×2 (08:07→15:54)
[2017-10-29] MEDS: Aspirin 325 MG TAB PO SCH (08:07)
[2017-10-29] MEDS: Pregabalin 75 MG CAP PO SCH (08:08)
[2017-10-29] MEDS: Sevelamer Carbonate 800 MG TAB PO SCH ×3 (08:13→15:55)
[2017-10-29] MEDS: hydrALAZINE 25 MG TAB PO SCH ×2 (08:13→15:53)
--- NOTE | 2017-10-29 11:49 | PRG ---
DATE OF SERVICE: 10/29/2017 SUBJECTIVE: A 77-year-old female being seen for end-stage renal disease. The patient denies any jenna sea, vomiting or chest pain. PHYSICAL EXAMINATION: GENERAL: Patient is awake, alert. VITAL SIGNS: Afebrile, pulse 72, breathing 16, blood pressure 103/68. HEAD/NECK: Normocephalic. Atraumatic. EYES: EOMI. No deformity. EARS: Clear. No ulcers. NOSE: Intact. No lesions. MOUTH: Clear. No discharge. THROAT: Clear. No exudate. LUNGS: Clear. No crackles. CARDIAC: S1, S2. No rub. ABDOMEN: Benign. BS+. GENITALIA/RECTUM: Allen absent. BACK/EXTREMITIES: Edema 0+ Ulcer- NEUROLOGICAL: Alert and motor intact. SKIN: Rash- Bruise- LYMPHATICS: Edema- Ulcer- LABORATORY DATA: Show hemoglobin 12.1 and potassium is 4.1. ASSESSMENT AND RECOMMENDATIONS: 1. Stage 6 chronic kidney disease. No indication for dialysis. 2. Hypertension, stable. 3. Anemia, stable. Patient will follow up for outpatient dialysis on Thursday.
[2017-10-29] MEDS ORDERED: Triple Antibiotic Oint 1 GM Packet TOP SCH (14:45)
[2017-10-29] MEDS: Warfarin Sodium 7.5 MG TAB PO SCH (15:55)
[2017-10-29 15:56] VITALS: BP 136/65
[2017-10-29 15:57] VITALS: TEMP 97.5
--- NOTE | 2017-10-29 22:59 | DIS ---
DATE OF ADMISSION: 10/27/2017 DATE OF DISCHARGE: 10/29/2017 DISCHARGE DIAGNOSES: 1. Malfunctioning hemodialysis catheter, status post removal. 2. Anemia secondary to chronic kidney disease. 3. End-stage renal disease with hemodialysis. 4. Hypertension, labile. 5. History of aortic valve replacement, on chronic anticoagulation with Coumadin. 6. Diabetes mellitus type 2, insulin requiring. CONSULTATIONS: Dr. Pelayo with General Surgery Service. Dr. Pickens with Nephrology Service. PERTINENT LABORATORY AND X-RAY FINDINGS: Creatinine ranged between 5.65-10.53, calcium 9.4. CBC hank wed a hemoglobin ranged between 11.1-12.1, platelet count ranged between 107-114. INR ranged between 1.2-1.3. Hepatitis B surface antigen nonreactive, 10/28/2017. HOSPITAL COURSE: The patient was observed after presenting with nonfunctioning dialysis tunneled hem odialysis catheter. The patient underwent evaluation with recommendations for removal of the cathete r and to initiate use of the left upper extremity AV fistula. The patient underwent successful remov al of the tunneled left IJ hemodialysis catheter on 10/28/2017 without complication. The patient kendra erated hemodialysis using the left upper extremity AV fistula, 10/28/2017. The patient overall remai kat clinically stable throughout the hospital course. Current recommendations are to continue antico agulation after discussing appropriate dosing with her primary care provider after discharge. I have examined the patient at the time of discharge and discussed followup instructions. The patient verb alized understanding and agreement and ready for discharge on 10/29/2017. DISCHARGE MEDICATIONS: 1. Aspirin 325 mg 1 tab p.o. daily. 2. Coreg 6.25 mg p.o. b.i.d. 3. Hydralazine 50 mg p.o. t.i.d. 4. Glargine insulin 10 units subcutaneously at bedtime. 5. Protonix 40 mg p.o. daily. 6. Lyrica 75 mg 1 tab p.o. daily. 7. Renvela 1600 mg p.o. t.i.d. 8. Coumadin 7.5 mg p.o. daily. FOLLOWUP: The patient will follow up with her primary care provider, Dr. Kerri Lira, within 7 d ays of discharge. Recommend repeat PT/INR within 48 hours of discharge. ACTIVITY: Ad brooklynn. DIET: Coumadin prudent, ADA, and heart healthy. CODE STATUS: FULL. DISPOSITION: Home, 10/29/2017.
[2017-10-30] MEDS ORDERED: Triple Antibiotic Oint 1 GM Packet TOP SCH (09:00)
== END 2017-10-29 18:04 | disposition home or self-care (01) ==
LOC: ERS 18:10 → SURG B 21:40
PROVIDERS: ADMIT Hospitalist; ATTEND Specialist
PROC: 05PY33Z Removal of Infusion Device from Upper Vein, Percutaneous Approach (ICD-10-PCS; principal; 2017-10-28)
DX: T82.49XA Other complication of vascular dialysis catheter, initial encounter (principal); I13.2 Hypertensive heart and chronic kidney disease with heart failure and with stage 5 chronic kidney disease, or end stage renal disease; E11.22 Type 2 diabetes mellitus with diabetic chronic kidney disease; N18.6 End stage renal disease; E78.5 Hyperlipidemia, unspecified; I50.9 Heart failure, unspecified; E66.9 Obesity, unspecified; D63.1 Anemia in chronic kidney disease; Z95.2 Presence of prosthetic heart valve; Z79.01 Long term (current) use of anticoagulants; Z79.82 Long term (current) use of aspirin; Z79.899 Other long term (current) drug therapy; Z79.4 Long term (current) use of insulin
CPT/HCPCS: 36589; 80048 ×2; 82962 ×3; 85007; 85025; 85027; 85610 ×3; 85730; 87340; 96374; 99285; G0378; J2997; 36415; 36416; 90935; G0257; J2001; J2405

== ENCOUNTER 2017-12-22 06:21 | Observation (INO) | payer MEDICARE ==
[2017-12-22 07:22] LABS: #Eosinphils 0.3 thou/uL (0.0-0.7); #Lymphocytes 1.3 thou/uL (1.20-3.40); #Monocytes 0.5 thou/uL (0.11-0.59); %Basophils 0.8 % (0.0-1.0); %Eosinophils 4.9 % (0.0-10.0); %Lymphocytes 21.7 % (21.0-51.0); %Monocytes 7.4 % (0.0-10.0); %Neutrophils 65.2 % (42.0-75.0); Hemoglobin 10.3 g/dL (12.0-16.0); Mean Corpuscular Hemoglobin 34.5 pg (27.0-31.0); Mean Platelet Volume 8.5 fL (7.4-10.4); Platelet Count 130 thou/uL (130-400); RBC Distribution Width 15.7 % (11.5-14.5); Red Blood Cell (RBC) Count 2.97 mill/uL (4.20-5.40); White Blood Cell (WBC) Count 6.1 thou/uL (4.8-10.8)
[2017-12-22 07:30] LABS: INR-International Normal Ratio 1.1; PTT 28.4 SEC (22.9-36.1); Prothrombin Time 14.7 SEC (12.0-14.7)
[2017-12-22 07:44] LABS: ALT (SGPT) 13 U/L (8-55); AST (SGOT) 14 U/L (5-34); Albumin 4.1 g/dL (3.4-4.8); Alkaline Phosphatase 85 U/L (40-150); Anion Gap 18 mmol/L (10-20); BUN (Urea Nitrogen) 46 mg/dL (9.8-20.1); Bilirubin, Total 0.7 mg/dL (0.2-1.2); Calc. Creatinine Clearance 0 mL/min (70-130); Calcium 9.8 mg/dL (7.8-10.44); Carbon Dioxide 22 mmol/L (23-31); Chloride 102 mmol/L (98-107); Estimated GFR-MDRD 6; Globulin 3.7 g/dL (2.4-3.5); Glucose 138 mg/dL (83-110); Protein, Total 7.8 g/dL (6.0-8.3); Sodium 138 mmol/L (136-145)
--- NOTE | 2017-12-22 07:51 | ULT ---
ULTRASOUND LEFT UPPER EXTREMITY VENOUS DOPPLER: Date: 12/22/17 HISTORY: Swelling. Pain. COMPARISON: Ultrasound dated 07/26/17. FINDINGS: Real-time Wright scale and color Doppler with spectral analysis of the left upper extremity graft was p erformed. The graft is patent. Adjacent to the graft is a large hematoma. This may account for the pa tient's swelling. There are large collaterals along the left neck, suggesting at least a high grade s tenosis of the internal jugular vein. IMPRESSION: 1. Patent graft. 2. Large hematoma adjacent to the graft, likely accounting for patient's upper extremity swelling. 3. Large collaterals along the left internal jugular vein, suggesting at least a high grade stenosis . POS: [facility]
[2017-12-22] MEDS ORDERED: hydrALAZINE 20 MG/ML VIAL SLOW IVP PRN (09:32)
[2017-12-22] MEDS ORDERED: Nitroglycerin 0.4 MG TAB (25 Tab Bottle) ONE (09:45)
--- NOTE | 2017-12-22 10:40 | CON ---
DATE OF CONSULTATION: 12/22/2017 REASON FOR CONSULTATION: Stage 6 chronic kidney disease for maintenance hemodialysis. HISTORY OF PRESENT ILLNESS: This is a very pleasant 77-year-old female who presented to the hospital with left arm swelling after dialysis. The patient denies a headache, numbness, tingling or weaknes s. Denies any nausea, vomiting, or chest pain. PAST MEDICAL HISTORY: Significant for end-stage renal disease, hypertension, hyperlipidemia, dialysi s, TTS, congestive heart failure. PAST SURGICAL HISTORY: Hernia repair, dialysis, AV fistula surgery in right arm and left arm, CABG, heart valve surgery, AV fistula. SOCIAL/ECONIMIC HISTORY: No alcohol or drugs. FAMILY HISTORY: Negative for ESRD. HOME MEDICATIONS: List reviewed. HOSPITAL MEDICATIONS: List reviewed. ALLERGIES: Reviewed. REVIEW OF SYSTEMS: A 15-point review of systems was performed and negative except positives noted ab ove. GENERAL: Weakness- HEAD: Headache- NECK: No swelling or lumps. NOSE: No epistaxis or discharge. EYES: No diplopia or pain. RESPIRATORY: Dyspnea- CARDIOVASCULAR: Chest pain- GASTROINTESTINAL: Nausea- /TROUBLE DISPATCHER: Hematuria- MUSCULOSKELETAL: No joint pain. NEUROPSYCHIATIC SYSTEMS: No suicidal ideation. No ideation. SKIN: Denies any rash or ulcer. CONSTITUTIONAL: No fever or chills. PHYSICAL EXAMINATION: GENERAL: Patient is awake, alert. VITAL SIGNS: Afebrile, pulse 80, breathing at 16, and blood pressure was 180/70. GENERAL APPEARANCE AND MENTAL STATUS: Fair. HEAD/NECK: Normocephalic. Atraumatic. EYES: EOMI. No deformity. EARS: Clear. No ulcers. NOSE: Intact. No lesions. MOUTH: Clear. No discharge. THROAT: Clear. No exudate. LUNGS: Clear. No crackles. CARDIAC: S1, S2. No rub. ABDOMEN: Benign. BS+. GENITALIA/RECTUM: Allen absent. BACK/EXTREMITIES: Edema 0+ Ulcer-. Left arm has swelling. NEUROLOGICAL: Alert and motor intact. SKIN: Rash- Bruise- LABORATORY DATA: Hemoglobin is 10.3, creatinine 7.0. ASSESSMENT AND RECOMMENDATIONS: 1. Stage 6 chronic kidney disease. We will plan dialysis. 2. Left arm swelling. Management per Surgery. 3. Hypertension, stable. 4. Anemia, stable. 5. Medication based on glomerular filtration rate are appropriate.
[2017-12-22] MEDS ORDERED: Ondansetron HCl/PF 4 MG/2 ML Vial IVP PRN ×2 (11:04→16:26)
[2017-12-22] MEDS ORDERED: Ondansetron ODT 4 MG TAB SL PRN (11:04)
[2017-12-22] MEDS ORDERED: Acetaminophen 325 MG TAB PO PRN ×2 (11:04→16:26)
[2017-12-22 13:20] VITALS: BMI 34.8
--- NOTE | 2017-12-22 16:07 | SS ---
CHIEF COMPLAINT: Left arm swelling. HISTORY OF PRESENT ILLNESS: Patient is a 77-year-old female with end-stage renal disease on hemodialysis who presented to the emergency room with swelling of the left upper extremity that started 2 days ago after dialysis. Swelling progressively got worse. She had minimal discomfort over the site. There was no fall, injury, fever, or chills reported. She was able to complete dialysis on Thursday. Patient initially presented to [place] and was transferred to this facility for hospital admission. PAST MEDICAL HISTORY: 1. End-stage renal disease on hemodialysis. 2. Hyperlipidemia. 3. Hypertension. 4. Diabetes mellitus type 2. 5. CAD 6. Chronic Anemia PAST SURGICAL HISTORY: 1. Dialysis access. 2. Hysterectomy. 3. Coronary artery bypass grafting. 4. Peritoneal dialysis catheter in the past. ALLERGIES: Patient is allergic to several medications including CIPROFLOXACIN, PENICILLIN, CODEINE, HYDROCODONE, SULFA, and BACTRIM. CURRENT HOME MEDICATIONS: Aspirin 325 mg daily, hydralazine 50 mg 3 times a day , Lantus 10 units daily, Protonix 40 mg daily, Lyrica 75 mg daily, Coumadin 7.5 mg daily, carvedilol 6.25 mg b.i.d., Renvela 1600 mg 3 times a day. SOCIAL HISTORY: Patient currently lives at home. Denies any smoking, alcohol or drug use. She makes her own decision with the help of her family. She is FULL CODE. REVIEW OF SYSTEMS: The following complete review of systems was negative, unless otherwise mentioned in the HPI or below: Constitutional: Weight loss or gain, ability to conduct usual activities. Skin: Rash, itching. Eyes: Double vision, pain. ENT/Mouth: Nose bleeding, neck stiffness, pain, tenderness. Cardiovascular: Palpitations, dyspnea on exertion, orthopnea. Respiratory: Shortness of breath, wheezing, cough, hemoptysis, fever or night sweats. Gastrointestinal: Poor appetite, abdominal pain, heartburn, nausea, vomiting, constipation, or diarrhea. Genitourinary: Urgency, frequency, dysuria, nocturia. Musculoskeletal: Pain, swelling. Neurologic/Psychiatric: Anxiety, depression. Allergy/Immunologic: Skin rash, bleeding tendency. FAMILY HISTORY: Positive for mother with Alzheimer's disease. Father with lung cancer. PHYSICAL EXAMINATION: VITAL SIGNS: Temperature 97.9, respirations 16, pulse rate of 51, blood pressure 163/58 with O2 saturation 98% on room air. GENERAL: A 77-year-old female in no apparent distress. Denies any pain at this time. HEENT: Head is atraumatic, normocephalic. Sclerae are anicteric. Moist mucous membrane, no oral lesion. NECK: Supple, no JVD appreciated. No carotid bruit. LUNGS: Clear to auscultation bilaterally, no wheezing, rales or rhonchi. HEART: S1 and S2 present. Regular rate and rhythm. No murmur appreciated. No heaves or pulsation. ABDOMEN: Soft, bowel sounds present. EXTREMITIES: There is significant swelling on the left upper extremity along with mild warmth. There was no significant tenderness. SKIN: As discussed above. LYMPH NODES: No palpable lymph nodes in the neck. NEUROLOGIC: Grossly nonfocal, moves all four extremities. PSYCHIATRIC: Alert, awake and oriented x3. LABORATORY DATA AND IMAGING DATA: 1. CBC showed WBC 6.1 with hemoglobin 10.3, hematocrit 30.2, platelet 130 2. PT, INR, PTT normal range. 3. Chemistries showed sodium 138, potassium 4, chloride 102, bicarbonate 22, BUN 46, creatinine 7.03. LFTs in normal range. 4. Left upper extremity vascular ultrasound showed a large hematoma adjacent to graft along with large collateral along the left internal jugular vein. IMPRESSION: 1. Dialysis access malfunction. 2. End-stage renal disease on hemodialysis. 3. Hyperlipidemia. 4. Hypertension. 5. Diabetes mellitus type 2. 6. CAD 7. Chronic Anemia HOSPITAL COURSE: The patient was admitted to the hospital with a diagnosis of malfunctioning dialysis access. The fistulogram was performed. 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 Dr. Feldman will refer her to a different facility for revision as outpatient. She will undergo dialysis today. She will be discharged home after dialysis. She will be started on sliding scale while in the hospital. Home medications will be resumed. Coumadin will be clarified. The patient's INR is 1.1. It is unclear whether patient takes Coumadin on a daily basis. Plan of care was discussed with the patient in detail. She stated understanding. MTDD
--- NOTE | 2017-12-22 16:16 | SPC ---
LEFT UPPER EXTREMITY ARTERIAL VENOUS DIALYSIS FISTOGRAM AND VENOGRAM TO THE SVC: Date: 12-22-17 History: Left upper extremity swelling in a patient with left upper extremity arterial venous dialysi s fistula. Fluoroscopy: Total fluoroscopy time is 2.6 minutes with total dose of 20,095 mGy*cm^2. Technique: After informed consent was obtained, patient was placed on the angiography table in the caro pine position. Limited sonographic evaluation left upper extremity was performed. Left upper extremit y was then prepped and draped in the usual sterile fashion. Skin subcutaneous tissues were infiltrated with buffered 1% Lidocaine for local anesthesia at the int ended puncture site. The left upper extremity arterial venous dialysis fistula graft was accessed pro jecting in the venous direction with micropuncture technique and a 5 [place] introducer sheath was maeve elio. A fistulogram and venogram to the level of the SVC were performed. However, no flow was seen distal t o the level of the innominate vein. Attempts at refluxing the arterial venous anastomosis were unsucc essful due to patient's elevated blood pressure and brisk flow within the fistula. Attempts at manipulating a .035 inch glide wire distal to the level of the obstruction were unsuccess ful. Multiple collateral vessels were seen at the level of the shoulder. Introducer sheath was removed, and hemostatis was achieved with direct pressure. The patient tolerated the procedure well and without immediate complication. FINDINGS: Technically successful left upper extremity arterial venous dialysis fistulogram and venogram to the SVC. There is evidence of occlusion of the left innominate vein. A .035 inch Glidewire was unable to be manipulated Through the obstruction and into the SVC. Prominent collateral vessels are seen at the left neck and to a lesser extent about the left shoulder. The arterial venous anastomosis unable to be refluxed due to elevated blood pressure and brisk flow w ithin the fistula. Separate puncture site was not performed to evaluate the arterial venous anastomos is. These findings were discussed with Dr. Feldman at the time of this examination. IMPRESSION: Left upper extremity arterial venous dialysis fistula with occlusion at the level of the innominate v ein on the left. POS: [facility]
[2017-12-22] MEDS ORDERED: Calcium Carbonate 500 MG ChewTAB PO PRN (16:26)
[2017-12-22] MEDS ORDERED: Insulin Regular 300 UNITS/3 ML VIAL SC PRN ×2 (16:26)
[2017-12-22] MEDS ORDERED: Dextrose 50% Abboject 50 ML SYRINGE SLOW IVP PRN (16:26)
[2017-12-22] MEDS ORDERED: Dextrose 5% in Water 1,000 ML IV PRN (16:26)
[2017-12-22] MEDS ORDERED: Ondansetron ODT 4 MG TAB PO PRN (16:26)
[2017-12-22] MEDS ORDERED: Milk Of Magnesia 30 ML UDCUP PO PRN (16:26)
[2017-12-22] MEDS: Sevelamer Carbonate 800 MG TAB PO SCH (17:23)
[2017-12-22 18:12] LABS: HBSAg Index 0.21 S/CO (0-0.99); Hep B Surf Ag Non-Reactive S/CO (NonReactive)
[2017-12-22] MEDS ORDERED: Heparin 10,000 UNITS/ 10 ML VIAL ONE (19:16)
[2017-12-22] MEDS ORDERED: Famotidine 20 MG TAB PO SCH (21:00)
[2017-12-22] MEDS: Docusate 100 MG CAP PO SCH (22:00)
[2017-12-22] MEDS: Carvedilol 6.25 MG TAB PO SCH (22:00)
[2017-12-22] MEDS: hydrALAZINE 25 MG TAB PO SCH (22:01)
[2017-12-23] MEDS ORDERED: Melatonin 3 MG TAB PO SCH (01:00)
[2017-12-23] MEDS ORDERED: Pregabalin 75 MG CAP PO SCH ×3 (01:15→21:00)
--- NOTE | 2017-12-23 02:23 | CON ---
DATE OF CONSULTATION: 12/22/2017 HISTORY OF PRESENT ILLNESS: Ms. Moyer is a 77-year-old woman well known to me from previous admi ssions. She has had multiple access procedures on both arms and has basically exhausted her access o ptions. She has a left upper arm graft, but has had problems with intermittent swelling in her left upper arm. 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 She had a peritoneal di alysis catheter placed a couple of months ago and I had cleared her at her last appointment visits ab out a month ago to start using this. She states that she was supposed to undergo PD catheter trainin g, but has not done so. She has had issues with noncompliance with dialysis, which she states are du e to transportation issues. She came back to the hospital today because of swelling in her arm after dialysis on Thursday and concern for recurrent DVT. However, ultrasound was performed in the ER, it was negative for this. She did have a small hematoma next to her graft, but this was only a couple of centimeters in size and her swelling is not localized to that area, but includes her entire firm. Patient states that her health has otherwise been fairly stable. She denies any new health problems since I saw her in clinic. PAST MEDICAL HISTORY: Includes end-stage renal failure on hemodialysis with a peritoneal dialysis ca theter in place, which has not been used yet for dialysis; morbid obesity; type 2 diabetes; diastolic congestive heart failure; hypertension; and noncompliance with medical therapy. PAST SURGICAL HISTORY: Includes 3-vessel CABG, aortic heart valve replacements, hysterectomy, multip le dialysis procedures on both arms, hernia repair, and peritoneal dialysis catheter placement and sh oulder surgery and multiple dialysis catheters which have all been removed. FAMILY HISTORY: Noncontributory. REVIEW OF SYSTEMS: Ten-system review of systems is negative except per HPI. OUTPATIENT MEDICATIONS: Include glargine insulin, Coumadin, carvedilol, hydralazine, pantoprazole, p regabalin, sevelamer. INPATIENT MEDICATIONS: Include calcium carbonate, carvedilol, docusate, Pepcid, sliding scale insuli n, hydralazine, pantoprazole, pregabalin, sevelamer. ALLERGIES: Include CIPROFLOXACIN, PENICILLIN, CODEINE, HYDROCODONE, SULFA. SOCIAL HISTORY: Patient lives with family. She does not smoke, drink, or use illicit drugs. PHYSICAL EXAMINATION: VITAL SIGNS: Temperature 98.5, heart rate 56, respirations 17, 96% saturated on room air, blood pres sure 105/49. GENERAL: Reveals an obese elderly woman, in no acute distress. She is not flushed or toxic in appea elizabeth. She is not jaundiced or icteric. She appears to be breathing and resting comfortably. HEENT: Unremarkable. NECK: Supple without lymphadenopathy or thyroid nodules. HEART: Regular in its rate and rhythm with a systolic murmur which is audible over the entire precor dium. Do not appreciate any rubs or gallops. Breath sounds are clear but distant. ABDOMEN: Soft, nontender, nondistended without any palpable hernias or masses. Her PD catheter site is clean. EXTREMITIES: Warm. Her toes are cool, but her hands are pink with normal capillary refill. Her lef t arm is [id number] swollen and she does have a thrill in her left upper arm graft. LABORATORY DATA: White count 6.1, hematocrit 30.2, platelets 130,000. Electrolytes unremarkable. B UN and creatinine are 46 and 7.03. INR is 1.1. I would order a fistulogram earlier today and Dr. 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 She has multiple collaterals draining the arm an d neck on the left. ASSESSMENT AND PLAN: End-stage renal failure needing dialysis. I have previously discussed this in detail with the patient and agreed with her document review attorney's assessment that she needs to transition to peritoneal dialysis. She has exhausted her access options in the upper extremities and given her pe ripheral vascular disease. I am concerned that a fistula in the leg could lead to seal a limb mass. 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 If the patient can successfully perform peritoneal dialysis and I would recommend ref erring her to a vascular surgeon in [place] or [place] for consideration for a HeRO procedure by zayda ng the innominate vein to a catheter in the right internal jugular, assuming that this can be success fully accessed. This was not accessible by usual techniques on previous attempts. The patient is in agreement with this plan and had planned to transition to peritoneal dialysis, but had not completed the training. She will likely require significant family support to be successful with peritoneal d ialysis, but her other options are very limited and poor.
--- NOTE | 2017-12-23 07:03 | PRG ---
DATE OF SERVICE: 12/23/2017 SUBJECTIVE: This is a 77-year-old female being seen for end-stage renal disease. Patient denies any nausea, vomiting or chest pain. PHYSICAL EXAMINATION: GENERAL: Patient is awake, alert. VITAL SIGNS: Afebrile, pulse 60, breathing at 16, blood pressure 134/61. OBJECTIVE: See above. Awake, alert, in no acute distress. GENERAL APPEARANCE AND MENTAL STATUS: Fair. HEAD/NECK: Normocephalic. Atraumatic. EYES: EOMI. No deformity. EARS: Clear. No ulcers. NOSE: Intact. No lesions. MOUTH: Clear. No discharge. THROAT: Clear. No exudate. LUNGS: Clear. No crackles. CARDIAC: S1, S2. No rub. ABDOMEN: Benign. BS+. GENITALIA/RECTUM: Allen absent. BACK/EXTREMITIES: Edema 0+ Ulcer- NEUROLOGICAL: Alert and motor intact. SKIN: Rash- Bruise- LYMPHATICS: Edema- Ulcer- LABORATORY: Show hemoglobin 10.3. ASSESSMENT AND RECOMMENDATIONS: 1. Stage 6 chronic kidney disease. We will plan dialysis per schedule. 2. Hypertension, stable. 3. Anemia, stable. Failed access. The patient will need a procedure or peritoneal dialysis, which can be set up as an outpatient.
[2017-12-23] MEDS: Carvedilol 6.25 MG TAB PO SCH (08:52)
[2017-12-23] MEDS: Sevelamer Carbonate 800 MG TAB PO SCH ×2 (08:52→13:05)
[2017-12-23] MEDS: hydrALAZINE 25 MG TAB PO SCH (08:53)
[2017-12-23] MEDS: Docusate 100 MG CAP PO SCH (08:53)
[2017-12-23] MEDS ORDERED: cloNIDine 0.1 MG TAB PO PRN (09:50)
[2017-12-23 12:32] LABS: Hemoglobin 10.3 g/dL (12.0-16.0); Platelet Count 137 thou/uL (130-400)
[2017-12-23 12:59] LABS: Anion Gap 17 mmol/L (10-20); BUN (Urea Nitrogen) 22 mg/dL (9.8-20.1); Calc. Creatinine Clearance 13 mL/min (70-130); Calcium 9.2 mg/dL (7.8-10.44); Carbon Dioxide 22 mmol/L (23-31); Chloride 99 mmol/L (98-107); Estimated GFR-MDRD 9; Glucose 148 mg/dL (83-110); Potassium 4.7 mmol/L (3.5-5.1); Sodium 133 mmol/L (136-145)
[2017-12-23 13:08] VITALS: BP 139/63; TEMP 98.7
--- NOTE | 2017-12-23 14:26 | EKG ---
Test Reason : Blood Pressure : / mmHG Vent. Rate : 057 BPM Atrial Rate : 057 BPM P-R Int : 206 ms QRS Dur : 068 ms QT Int : 470 ms P-R-T Axes : 034 018 079 degrees QTc Int : 457 ms Sinus bradycardia Anterior infarct , age undetermined Abnormal ECG Confirmed by GILBERTO CALVILLO, GARRETT ([id number]), television news video editor FABI SALAZAR ([id number]) on 12/23/2017 2:26:09 PM Referred By: GLADYS MACIAS Confirmed By:GARRETT MACIAS MD
== END 2017-12-23 14:00 | disposition home or self-care (01) ==
LOC: ERS 06:21 → 2SW 08:32 → 3SE 11:19 → 2SW 11:23
PROVIDERS: ADMIT Internal Medicine; ATTEND Internal Medicine
DX: T82.590A Other mechanical complication of surgically created arteriovenous fistula, initial encounter (principal); I12.0 Hypertensive chronic kidney disease with stage 5 chronic kidney disease or end stage renal disease; E11.22 Type 2 diabetes mellitus with diabetic chronic kidney disease; N18.6 End stage renal disease; I50.30 Unspecified diastolic (congestive) heart failure; D63.1 Anemia in chronic kidney disease; I25.10 Atherosclerotic heart disease of native coronary artery without angina pectoris; E78.5 Hyperlipidemia, unspecified; Z79.01 Long term (current) use of anticoagulants; Z79.4 Long term (current) use of insulin; Z79.82 Long term (current) use of aspirin; Z79.899 Other long term (current) drug therapy; Z88.0 Allergy status to penicillin; Z88.1 Allergy status to other antibiotic agents; Z88.2 Allergy status to sulfonamides; Z88.5 Allergy status to narcotic agent; Z91.15 Patient's noncompliance with renal dialysis; Z95.1 Presence of aortocoronary bypass graft; Z99.2 Dependence on renal dialysis
CPT/HCPCS: 36901; 80048; 80053; 82962 ×2; 85014; 85018; 85025; 85049; 85610; 85730; 87340; 93005; 93971; 96374; 99285; G0378 ×2; 36415; 36416; 90935; G0257; J0360; J1644; Q0162

== ENCOUNTER 2017-12-27 13:18 | Emergency (ER) | payer MEDICARE ==
[2017-12-27 13:55] LABS: Hemoglobin 10.8 g/dL (12.0-16.0); Mean Corpuscular HGB CONC 33.9 g/dL (32.0-36.0); Mean Corpuscular Hemoglobin 34.7 pg (27.0-31.0); RBC Distribution Width 15.2 % (11.5-14.5); White Blood Cell (WBC) Count 5.9 thou/uL (4.8-10.8)
[2017-12-27 14:08] LABS: ALT (SGPT) 14 U/L (8-55); AST (SGOT) 15 U/L (5-34); Albumin 3.8 g/dL (3.4-4.8); Alkaline Phosphatase 80 U/L (40-150); Anion Gap 17 mmol/L (10-20); BUN (Urea Nitrogen) 37 mg/dL (9.8-20.1); Bilirubin, Total 0.6 mg/dL (0.2-1.2); Calc. Creatinine Clearance 0 mL/min (70-130); Calcium 9.5 mg/dL (7.8-10.44); Carbon Dioxide 21 mmol/L (23-31); Chloride 105 mmol/L (98-107); Estimated GFR-MDRD 6; Globulin 3.5 g/dL (2.4-3.5); Glucose 126 mg/dL (83-110); Potassium 4.5 mmol/L (3.5-5.1); Protein, Total 7.3 g/dL (6.0-8.3); Sodium 138 mmol/L (136-145)
[2017-12-27 14:11] LABS: #Eosinphils 0.3 thou/uL (0.0-0.7); #Monocytes 0.5 thou/uL (0.11-0.59); #Neutrophils 4.1 thou/uL (1.40-6.50); %Basophils 0.7 % (0.0-1.0); %Eosinophils 4.3 % (0.0-10.0); %Lymphocytes 17.5 % (21.0-51.0); %Monocytes 8.6 % (0.0-10.0); %Neutrophils 68.9 % (42.0-75.0); Anisocytosis SLIGHT = 6-15 cells (100X) (0-5/hpf); MDiff Complete? YES; Mean Platelet Volume 8.6 fL (7.4-10.4); PLT Morphology Comment Appears Decreased; Platelet Count 118 thou/uL (130-400)
[2017-12-27 14:18] LABS: CKMB 0.9 ng/mL (0-6.6)
[2017-12-27] MEDS ORDERED: Nitroglycerin 2% Ointment 1 INCH/1 GM Packet ONE ×2 (14:36→14:37)
[2017-12-27] MEDS ORDERED: Nitroglycerin 0.4 MG TAB (25 Tab Bottle) ONE (14:43)
[2017-12-27] MEDS ORDERED: hydrALAZINE 20 MG/ML VIAL ONE (16:10)
[2017-12-27] MEDS ORDERED: cloNIDine 0.1 MG TAB ONE (16:23)
[2017-12-27 16:34] LABS: CKMB 0.6 ng/mL (0-6.6); Troponin I 0.016 ng/mL (< 0.028)
== END 2017-12-27 20:05 | disposition home or self-care (01) ==
LOC: ERS 13:18
DX: R07.89 Other chest pain (principal); E78.5 Hyperlipidemia, unspecified; I13.2 Hypertensive heart and chronic kidney disease with heart failure and with stage 5 chronic kidney disease, or end stage renal disease; E11.22 Type 2 diabetes mellitus with diabetic chronic kidney disease; N18.6 End stage renal disease; I50.9 Heart failure, unspecified; Z99.2 Dependence on renal dialysis; Z79.899 Other long term (current) drug therapy
CPT/HCPCS: 36415; 80053; 82553; 84484; 85025; 93005; J0360

== ENCOUNTER 2018-04-04 12:17 | Inpatient (IN) | payer MEDICARE ==
[2018-04-04 14:58] LABS: #Eosinphils 0.3 thou/uL (0.0-0.7); #Lymphocytes 0.8 thou/uL (1.20-3.40); #Monocytes 0.4 thou/uL (0.11-0.59); #Neutrophils 3.6 thou/uL (1.40-6.50); %Basophils 0.8 % (0.0-1.0); %Eosinophils 5.9 % (0.0-10.0); %Lymphocytes 15.6 % (21.0-51.0); %Neutrophils 69.8 % (42.0-75.0); Hemoglobin 9.6 g/dL (12.0-16.0); Mean Corpuscular HGB CONC 32.5 g/dL (32.0-36.0); Mean Corpuscular Hemoglobin 31.6 pg (27.0-31.0); Mean Corpuscular Volume 97.1 fL (78.0-98.0); Mean Platelet Volume 9.9 fL (7.4-10.4); Platelet Count 94 thou/uL (130-400); RBC Distribution Width 14.9 % (11.5-14.5); Red Blood Cell (RBC) Count 3.04 mill/uL (4.20-5.40); White Blood Cell (WBC) Count 5.1 thou/uL (4.8-10.8)
[2018-04-04 15:14] LABS: ALT (SGPT) 15 U/L (8-55); AST (SGOT) 18 U/L (5-34); Albumin 3.4 g/dL (3.4-4.8); Alkaline Phosphatase 80 U/L (40-150); Anion Gap 25 mmol/L (10-20); BUN (Urea Nitrogen) 114 mg/dL (9.8-20.1); Bilirubin, Total 0.7 mg/dL (0.2-1.2); Calc. Creatinine Clearance 0 mL/min (70-130); Calcium 7.4 mg/dL (7.8-10.44); Carbon Dioxide 14 mmol/L (23-31); Chloride 109 mmol/L (98-107); Estimated GFR-MDRD 3; Globulin 3.9 g/dL (2.4-3.5); Glucose 124 mg/dL (83-110); Potassium 5.3 mmol/L (3.5-5.1); Protein, Total 7.3 g/dL (6.0-8.3); Sodium 143 mmol/L (136-145)
[2018-04-04 15:37] LABS: CKMB 1.9 ng/mL (0-6.6)
--- NOTE | 2018-04-04 15:44 | RAD ---
PORTABLE CHEST: DATE: 04/04/2018. PROVIDED CLINICAL HISTORY: Shortness of breath. FINDINGS: Comparison 10/27/2017. Cardiac silhouette appears enlarged. Median sternotomy changes, prosthetic aor tic valve, and vascular stent material are seen. There is obscuration of the left hemidiaphragm that may be on the basis of cardiomegaly and/or left basilar pleural parenchymal opacity. Prominence of the pulmonary vasculature and pulmonary interstitium. No evidence for pneumothorax. IMPRESSION: Cardiomegaly and findings suggesting congestive failure. Obscuration of the left hemidiaphragm may b e on the basis of cardiomegaly and/or left basilar pleural parenchymal opacity. Followup is recommen ded. POS: [facility]
[2018-04-04 16:17] LABS: Bilirubin Negative (Negative); Blood, Urine Moderate (Negative); Clarity CLOUDY (Clear); Glucose, Urine (Dipstick) Negative (Negative); Leukocyte Moderate (Negative); Nitrite Negative (Negative); Protein, Urine (Dipstick) 100 mg/dL (Neg-Trace); Specific Gravity, Urine 1.015 (1.002-1.036); Urobilinogen 0.2 mg/dL (0.2-1.0); pH, Urine 5.5 (5.0-9.0)
[2018-04-04 16:20] LABS: Bacteria/HPF 4+ HPF (None Seen); Hyaline Casts/LPF 4-6 HYALINE CAST LPF (0-3 Hyaline); Pathc Cast-AUWi Flag 0.72 (0-2.49)
[2018-04-04] MEDS ORDERED: cefTRIAXone\\ROCEPHIN 1 GM VIAL ONE (16:43)
[2018-04-04] MEDS ORDERED: cloNIDine 0.1 MG TAB PO PRN (18:41)
[2018-04-04] MEDS ORDERED: Bisacodyl 5 MG TAB PO PRN (18:41)
[2018-04-04] MEDS ORDERED: Nitroglycerin 0.4 MG TAB (25 Tab Bottle) SL PRN (18:41)
[2018-04-04] MEDS ORDERED: hydrALAZINE 20 MG/ML VIAL SLOW IVP PRN (18:41)
[2018-04-04] MEDS ORDERED: Ondansetron PF 4 MG/2 ML Vial IVP PRN (18:41)
[2018-04-04] MEDS ORDERED: Senokot S 8.6-50 MG TAB PO PRN ×2 (18:41)
[2018-04-04] MEDS ORDERED: Bisacodyl 10 MG SUPP PR PRN (18:41)
[2018-04-04] MEDS ORDERED: Benzonatate 100 MG CAP PO PRN (18:41)
[2018-04-04] MEDS ORDERED: Diabetic Tussin 200 MG/10 ML UDCUP PO PRN (18:41)
[2018-04-04] MEDS ORDERED: Dextrose 50% Abboject 50 ML SYRINGE SLOW IVP PRN (19:23)
[2018-04-04] MEDS ORDERED: HumaLOG 300 UNITS/3 ML VIAL SC PRN ×2 (19:23)
[2018-04-04] MEDS ORDERED: Dextrose 5% in Water 1,000 ML IV PRN (19:23)
[2018-04-04 19:47] VITALS: BMI 34.6
--- NOTE | 2018-04-04 20:57 | HP ---
PRIMARY CARE PHYSICIAN: Ileana. CHIEF COMPLAINT: Unable to do peritoneal dialysis with the PD catheter and shortness of breath. HISTORY OF PRESENTING ILLNESS: Ms. Moyer is a pleasant 77-year-old female with end-stage renal disease, on peritoneal dialysis, who presented to the emergency room with the above-mentioned complaint. History is mainly obtained by the patient herself and the electronic medical records have been reviewed. Case has been discussed with the attending ER physician. Ms. Moyer reports that she has been doing peritoneal dialysis for the last 2 or 3 months. According to the record review, she was seen here in November 2017, at which time, it was decided that she would be changed from hemodialysis to peritoneal dialysis as she has exhausted her hemodialysis access because of thrombosis. She reports that she is able to do it by herself every night, but for the last 3 nights, the access and the catheter is clogged. She has not been able to do her dialysis as expected. She has started to retain fluid and has been getting more and more short of breath, so she called EMS, who brought her here. She was somewhat hypertensive in the ambulance, requiring labetalol. In the emergency room, she underwent general evaluation. Her blood pressure in the ER was 167/67. She was in no acute respiratory distress. EKG was unremarkable. Chest x-ray showed cardiomegaly and pulmonary vascular congestion. Her lab examination showed potassium of 5.3, BUN 114, and creatinine 12.30. Troponin mildly elevated at 0.036. Her high school library media specialist, Dr. Pickens, was consulted and she is now being admitted for emergency dialysis. I have discussed the case with Dr. Pickens and the plan was as above. She was also found to have +4 bacteria in her urine for which she has received one dose of Rocephin in the emergency room. She otherwise denies any other recent illnesses. No fevers, chills, nausea, vomiting, diarrhea. She denies any chest pain or palpitations. PAST MEDICAL HISTORY: 1. End-stage renal disease, on peritoneal dialysis. 2. Diabetes mellitus. 3. Dyslipidemia. 4. Hypertension. 5. History of congestive heart failure. Her last echocardiogram was done in June 2016 in our facility, which showed EF of 60% to 65% and diastolic dysfunction, and moderately thickened trileaflet aortic valve with decreased excursion and mild aortic stenosis. PAST SURGICAL HISTORY: 1. Multiple dialysis access surgeries including in both arm. 2. History of heart valve replacement. 3. History of coronary artery bypass graft. 4. Hysterectomy. 5. Hernia repair. 6. Left shoulder surgery. 7. Multiple temporary dialysis catheter accesses. FAMILY HISTORY: No significant family history of premature coronary artery disease or stroke. ALLERGIES: INCLUDE: 1. BACTRIM. 2. CIPROFLOXACIN. 3. CODEINE. 4. PENICILLIN. 5. SULFA. SOCIAL HISTORY: She lives at home with her daughter and is otherwise independent with her ADLs. She has no history of drug, tobacco, or alcohol abuse. CODE STATUS: Full code discussed with the patient. Her daughter is a surrogate decision maker. HOME MEDICATIONS: As listed below, 1. Hydralazine 50 t.i.d. 2. Renvela 1600 t.i.d. 3. Lyrica 75 daily. 4. Protonix 40 mg daily. 5. Lantus 10 units at bedtime. 6. Carvedilol 12.5 mg p.o. b.i.d. 7. Eliquis 5 mg p.o. b.i.d. REVIEW OF SYSTEMS: A 12-point review of system is done, it is negative except for those mentioned in the history and physical. LAB EXAMINATION: CBC shows hemoglobin 9.6, hematocrit 29.5, and platelet count of 94. Serum chemistries show potassium 5.3, chloride 109, bicarb 14, anion gap 25, BUN 114, and creatinine 12.30. Troponin 0.036. Urinalysis show moderate leukocyte esterase, multiple wbc's, squamous epithelial cells, and +4 bacteria. DIAGNOSTIC STUDIES: Chest x-ray by my review shows bilateral pulmonary vascular congestion and cardiomegaly and possible left basilar pleural opacity. 12-lead EKG by my review shows first-degree AV block without any acute ST or T-wave changes. Normal sinus rhythm at 60 beats per minute. PHYSICAL EXAMINATION: VITAL SIGNS: Upon presentation, pulse of 67, respirations 22, saturating 95% on 2 L oxygen, temperature 97.9, and blood pressure 167/67. GENERAL EXAMINATION: No acute distress. She is awake, alert, and oriented x3. She appears weak and tired, otherwise in no respiratory distress. HEENT: Mucous membrane is moist and pink. No oropharyngeal exudate or erythema. Head is normocephalic and atraumatic. Pupils equal, reactive to light and accommodation. Extraocular movement intact. NECK: Supple without any lymphadenopathy, JVD, or bruit. CHEST: Evaluation show bibasilar crackles with decreased breath sounds at bases. Rate and rhythm are regular. ABDOMEN: Obese, soft, nontender, and nondistended. EXTREMITIES: Free of any cyanosis, clubbing, or edema. NEUROLOGICAL: Nonfocal. SKIN: Free of any rashes or bruises, was warm and dry to touch. PSYCHIATRIC: Normal affect. IMPRESSION AND PLAN: 1. Fluid overload. This is secondary to missed peritoneal dialysis. Dr. Pickens has put orders for hemodialysis. It will be attempted with left arm fistula that she has. If it does not work, we will consult General Surgery for placement of a temporary dialysis catheter. Fluid removal will be initiated as tolerated. Most likely, the patient will need [id number] hemodialysis and we will attempt to get her PD catheter declogged. Monitor renal function on a daily basis. 2. Hyperkalemia. This is secondary to missed hemodialysis and acute renal insufficiency. We will avoid any nephrotoxic medications and monitor labs on a daily basis. No EKG changes. 3. High anion gap metabolic acidosis. This is secondary to acute renal insufficiency. Once the dialysis is started, her acidosis is expected to resolve. 4. Acute on chronic kidney insufficiency. This is once again secondary to missed peritoneal dialysis. Dialysis will be initiated emergently. 5. Urinary tract infection. We will send the urine for culture. We will put her on meropenem as she has multiple antibiotic resistance including ciprofloxacin, penicillin, sulfonamide, and Bactrim. This will also cover any possible pneumonia as suspected in her chest x-ray. 6. Hypertension, currently controlled. We will restart her home medications of hydralazine and carvedilol. 7. Diabetes mellitus type 2. Restart Lantus and add insulin sliding scale with frequent Accu-Cheks. 8. End-stage renal disease, on peritoneal dialysis. Restart Renvela. 9. Anemia of chronic kidney disease, stable. 10. History of bioprosthetic aortic valve replacement for severe aortic stenosis in 2014. She is on Eliquis for the same. 11. Morbid obesity. 12. Deep vein thrombosis and gastrointestinal prophylaxis. DISPOSITION: Ms. Moyer is currently being admitted to the hospital for malfunctioning peritoneal dialysis catheter and acute renal failure on chronic kidney disease. She is currently on observation status. Further management will depend upon her clinical course. Job ID: [id number]
[2018-04-04] MEDS ORDERED: Heparin 5,000 UNITS/ML VIAL SC SCH (21:00)
[2018-04-04] MEDS ORDERED: Meropenem 500 MG in Sodium Chloride 0.9% 100 ML IVPB SCH (21:00)
[2018-04-04] MEDS ORDERED: Non-Formulary Item 1 EACH (Insulin Glargine,Hum.Rec.Anlog [Lantus Solostar] 10 UNIT) SQ SCH (21:00)
--- NOTE | 2018-04-04 21:29 | CON ---
DATE OF CONSULTATION: REASON FOR CONSULTATION: Hyperkalemia. HISTORY OF PRESENT ILLNESS: This is a very pleasant 77-year-old female, who presented to the hospital with sudden onset of shortness of breath. The patient had a failed PD catheter. The patient denies headache, numbness, tingling, or weakness. Denies any chest pain. The patient was acidotic and hyperkalemic with uremia. PAST MEDICAL HISTORY: End-stage renal disease, hypertension, on peritoneal dialysis, failed PD catheter, history of hernia surgery, tunneled catheter, CABG, heart valve surgery, AV fistula, peritoneal dialysis catheter. SOCIAL HISTORY: . FAMILY HISTORY: Negative for ESRD. ALLERGIES: REVIEWED. HOME MEDICATIONS: Reviewed. REVIEW OF SYSTEMS: Fifteen-point review of systems was performed and negative except for positives noted above. NECK: No swelling or lumps. NOSE: No epistaxis or discharge. EYES: No diplopia or pain. MUSCULOSKELETAL: No joint pain. NEUROPSYCHIATIC SYSTEMS: No suicidal ideation. No ideation. SKIN: Denies any rash or ulcer. CONSTITUTIONAL: No fever or chills. PHYSICAL EXAMINATION: GENERAL: On exam, the patient is awake, alert. VITAL SIGNS: Afebrile, pulse 70, breathing 16, and blood pressure is 130/70. HEAD/NECK: Normocephalic. Atraumatic. EYES: EOMI. No deformity. EARS: Clear. No ulcers. NOSE: Intact. No lesions. MOUTH: Clear. No discharge. THROAT: Clear. No exudate. LUNGS: Clear. No crackles. CARDIAC: S1, S2. No rub. ABDOMEN: Benign. Bowel sounds positive. GENITALIA/RECTUM: Allen absent. BACK/EXTREMITIES: Edema 0+. NEUROLOGICAL: Alert and motor intact. LABORATORY DATA: Labs show potassium 5.3, bicarb 14, BUN . ASSESSMENT: 1. Stage 6 chronic kidney disease, plan urgent hemodialysis. 2. Hyperkalemia, plan dialysis. 3. Metabolic acidosis, dialysis. 4. Pulmonary edema, plan dialysis. 5. Anemia, stable. Job ID: [id number]
[2018-04-04] MEDS ORDERED: Sterile Water 10 ML VIAL IVP SCH ×2 (22:24→22:30)
[2018-04-04] MEDS ORDERED: Activase 2 MG VIAL CATH SCH (22:24)
[2018-04-04] MEDS: Insulin Glargine 10 UNITS in Pre-Filled Syringe SC SCH (22:51)
[2018-04-04 23:15] LABS: HBSAg Index 0.19 S/CO (0-0.99); Hep B Surf Ag Non-Reactive S/CO (NonReactive)
[2018-04-05] MEDS: Apixaban 5 MG TAB PO SCH ×3 (01:34→20:40)
[2018-04-05] MEDS: Famotidine 20 MG TAB PO SCH ×2 (01:34→20:40)
[2018-04-05] MEDS: Pregabalin 75 MG CAP PO SCH ×2 (01:35→20:41)
[2018-04-05] MEDS: hydrALAZINE 25 MG TAB PO SCH ×4 (01:35→20:42)
[2018-04-05] MEDS: Acetaminophen 325 MG TAB PO PRN (01:50)
[2018-04-05 04:44] LABS: #Eosinphils 0.2 thou/uL (0.0-0.7); #Lymphocytes 0.6 thou/uL (1.20-3.40); #Monocytes 0.5 thou/uL (0.11-0.59); #Neutrophils 4.4 thou/uL (1.40-6.50); %Basophils 0.7 % (0.0-1.0); %Eosinophils 3.5 % (0.0-10.0); %Lymphocytes 9.7 % (21.0-51.0); %Monocytes 8.9 % (0.0-10.0); %Neutrophils 77.2 % (42.0-75.0); Hemoglobin 9.8 g/dL (12.0-16.0); Mean Corpuscular HGB CONC 34.1 g/dL (32.0-36.0); Mean Corpuscular Hemoglobin 32.5 pg (27.0-31.0); Mean Corpuscular Volume 95.3 fL (78.0-98.0); Mean Platelet Volume 10.1 fL (7.4-10.4); Platelet Count 113 thou/uL (130-400); RBC Distribution Width 14.9 % (11.5-14.5); Red Blood Cell (RBC) Count 3.01 mill/uL (4.20-5.40); White Blood Cell (WBC) Count 5.7 thou/uL (4.8-10.8)
[2018-04-05 05:24] LABS: Anion Gap 17 mmol/L (10-20); BUN (Urea Nitrogen) 41 mg/dL (9.8-20.1); Calc. Creatinine Clearance 11 mL/min (70-130); Calcium 8.2 mg/dL (7.8-10.44); Carbon Dioxide 22 mmol/L (23-31); Chloride 102 mmol/L (98-107); Estimated GFR-MDRD 7; Glucose 119 mg/dL (83-110); Potassium 3.4 mmol/L (3.5-5.1); Sodium 138 mmol/L (136-145)
[2018-04-05] MEDS ORDERED: Loperamide HCl 2 MG CAP PO PRN (10:08)
[2018-04-05] MEDS ORDERED: Loperamide HCl 2 MG CAP PO SCH (10:15)
[2018-04-05] MEDS: Carvedilol 6.25 MG TAB PO SCH ×2 (11:20→19:37)
[2018-04-05] MEDS: Meropenem 500 MG in Sodium Chloride 0.9% 100 ML IVPB SCH (11:20)
[2018-04-05] MEDS: Sevelamer Carbonate 800 MG TAB PO SCH ×3 (11:22→19:37)
--- NOTE | 2018-04-05 12:29 | PRG ---
DATE OF SERVICE: 04/05/2018 SUBJECTIVE: Patient was seen and examined at bedside and overnight events noted. Patient denies any shortness of breath or chest pain or palpitation. No history of nausea or vomiting or diarrhea or fever or chills or cramps. OBJECTIVE: GENERAL: This is an obese female, in no apparent distress. VITAL SIGNS: Temperature 98, pulse 64, respiratory rate , blood pressure 155/61. HEENT: Atraumatic, normocephalic. Oral mucosa is moist NECK: Supple. CARDIOVASCULAR: S1, S2 heard. Rate and rhythm regular. RESPIRATORY: Clear to auscultation. GASTROINTESTINAL: Abdomen is soft. MUSCULOSKELETAL: No tenderness. No edema. DERMATOLOGIC: No skin rash. NEUROLOGIC: Alert and awake and oriented X3. No focal neurologic deficits. Moving all the extremities. PSYCHIATRIC: Mood and affect normal. LABORATORY DATA: Potassium is 3.4, BUN is 41, creatinine is 5.8 ASSESSMENT AND PLAN: 1. End-stage renal disease. Had an emergent dialysis yesterday. PD catheter is not working. Plan is to have Cathflo and try. I talked with Dr. Feldman. 2. Hyperkalemia, better. 3. Hypertension- monitor BP. 4. Anemia. Potassium is better. We will continue on dialysis as tolerated. Job ID: [id number] [facility]
--- NOTE | 2018-04-05 15:20 | PDOC.PN ---
- Subjective Encounter Start Date: 04/05/18 Encounter Start Time: 14:05 -: old records requested/rev Pt seen and examined, chart reviewed in its entirety, this is my first visit with this patient. follow up for PD catheter dysfunction and volume overload, ESRd on HD HD urgently last night, 4L off, feels much better. Dr Feldman to see later today No F/C, no N/V/D/C, no CP or SOB, no cough or sputum All systems reviewed and neg except as above - Objective Resuscitation Status - Order Detail: 04/04/18 18:41 Resuscitation Status Routine Resuscitation Status: FULL: Full Resuscitation Discussed with: discussed w pt MAR Reviewed: Yes Vital Signs & Weight: Vital Signs (12 hours) Temp Pulse Pulse Pulse Resp BP BP 04/05/18 11:36 98.1 F 62 18 04/05/18 11:29 62 65 169/61 H 04/05/18 11:20 62 178/59 H 04/05/18 09:58 77 74 196/80 H 04/05/18 07:50 98.8 F 64 18 04/05/18 04:04 98.8 F 70 20 178/59 H BP BP BP Pulse Ox Pulse Ox Pulse Ox 04/05/18 11:36 169/61 H 94 L 04/05/18 11:29 193/75 H 94 L 94 L 04/05/18 11:20 04/05/18 09:58 204/84 H 04/05/18 07:50 155/61 H 94 L 04/05/18 04:04 93 L Weight Weight 186 lb 6.4 oz I&O: 04/04/18 04/05/18 04/06/18 06:59 06:59 06:59 Intake Total 840 Output Total 4000 Balance -3160 Result Diagrams: 04/08/18 05:17 04/08/18 05:17 Additional Labs: Accuchecks 04/05/18 04/04/18 10:21 21:56 POC Glucose 196 H 86 Radiology Reviewed by me: Yes EKG Reviewed by me: Yes Phys Exam - Physical Examination Constitutional: NAD HEENT: PERRLA, moist MMs, sclera anicteric, oral pharynx no lesions Neck: no nodes, no JVD, supple, full ROM Respiratory: no wheezing, no rales, no rhonchi, clear to auscultation bilateral Cardiovascular: RRR Gastrointestinal: soft, non-tender, no distention, positive bowel sounds Musculoskeletal: no edema, pulses present Neurological: non-focal, normal sensation, moves all 4 limbs Lymphatic: no nodes Psychiatric: normal affect, A&O x 3 Skin: no rash, normal turgor, cap refill <2 seconds Dx/Plan (1) Hemodialysis catheter malfunction Code(s): T82.41XA - BREAKDOWN (MECHANICAL) OF VASCULAR DIALYSIS CATHETER, INIT Status: Acute Qualifiers: Encounter type: initial encounter Qualified Code(s): T82.41XA - Breakdown ( mechanical) of vascular dialysis catheter, initial encounter Comment: clogged PD catheter. 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 transplanted heart: [place] heart Associated angina: without angina Qualified Code(s): I25.10 - Atherosclerotic heart disease of [place] coronary artery without angina pectoris (5) Diabetes type 2, controlled Code(s): E11.9 - TYPE 2 DIABETES MELLITUS WITHOUT COMPLICATIONS Status: Chronic Qualifiers: Diabetes mellitus middle or intermediate school principal insulin use: without middle or intermediate school principal use Diabetes mellitus complication status: with skin complications Diabetes mellitus complication detail: with foot ulcer Qualified Code(s): E11.621 - Type 2 diabetes mellitus with foot ulcer; L97.509 - Non-pressure chronic ulcer of other part of unspecified foot with unspecified severity Comment: continue accuchecks, insulin sliding scale (6) GERD (gastroesophageal reflux disease) Code(s): K21.9 - GASTRO-ESOPHAGEAL REFLUX DISEASE WITHOUT ESOPHAGITIS Status: Chronic Qualifiers: Esophagitis presence: without esophagitis Qualified Code(s): K21.9 - Gastro -esophageal reflux disease without esophagitis (7) H/O aortic valve replacement Code(s): Z95.2 - PRESENCE OF PROSTHETIC HEART VALVE Status: Chronic (8) HLD (hyperlipidemia) Code(s): E78.5 - HYPERLIPIDEMIA, UNSPECIFIED Status: Chronic Qualifiers: Hyperlipidemia type: unspecified Qualified Code(s): E78.5 - Hyperlipidemia , unspecified (9) HTN (hypertension) Code(s): I10 - ESSENTIAL (PRIMARY) HYPERTENSION Status: Chronic Qualifiers: Hypertension type: essential hypertension Qualified Code(s): I10 - Essential (primary) hypertension Comment: Labile, follow trend post HD, may need additional titration of regimen (10) Obesity (BMI 30-39.9) Code(s): E66.9 - OBESITY, UNSPECIFIED Status: Chronic (11) PVD (peripheral vascular disease) Code(s): I73.9 - PERIPHERAL VASCULAR DISEASE, UNSPECIFIED Status: Chronic (12) Secondary hyperparathyroidism of renal origin Code(s): N25.81 - SECONDARY HYPERPARATHYROIDISM OF RENAL ORIGIN Status: Chronic - Plan cont current plan of care * .
[2018-04-05] MEDS ORDERED: Gentamicin TOPICAL Ointment 0.1% 15 gm Tube TOP PRN (17:49)
[2018-04-05] MEDS: Insulin Glargine 10 UNITS in Pre-Filled Syringe SC SCH (20:41)
[2018-04-06] MEDS: Gentamicin 80 MG/2 ML VIAL FS SCH ×2 (01:09→17:30)
[2018-04-06] MEDS: Acetaminophen 325 MG TAB PO PRN ×3 (05:16→20:48)
[2018-04-06 06:08] LABS: Anion Gap 15 mmol/L (10-20); BUN (Urea Nitrogen) 53 mg/dL (9.8-20.1); Calc. Creatinine Clearance 9 mL/min (70-130); Calcium 7.8 mg/dL (7.8-10.44); Carbon Dioxide 25 mmol/L (23-31); Chloride 102 mmol/L (98-107); Estimated GFR-MDRD 5; Glucose 76 mg/dL (83-110); Potassium 3.8 mmol/L (3.5-5.1); Sodium 138 mmol/L (136-145)
[2018-04-06] MEDS: Sevelamer Carbonate 800 MG TAB PO SCH ×3 (07:48→17:19)
[2018-04-06] MEDS: Apixaban 5 MG TAB PO SCH ×2 (07:51→20:10)
[2018-04-06] MEDS: Carvedilol 6.25 MG TAB PO SCH ×2 (07:51→17:19)
[2018-04-06] MEDS: hydrALAZINE 25 MG TAB PO SCH ×3 (07:51→20:10)
[2018-04-06] MEDS: Meropenem 500 MG in Sodium Chloride 0.9% 100 ML IVPB SCH (09:22)
[2018-04-06] MEDS ORDERED: Epoetin (ESRD) 20,000 UNITS/ML SC SCH (10:00)
[2018-04-06] MEDS ORDERED: Activase 2 MG VIAL CATH SCH (10:30)
[2018-04-06] MEDS ORDERED: Sterile Water 10 ML VIAL FS SCH (10:30)
--- NOTE | 2018-04-06 11:35 | PRG ---
DATE OF SERVICE: 04/06/2018 SUBJECTIVE: Patient was seen and examined at bedside and overnight events noted. Patient denies any shortness of breath or chest pain or palpitation. No history of nausea or vomiting or diarrhea or fever or chills or cramps. OBJECTIVE: GENERAL: This is an obese female, in no apparent distress. VITAL SIGNS: Temperature 97.4. Heart rate 62. Respiratory rate 18. Blood pressure 174/55. HEENT: Atraumatic, normocephalic. Oral mucosa is moist NECK: Supple. CARDIOVASCULAR: S1, S2 heard. Rate and rhythm regular. RESPIRATORY: Clear to auscultation. GASTROINTESTINAL: Abdomen is soft. MUSCULOSKELETAL: No tenderness. No edema. DERMATOLOGIC: No skin rash. NEUROLOGIC: Alert and awake and oriented X3. No focal neurologic deficits. Moving all the extremities. PSYCHIATRIC: Mood and affect normal. LABORATORY DATA: Potassium is 3.8, BUN is 53, creatinine is 7.2. ASSESSMENT AND PLAN: 1. End-stage renal disease. Plan to continue on hemodialysis for now. PD catheter still did not work. We did put a Cathflo and catheter was not functioning. She was also started on peritonitis protocol because of cloudy PD fluid. The culture remains negative so far, followup the cultures. I had also talked with Dr. Feldman. Plan is to repeat Cathflo tonight, and if PD catheter does not work, she wants to take her to OR for exploration. 2. Hyperkalemia, better. 3. Edema, controlled. 4. Hypertension, stable. 5. Anemia - we will monitor and add Epogen. Plan to continue hemodialysis for today and try Cathflo and PD catheter. If still not working, might need surgery. Dr. Feldman is aware. Job ID: [id number] [facility]
[2018-04-06] MEDS: Pregabalin 75 MG CAP PO SCH (20:10)
[2018-04-06] MEDS: Famotidine 20 MG TAB PO SCH (20:10)
[2018-04-06] MEDS: Insulin Glargine 10 UNITS in Pre-Filled Syringe SC SCH (20:14)
[2018-04-07] MEDS: Acetaminophen 325 MG TAB PO PRN (02:57)
[2018-04-07] MEDS ORDERED: CEFAZOLIN 2 GM/50 ML-DEXTROSE 2 GM in Premix Bag 1 BAG IVPB SCH (06:00)
[2018-04-07] MEDS: Carvedilol 6.25 MG TAB PO SCH ×2 (08:02→16:47)
[2018-04-07] MEDS: Apixaban 5 MG TAB PO SCH ×2 (08:02→19:47)
[2018-04-07] MEDS: Sevelamer Carbonate 800 MG TAB PO SCH ×3 (08:02→16:47)
[2018-04-07] MEDS: hydrALAZINE 25 MG TAB PO SCH ×3 (08:03→19:47)
--- NOTE | 2018-04-07 08:37 | PDOC.GSCN ---
Surgery Consult: [facility] - Consult details Date: 04/06/18 Time: 15:00 Reason for consult: other (Malfunctioning peritoneal dialysis catheter) History of present illness: 04/06/18 15:00 Patient with end-stage renal failure previously on hemodialysis but developed left subclavian vein obstruction and severe swelling in her left arm. She was converted to peritoneal dialysis as she had exhausted her options for fistulas. She was performing peritoneal dialysis at home and this was working well until . She was unable to infused through her peritoneal dialysis catheter to perform dialysis at home, and became quite short of breath so came into the emergency room. She was admitted and underwent hemodialysis using her left arm AV fistula. She has been on hemodialysis since her admission when I saw her in the dialysis clinic the nurses were using her left arm access without problems. The patient states that she is not having problems with pain and swelling in her arm at this time. Her semiconductor development technician did place cathflo into her PD catheter yesterday but it was unable to be used. The dialysis nurses going to re-infuse cathflo again today. Surgery Consult: ROS - Review of Systems All systems: 10 systems reviewed and no additional complaints unless stated below. (Patient no longer has any shortness of breath) Surgery Consult: [facility] Past Medical History: End-stage renal failure on dialysis, hypertension, secondary hyperparathyroidism , coronary artery disease, status post aortic valve replacement, cardiomegaly, diabetes Past Surgical History: Multiple bilateral upper extremity dialysis access procedures, peritoneal dialysis catheter placement, aortic valve replacement - Past Social History Smoking Status: Never smoker Alcohol Use: none Drug Use History: none Surgery Consult: Exam - Vital signs Vital signs: Vital Signs - Most Recent Temp Pulse Resp BP Pulse Ox 97.6 F 58 L 18 164/72 H 92 L 04/07/18 08:11 04/07/18 08:11 04/07/18 08:11 04/07/18 08:11 04/07/18 08:11 - Physical Exam General: no distress Eye: normal ocular movement Neck: no lymphadectomy, no masses, trachea midline Respiratory: clear to auscultation, normal respiratory effort Abdomen: soft, other (Slightly tender to palpation in the left lower quadrant but without rigidity rebound or guarding. Healed surgical incisions) Hernia: none Integumentary: no abnormal pigmentation, no rash Neurologic: normal coordination, normal sensation Psychiatric: memory intact, oriented to time, oriented to person, oriented to place, speech is normal Surgery Consult: Meds - Medications MAR Reviewed: Yes Medications: Current Medications Acetaminophen (Tylenol) 650 mg PO Q4H PRN PRN Reason: Headache/Fever/Mild Pain (1-3) Last Admin: 04/07/18 02:57 Dose: 650 mg Apixaban (Eliquis) 5 mg PO BID [facility] Last Admin: 04/07/18 08:02 Dose: 5 mg Benzonatate (Tessalon) 100 mg PO Q6H PRN PRN Reason: Cough Bisacodyl (Dulcolax) 10 mg PO DAILYPRN PRN PRN Reason: Constipation Bisacodyl (Dulcolax) 10 mg ID DAILYPRN PRN PRN Reason: Constipation Carvedilol (Coreg) 12.5 mg PO BID-[facility] Last Admin: 04/07/18 08:02 Dose: 12.5 mg Clonidine (Catapres) 0.1 mg PO Q4H PRN PRN Reason: SBP > 160____ Dextrose/Water (Dextrose 50%) 25 gm SLOW IVP PRN PRN PRN Reason: Hypoglycemia Epoetin Gabino (Procrit) 7,500 units SC Q7D@1000 [facility] Last Admin: 04/06/18 17:20 Dose: 7,500 units Famotidine (Pepcid) 20 mg PO QPM [facility] Last Admin: 04/06/18 20:10 Dose: 20 mg Gentamicin Sulfate (Gentamicin Sulfate) 50 mg FS Q24H [facility] Last Admin: 04/06/18 17:30 Dose: Not Given Gentamicin Sulfate (Garamycin 0.1% Ointment) 0 gm TOP DAILY PRN PRN Reason: DRESSING CHANGES Glucagon (Glucagon) 1 mg IM PRN PRN PRN Reason: Hypoglycemia Guaifenesin (Robitussin Sf) 200 mg PO Q4H PRN PRN Reason: Cough Hydralazine HCl (Apresoline) 10 mg SLOW IVP Q4H PRN PRN Reason: SBP > 180 and HR < 70 Hydralazine HCl (Apresoline) 50 mg PO TID [facility] Last Admin: 04/07/18 08:03 Dose: 50 mg Dextrose/Water (D5w) 1,000 mls @ 0 mls/hr IV .Q0M PRN PRN Reason: Hypoglycemia Meropenem 500 mg/ Sodium (Chloride) 100 mls @ 200 mls/hr IVPB Q24HR [facility] Last Admin: 04/06/18 09:22 Dose: 100 mls Insulin Glargine 10 units/ (Miscellaneous Medication) 0.1 mls @ 0 mls/hr SC [facility] Last Admin: 04/06/18 20:14 Dose: Not Given Cefazolin Sodium/Dextrose 2 gm (/ Device) 50 mls @ 100 mls/hr IVPB ONCALL-OR [facility] Stop: 04/07/18 18:00 Insulin Human Lispro (Humalog) 0 units SC .MODERATE SLIDING SC PRN PRN Reason: Moderate Correctional Scale Insulin Human Lispro (Humalog) 0 units SC .BEDTIME SLIDING SC PRN PRN Reason: Bedtime Correctional Scale Loperamide HCl (Imodium) 4 mg PO ASDIR PRN PRN Reason: Diarrhea/Loose Stools Nitroglycerin (Nitrostat) 0.4 mg SL Q5MIN PRN PRN Reason: Chest Pain Ondansetron HCl (Zofran) 4 mg IVP Q6H PRN PRN Reason: Nausea/Vomiting Last Admin: 04/06/18 08:31 Dose: 4 mg Pantoprazole Sodium (Protonix) 40 mg PO DAILY [facility] Last Admin: 04/07/18 08:03 Dose: 40 mg Pregabalin (Lyrica) 75 mg PO [facility] Last Admin: 04/06/18 20:10 Dose: 75 mg Senna/Docusate Sodium (Senokot S) 2 tab PO BID PRN PRN Reason: Constipation Sevelamer Carbonate (Renvela) 1,600 mg PO TID-[facility] Last Admin: 04/07/18 08:02 Dose: 1,600 mg Sodium Chloride (Flush - Normal Saline) 10 ml IVF PRN PRN PRN Reason: Saline Flush Vancomycin HCl (Vancomycin Hcl) 1 gm IP Q24H [facility] Last Admin: 04/06/18 17:20 Dose: 1 gm - Allergies Allergies/Adverse Reactions: Allergies Allergy/AdvReac Type Severity Reaction Status Date / Time ciprofloxacin [From Cipro] Allergy Intermediate Nausea Verified 10/27/17 21:52 Penicillins Allergy Intermediate Hives Verified 10/27/17 21:52 codeine [Codeine] Allergy Anxiety Verified 10/27/17 21:52 hydrocodone Allergy Nausea Verified 10/27/17 21:52 Sulfa (Sulfonamide Allergy Verified 10/27/17 21:52 Antibiotics) sulfamethoxazole Allergy Verified 10/27/17 21:52 [From Bactrim] trimethoprim [From Bactrim] Allergy Verified 10/27/17 21:52 Surgery Consult: Results - Labs Result Diagrams: 04/05/18 03:52 04/06/18 04:40 Lab results: Laboratory Results WBC 5.7 thou/uL (4.8-10.8) 04/05/18 03:52 RBC 3.01 mill/uL (4.20-5.40) L 04/05/18 03:52 Hgb 9.8 g/dL (12.0-16.0) L 04/05/18 03:52 Hct 28.7 % (36.0-47.0) L 04/05/18 03:52 MCV 95.3 fL (78.0-98.0) 04/05/18 03:52 MCH 32.5 pg (27.0-31.0) H 04/05/18 03:52 MCHC 34.1 g/dL (32.0-36.0) 04/05/18 03:52 RDW 14.9 % (11.5-14.5) H 04/05/18 03:52 Plt Count 113 thou/uL (130-400) L 04/05/18 03:52 MPV 10.1 fL (7.4-10.4) 04/05/18 03:52 Neutrophils % 77.2 % (42.0-75.0) H 04/05/18 03:52 Neutrophils % (Manual) Not Reportable 04/05/18 03:52 Lymphocytes % 9.7 % (21.0-51.0) L 04/05/18 03:52 Monocytes % 8.9 % (0.0-10.0) 04/05/18 03:52 Eosinophils % 3.5 % (0.0-10.0) 04/05/18 03:52 Basophils % 0.7 % (0.0-1.0) 04/05/18 03:52 Neutrophils # 4.4 thou/uL (1.40-6.50) 04/05/18 03:52 Lymphocytes # 0.6 thou/uL (1.20-3.40) L 04/05/18 03:52 Monocytes # 0.5 thou/uL (0.11-0.59) 04/05/18 03:52 Eosinophils # 0.2 thou/uL (0.0-0.7) 04/05/18 03:52 Basophils # 0.0 thou/uL (0.0-0.2) 04/05/18 03:52 Sodium 138 mmol/L (136-145) 04/06/18 04:40 Potassium 3.8 mmol/L (3.5-5.1) 04/06/18 04:40 Chloride 102 mmol/L (98-107) 04/06/18 04:40 Carbon Dioxide 25 mmol/L (23-31) 04/06/18 04:40 Anion Gap 15 mmol/L (10-20) 04/06/18 04:40 BUN 53 mg/dL (9.8-20.1) H 04/06/18 04:40 Creatinine 7.28 mg/dL (0.6-1.1) H 04/06/18 04:40 Estimated GFR (MDRD) 5 04/06/18 04:40 Glucose 76 mg/dL (83-110) L 04/06/18 04:40 POC Glucose 92 mg/dL (70-110) 04/07/18 04:50 Calcium 7.8 mg/dL (7.8-10.44) 04/06/18 04:40 Total Bilirubin 0.7 mg/dL (0.2-1.2) 04/04/18 14:47 AST 18 U/L (5-34) 04/04/18 14:47 ALT 15 U/L (8-55) 04/04/18 14:47 Alkaline Phosphatase 80 U/L (40-150) 04/04/18 14:47 CK-MB (CK-2) 1.9 ng/mL (0-6.6) 04/04/18 14:47 Troponin I 0.036 ng/mL (< 0.028) H 04/04/18 14:47 Serum Total Protein 7.3 g/dL (6.0-8.3) 04/04/18 14:47 Albumin 3.4 g/dL (3.4-4.8) 04/04/18 14:47 Globulin 3.9 g/dL (2.4-3.5) H 04/04/18 14:47 Albumin/Globulin Ratio 0.9 g/dL (1.2-2.2) L 04/04/18 14:47 Urine Color YELLOW (Yellow) 04/04/18 15:50 Urine Clarity CLOUDY (Clear) 04/04/18 15:50 Urine pH 5.5 (5.0-9.0) 04/04/18 15:50 Ur Specific [place] 1.015 (1.002-1.036) 04/04/18 15:50 Urine Protein 100 mg/dL (Neg-Trace) H 04/04/18 15:50 Urine Glucose (UA) Negative mg/dL (Negative) 04/04/18 15:50 Urine Ketones Negative mg/dL (Negative) 04/04/18 15:50 Urine Blood Moderate (Negative) H 04/04/18 15:50 Urine Nitrite Negative (Negative) 04/04/18 15:50 Urine Bilirubin Negative (Negative) 04/04/18 15:50 Urine Urobilinogen 0.2 mg/dL (0.2-1.0) 04/04/18 15:50 Ur Leukocyte Esterase Moderate (Negative) H 04/04/18 15:50 Urine RBC 4-6 HPF (0-3) 04/04/18 15:50 Urine WBC Greater Than 50-TNTC HPF (0-3) H 04/04/18 15:50 Ur Squamous Epith Cells 4-6 HPF (0-3) H 04/04/18 15:50 Urine Bacteria 4+ HPF (None Seen) H 04/04/18 15:50 Hyaline Casts 4-6 HYALINE CAST LPF (0-3 Hyaline) H 04/04/18 15:50 Hep Bs Antigen Non-Reactive S/CO (NonReactive) 04/04/18 14:38 Surgery Consult: A/P - Problem (1) Hemodialysis catheter malfunction Current Visit: No Code(s): T82.41XA - BREAKDOWN (MECHANICAL) OF VASCULAR DIALYSIS CATHETER, INIT Status: Acute Qualifiers: Encounter type: initial encounter Qualified Code(s): T82.41XA - Breakdown ( mechanical) of vascular dialysis catheter, initial encounter - Plan Plan: Patient has a peritoneal dialysis catheter which is not functioning. We are going to try Cathflo again tonight and see if the catheter works. If it does not we will plan to take her to the operating room for laparoscopic revision or possible replacement of the peritoneal dialysis catheter. Since it was functioning well previously I suspect that there is a clot or fibrin plug and hopefully the Cathflo will address this.
--- NOTE | 2018-04-07 08:44 | PDOC.GSPN ---
Surgery Progress Note: Subj - Subjective Narrative: Dialysis nurse called to attempt peritoneal dialysis again this morning. The catheter is infusing well so OR is currently on hold. The nurses to call if there are any problems using the peritoneal dialysis catheter. Surgery Progress Note: Obj - Vital signs Vital signs: Vital Signs - Most Recent Temp Pulse Resp BP Pulse Ox 97.6 F 58 L 18 164/72 H 92 L 04/07/18 08:11 04/07/18 08:11 04/07/18 08:11 04/07/18 08:11 04/07/18 08:11 Surgery Progress Note: Results - Labs Result Diagrams: 04/05/18 03:52 04/06/18 04:40 Lab results: Laboratory Results - last 24 hr 04/06/18 04/07/18 19:57 04:50 POC Glucose 103 92 Surgery Progress Note: A/P - Problem (1) Hemodialysis catheter malfunction Current Visit: No Code(s): T82.41XA - BREAKDOWN (MECHANICAL) OF VASCULAR DIALYSIS CATHETER, INIT Status: Acute Qualifiers: Encounter type: initial encounter Qualified Code(s): T82.41XA - Breakdown ( mechanical) of vascular dialysis catheter, initial encounter
--- NOTE | 2018-04-07 14:01 | PDOC.PN ---
- Subjective Encounter Start Date: 04/06/18 Encounter Start Time: 10:00 follow up for PD catheter dysfnction, vol overload. Catheter still not owrking, another attemp with cathflow mad,e culture sent off. No F/c, no N/V/D/C. all systems reviewed and neg x as above - Objective Resuscitation Status - Order Detail: 04/04/18 18:41 Resuscitation Status Routine Resuscitation Status: FULL: Full Resuscitation Discussed with: discussed w pt MAR Reviewed: Yes Vital Signs & Weight: Vital Signs (12 hours) Temp Pulse Resp BP BP BP Pulse Ox 04/07/18 13:36 98.0 F 54 L 20 162/69 H 91 L 04/07/18 08:11 97.6 F 58 L 18 164/72 H 92 L 04/07/18 08:03 57 L 04/07/18 08:02 178/59 H 04/07/18 08:00 92 L 04/07/18 04:00 98.4 F 57 L 20 148/55 H 93 L Weight Weight 186 lb I&O: 04/06/18 04/07/18 04/08/18 06:59 06:59 06:59 Intake Total 325 480 240 Balance 325 480 240 Result Diagrams: 04/08/18 05:17 04/08/18 05:17 Additional Labs: Accuchecks 04/07/18 04/06/18 04/06/18 04:50 19:57 17:26 POC Glucose 92 103 101 Phys Exam - Physical Examination Constitutional: NAD HEENT: PERRLA, moist MMs, sclera anicteric, oral pharynx no lesions Neck: no nodes, no JVD, supple, full ROM Respiratory: no wheezing, no rales, no rhonchi, clear to auscultation bilateral Cardiovascular: RRR, no significant murmur Gastrointestinal: soft, non-tender, no distention, positive bowel sounds Musculoskeletal: no edema Neurological: non-focal, normal sensation, moves all 4 limbs Lymphatic: no nodes Psychiatric: normal affect, A&O x 3 Skin: no rash, normal turgor, cap refill <2 seconds Dx/Plan (1) Hemodialysis catheter malfunction Code(s): T82.41XA - BREAKDOWN (MECHANICAL) OF VASCULAR DIALYSIS CATHETER, INIT Status: Acute Qualifiers: Encounter type: initial encounter Qualified Code(s): T82.41XA - Breakdown ( mechanical) of vascular dialysis catheter, initial encounter Comment: clogged PD catheter. 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 transplanted heart: [place] heart Associated angina: without angina Qualified Code(s): I25.10 - Atherosclerotic heart disease of [place] coronary artery without angina pectoris (5) Diabetes type 2, controlled Code(s): E11.9 - TYPE 2 DIABETES MELLITUS WITHOUT COMPLICATIONS Status: Chronic Qualifiers: Diabetes mellitus shelter insulin use: without termite exterminator helper use Diabetes mellitus complication status: with skin complications Diabetes mellitus complication detail: with foot ulcer Qualified Code(s): E11.621 - Type 2 diabetes mellitus with foot ulcer; L97.509 - Non-pressure chronic ulcer of other part of unspecified foot with unspecified severity Comment: continue accuchecks, insulin sliding scale (6) GERD (gastroesophageal reflux disease) Code(s): K21.9 - GASTRO-ESOPHAGEAL REFLUX DISEASE WITHOUT ESOPHAGITIS Status: Chronic Qualifiers: Esophagitis presence: without esophagitis Qualified Code(s): K21.9 - Gastro -esophageal reflux disease without esophagitis (7) H/O aortic valve replacement Code(s): Z95.2 - PRESENCE OF PROSTHETIC HEART VALVE Status: Chronic (8) HLD (hyperlipidemia) Code(s): E78.5 - HYPERLIPIDEMIA, UNSPECIFIED Status: Chronic Qualifiers: Hyperlipidemia type: unspecified Qualified Code(s): E78.5 - Hyperlipidemia , unspecified (9) HTN (hypertension) Code(s): I10 - ESSENTIAL (PRIMARY) HYPERTENSION Status: Chronic Qualifiers: Hypertension type: essential hypertension Qualified Code(s): I10 - Essential (primary) hypertension Comment: Labile, follow trend post HD, may need additional titration of regimen (10) Obesity (BMI 30-39.9) Code(s): E66.9 - OBESITY, UNSPECIFIED Status: Chronic (11) PVD (peripheral vascular disease) Code(s): I73.9 - PERIPHERAL VASCULAR DISEASE, UNSPECIFIED Status: Chronic (12) Secondary hyperparathyroidism of renal origin Code(s): N25.81 - SECONDARY HYPERPARATHYROIDISM OF RENAL ORIGIN Status: Chronic - Plan * .
[2018-04-07] MEDS: Meropenem 500 MG in Sodium Chloride 0.9% 100 ML IVPB SCH (14:33)
--- NOTE | 2018-04-07 15:43 | PRG ---
DATE OF SERVICE: 04/07/2018 SUBJECTIVE: Patient was seen and examined at bedside and overnight events noted. Patient denies any shortness of breath or chest pain or palpitation. No history of nausea or vomiting or diarrhea or fever or chills or cramps. OBJECTIVE: GENERAL: This is an obese female, in no apparent distress. VITAL SIGNS: Temperature 98. Heart rate 54. Respiratory rate 18. Blood pressure 162/69. HEENT: Atraumatic, normocephalic. Oral mucosa is moist NECK: Supple. CARDIOVASCULAR: S1, S2 heard. Rate and rhythm regular. RESPIRATORY: Clear to auscultation. GASTROINTESTINAL: Abdomen is soft. MUSCULOSKELETAL: No tenderness. No edema. DERMATOLOGIC: No skin rash. NEUROLOGIC: Alert and awake and oriented X3. No focal neurologic deficits. Moving all the extremities. PSYCHIATRIC: Mood and affect normal. LABORATORY DATA: No labs done today. ASSESSMENT AND PLAN: 1. End-stage renal disease. We will continue on peritoneal dialysis. Apparently, her PD catheter worked today after second Cathflo. surgery is on hold currently. Dr. Feldman is aware. Plan is to try PD as tolerated. 2. Also treat for possible peritonitis. Follow up cultures from PD. 3. Hyperkalemia, better. 4. Edema. 5. Hypertension. 6. Anemia, monitor hemoglobin. 7. Continue on PD as tolerated with close followup. 8. from surgery. Job ID: [id number]
[2018-04-07] MEDS ORDERED: GENTAMICIN FS SCH (16:00)
[2018-04-07] MEDS ORDERED: [UNRECOGNIZED DRUG - OTHER] FS SCH (16:00)
[2018-04-07] MEDS ORDERED: [UNRECOGNIZED DRUG - MIXTURE] FS SCH (16:30)
[2018-04-07 17:24] LABS: BF Color Colorless; BF RBC Count - Manual 1525 /cumm; BF WBC/Nonhematics Ct. - Manua 51 /cumm; Body Fluid Source Dialysate Fluid; Clarity Clear (Clear); Tube # EDTA
[2018-04-07] MEDS: Gentamicin 80 MG/2 ML VIAL FS SCH (17:29)
[2018-04-07 18:44] LABS: BF Segmented Neutrophils 19 %; Cell Count Non Hematic 30 %; Eosinophils 28 %; Lymphocytes 18 %
[2018-04-07] MEDS: Famotidine 20 MG TAB PO SCH (19:47)
[2018-04-07] MEDS: Pregabalin 75 MG CAP PO SCH (19:48)
[2018-04-07] MEDS: Insulin Glargine 10 UNITS in Pre-Filled Syringe SC SCH (19:51)
[2018-04-07] MEDS ORDERED: hydrOXYzine 10 MG TAB PO PRN (20:17)
[2018-04-08 06:12] LABS: #Basophils 0.1 thou/uL (0.0-0.2); #Eosinphils 0.5 thou/uL (0.0-0.7); #Lymphocytes 0.9 thou/uL (1.20-3.40); #Monocytes 0.4 thou/uL (0.11-0.59); #Neutrophils 2.2 thou/uL (1.40-6.50); %Basophils 1.7 % (0.0-1.0); %Lymphocytes 21.1 % (21.0-51.0); %Monocytes 10.8 % (0.0-10.0); %Neutrophils 54.4 % (42.0-75.0); Hemoglobin 9.9 g/dL (12.0-16.0); Mean Corpuscular HGB CONC 32.9 g/dL (32.0-36.0); Mean Corpuscular Hemoglobin 31.9 pg (27.0-31.0); Mean Corpuscular Volume 96.9 fL (78.0-98.0); Mean Platelet Volume 10.1 fL (7.4-10.4); Platelet Count 105 thou/uL (130-400); RBC Distribution Width 14.7 % (11.5-14.5); White Blood Cell (WBC) Count 4.1 thou/uL (4.8-10.8)
[2018-04-08 06:16] LABS: Anion Gap 17 mmol/L (10-20); BUN (Urea Nitrogen) 34 mg/dL (9.8-20.1); Calc. Creatinine Clearance 10 mL/min (70-130); Calcium 8.6 mg/dL (7.8-10.44); Carbon Dioxide 26 mmol/L (23-31); Chloride 98 mmol/L (98-107); Estimated GFR-MDRD 7; Glucose 115 mg/dL (83-110); Potassium 3.5 mmol/L (3.5-5.1); Sodium 137 mmol/L (136-145)
[2018-04-08] MEDS: Sevelamer Carbonate 800 MG TAB PO SCH ×3 (08:23→17:18)
[2018-04-08] MEDS: Apixaban 5 MG TAB PO SCH ×2 (08:25→20:17)
[2018-04-08] MEDS: Carvedilol 6.25 MG TAB PO SCH ×2 (08:25→17:19)
[2018-04-08] MEDS: hydrALAZINE 25 MG TAB PO SCH ×3 (08:25→20:17)
[2018-04-08] MEDS: Meropenem 500 MG in Sodium Chloride 0.9% 100 ML IVPB SCH (08:30)
--- NOTE | 2018-04-08 10:25 | PRG ---
DATE OF SERVICE: SUBJECTIVE: Patient was seen and examined at bedside and overnight events noted. Patient denies any shortness of breath or chest pain or palpitation. No history of nausea or vomiting or diarrhea or fever or chills or cramps. OBJECTIVE: GENERAL: This is an obese female, in no apparent distress. VITAL SIGNS: Temperature 98.1. Heart rate 51. Respiratory rate 21. Blood pressure 147/61. HEENT: Atraumatic, normocephalic. Oral mucosa is moist NECK: Supple. CARDIOVASCULAR: S1, S2 heard. Rate and rhythm regular. RESPIRATORY: Clear to auscultation. GASTROINTESTINAL: Abdomen is soft. MUSCULOSKELETAL: No tenderness. No edema. DERMATOLOGIC: No skin rash. NEUROLOGIC: Alert and awake and oriented X3. No focal neurologic deficits. Moving all the extremities. PSYCHIATRIC: Mood and affect normal. LABORATORY DATA: Potassium 3.5, BUN is 34, and creatinine is 6.03. ASSESSMENT AND PLAN: 1. End-stage renal disease, on peritoneal dialysis. In fact, it is working. We will continue on peritoneal dialysis. 2. Hyperkalemia, better. 3. Edema. 4. Hypertension. 5. Anemia of end-stage renal disease. Labs are stable. Tolerating PD well. We will continue on PD as tolerated. Job ID: [id number]
[2018-04-08] MEDS ORDERED: Heparin 10,000 UNITS/ 10 ML VIAL ONE ×2 (14:41)
[2018-04-08] MEDS: Pregabalin 75 MG CAP PO SCH (20:18)
[2018-04-08] MEDS: Famotidine 20 MG TAB PO SCH (20:18)
[2018-04-08] MEDS: Insulin Glargine 10 UNITS in Pre-Filled Syringe SC SCH (20:22)
[2018-04-08 20:24] LABS: Vancomycin, Trough 21.8 ug/mL
[2018-04-08] MEDS: Gentamicin 80 MG/2 ML VIAL FS SCH ×2 (20:30→22:22)
[2018-04-09] MEDS: Acetaminophen 325 MG TAB PO PRN (00:46)
[2018-04-09] MEDS: Apixaban 5 MG TAB PO SCH (08:38)
[2018-04-09] MEDS: Sevelamer Carbonate 800 MG TAB PO SCH ×2 (08:38→12:18)
[2018-04-09] MEDS: hydrALAZINE 25 MG TAB PO SCH (08:38)
[2018-04-09] MEDS: Carvedilol 6.25 MG TAB PO SCH (08:39)
[2018-04-09] MEDS: Meropenem 500 MG in Sodium Chloride 0.9% 100 ML IVPB SCH (08:40)
--- NOTE | 2018-04-09 09:34 | PRG ---
DATE OF SERVICE: 04/09/2018 SUBJECTIVE: Patient was seen and examined at bedside and overnight events noted. Patient denies any shortness of breath or chest pain or palpitation. No history of nausea or vomiting or diarrhea or fever or chills or cramps. OBJECTIVE: GENERAL: This is an obese female, in no apparent distress. VITAL SIGNS: Temperature 97. Heart rate . Blood pressure 147/69. HEENT: Atraumatic, normocephalic. Oral mucosa is moist. NECK: Supple. CARDIOVASCULAR: S1, S2 heard. Rate and rhythm regular. RESPIRATORY: Clear to auscultation. GASTROINTESTINAL: Abdomen is soft. MUSCULOSKELETAL: No tenderness. No edema. DERMATOLOGIC: No skin rash. NEUROLOGIC: Alert and awake and oriented X3. No focal neurologic deficits. Moving all the extremities. PSYCHIATRIC: Mood and affect normal. LABORATORY DATA: Not done today. ASSESSMENT AND PLAN: 1. End-stage renal disease, on peritoneal dialysis, tolerating well. 2. Possible peritonitis, cultures are pending. 3. Edema, controlled. 4. Hypertension, stable. 5. Anemia The patient is feeling well, tolerating PD well. We will continue on PD as tolerated. Job ID: [id number] [facility]
--- NOTE | 2018-04-09 10:09 | PDOC.PN ---
- Subjective Encounter Start Date: 04/07/18 Encounter Start Time: 10:05 follow upfor PD catheter dysfunction. working today. planned PD this evening. effluent sent for cultures no F/C, no N/V/D/C, mnore awake and feels better All systems reviewed and neg x as above - Objective Resuscitation Status - Order Detail: 04/04/18 18:41 Resuscitation Status Routine Resuscitation Status: FULL: Full Resuscitation Discussed with: discussed w pt MAR Reviewed: Yes Vital Signs & Weight: Vital Signs (12 hours) Temp Pulse Resp BP BP Pulse Ox 04/09/18 08:39 159/67 H 04/09/18 08:38 55 L 147/69 H 04/09/18 07:54 97.9 F 54 L 18 147/69 H 94 L 04/09/18 05:07 97.8 F 53 L 16 147/65 H 95 04/09/18 01:51 97.6 F 60 16 156/63 H 94 L Weight Weight 186 lb I&O: 04/08/18 04/09/18 04/10/18 06:59 06:59 06:59 Intake Total 480 240 Balance 480 240 Result Diagrams: 04/08/18 05:17 04/08/18 05:17 Additional Labs: Accuchecks 04/09/18 04/08/18 04/08/18 05:29 20:23 15:31 POC Glucose 140 H 144 H 85 04/08/18 11:22 POC Glucose 183 H Phys Exam - Physical Examination Constitutional: NAD HEENT: PERRLA, moist MMs, sclera anicteric, oral pharynx no lesions Neck: no nodes, no JVD, supple, full ROM Respiratory: no wheezing, no rales, no rhonchi, clear to auscultation bilateral Cardiovascular: RRR, no significant murmur Gastrointestinal: soft, non-tender, no distention, positive bowel sounds Musculoskeletal: pulses present, edema present Neurological: non-focal, normal sensation, moves all 4 limbs Lymphatic: no nodes Psychiatric: normal affect, A&O x 3 Dx/Plan (1) Hemodialysis catheter malfunction Code(s): T82.41XA - BREAKDOWN (MECHANICAL) OF VASCULAR DIALYSIS CATHETER, INIT Status: Acute Qualifiers: Encounter type: initial encounter Qualified Code(s): T82.41XA - Breakdown ( mechanical) of vascular dialysis catheter, initial encounter Comment: clogged PD catheter. cathflo in, Dr Feldman to see (2) Hyperhomocysteinemia Code(s): E72.11 - HOMOCYSTINURIA Status: Chronic (3) Anemia of renal disease Code(s): D63.1 - ANEMIA IN CHRONIC KIDNEY DISEASE Status: Chronic Comment: Stable, no evidence of acute blood loss, serial CBC (4) CAD (coronary artery disease) Code(s): I25.10 - ATHSCL HEART DISEASE OF [place] CORONARY ARTERY W/O ANG PCTRS Status: Chronic Qualifiers: Coronary Disease-Associated Artery/Lesion type: [place] artery [place] vs. transplanted heart: [place] heart Associated angina: without angina Qualified Code(s): I25.10 - Atherosclerotic heart disease of [place] coronary artery without angina pectoris (5) Diabetes type 2, controlled Code(s): E11.9 - TYPE 2 DIABETES MELLITUS WITHOUT COMPLICATIONS Status: Chronic Qualifiers: Diabetes mellitus [place] insulin use: without intermediate use Diabetes mellitus complication status: with skin complications Diabetes mellitus complication detail: with foot ulcer Qualified Code(s): E11.621 - Type 2 diabetes mellitus with foot ulcer; L97.509 - Non-pressure chronic ulcer of other part of unspecified foot with unspecified severity Comment: continue accuchecks, insulin sliding scale (6) GERD (gastroesophageal reflux disease) Code(s): K21.9 - GASTRO-ESOPHAGEAL REFLUX DISEASE WITHOUT ESOPHAGITIS Status: Chronic Qualifiers: Esophagitis presence: without esophagitis Qualified Code(s): K21.9 - Gastro -esophageal reflux disease without esophagitis (7) H/O aortic valve replacement Code(s): Z95.2 - PRESENCE OF PROSTHETIC HEART VALVE Status: Chronic (8) HLD (hyperlipidemia) Code(s): E78.5 - HYPERLIPIDEMIA, UNSPECIFIED Status: Chronic Qualifiers: Hyperlipidemia type: unspecified Qualified Code(s): E78.5 - Hyperlipidemia , unspecified (9) HTN (hypertension) Code(s): I10 - ESSENTIAL (PRIMARY) HYPERTENSION Status: Chronic Qualifiers: Hypertension type: essential hypertension Qualified Code(s): I10 - Essential (primary) hypertension Comment: Labile, follow trend post HD, may need additional titration of regimen (10) Obesity (BMI 30-39.9) Code(s): E66.9 - OBESITY, UNSPECIFIED Status: Chronic (11) PVD (peripheral vascular disease) Code(s): I73.9 - PERIPHERAL VASCULAR DISEASE, UNSPECIFIED Status: Chronic (12) Secondary hyperparathyroidism of renal origin Code(s): N25.81 - SECONDARY HYPERPARATHYROIDISM OF RENAL ORIGIN Status: Chronic - Plan * .
--- NOTE | 2018-04-09 10:11 | PDOC.PN ---
- Subjective Encounter Start Date: 04/08/18 Encounter Start Time: 09:30 follow up for volume overload and PD catheter dysfunction. Kendra Pd overnight, kendra IP abx. cultures neg at 48 hours No F/c, no n/V/D/c, no CP or SOB all systems reivewed and neg x as per HPI discussed with renal, if cultures remain neg, can trnasition home soon UCx with E coli - Objective Resuscitation Status - Order Detail: 04/04/18 18:41 Resuscitation Status Routine Resuscitation Status: FULL: Full Resuscitation Discussed with: discussed w pt MAR Reviewed: Yes Vital Signs & Weight: Vital Signs (12 hours) Temp Pulse Resp BP BP Pulse Ox 04/09/18 08:39 159/67 H 04/09/18 08:38 55 L 147/69 H 04/09/18 07:54 97.9 F 54 L 18 147/69 H 94 L 04/09/18 05:07 97.8 F 53 L 16 147/65 H 95 04/09/18 01:51 97.6 F 60 16 156/63 H 94 L Weight Weight 186 lb I&O: 04/08/18 04/09/18 04/10/18 06:59 06:59 06:59 Intake Total 480 240 Balance 480 240 Result Diagrams: 04/08/18 05:17 04/08/18 05:17 Additional Labs: Accuchecks 04/09/18 04/08/18 04/08/18 05:29 20:23 15:31 POC Glucose 140 H 144 H 85 04/08/18 11:22 POC Glucose 183 H Phys Exam - Physical Examination HEENT: PERRLA, moist MMs, sclera anicteric, oral pharynx no lesions Neck: no nodes, no JVD, supple, full ROM Respiratory: no wheezing, no rales, no rhonchi, clear to auscultation bilateral Cardiovascular: RRR, no significant murmur Gastrointestinal: soft, non-tender, no distention, positive bowel sounds Musculoskeletal: no edema, pulses present Neurological: non-focal, normal sensation, moves all 4 limbs Lymphatic: no nodes Psychiatric: normal affect, A&O x 3 Skin: no rash, normal turgor, cap refill <2 seconds Dx/Plan (1) Hemodialysis catheter malfunction Code(s): T82.41XA - BREAKDOWN (MECHANICAL) OF VASCULAR DIALYSIS CATHETER, INIT Status: Acute Qualifiers: Encounter type: initial encounter Qualified Code(s): T82.41XA - Breakdown ( mechanical) of vascular dialysis catheter, initial encounter Comment: clogged PD catheter. cathflo in, Dr Feldman to see (2) Hyperhomocysteinemia Code(s): E72.11 - HOMOCYSTINURIA Status: Chronic (3) Anemia of renal disease Code(s): D63.1 - ANEMIA IN CHRONIC KIDNEY DISEASE Status: Chronic Comment: Stable, no evidence of acute blood loss, serial CBC (4) CAD (coronary artery disease) Code(s): I25.10 - ATHSCL HEART DISEASE OF [place] CORONARY ARTERY W/O ANG PCTRS Status: Chronic Qualifiers: Coronary Disease-Associated Artery/Lesion type: [place] artery [place] vs. transplanted heart: [place] heart Associated angina: without angina Qualified Code(s): I25.10 - Atherosclerotic heart disease of [place] coronary artery without angina pectoris (5) Diabetes type 2, controlled Code(s): E11.9 - TYPE 2 DIABETES MELLITUS WITHOUT COMPLICATIONS Status: Chronic Qualifiers: Diabetes mellitus prison insulin use: without prison use Diabetes mellitus complication status: with skin complications Diabetes mellitus complication detail: with foot ulcer Qualified Code(s): E11.621 - Type 2 diabetes mellitus with foot ulcer; L97.509 - Non-pressure chronic ulcer of other part of unspecified foot with unspecified severity Comment: continue accuchecks, insulin sliding scale (6) GERD (gastroesophageal reflux disease) Code(s): K21.9 - GASTRO-ESOPHAGEAL REFLUX DISEASE WITHOUT ESOPHAGITIS Status: Chronic Qualifiers: Esophagitis presence: without esophagitis Qualified Code(s): K21.9 - Gastro -esophageal reflux disease without esophagitis (7) H/O aortic valve replacement Code(s): Z95.2 - PRESENCE OF PROSTHETIC HEART VALVE Status: Chronic (8) HLD (hyperlipidemia) Code(s): E78.5 - HYPERLIPIDEMIA, UNSPECIFIED Status: Chronic Qualifiers: Hyperlipidemia type: unspecified Qualified Code(s): E78.5 - Hyperlipidemia , unspecified (9) HTN (hypertension) Code(s): I10 - ESSENTIAL (PRIMARY) HYPERTENSION Status: Chronic Qualifiers: Hypertension type: essential hypertension Qualified Code(s): I10 - Essential (primary) hypertension Comment: Labile, follow trend post HD, may need additional titration of regimen (10) Obesity (BMI 30-39.9) Code(s): E66.9 - OBESITY, UNSPECIFIED Status: Chronic (11) PVD (peripheral vascular disease) Code(s): I73.9 - PERIPHERAL VASCULAR DISEASE, UNSPECIFIED Status: Chronic (12) Secondary hyperparathyroidism of renal origin Code(s): N25.81 - SECONDARY HYPERPARATHYROIDISM OF RENAL ORIGIN Status: Chronic - Plan * .
[2018-04-09 12:13] VITALS: BP 161/66; TEMP 97.4
== END 2018-04-09 15:30 | disposition home health service (06) | DRG 314 ==
LOC: ERS 12:17 → 2SW 16:20 → OBSVTOIN 04-05 17:13 → T4-A 04-05 20:27
PROVIDERS: ADMIT Internal Medicine; ATTEND Internal Medicine
PROC: 5A1D70Z Performance of Urinary Filtration, Intermittent, Less than 6 Hours Per Day (ICD-10-PCS; 2018-04-04)
PROC: 3E1M39Z Irrigation of Peritoneal Cavity using Dialysate, Percutaneous Approach (ICD-10-PCS; 2018-04-05)
PROC: 5A1D70Z Performance of Urinary Filtration, Intermittent, Less than 6 Hours Per Day (ICD-10-PCS; 2018-04-06)
PROC: 3E1M39Z Irrigation of Peritoneal Cavity using Dialysate, Percutaneous Approach (ICD-10-PCS; 2018-04-07)
PROC: 3E1M39Z Irrigation of Peritoneal Cavity using Dialysate, Percutaneous Approach (ICD-10-PCS; principal; 2018-04-08)
DX: T82.41XA Breakdown (mechanical) of vascular dialysis catheter, initial encounter (principal); N18.6 End stage renal disease; I13.2 Hypertensive heart and chronic kidney disease with heart failure and with stage 5 chronic kidney disease, or end stage renal disease; I50.32 Chronic diastolic (congestive) heart failure; N17.9 Acute kidney failure, unspecified; N39.0 Urinary tract infection, site not specified; N25.81 Secondary hyperparathyroidism of renal origin; E87.2 Acidosis; E72.11 Homocystinuria; E87.70 Fluid overload, unspecified; Z99.2 Dependence on renal dialysis; E78.5 Hyperlipidemia, unspecified; E11.22 Type 2 diabetes mellitus with diabetic chronic kidney disease; E87.5 Hyperkalemia; D63.1 Anemia in chronic kidney disease; E66.01 Morbid (severe) obesity due to excess calories; Z68.32 Body mass index [BMI] 32.0-32.9, adult; I25.10 Atherosclerotic heart disease of native coronary artery without angina pectoris; E11.51 Type 2 diabetes mellitus with diabetic peripheral angiopathy without gangrene; B96.20 Unspecified Escherichia coli [E. coli] as the cause of diseases classified elsewhere; Z88.5 Allergy status to narcotic agent; Z88.0 Allergy status to penicillin; Z88.2 Allergy status to sulfonamides; Z88.8 Allergy status to other drugs, medicaments and biological substances; Z95.2 Presence of prosthetic heart valve; Z95.1 Presence of aortocoronary bypass graft
CPT/HCPCS: 36415; 36416; 71045; 80048; 80053; 80170; 80202; 81003; 81015; 82553; 84484; 85025; 85060; 87040; 87070; 87077; 87086; 87186; 87205; 87340; 89051; 90935; 90945; 93005; 96365; A4216; G0257; G8978-GP-CI; G8979-GP-CI; G8980-GP-CI; G8987-GO-CJ; G8988-GO-CJ; G8989-GO-CJ; J0696; J1580; J1644; J2185; J2405; J2997; J3370; J7050; Q4081

== ENCOUNTER 2018-06-15 16:25 | Observation (INO) | payer MEDICARE ==
[2018-06-15 17:26] LABS: #Basophils 0.1 thou/uL (0.0-0.2); #Eosinphils 0.5 thou/uL (0.0-0.7); #Lymphocytes 0.9 thou/uL (1.20-3.40); #Monocytes 0.7 thou/uL (0.11-0.59); #Neutrophils 9.9 thou/uL (1.40-6.50); %Basophils 0.5 % (0.0-1.0); %Eosinophils 4.3 % (0.0-10.0); %Lymphocytes 7.4 % (21.0-51.0); %Monocytes 5.6 % (0.0-10.0); %Neutrophils 82.2 % (42.0-75.0); Hemoglobin 8.9 g/dL (12.0-16.0); Mean Corpuscular HGB CONC 33.1 g/dL (32.0-36.0); Mean Corpuscular Hemoglobin 33.2 pg (27.0-31.0); Mean Platelet Volume 9.7 fL (7.4-10.4); Platelet Count 170 thou/uL (130-400); RBC Distribution Width 14.5 % (11.5-14.5); Red Blood Cell (RBC) Count 2.67 mill/uL (4.20-5.40)
[2018-06-15 17:48] LABS: ALT (SGPT) Less than 7 U/L (8-55); AST (SGOT) 16 U/L (5-34); Albumin 3.3 g/dL (3.4-4.8); Alkaline Phosphatase 101 U/L (40-150); Anion Gap 27 mmol/L (10-20); BUN (Urea Nitrogen) 84 mg/dL (9.8-20.1); Bilirubin, Total 0.6 mg/dL (0.2-1.2); Calc. Creatinine Clearance 0 mL/min (70-130); Carbon Dioxide 17 mmol/L (23-31); Chloride 98 mmol/L (98-107); Estimated GFR-MDRD 3; Globulin 4.6 g/dL (2.4-3.5); Glucose 148 mg/dL (83-110); Potassium 4.3 mmol/L (3.5-5.1); Protein, Total 7.9 g/dL (6.0-8.3); Sodium 138 mmol/L (136-145)
[2018-06-15] MEDS ORDERED: Vancomycin HCl 1 GM in Premix Bag 1 BAG IVPB SCH ×2 (20:10→22:15)
[2018-06-15] MEDS ORDERED: Acetaminophen 650 MG Suppository PR PRN (20:10)
[2018-06-15] MEDS ORDERED: Senokot S 8.6-50 MG TAB PO PRN (20:10)
[2018-06-15] MEDS ORDERED: Ondansetron PF 4 MG/2 ML Vial IVP PRN (20:10)
[2018-06-15] MEDS ORDERED: Ondansetron ODT 4 MG TAB PO PRN (20:10)
[2018-06-15] MEDS ORDERED: VANCOMYCIN IVPB PRN (20:42)
[2018-06-15] MEDS ORDERED: Pregabalin 75 MG CAP PO SCH (21:00)
[2018-06-15] MEDS ORDERED: Insulin Glargine 10 UNITS in Pre-Filled Syringe 1 EACH SC SCH (21:00)
[2018-06-15] MEDS ORDERED: Non-Formulary Item 1 EACH (Insulin Glargine,Hum.Rec.Anlog [Lantus Solostar] 10 UNIT) SQ SCH (21:00)
[2018-06-15] MEDS: Apixaban 5 MG TAB PO SCH (21:20)
[2018-06-15] MEDS: Acetaminophen 325 MG TAB PO PRN (21:21)
[2018-06-15] MEDS: hydrALAZINE 25 MG TAB PO SCH (21:22)
[2018-06-15 22:01] VITALS: BMI 36.5
[2018-06-15] MEDS ORDERED: Vancomycin HCl 500 MG in Sodium Chloride 0.9% 100 ML IVPB SCH (22:15)
[2018-06-15] MEDS ORDERED: Vancomycin HCl 750 MG in Sodium Chloride 0.9% 250 ML 250 ML IVPB SCH (22:15)
[2018-06-15] MEDS ORDERED: Vancomycin HCl 1.25 GM in Sodium Chloride 0.9% 250 ML 250 ML IVPB SCH (22:15)
[2018-06-15] MEDS ORDERED: HOLD VANCOMYCIN FOR LEVEL >20 FS SCH (22:15)
--- NOTE | 2018-06-16 01:18 | HP ---
PRIMARY CARE PHYSICIAN: Dr. Kerri Lira at [facility]. CHIEF COMPLAINT: Rash and pain in right lower extremity. HISTORY OF PRESENT ILLNESS: This is a 77-year-old white female with a history of diabetes; end-stage renal disease, on peritoneal dialysis; and diastolic congestive heart failure with chronic lower extremity edema; who presents with a rash to her right lower extremity. The patient reports that she had already been on some Keflex for poorly healing peritoneal dialysis catheter insertion site and then last week she developed some redness in her lower extremity, associated also with pain. This progressed over the last week. It was worst yesterday with a little bit better today. She went to see Dr. Lamb for clinic appointment, and he noted the redness and told her to go to the emergency room for persistent cellulitis even on antibiotics. The patient was seen in the ER. She was given a dose of vancomycin and is being put in observation for a mild cellulitis of her lower extremity that has been persistent in spite of Keflex outpatient. The patient denies any fevers or other symptoms. PAST MEDICAL HISTORY: 1. End-stage renal disease, on peritoneal dialysis. 2. Diabetes mellitus type 2, insulin dependent. 3. Dyslipidemia. 4. Hypertension. 5. Diastolic congestive heart failure with an ejection fraction of 60% to 65% in 2017. 6. Coronary artery disease. 7. Aortic stenosis, status post aortic valve replacement. PAST SURGICAL HISTORY: 1. Multiple dialysis access surgeries in both arms. 2. Multiple temporary dialysis catheter accesses. 3. Bioprosthetic aortic valve replacement. 4. Coronary artery bypass grafting. 5. Hysterectomy. 6. Hernia repair. 7. Left shoulder surgery. SOCIAL HISTORY: The patient lives at home with her daughter, independent with her ADLs, walks around without a walker or any assistance, but she states it is very painful to walk right now due to edema, so she does not do it much in and thinks she may be getting a bedsore in her sacral area. No tobacco, alcohol, or illicit drug use. FAMILY HISTORY: Multiple family members with diabetes mellitus and father had lung cancer. ALLERGIES: 1. CIPROFLOXACIN CAUSES NAUSEA. 2. PENICILLINS CAUSE HIVES. 3. CODEINE CAUSES ANXIETY. 4. HYDROCODONE CAUSES NAUSEA. 5. SULFA ANTIBIOTICS. 6. BACTRIM. CURRENT MEDICATIONS: 1. Hydralazine 50 mg 3 times a day. 2. Renvela 1600 mg 3 times a day. 3. Lyrica 75 mg at night. 4. Protonix 40 mg daily. 5. Lantus insulin 10 units at night. 6. Carvedilol 12.5 mg twice a day. 7. Eliquis 5 mg twice a day. REVIEW OF SYSTEMS: CONSTITUTIONAL: No fevers. No chills. EYES: No double vision or blurred vision. ENT: She does have chronic runny nose, but no congestion or sore throat. CARDIOVASCULAR: No chest pain, no palpitations, or racing heart. PULMONARY: No coughing, wheezing, or shortness of breath. GASTROINTESTINAL: No abdominal pain. No nausea or vomiting. No diarrhea or constipation. GENITOURINARY: No dysuria or hematuria. MUSCULOSKELETAL: No muscle aches or joint pain. SKIN: See HPI. NEUROLOGIC: No numbness, tingling, or focal weakness. PHYSICAL EXAMINATION: VITAL SIGNS: Blood pressure 137/50, pulse 78, respirations 17, temperature 98.3, O2 saturation 95% on room air. GENERAL: This is a well-developed obese white female, in no acute distress. HEENT: Pupils are equal, round, and reactive to light. Oropharynx clear without lesions, erythema, or exudate. NECK: Supple. No lymphadenopathy. No thyroid nodules or enlargement. No JVD. HEART: Regular rate and rhythm. She has a 2 to 3/6 systolic ejection murmur, loudest at the left sternal border. LUNGS: Clear to auscultation bilaterally. No wheezes, crackles, or rhonchi. ABDOMEN: Soft, nontender to palpation. Normoactive bowel sounds. No hepatosplenomegaly or other masses. She does have a peritoneal dialysis catheter in the right side of the abdomen. Has minimal erythema, just around the outside edge of the catheter insertion site consistent with healing tissue, not with any infection and no pus drainage. EXTREMITIES: She has bilateral lower extremity edema about 1+ and some erythematous changes that are consistent with edema on bilateral lower extremities, but then on the right lower extremity on the lateral aspect of the robb there is some brighter red not a very large area but it is significantly tender to palpation in this area. There is no streaking or redness proximally. There is no evidence for bulla or abscess or purulence. The area is mildly warm. No other skin lesions are noted, although I did not examine her bottom. Nurse is going to do that a little bit later. SKIN: See extremity exam. NEUROLOGIC: Intact strength and sensation in all extremities. No facial droop. PSYCHIATRIC: Alert and oriented x3. Normal mood and affect. LABORATORY DATA: [place] a [place] [address], which is elevated from her previous, neutrophils are 82%, hemoglobin 8.9, hematocrit 26.7. This is mildly lower than she was last month. Complete metabolic panel notable for carbon dioxide of 17, anion gap of 27, BUN of 84, creatinine of 12.77, glucose of 148, and albumin of 3.3. The rest was normal. Brain natriuretic peptide was elevated at 451, which is not bad for her. ASSESSMENT: 1. Mild cellulitis that has been persistent in spite of oral antibiotics outpatient. The patient got a dose of vancomycin in the emergency room. We will give this q.24 hours given her renal function and peritoneal dialysis and we will have Pharmacy monitor the blood levels. We will reinspect this area tomorrow. If it is improving, she can likely be switched to oral antibiotics at the time of discharge home as it is not a severe infection, probably having systemic symptoms. If it worsens any or if not improved with our antibiotics, she may be switched to inpatient. 2. End-stage renal disease, on peritoneal dialysis. We will let Dr. Lamb know the patient is in the hospital. 3. Diabetes mellitus type 2. We will resume patient's insulin and we will start her on insulin sliding scale q.a.c. and at bedtime. 4. Coronary artery disease, stable. 5. Diastolic congestive heart failure, not currently in exacerbation. 6. Hypertension. Resume patient's home medications. 7. Hyperlipidemia. Resume the patient's statin. 8. GI prophylaxis. We will put the patient on her proton pump inhibitor. 9. Deep venous thrombosis prophylaxis. We will continue patient's Eliquis. CODE STATUS: I did discuss with the patient she is a full code. Should she be incapacitated, she states that her medical decision maker would be her daughter, Jaclyn Ngo. The patient is known to palliative care and so we will go ahead and inform that she is back in the hospital. Job ID: [id number]
[2018-06-16 02:03] LABS: HBSAg Index 0.25 S/CO (0-0.99); Hep B Surf Ag Non-Reactive S/CO (NonReactive)
[2018-06-16] MEDS: Acetaminophen 325 MG TAB PO PRN ×2 (02:04→10:46)
[2018-06-16 03:04] LABS: Hep B Surf AB Reactive (NonReactive)
[2018-06-16 03:05] LABS: HBSAB Concentration 45.05 mIU/mL
[2018-06-16] MEDS: diphenhydrAMINE 25 MG CAP PO PRN ×2 (03:22→10:46)
[2018-06-16] MEDS ORDERED: Fentanyl 100 MCG/2 ML VIAL SLOW IVP SCH (05:30)
--- NOTE | 2018-06-16 08:03 | CON ---
DATE OF CONSULTATION: 06/15/2018 CONSULTING PHYSICIAN: Dr. Novoa. REASON FOR CONSULTATION: End-stage renal disease evaluation and care. REASON FOR ADMISSION: Leg pain. HISTORY OF PRESENT ILLNESS: This is a 77-year-old white female with a history of end-stage renal disease, on peritoneal dialysis; type 2 diabetes; hypertension; hyperlipidemia, who came to the hospital with leg pain. She has been having redness and pain in her bilateral legs, more on the right side for the last few days and she has been on Keflex. She is also having exit site infection of the PD catheter and was on Keflex, but not getting better and she was seen today and was sent to the hospital. No fever or chills. No nausea or vomiting. PAST MEDICAL HISTORY: Positive for end-stage renal disease, on peritoneal dialysis; type 2 diabetes; hypertension; hyperlipidemia; congestive heart failure. PAST SURGICAL HISTORY: Multiple dialysis access surgeries, coronary artery bypass surgery, heart valve surgery, hysterectomy, hernia repair, left shoulder surgery. HOME MEDICATIONS: 1. Hydralazine. 2. Renvela. 3. Lyrica. 4. Protonix. 5. Lantus. 6. Carvedilol. 7. Eliquis. ALLERGIES: CIPRO, PENICILLIN, CODEINE, AND SULFA. SOCIAL HISTORY: No smoking, alcohol, or illicit drug abuse. FAMILY HISTORY: No history of any kidney disease. REVIEW OF SYSTEMS: CONSTITUTIONAL: Negative for weight loss or gain, ability to conduct usual activities. SKIN: Negative for rash, itching. EYES: Negative for double vision, pain. ENT/MOUTH: Negative for nose bleeding, neck stiffness, pain, tenderness. CARDIOVASCULAR: Negative for palpitations, dyspnea on exertion, orthopnea. RESPIRATORY: Negative for shortness of breath, wheezing, cough, hemoptysis, fever or night sweats. GASTROINTESTINAL: Negative for poor appetite, abdominal pain, heartburn, nausea, vomiting, constipation, or diarrhea. GENITOURINARY: Negative for urgency, frequency, dysuria, nocturia. MUSCULOSKELETAL: . NEUROLOGIC/PSYCHIATRIC: Negative for anxiety, depression. ALLERGY/IMMUNOLOGIC: Negative for skin rash, bleeding tendency. PHYSICAL EXAMINATION: GENERAL: This is an obese female, in no apparent distress. VITAL SIGNS: Temperature 98.6, pulse 70, respiratory rate 18, blood pressure 128/78. HEENT: Atraumatic and normocephalic. Oral mucosa is moist. NECK: Supple. CVS: S1 and S2 heard. Rate and rhythm regular. RESPIRATORY: Clear. GASTROINTESTINAL: Abdomen is soft. MUSCULOSKELETAL: DERMATOLOGIC: No skin rash. NEUROLOGIC: Alert and awake. PSYCHIATRIC: Normal mood and affect. LABORATORY DATA: Hemoglobin is 8.9. Potassium 4.3, BUN is 84, creatinine is 12.7. ASSESSMENT AND PLAN: 1. End-stage renal disease. We will continue on her peritoneal dialysis as tolerated. Dialysis nurse notified. 2. Edema, controlled. 3. Hypertension, stable. 4. Anemia. We will have Epogen. Plan is to continue on dialysis as tolerated. Job ID: [id number]
[2018-06-16] MEDS: Carvedilol 25 MG TAB PO SCH ×2 (08:17→16:37)
[2018-06-16] MEDS: Apixaban 5 MG TAB PO SCH (08:18)
[2018-06-16] MEDS: hydrALAZINE 25 MG TAB PO SCH ×2 (08:18→14:47)
[2018-06-16] MEDS: Sevelamer Carbonate 800 MG TAB PO SCH ×3 (08:18→16:37)
[2018-06-16 08:27] LABS: #Basophils 0.1 thou/uL (0.0-0.2); #Eosinphils 0.4 thou/uL (0.0-0.7); #Lymphocytes 0.9 thou/uL (1.20-3.40); #Monocytes 0.6 thou/uL (0.11-0.59); #Neutrophils 6.1 thou/uL (1.40-6.50); %Basophils 0.8 % (0.0-1.0); %Eosinophils 5.3 % (0.0-10.0); %Lymphocytes 11.5 % (21.0-51.0); %Monocytes 7.6 % (0.0-10.0); %Neutrophils 74.8 % (42.0-75.0); Hemoglobin 7.8 g/dL (12.0-16.0); Mean Corpuscular HGB CONC 32.6 g/dL (32.0-36.0); Mean Corpuscular Hemoglobin 32.9 pg (27.0-31.0); Mean Platelet Volume 9.7 fL (7.4-10.4); Platelet Count 129 thou/uL (130-400); RBC Distribution Width 14.1 % (11.5-14.5); Red Blood Cell (RBC) Count 2.36 mill/uL (4.20-5.40); White Blood Cell (WBC) Count 8.2 thou/uL (4.8-10.8)
[2018-06-16 08:50] LABS: Anion Gap 23 mmol/L (10-20); BUN (Urea Nitrogen) 83 mg/dL (9.8-20.1); Calc. Creatinine Clearance 5 mL/min (70-130); Calcium 7.8 mg/dL (7.8-10.44); Carbon Dioxide 20 mmol/L (23-31); Chloride 98 mmol/L (98-107); Estimated GFR-MDRD 3; Glucose 116 mg/dL (83-110); Potassium 3.2 mmol/L (3.5-5.1); Sodium 138 mmol/L (136-145)
--- NOTE | 2018-06-16 09:48 | PDOC.PN ---
- Subjective Encounter Start Date: 06/16/18 Encounter Start Time: 10:10 Subjective: Pain in leg better this AM. Redness a bit better. No fever. - Objective Resuscitation Status - Order Detail: 06/15/18 18:46 Resuscitation Status Routine Resuscitation Status: FULL: Full Resuscitation Discussed with: Patient MATTHEW Reviewed: Yes Vital Signs & Weight: Vital Signs (12 hours) Temp Pulse Resp BP Pulse Ox 06/16/18 08:18 68 06/16/18 07:50 97.9 F 68 16 151/55 H 98 06/16/18 04:00 97.9 F 89 18 136/89 96 06/16/18 00:10 97.9 F 84 18 135/61 95 Weight Weight 186 lb 15.232 oz I&O: 06/15/18 06/16/18 06/17/18 06:59 06:59 06:59 Intake Total 500 Balance 500 Result Diagrams: 06/16/18 08:10 06/16/18 08:10 Additional Labs: Accuchecks 06/15/18 19:58 POC Glucose 154 H Phys Exam - Physical Examination Constitutional: NAD HEENT: moist MMs Respiratory: no wheezing, no rales, no rhonchi Cardiovascular: RRR Gastrointestinal: soft, positive bowel sounds Musculoskeletal: edema present right lateral lower leg with decreased redness, still TTP, but similar to the TTP of bilateral edema behind both ankles Neurological: non-focal Psychiatric: normal affect, A&O x 3 Dx/Plan (1) Cellulitis of right lower extremity Code(s): L03.115 - CELLULITIS OF RIGHT LOWER LIMB Status: Acute Comment: On vanc after failed outpatient keflex, improving, WBC normalized, will d/c on double oral abx coverage with Omnicef and Doxy (2) ESRD on peritoneal dialysis Code(s): N18.6 - END STAGE RENAL DISEASE; Z99.2 - DEPENDENCE ON RENAL DIALYSIS Status: Chronic (3) CAD (coronary artery disease) Code(s): I25.10 - ATHSCL HEART DISEASE OF [place] CORONARY ARTERY W/O ANG PCTRS Status: Chronic Qualifiers: (4) Diabetes type 2, controlled Code(s): E11.9 - TYPE 2 DIABETES MELLITUS WITHOUT COMPLICATIONS Status: Chronic Qualifiers: Comment: continue accuchecks, insulin sliding scale (5) HLD (hyperlipidemia) Code(s): E78.5 - HYPERLIPIDEMIA, UNSPECIFIED Status: Chronic Qualifiers: (6) HTN (hypertension) Code(s): I10 - ESSENTIAL (PRIMARY) HYPERTENSION Status: Chronic Qualifiers: (7) Diastolic CHF Code(s): I50.30 - UNSPECIFIED DIASTOLIC (CONGESTIVE) HEART FAILURE Status: Chronic Qualifiers: Heart failure chronicity: chronic Qualified Code(s): I50.32 - Chronic diastolic (congestive) heart failure Comment: stable - Plan cont current plan of care, continue antibiotics, out of bed/ambulate D/C home * . - Discharge Day Encounter end time: 10:25
[2018-06-16] MEDS ORDERED: Cefdinir 300 MG CAP PO SCH ×2 (10:45→21:00)
[2018-06-16] MEDS ORDERED: Doxycycline 100 MG CAP PO SCH ×2 (11:00→21:00)
--- NOTE | 2018-06-16 12:15 | DIS ---
DATE OF ADMISSION: 06/15/2018 DATE OF DISCHARGE: 06/16/2018 PRIMARY CARE PHYSICIAN: Dr. Kerri Lira at [facility]. REASON FOR ADMISSION: Cellulitis. DIAGNOSES AT DISCHARGE: 1. Cellulitis of right lower extremity, improving. 2. End-stage renal disease, on peritoneal dialysis. 3. Coronary artery disease, chronic. 4. Diabetes mellitus, type 2. 5. Hyperlipidemia. 6. Hypertension. 7. Chronic diastolic congestive heart failure, stable. PROCEDURES: None. CONSULTATIONS: Nephrology, Dr. Lamb. SUMMARY OF HOSPITAL COURSE: This is a 77-year-old white female with a history of diabetes, end-stage renal disease, and diastolic congestive heart failure with chronic lower extremity edema. She was noted to have some redness on her right lower extremity for about the last week. She was seen by Dr. Lamb in his clinic yesterday and sent to the emergency room for evaluation. She had been on Keflex when this developed. The Keflex did not help with the symptoms at all, so she was then put in observation overnight. She was given vancomycin. Symptoms are improved this morning. Redness is a little bit better. So, she is being transitioned to oral doxycycline and Omnicef, and is being discharged home. We are also putting KATIANA hose on her for control of the lower extremity edema to help with the resolution of the cellulitis. DISCHARGE MANAGEMENT: Discharged to home. FOLLOWUP: Follow up with primary care physician in 1 week. ACTIVITY: As tolerated. DIET: Fluid restricted renal diet. MEDICATIONS: 1. Omnicef 300 mg twice a day, 20 capsules dispensed. 2. Doxycycline 100 mg twice a day, 20 caps dispensed. 3. Continue all other home medications. See HPI from yesterday. Job ID: [id number]
[2018-06-16 12:21] VITALS: BP 140/61; TEMP 98.2
--- NOTE | 2018-06-16 17:25 | PRG ---
DATE OF SERVICE: 06/16/2018 SUBJECTIVE: Patient was seen and examined at bedside and overnight events noted. Patient denies any shortness of breath or chest pain or palpitation. No history of nausea or vomiting or diarrhea or fever or chills or cramps. OBJECTIVE: GENERAL: This is an obese female, in no apparent distress. VITAL SIGNS: Temperature 98.2. Heart rate 65. Respiratory rate 18. Blood pressure 140/61. HEENT: Atraumatic, normocephalic. Oral mucosa is moist. NECK: Supple. CARDIOVASCULAR: S1, S2 heard. Rate and rhythm regular. RESPIRATORY: Clear to auscultation. GASTROINTESTINAL: Abdomen is soft. MUSCULOSKELETAL: No tenderness. No edema. DERMATOLOGIC: No skin rash. NEUROLOGIC: Alert and awake and oriented X3. No focal neurologic deficits. Moving all the extremities. PSYCHIATRIC: Mood and affect normal. LABORATORY DATA: Potassium is 3.2, BUN is 83, and creatinine is 12.2. ASSESSMENT AND PLAN: 1. End-stage renal disease. Currently, on peritoneal dialysis. 2. Anemia. We will continue Epogen. 3. Hypertension, stable. 4. Edema, we will remove fluid with dialysis. 5. Cellulitis. Continue antibiotics. We will continue on peritoneal dialysis as tolerated. Job ID: [id number]
== END 2018-06-16 17:27 | disposition home or self-care (01) ==
LOC: ERS 16:25 → 2SW 18:10 → T4-B 19:38
PROVIDERS: ADMIT Emergency Medicine; ATTEND Emergency Medicine
DX: L03.115 Cellulitis of right lower limb (principal); I13.2 Hypertensive heart and chronic kidney disease with heart failure and with stage 5 chronic kidney disease, or end stage renal disease; E11.22 Type 2 diabetes mellitus with diabetic chronic kidney disease; N18.6 End stage renal disease; I50.32 Chronic diastolic (congestive) heart failure; D63.1 Anemia in chronic kidney disease; I25.10 Atherosclerotic heart disease of native coronary artery without angina pectoris; E78.5 Hyperlipidemia, unspecified; Z99.2 Dependence on renal dialysis; Z95.2 Presence of prosthetic heart valve; Z79.4 Long term (current) use of insulin; Z95.1 Presence of aortocoronary bypass graft; Z88.0 Allergy status to penicillin; Z88.1 Allergy status to other antibiotic agents; Z88.2 Allergy status to sulfonamides; Z88.5 Allergy status to narcotic agent; Z79.899 Other long term (current) drug therapy; Z79.01 Long term (current) use of anticoagulants
CPT/HCPCS: 80048; 80053; 82962 ×2; 83880; 85025 ×2; 86706; 87340; 96365; 96375; 97139; 99284; G0378 ×2; 36415; 36416; 90945; G0257; J1825; J3010; J3370; Q0163

== ENCOUNTER 2018-07-09 17:21 | Emergency (ER) | payer MEDICARE ==
[2018-07-09 18:17] LABS: #Eosinphils 0.3 thou/uL (0.0-0.7); #Lymphocytes 0.9 thou/uL (1.20-3.40); #Monocytes 0.6 thou/uL (0.11-0.59); #Neutrophils 4.6 thou/uL (1.40-6.50); %Basophils 0.7 % (0.0-1.0); %Eosinophils 5.3 % (0.0-10.0); %Lymphocytes 14.1 % (21.0-51.0); %Monocytes 9.7 % (0.0-10.0); %Neutrophils 70.3 % (42.0-75.0); Hemoglobin 8.5 g/dL (12.0-16.0); Mean Corpuscular HGB CONC 31.7 g/dL (32.0-36.0); Mean Platelet Volume 9.9 fL (7.4-10.4); Platelet Count 123 thou/uL (130-400); RBC Distribution Width 15.8 % (11.5-14.5); Red Blood Cell (RBC) Count 2.58 mill/uL (4.20-5.40); White Blood Cell (WBC) Count 6.6 thou/uL (4.8-10.8)
[2018-07-09 18:21] LABS: ALT (SGPT) 12 U/L (8-55); AST (SGOT) 15 U/L (5-34); Albumin 2.7 g/dL (3.4-4.8); Alkaline Phosphatase 154 U/L (40-150); Anion Gap 21 mmol/L (10-20); BUN (Urea Nitrogen) 85 mg/dL (9.8-20.1); Bilirubin, Total 0.5 mg/dL (0.2-1.2); Calc. Creatinine Clearance 0 mL/min (70-130); Calcium 7.6 mg/dL (7.8-10.44); Carbon Dioxide 21 mmol/L (23-31); Chloride 102 mmol/L (98-107); Estimated GFR-MDRD 3; Glucose 108 mg/dL (83-110); Potassium 3.9 mmol/L (3.5-5.1); Protein, Total 6.7 g/dL (6.0-8.3); Sodium 140 mmol/L (136-145)
== END 2018-07-09 21:32 | disposition home or self-care (01) ==
LOC: ERS 17:21
DX: M79.661 Pain in right lower leg (principal); M79.662 Pain in left lower leg; I13.2 Hypertensive heart and chronic kidney disease with heart failure and with stage 5 chronic kidney disease, or end stage renal disease; N18.6 End stage renal disease; I50.9 Heart failure, unspecified; E11.22 Type 2 diabetes mellitus with diabetic chronic kidney disease; E78.5 Hyperlipidemia, unspecified; Z79.899 Other long term (current) drug therapy
CPT/HCPCS: 36415; 80053; 85025; 99283

== ENCOUNTER 2018-08-01 00:11 | Inpatient (IN) | payer MEDICARE ==
[2018-08-01 01:55] LABS: CKMB 4.2 ng/mL (0-6.6)
[2018-08-01 04:06] LABS: Troponin I 2.121 ng/mL (< 0.028)
[2018-08-01] MEDS ORDERED: Morphine 2 MG/ML SYRINGE ONE ×2 (07:56→10:22)
[2018-08-01] MEDS ORDERED: Haloperidol Lactate 5 MG/ML VIAL ONE (08:26)
[2018-08-01] MEDS ORDERED: HYDROcodone/Acetaminophen 5/325 mg Tablet PO PRN (11:05)
[2018-08-01] MEDS ORDERED: Zolpidem Tartrate 5 MG TAB PO PRN (11:05)
[2018-08-01] MEDS ORDERED: HumaLOG 300 UNITS/3 ML VIAL SC PRN (11:16)
[2018-08-01] MEDS ORDERED: Dextrose 50% Abboject 50 ML SYRINGE SLOW IVP PRN (11:16)
[2018-08-01] MEDS ORDERED: Dextrose 5% in Water 1,000 ML IV PRN (11:16)
--- NOTE | 2018-08-01 11:20 | PDOC.EVN ---
Event Note - Event Note Event Note: This is a pending admit from last night at 1am, patient was seen by me at 11am this morning. Prior to my evaluation, patient was admitted inpatient and a consult was placed to cardiology due to elevated troponins. After a lengthy discussion with the patient and reviewing her chart and her multiple prior admissions with the patient she stated she wanted to be a DNR/DNI. She also stated she would like to pursue quality of life rather than quantity and is more interested in becoming pain free than to go through more dialysis or procedures. She does state, however, that she would like to talk to the systems engineer and financial services professional to get their input as well as have hospice arrangments started. Call also placed to patient's daughter Ms. Jaclyn Ko at [phone], no answer so voice mail left. At this point in time, per patient' s request, will make her DNR/DNI, move to med/sx floor, provide morphine + scopolamine + ativan + benadryl. Await cardiac and renal input, defer decision on cath to cardio, defer dialysis to nephrology for now. Case management consult placed for hospice arrangements per patient wishes. Labs for today drawn and pending. Insulin for DM II. Full H&P dictation to follow, H&P dictation #[id number].
[2018-08-01] MEDS ORDERED: diphenhydrAMINE 50 MG/ML VIAL IVP PRN (11:21)
[2018-08-01 11:57] LABS: #Basophils 0.1 thou/uL (0.0-0.2); #Eosinphils 0.4 thou/uL (0.0-0.7); #Lymphocytes 0.5 thou/uL (1.20-3.40); #Monocytes 0.8 thou/uL (0.11-0.59); #Neutrophils 12.2 thou/uL (1.40-6.50); %Basophils 0.4 % (0.0-1.0); %Eosinophils 2.9 % (0.0-10.0); %Lymphocytes 3.8 % (21.0-51.0); %Monocytes 5.6 % (0.0-10.0); %Neutrophils 87.3 % (42.0-75.0); Hemoglobin 8.3 g/dL (12.0-16.0); Mean Corpuscular HGB CONC 31.7 g/dL (32.0-36.0); Mean Corpuscular Hemoglobin 32.5 pg (27.0-31.0); Platelet Count 237 thou/uL (130-400); RBC Distribution Width 14.8 % (11.5-14.5); Red Blood Cell (RBC) Count 2.56 mill/uL (4.20-5.40); White Blood Cell (WBC) Count 13.9 thou/uL (4.8-10.8)
[2018-08-01] MEDS ORDERED: Aspirin 81 mg Enteric Coated Tablet PO SCH (12:00)
[2018-08-01 12:14] LABS: ALT (SGPT) 11 U/L (8-55); AST (SGOT) 12 U/L (5-34); Albumin 2.7 g/dL (3.4-4.8); Alkaline Phosphatase 110 U/L (40-150); Anion Gap 27 mmol/L (10-20); BUN (Urea Nitrogen) 102 mg/dL (9.8-20.1); Bilirubin, Total 0.6 mg/dL (0.2-1.2); Calc. Creatinine Clearance 0 mL/min (70-130); Calcium 8.5 mg/dL (7.8-10.44); Carbon Dioxide 16 mmol/L (23-31); Chloride 92 mmol/L (98-107); Estimated GFR-MDRD 2; Globulin 4.1 g/dL (2.4-3.5); Glucose 119 mg/dL (83-110); Potassium 4.3 mmol/L (3.5-5.1); Protein, Total 6.8 g/dL (6.0-8.3); Sodium 131 mmol/L (136-145)
[2018-08-01] MEDS ORDERED: Vancomycin HCl 750 MG in Sodium Chloride 0.9% 250 ML 250 ML IVPB SCH (13:00)
[2018-08-01] MEDS ORDERED: Cefepime 0.5 GM in Admixture Fee 1 EACH IVPB SCH (13:00)
[2018-08-01] MEDS: Scopolamine 1.5 mg/72 hour Patch TD SCH (13:29)
[2018-08-01] MEDS ORDERED: Cefepime 0.5 GM in Sodium Chloride 0.9% 100 ML IVPB SCH (13:30)
[2018-08-01] MEDS: Morphine 4 MG/ML VIAL SLOW IVP PRN ×2 (13:30→16:49)
--- NOTE | 2018-08-01 14:08 | CON ---
DATE OF CONSULTATION: 08/01/2018 REASON FOR CONSULTATION: CAD. HISTORY OF PRESENT ILLNESS: Ms. Moyer is a 77-year-old woman, who is a patient of Dr. Daljit Newsome. She has a previous history of CAD, status post AVR in addition to end-stage renal disease. She was recently admitted for sepsis. Consultation was per the patient's request. She recently presented with leg pain. She was diagnosed with cellulitis. She denies chest pain, pressure, or other associated symptoms. Hospice has been recommended by Hospitalist Service and she has blighted. PAST MEDICAL HISTORY: Diabetes mellitus; hyperlipidemia; hypertension; end-stage renal disease; CAD, status post bypass surgery and AVR; CHF; and AV fistula. ALLERGIES: BACTRIM, CIPRO, CODEINE, HYDROCODONE, PENICILLIN, AND SULFA. HOME MEDICATIONS: Include; 1. Carvedilol. 2. Hydralazine. 3. Pantoprazole. 4. Renvela. 5. Lyrica. 6. Eliquis. 7. Gabapentin. REVIEW OF SYSTEMS: Ten-point review of systems is reviewed and as above, otherwise negative. PHYSICAL EXAMINATION: GENERAL: She does appear older stated age. VITAL SIGNS: Blood pressure 120/50, pulse 69, and temperature 97.8. NEUROLOGIC: The patient is alert and oriented x3 with no focal neurologic deficits. HEENT: Sclerae without icterus. Mouth has moist mucous membranes with normal pallor. NECK: No JVD. Carotid upstroke brisk. No bruits bilaterally. LUNGS: Clear to auscultation with unlabored respirations. BACK: No scoliosis or kyphosis. CARDIAC: Regular rate and rhythm with normal S1 and S2. No S3 or S4 noted. No significant rubs, murmurs, thrills, or gallops noted throughout the precordium. PMI is not displaced. There is no parasternal heave. ABDOMEN: Soft, nontender, nondistended. No peritoneal signs present. No hepatosplenomegaly. No abnormal striae. EXTREMITIES: 2+ femoral and 2+ dorsalis pedis pulses. No cyanosis, clubbing, or edema. SKIN: No gross abnormalities. PERTINENT LABORATORY DATA: Hemoglobin 8.3, white blood cell count 13.9, and platelet count 237. Peak troponin 2.1. Sodium 131, potassium 4.3, and creatinine 15. IMPRESSION: 1. Cellulitis. 2. Coronary artery disease. 3. Status post aortic valve replacement. 4. Status post bypass surgery. 5. End-stage renal disease. RECOMMENDATIONS: Ms. Moyer has multiple comorbidities. At this point, her cardiovascular status appear stable. Her elevated troponin is likely type 2 [place]. She has no current symptoms suggesting unstable angina. Would continue medical therapy as prescribed. We would recommend beta-kailey therapy, aspirin, and statin. She has had anemia but has ranged between 10 and 11 up until March. May reconsider anticoagulation therapy given poor long-term prognosis. We will defer to Dr. Daljit Newsome in a.m. Job ID: [id number]
[2018-08-01] MEDS: Lorazepam 2 MG/ML VIAL SLOW IVP PRN (17:08)
--- NOTE | 2018-08-01 19:21 | HP ---
CHIEF COMPLAINT: Pain all over. HISTORY OF PRESENT ILLNESS: This is a 77-year-old female with long-term history of severe significant pain, cardiac disease as well as end-stage renal disease, cellulitis, congestive heart failure, hypertension, and calciphylaxis lesions. The patient comes in complaining of significant pain in the lower extremities as well as in her abdomen. The patient does have pain on and off. She states that she has been having worsening pain over the last 3 to 4 days. The patient also notes that in the last 6 to 8 months, she has had severe significant decline in her overall physical condition with having had at least 5 hospitalizations in the last year regarding this issue. The patient states that she wishes just like the pain to go away, inquired about hospice and end of life arrangements as well at point in time of evaluation. No family at bedside. The patient stated that there was no pain pattern. No alleviating or aggravating factors. Movement, however, did make it worse, but other than that, no other alleviating or aggravating factors. The patient states that the pain is 10/10 in all her skin and body. ALLERGIES: SEE LIST. PAST MEDICAL HISTORY: Diabetes mellitus, hypertension, hyperlipidemia, coronary artery disease, end-stage renal disease, metabolic bone disease. SOCIAL HISTORY: Nondrinker and nonsmoker. REVIEW OF SYSTEMS: All systems reviewed, pertinent positives in HPI, otherwise negative. PHYSICAL EXAMINATION: VITAL SIGNS: Blood pressure is 107/80, respiratory rate of 18, temperature of 98, and O2 saturations 99% on 2 L nasal cannula. GENERAL: The patient is lying in bed, obese, marked discomfort. HEENT: Pupils are equal, round, and reactive to light and accommodation. Extraocular muscles are intact. Oral cavity moist and pink. NECK: Supple, mobile, and nontender. Thyroid appreciated. PULMONARY: Reveals coarse breath sounds. No respiratory distress. CARDIOVASCULAR: S1 and S2. Faint systolic ejection murmur. Occasional PAC. ABDOMEN: Positive bowel sounds. Soft, nontender, rotund. EXTREMITIES: 2+ peripheral pulses. 2+ pitting edema with hypertrophic skin, lower extremities. NEUROLOGIC: Cranial nerves II through XII intact. No loss of motor or sensory function except on the soles of her feet. SKIN: Reveals lesions and abrasions concerning for calciphylaxis with what appears to be bleeding. The patient was constantly itching and scratching herself throughout the physical examination. LABORATORY DATA: Reviewed. ASSESSMENT AND PLAN: 1. Elevated troponin, concerning for NSTEMI. 2. Significant pain everywhere. 3. End-stage renal disease. 4. Diabetes mellitus type 2. 5. Coronary artery disease. 6. Hypotension. 7. Obesity. 8. Metabolic bone disease. 9. Anemia of renal disease. 10. Calciphylaxis ? PLAN: At this point in time overall, the patient's given multiple admissions in the past as well as difficulty managing her pain as well as other comorbidities, the patient herself brought up hospice options and pain management options. The patient was asked if she had a decline over the last 6 to 8 months, which she did say yes and then when asked if she think that she can tolerate the same rate of decline for another six months, she said she could not. The patient was told she does have an end-stage condition in the form of end-stage renal disease and does qualify for hospice if that is indeed what she wants to do. The patient stated that is something that she would be interested in at this point in time. Cardiology had already been consulted at the time of admissions, as this was a pending admit. By the time I came to evaluate the patient, the patient stated that she did not want to have anything further done. She did not want chest compressions or intubations. She did state that she wanted to talk to the real estate loan officer and the oim architect, but was more interested in pursuing hospice care and symptomatic care and quality of life. At this point in time, we will await Cardiac and Renal input. Call placed to patient's daughter at [phone], no answer, Voicemail left. We will place a consult for case management. Await Cardiac and Renal input, labs for tomorrow. Provide symptomatic care with Pain Management and we will go from there. Case and plan discussed with patient at length. She understood and agreed with this plan. Job ID: [id number]
[2018-08-01] MEDS: Atorvastatin Calcium 40 MG TAB PO SCH (20:34)
[2018-08-01] MEDS: Heparin 5,000 UNITS/ML VIAL SC SCH (20:34)
[2018-08-02] MEDS: HumaLOG 300 UNITS/3 ML VIAL SC PRN (06:06)
[2018-08-02 06:54] LABS: #Eosinphils 0.4 thou/uL (0.0-0.7); #Lymphocytes 0.4 thou/uL (1.20-3.40); #Monocytes 0.7 thou/uL (0.11-0.59); #Neutrophils 13.8 thou/uL (1.40-6.50); %Basophils 0.2 % (0.0-1.0); %Eosinophils 2.5 % (0.0-10.0); %Lymphocytes 2.8 % (21.0-51.0); %Monocytes 4.6 % (0.0-10.0); %Neutrophils 89.9 % (42.0-75.0); Hemoglobin 8.4 g/dL (12.0-16.0); Mean Corpuscular HGB CONC 32.1 g/dL (32.0-36.0); Mean Corpuscular Hemoglobin 33.3 pg (27.0-31.0); Mean Platelet Volume 8.1 fL (7.4-10.4); Platelet Count 270 thou/uL (130-400); RBC Distribution Width 15.1 % (11.5-14.5); Red Blood Cell (RBC) Count 2.52 mill/uL (4.20-5.40); White Blood Cell (WBC) Count 15.4 thou/uL (4.8-10.8)
[2018-08-02 07:14] LABS: Anion Gap 28 mmol/L (10-20); BUN (Urea Nitrogen) 95 mg/dL (9.8-20.1); Calc. Creatinine Clearance 4 mL/min (70-130); Calcium 8.4 mg/dL (7.8-10.44); Carbon Dioxide 15 mmol/L (23-31); Chloride 92 mmol/L (98-107); Estimated GFR-MDRD 2; Glucose 221 mg/dL (83-110); Potassium 4.4 mmol/L (3.5-5.1); Sodium 131 mmol/L (136-145)
--- NOTE | 2018-08-02 08:50 | PDOC.PN ---
- Subjective Encounter Start Date: 08/02/18 Encounter Start Time: 08:48 Patient seen and examined, no new issues. - Objective Resuscitation Status - Order Detail: 08/01/18 11:05 Resuscitation Status Routine Resuscitation Status: DNAR: NO Resuscitation Discussed with: Patient Vital Signs & Weight: Vital Signs (12 hours) Temp Pulse Resp BP Pulse Ox 08/02/18 07:58 97.6 F 72 16 124/81 97 08/02/18 04:00 97.9 F 79 18 149/67 H 100 08/02/18 03:54 93 L 08/02/18 00:53 97.5 F L 73 16 110/79 93 L 08/02/18 00:00 97.5 F L 73 16 110/79 93 L Weight Weight 195 lb I&O: 08/01/18 08/02/18 08/03/18 06:59 06:59 06:59 Intake Total 340 Balance 340 Result Diagrams: 08/02/18 06:18 08/02/18 06:18 Additional Labs: Accuchecks 08/02/18 08/02/18 08/01/18 05:58 05:46 20:31 POC Glucose 252 H 235 H 125 H 08/01/18 15:46 POC Glucose 125 H Phys Exam - Physical Examination Constitutional: NAD obese HEENT: PERRLA, moist MMs, sclera anicteric Neck: no nodes, no JVD, supple Respiratory: no wheezing, no rales, no rhonchi Cardiovascular: RRR, no significant murmur, no rub Gastrointestinal: soft, non-tender, no distention, positive bowel sounds Musculoskeletal: pulses present, edema present Dx/Plan (1) Pain Code(s): R52 - PAIN, UNSPECIFIED Status: Acute (2) Leg pain Status: Acute (3) Diabetes type 2, controlled Code(s): E11.9 - TYPE 2 DIABETES MELLITUS WITHOUT COMPLICATIONS Status: Chronic Qualifiers: Comment: continue accuchecks, insulin sliding scale (4) Diastolic CHF Code(s): I50.30 - UNSPECIFIED DIASTOLIC (CONGESTIVE) HEART FAILURE Status: Chronic Qualifiers: Comment: stable (5) End stage renal disease on dialysis Code(s): N18.6 - END STAGE RENAL DISEASE; Z99.2 - DEPENDENCE ON RENAL DIALYSIS Status: Chronic Comment: HD per Nephrology using LUE AV fistula (6) HLD (hyperlipidemia) Code(s): E78.5 - HYPERLIPIDEMIA, UNSPECIFIED Status: Chronic Qualifiers: (7) HTN (hypertension) Code(s): I10 - ESSENTIAL (PRIMARY) HYPERTENSION Status: Chronic Qualifiers: (8) PVD (peripheral vascular disease) Code(s): I73.9 - PERIPHERAL VASCULAR DISEASE, UNSPECIFIED Status: Chronic - Plan * Patient overall prognosis poor * yesterday she stated she wanted hospice care, CM consulted to make arrangements * patient also requested cardio and renal evaluations, cardio completed, renal eval pending * labs in AM * overall patient's condition is poor, she states she wants to have her suffereing stopped, wants pain medications and comfort care
[2018-08-02] MEDS: Heparin 5,000 UNITS/ML VIAL SC SCH ×2 (09:26→21:26)
--- NOTE | 2018-08-02 09:47 | CON ---
DATE OF CONSULTATION: 08/01/2018 CONSULTING PHYSICIAN: Al Arteaga DO REASON FOR CONSULT: End-stage renal disease evaluation. REASON FOR ADMISSION: Pain. HISTORY OF PRESENT ILLNESS: The patient is a pleasant 77-year-old female with history of end-stage renal disease, type 2 diabetes, hypertension, hyperlipidemia, came to the hospital with pain all over. She gets peritoneal dialysis. Nephrology was consulted for maintenance of hemodialysis. The patient is slightly confused when I saw her. PAST MEDICAL HISTORY: Positive for type 2 diabetes, hypertension, hyperlipidemia, coronary artery disease. PAST SURGICAL HISTORY: PD catheter placement, dialysis fistula placement. HOME MEDICATIONS: Include 1. Hydralazine. 2. Renvela. 3. Lyrica. 4. Protonix. 5. Omnicef. 6. Coreg. 7. Eliquis. ALLERGIES: CIPROFLOXACIN, PENICILLIN, CODEINE, AND HYDROCODONE. SOCIAL HISTORY: No smoking, alcohol, or illicit drug abuse. FAMILY HISTORY: No history of any kidney disease. REVIEW OF SYSTEMS: CONSTITUTIONAL: Negative for weight loss or gain, ability to conduct usual activities. SKIN: Negative for rash, itching. EYES: Negative for double vision, pain. ENT/MOUTH: Negative for nose bleeding, neck stiffness, pain, tenderness. CARDIOVASCULAR: Negative for palpitations, dyspnea on exertion, orthopnea. RESPIRATORY: Negative for shortness of breath, wheezing, cough, hemoptysis, fever or night sweats. GASTROINTESTINAL: Negative for poor appetite, abdominal pain, heartburn, nausea, vomiting, constipation, or diarrhea. GENITOURINARY: Negative for urgency, frequency, dysuria, nocturia. MUSCULOSKELETAL: Negative for pain, swelling. NEUROLOGIC/PSYCHIATRIC: Negative for anxiety, depression. ALLERGY/IMMUNOLOGIC: Negative for skin rash, bleeding tendency. PHYSICAL EXAMINATION: GENERAL: This is an obese female, in no apparent distress. VITAL SIGNS: Temperature 97.8, pulse 69, respiratory rate 16, blood pressure 120/50. HEENT: Atraumatic and normocephalic. NECK: Supple. CVS: S1, S2 heard. Rate and rhythm regular. RESPIRATORY: Clear. GASTROINTESTINAL: Abdomen is soft. MUSCULOSKELETAL: LABORATORY DATA: Hemoglobin is 8.3, potassium 4.3, BUN 102, creatinine is 15.47. ASSESSMENT AND PLAN: 1. End-stage renal disease. We will have peritoneal dialysis as tolerated. 2. Edema, controlled. 3. Hypertension, stable. 4. Anemia, chronic. 5. Elevated troponin. Further management per Cardiology. 6. Hypoalbuminemia. 7. Prognosis guarded. We will continue PD as tolerated. Job ID: [id number]
--- NOTE | 2018-08-02 13:44 | PDOC.CTH ---
Cardiology Progress Note - Subjective The pt seen and examined. No overnight events. No cardiac complaints. - Objective Vital Signs Temp Pulse Resp BP Pulse Ox 08/02/18 11:25 98.3 F 81 16 145/49 H 96 08/02/18 07:58 97.6 F 72 16 124/81 97 08/02/18 04:00 97.9 F 79 18 149/67 H 100 08/02/18 03:54 93 L Weight 195 lb 08/01/18 08/02/18 08/03/18 06:59 06:59 06:59 Intake Total 340 Balance 340 - Physical Examination General/Neuro: other: (intermittent confusion; alerted and oriented to self and place) Lungs: other: (diminished at bases) Heart: RRR Abdomen: soft Extremities: other: (No edema) - Labs Result Diagrams: 08/02/18 06:18 08/02/18 06:18 Troponin/CKMB CK-MB (CK-2) 4.2 ng/mL (0-6.6) 08/01/18 00:48 Troponin I 2.121 ng/mL (< 0.028) H* 08/01/18 03:26 - Assessment/Plan 1. CAD with hx of CABG with BRYANNA ligation in 2014 - stable; On ASA and Statin; will resume BBlocker with stable VS. 2. Hx of bioprosthetic AVR in 2014 - Echo in 2016 showed normal function. 3. Afib - On ASA 2/2 high risk of fall 4. Leg pain 2/2 Cellulitis - 5. HTN - stable 6. Dm type 2 - 7. ESRD - MAR reviewed Pt. seen and eval. by me. I agree with the A/P by the LEASING MACHINE TENDER. Overall carediac staus is stable. She complains of pain everywhere. DNR status discussed. Review of Systems - Review of Systems Constitutional: reports: no symptoms reported EENTM: reports: no symptoms reported Cardiac (ROS): reports: no symptoms reported ABD/GI: reports: no symptoms reported : reports: no symptoms reported Musculoskeletal: reports: no symptoms reported
--- NOTE | 2018-08-02 15:55 | PRG ---
DATE OF SERVICE: 08/02/2018 SUBJECTIVE: Patient was seen and examined at bedside and overnight events noted. Patient denies any shortness of breath or chest pain or palpitation. No history of nausea or vomiting or diarrhea or fever or chills or cramps. OBJECTIVE: GENERAL: This is a well-developed female, slightly confused. VITAL SIGNS: Temperature 93, pulse 81, respiratory rate 16. Blood pressure 145/49. HEENT: Atraumatic, normocephalic. Oral mucosa is moist NECK: Supple. CARDIOVASCULAR: S1, S2 heard. Rate and rhythm regular. RESPIRATORY: Clear to auscultation. GASTROINTESTINAL: Abdomen is soft. MUSCULOSKELETAL: No tenderness. No edema. DERMATOLOGIC: No skin rash. NEUROLOGIC: The patient is confused. PSYCHIATRIC: Mood and affect normal. LABORATORY DATA: Potassium is 4.4, BUN is 75, creatinine is 14.7. ASSESSMENT AND PLAN: 1. End-stage renal disease, on peritoneal dialysis. The patient is confused. We will continue on dialysis. Most likely uremia . 2. Edema, . 3. Hypertension. 4. Anemia. PLAN: Overall plan to continue on dialysis as tolerated. Job ID: [id number]
[2018-08-02] MEDS: Nystatin Cream 15 GM TUBE TOP SCH ×2 (17:10→21:29)
[2018-08-02] MEDS: Atorvastatin Calcium 40 MG TAB PO SCH (21:26)
[2018-08-03] MEDS: Heparin 5,000 UNITS/ML VIAL SC SCH ×2 (07:58→21:00)
[2018-08-03] MEDS: Nystatin Cream 15 GM TUBE TOP SCH ×3 (07:59→20:59)
--- NOTE | 2018-08-03 08:16 | PDOC.CTH ---
Cardiology Progress Note - Subjective The pt seen and examined. No overnight events. No cardiac complaints. She is more alerted this AM. - Objective Vital Signs Temp Pulse Resp BP Pulse Ox 08/03/18 05:02 98.6 F 88 16 158/67 H 92 L 08/03/18 00:23 98.4 F 88 16 124/70 92 L Weight 195 lb 08/02/18 08/03/18 08/04/18 06:59 06:59 06:59 Intake Total 340 240 Balance 340 240 - Physical Examination General/Neuro: other: (A&O to self and place) Lungs: other: (diminished at bases) Heart: RRR Abdomen: soft Extremities: other: (No edema) - Labs Result Diagrams: 08/02/18 06:18 08/02/18 06:18 Troponin/CKMB CK-MB (CK-2) 4.2 ng/mL (0-6.6) 08/01/18 00:48 Troponin I 2.121 ng/mL (< 0.028) H* 08/01/18 03:26 - Assessment/Plan 1. CAD with hx of CABG with BRYANNA ligation in 2014 - stable; On ASA and Statin; will resume BBlocker with stable VS. 2. Hx of bioprosthetic AVR in 2014 - Echo in 2016 showed normal function. 3. Afib - On ASA 2/2 high risk of fall 4. Leg pain 2/2 Cellulitis - start Tylenol 650mg PRN for pain 5. HTN - stable 6. Dm type 2 - 7. ESRD - MAR reviewed Pt. seen and eval. by me. I agree with the A/P by the LABORER [employer]. She is more alert after she received dialysis over the last 2 days. cardiac status is stable. Irreg/irreg. rhythm. Chest clear anteriorly. Review of Systems - Review of Systems Constitutional: reports: no symptoms reported EENTM: reports: no symptoms reported Respiratory: reports: no symptoms reported Cardiac (ROS): reports: no symptoms reported
[2018-08-03] MEDS: Acetaminophen 325 MG TAB PO PRN ×2 (09:23→18:48)
--- NOTE | 2018-08-03 12:08 | PRG ---
DATE OF SERVICE: 08/03/2018 SUBJECTIVE: The patient is seen and examined at the bedside. She still complains about pain in her both lower extremities below both knees, which is chronic. Her appetite is not that great, but she tries to eat. She asked for hospice yesterday. OBJECTIVE: VITAL SIGNS: Blood pressure is 139/68, pulse is 81, respiratory rate is 12, O2 saturation is 92% on room air. Her temperature is 98.1. HEENT: Sclerae nonicteric. Conjunctivae palish. Oral mucosa is moist. LUNGS: Clear. HEART: S1 and S2, somewhat irregular. No S3. No S4. ABDOMEN: Soft and nontender. EXTREMITIES: She has wrinkled skin on her both lower extremities below both knees, most likely secondary to volume loss. NEUROLOGICAL: She follows my commands. She moves her all 4 extremities. LABORATORY DATA: Labs showed glycemia ranging from 96 to 198. IMPRESSION AND PLAN: 1. Chronic lower extremity pain. Difficult to control this. This is chronic. Would not use any strong medications to control the pain. 2. Diabetes mellitus type 2. 3. Diastolic congestive heart failure. 4. End-stage renal disease, on dialysis. She has left upper extremity arteriovenous fistula. 5. Hyperlipidemia. 6. Hypertension. 7. Peripheral vascular disease. The patient is going to be seen by Hospice. 8. History of bioprosthetic aortic valve replacement. 9. Atrial fibrillation, on aspirin, not on any anticoagulation since she is a high risk for falling. Job ID: [id number]
[2018-08-03] MEDS: HumaLOG 300 UNITS/3 ML VIAL SC PRN (17:57)
--- NOTE | 2018-08-03 18:13 | PRG ---
DATE OF SERVICE: 08/03/2018 SUBJECTIVE: Patient was seen and examined at bedside and overnight events noted. Patient denies any shortness of breath or chest pain or palpitation. No history of nausea or vomiting or diarrhea or fever or chills or cramps. OBJECTIVE: GENERAL: This is a well-developed female, in no apparent distress. VITAL SIGNS: HEENT: Atraumatic, normocephalic. Oral mucosa is moist. NECK: Supple. CARDIOVASCULAR: S1, S2 heard. Rate and rhythm regular. RESPIRATORY: Clear to auscultation. GASTROINTESTINAL: Abdomen is soft. MUSCULOSKELETAL: No tenderness. No edema. DERMATOLOGIC: No skin rash. NEUROLOGIC: Alert and awake and oriented X3. No focal neurologic deficits. Moving all the extremities. PSYCHIATRIC: Mood and affect normal. LABORATORY DATA: Not done today. ASSESSMENT AND PLAN: 1. End-stage renal disease. Continue on peritoneal dialysis. We will repeat labs in the morning. 2. Hyperlipidemia. 3. Hypertension. 4. We will continue on PD as tolerated. The patient is okay with continuing with current dialysis. Job ID: [id number]
[2018-08-03] MEDS ORDERED: VANCOMYCIN HCL IVPB SCH (20:00)
[2018-08-03] MEDS ORDERED: DIANEAL IVPB SCH (20:00)
[2018-08-03] MEDS: Atorvastatin Calcium 40 MG TAB PO SCH (21:00)
[2018-08-04 05:08] LABS: Anion Gap 25 mmol/L (10-20); BUN (Urea Nitrogen) 88 mg/dL (9.8-20.1); Calc. Creatinine Clearance 5 mL/min (70-130); Carbon Dioxide 19 mmol/L (23-31); Chloride 91 mmol/L (98-107); Estimated GFR-MDRD 3; Glucose 147 mg/dL (83-110); Sodium 131 mmol/L (136-145)
[2018-08-04] MEDS: HumaLOG 300 UNITS/3 ML VIAL SC PRN (06:32)
[2018-08-04] MEDS: Heparin 5,000 UNITS/ML VIAL SC SCH ×2 (08:21→21:28)
[2018-08-04] MEDS: Nystatin Cream 15 GM TUBE TOP SCH ×3 (08:21→21:28)
--- NOTE | 2018-08-04 11:56 | PRG ---
DATE OF SERVICE: 08/04/2018 SUBJECTIVE: The patient indicates she is still having some pain and she is not talking a whole lot, still appears a bit encephalopathic, but has no other questions or complaints. OBJECTIVE: VITAL SIGNS: Temperature is 98.2, pulse 88, respirations 12, O2 saturation 95% on 2 L. BP from 122/67 to 169/69. GENERAL APPEARANCE: Age-appropriate female. She does appear to be encephalopathic. She is sitting up in bed eating. She is using a fork, but having some difficulties with spatial orientation, trying to get the food on her fork. She has a bit of tremor. She is not significantly conversant although she appears to be generally awake. HEART: Her heart is a bit hyperdynamic with S3 gallop and 1 to 2/6 murmur. LUNGS: Clear bilaterally with good chest wall expansion and air exchange. ABDOMEN: Soft, nontender. EXTREMITIES: The right lower extremity has coolness to touch of the forefoot and toes. There is no palpable pulses on either foot or ankle. There is no overt ischemia. Cap refill is a bit slow on the right at the foot and very minimal with the toes. LABORATORY DATA: Sodium 131, potassium 4.0, chloride 91, CO2 is 19, BUN 88, creatinine 13.34, glucose 147 to 203. IMPRESSION AND PLAN: 1. 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 Reviewed previous lower extremity arterial Dopplers which was focused on the left, but showed significant stenosis and I have trouble believing that is what is happening on the right as well. It does not appear to be limb-threatening at this time and given the overall situation, we will not pursue further Doppler at this time. 2. Uremia. The patient has evidence of uremic encephalopathy. She is receiving peritoneal dialysis, followed by Nephrology. We will continue with that plan. 3. End-stage renal disease, on peritoneal dialysis as above. Continue with the PD. 4. Diabetes mellitus, adequately controlled. 5. Diastolic heart failure, primarily volume controlled with dialysis. 6. Peripheral vascular disease as above. 7. History of a bioprosthetic aortic valve, stable. 8. History of atrial fibrillation, on aspirin alone due to high risk of falls. 9. Hypertension, stable. 10. Hyperlipidemia, stable. 11. Disposition: The patient was initially looking toward hospice. However, at this point, she is refusing. I think she does not want that. However, she is not oriented and is still encephalopathic. Palliative care has been consulted. Discussed this with the nurse. We will need their assistance in helping guide us through these decisions at this time. Job ID: [id number]
--- NOTE | 2018-08-04 12:04 | PDOC.CTH ---
Cardiology Progress Note - Subjective The pt seen and examined. No overnight events. The pt could not answer or follow any commands this AM. - Objective Vital Signs Temp Pulse Resp BP Pulse Ox 08/04/18 08:00 98.2 F 88 12 169/69 H 95 08/04/18 04:31 98.0 F 79 14 149/68 H 94 L Admit Weight 195 lb Weight 195 lb 08/03/18 08/04/18 08/05/18 06:59 06:59 06:59 Intake Total 240 240 Balance 240 240 - Physical Examination General/Neuro: alert & oriented x3 Neck: no JVD present Lungs: CTA Heart: other: (irregular) Abdomen: soft Extremities: other: (No edema) - Labs Result Diagrams: 08/02/18 06:18 08/04/18 04:25 Troponin/CKMB CK-MB (CK-2) 4.2 ng/mL (0-6.6) 08/01/18 00:48 Troponin I 2.121 ng/mL (< 0.028) H* 08/01/18 03:26 - Assessment/Plan 1. CAD with hx of CABG with BRYANNA ligation in 2014 - stable; On ASA and Statin; will resume BBlocker with stable VS. 2. Hx of bioprosthetic AVR in 2014 - Echo in 2016 showed normal function. 3. Afib - On ASA 2/2 high risk of fall 4. Leg pain 2/2 Cellulitis - start Tylenol 650mg PRN for pain 5. HTN - stable 6. Dm type 2 - 7. ESRD - JUN reviewed Pt. seen and eval. by me. She is fatigued but more alert today than yesterday. Cardiac status is stable with Afib. rate controlled. Poor candidate for OAC.gjm. Review of Systems - Review of Systems Constitutional: reports: see HPI
[2018-08-04] MEDS: Scopolamine 1.5 mg/72 hour Patch TD SCH (12:18)
[2018-08-04] MEDS: Acetaminophen 325 MG TAB PO PRN (17:04)
--- NOTE | 2018-08-04 17:44 | PRG ---
DATE OF SERVICE: 08/04/2018 SUBJECTIVE: Patient was seen and examined at bedside and overnight events noted. Patient denies any shortness of breath or chest pain or palpitation. No history of nausea or vomiting or diarrhea or fever or chills or cramps. OBJECTIVE: GENERAL: This is a well-built female, in no acute distress. VITAL SIGNS: Temperature 98.3. Heart rate 94. Respiratory rate 14. Blood pressure 169/69. HEENT: Atraumatic, normocephalic. Oral mucosa is moist NECK: Supple. CARDIOVASCULAR: S1, S2 heard. Rate and rhythm regular. RESPIRATORY: Clear to auscultation. GASTROINTESTINAL: Abdomen is soft. MUSCULOSKELETAL: No tenderness. No edema. DERMATOLOGIC: No skin rash. NEUROLOGIC: Alert and awake and oriented X3. No focal neurologic deficits. Moving all the extremities. PSYCHIATRIC: Mood and affect normal. LABORATORY DATA: Potassium is 4.0, BUN is 88, creatinine ASSESSMENT AND PLAN: 1. End-stage renal disease on peritoneal dialysis. Continue peritoneal dialysis. 2. Hypertension. 3. Anemia. 4. Edema. Plan to continue PD as tolerated. I did talk with the daughter. peritoneal dialysis. Family is unsure about the long-term plan, would want to try PD for few a days before making a decision. Job ID: [id number]
[2018-08-04] MEDS ORDERED: Lice Shampoo 120 ML BOT TOP SCH (18:00)
--- NOTE | 2018-08-04 19:50 | RAD ---
PORTABLE CHEST ONE VIEW: 08/04/18 at 7:55 p.m. HISTORY: Fever. FINDINGS/IMPRESSION: Comparison made with exam of 04/04/18. Changes of median sternotomy again seen. Left sided vascular stent is again noted. A prosthetic heart valve is again seen and the heart is enlarged. There is pulmonary vascular congestion. There is sugg estion of a small left pleural effusion and adjacent mild infiltrate/atelectatic change. No pneumotho races are seen. POS: [facility]
[2018-08-04] MEDS: Atorvastatin Calcium 40 MG TAB PO SCH (21:37)
--- NOTE | 2018-08-04 22:07 | PDOC.EVN ---
Event Note - Event Note Event Note: Nurse reported the discovery of head lice on this patient. Treated with lice shampoo. Also had slight worsening of her encephalopathy today. Had fever. CXR, blood cx obtained. CXR shows possible evidence of developing pneumonia. Repeat cxr in am. Patient is not making urine, no UA obtained. Tylenol ok.
--- NOTE | 2018-08-05 08:17 | RAD ---
AP view chest history: 77-year-old with history of pneumonia. AP view chest obtained on 08/05/2018 comparison made to previous exam from 08/04/2018. AP view chest demonstrates sternotomy wires seen. There is a left subclavian endovascular stent in pl jose. A prosthetic cardiac valve is seen. No evidence of effusions, pneumonia or pneumothorax seen. IMPRESSION: status post thoracotomy changes. No acute intrathoracic abnormality seen.
--- NOTE | 2018-08-05 09:04 | PDOC.PN ---
- Subjective Encounter Start Date: 08/05/18 Encounter Start Time: 12:00 Subjective: Patient very sleepy, will arouse to stimulation but won't say much. -: Will yell "Ouch!" with any touching of the lower extremities, but then -: goes back to sleep. - Objective Resuscitation Status - Order Detail: 08/01/18 11:05 Resuscitation Status Routine Resuscitation Status: DNAR: NO Resuscitation Discussed with: Patient MAR Reviewed: Yes Vital Signs & Weight: Vital Signs (12 hours) Temp Pulse Resp BP Pulse Ox 08/05/18 07:55 98.2 F 76 14 123/63 98 08/05/18 03:10 97.7 F 79 20 130/54 L 95 08/05/18 00:02 97.6 F 80 20 111/62 95 08/04/18 21:28 95 Weight Admit Weight 195 lb Weight 195 lb I&O: 08/04/18 08/05/18 08/06/18 06:59 06:59 06:59 Intake Total 820 Output Total 0 Balance 820 Result Diagrams: 08/02/18 06:18 08/04/18 04:25 Additional Labs: Accuchecks 08/05/18 08/04/18 08/04/18 06:19 20:53 16:24 POC Glucose 190 H 179 H 148 H 08/04/18 11:26 POC Glucose 120 H Phys Exam - Physical Examination Constitutional: NAD HEENT: moist MMs Respiratory: no wheezing, no rales, no rhonchi Cardiovascular: RRR Gastrointestinal: soft, non-tender, positive bowel sounds Musculoskeletal: no edema Deviation from normal: somnolent, minimally verbal Dx/Plan (1) Pain of right lower extremity Code(s): M79.604 - PAIN IN RIGHT LEG Status: Acute Comment: likely uremia and neuropathy, has chronic diffuse body pain as well (2) Acute metabolic encephalopathy Code(s): G93.41 - METABOLIC ENCEPHALOPATHY Status: Acute (3) End stage renal disease on dialysis Code(s): N18.6 - END STAGE RENAL DISEASE; Z99.2 - DEPENDENCE ON RENAL DIALYSIS Status: Chronic (4) CAD (coronary artery disease) Code(s): I25.10 - ATHSCL HEART DISEASE OF [place] CORONARY ARTERY W/O ANG PCTRS Status: Chronic Qualifiers: (5) Diabetes type 2, controlled Code(s): E11.9 - TYPE 2 DIABETES MELLITUS WITHOUT COMPLICATIONS Status: Chronic Qualifiers: Comment: continue accuchecks, insulin sliding scale (6) Diastolic CHF Code(s): I50.30 - UNSPECIFIED DIASTOLIC (CONGESTIVE) HEART FAILURE Status: Chronic Qualifiers: Comment: stable (7) GERD (gastroesophageal reflux disease) Code(s): K21.9 - GASTRO-ESOPHAGEAL REFLUX DISEASE WITHOUT ESOPHAGITIS Status: Chronic Qualifiers: Esophagitis presence: without esophagitis Qualified Code(s): K21.9 - Gastro -esophageal reflux disease without esophagitis (8) H/O aortic valve replacement Code(s): Z95.2 - PRESENCE OF PROSTHETIC HEART VALVE Status: Chronic (9) HLD (hyperlipidemia) Code(s): E78.5 - HYPERLIPIDEMIA, UNSPECIFIED Status: Chronic Qualifiers: (10) HTN (hypertension) Code(s): I10 - ESSENTIAL (PRIMARY) HYPERTENSION Status: Chronic Qualifiers: (11) Obesity (BMI 30-39.9) Code(s): E66.9 - OBESITY, UNSPECIFIED Status: Chronic (12) PVD (peripheral vascular disease) Code(s): I73.9 - PERIPHERAL VASCULAR DISEASE, UNSPECIFIED Status: Chronic - Plan cont current plan of care, social media director Patient further declining inspite of dialysis, plan for family -: meeting tomorrow at 1700 with daughter (POA) to discuss going home -: on hospice * . - Discharge Day Encounter end time: 12:20
[2018-08-05] MEDS: Nystatin Cream 15 GM TUBE TOP SCH ×3 (10:11→19:53)
[2018-08-05] MEDS: Heparin 5,000 UNITS/ML VIAL SC SCH ×2 (10:12→19:52)
[2018-08-05 12:41] VITALS: BMI 36.6
--- NOTE | 2018-08-05 12:52 | PDOC.CTH ---
Cardiology Progress Note - Subjective The pt seen and examined. No overnight events. The pt is very drowsy and could not wake up or follow any commands. - Objective Vital Signs Temp Pulse Resp BP Pulse Ox 08/05/18 11:21 98.4 F 88 16 138/63 94 L 08/05/18 07:55 98.2 F 76 14 123/63 98 08/05/18 03:10 97.7 F 79 20 130/54 L 95 Admit Weight 195 lb Weight 187 lb 7.04 oz 08/04/18 08/05/18 08/06/18 06:59 06:59 06:59 Intake Total 820 Output Total 0 Balance 820 - Physical Examination General/Neuro: other: (confused) Heart: other: (irregular) Abdomen: soft Extremities: other: (No edema) - Labs Result Diagrams: 08/02/18 06:18 08/04/18 04:25 Troponin/CKMB CK-MB (CK-2) 4.2 ng/mL (0-6.6) 08/01/18 00:48 Troponin I 2.121 ng/mL (< 0.028) H* 08/01/18 03:26 - Assessment/Plan 1. CAD with hx of CABG with BRYANNA ligation in 2014 - stable; On ASA and Statin; will resume BBlocker with stable VS. 2. Hx of bioprosthetic AVR in 2014 - Echo in 2016 showed normal function. 3. Afib - On ASA 2/2 high risk of fall and hx of BRYANNA ligation in 2014 4. Leg pain 2/2 Cellulitis - start Tylenol 650mg PRN for pain 5. HTN - stable 6. Dm type 2 - 7. ESRD - JUN reviewed Pt. seen and eval. by me. She is fatigued . Cardiac status is stable with Afib. rate controlled. Poor candidate for OAC.I will sign off. If any new cardiac issues then please page me again. gjm. Review of Systems - Review of Systems Constitutional: reports: see HPI
--- NOTE | 2018-08-05 15:00 | PQF ---
CLINICAL DOCUMENTATION IMPROVEMENT CLARIFICATION FORM: ICD-10 Updated PLEASE DO AN ADDENDUM TO THE PROGRESS NOTE WITH ANY DOCUMENTATION UPDATES OR ADDITIONS AND CARRY THROUGH TO DC SUMMARY. THANK YOU. DATE: 08/05/2018 ATTN: Dr. Araiza Please exercise your independent, professional judgment in responding to the clarification form. Clinical indicators are provided on the bottom of this form for your review Please check appropriate box(s): [ X ] I (concur) with the Wound Care findings as stated below. [ ] Pressure Ulcer: (Stage I: Erythema; Stage II: Partial thickness; Stage III : Full thickness; Stage IV: Necrosis to muscle/bone) [ ] Location: POA: [ ] Yes [ ] No [ ] Unable to determine Stage (I to IV): ___(Left__Right__Bilateral__N/A__) [ ] Location: POA: [ ] Yes [ ] No [ ] Unable to determine Stage (I to IV): ___(Left___Right__Bilateral__N/A__) [ ] Other diagnosis [ ] Unable to determine In addition, please specify: Present on Admission (POA): [ ] Yes [ ] No [ ] Unable to determine For continuity of documentation, please document condition throughout progress notes and discharge summary. Thank You. CLINICAL INDICATORS - SIGNS / SYMPTOMS / LABS ER Nursing Assessment 08/01 : Inspection findings include pressure ulcer to the sacrum. Wound Care Assessment 08/02: Right Buttock. Pressure Ulcer. Stage II Left Buttock. Pressure Ulcer. Stage II RISKS: H&P 08/01: 77 yo w/ long-term hx of severe significant pain, cardiac disease a as well as ESRD, cellulitis, CHF, HTN. Diabetes mellitus. Obesity. TREATMENTS: Order for Wound Care Eval 08/02. WC Recommendations 08/02: Follow Nursing Wound Care Protocol Reinforce with absorbent pad and perforated tape. Pre-ulcer skin changes limited to persistent focal edema (Stage 1) Abrasion, blister, partial thickness skin loss involving epidermis and/or dermis (Stage 2) Full thickness skin loss involving damage or necrosis of SQ tissue. (Stage 3) Necrosis of soft tissue through to underlying muscle, tendon, or bone. (Stage 4) Purple or maroon discolored skin or blood filled blister Thank you, Krystina (This form is maintained as a part of the permanent medical record) 2015 [employer], [email or web address]. All Rights Reserved Krystina Escobedo RN, BSN [email or web address] Office: [phone] [facility]ENTER[facility]in
--- NOTE | 2018-08-05 15:53 | PRG ---
DATE OF SERVICE: 08/05/2018 SUBJECTIVE: Patient was seen and examined at bedside and overnight events noted. Patient denies any shortness of breath or chest pain or palpitation. No history of nausea or vomiting or diarrhea or fever or chills or cramps. OBJECTIVE: GENERAL: This is a well-built female, in no apparent distress. VITAL SIGNS: Temperature 98.4. Pulse 88. Respiratory rate 16. Blood pressure 138/63. HEENT: Atraumatic, normocephalic. Oral mucosa is moist NECK: Supple. CARDIOVASCULAR: S1, S2 heard. Rate and rhythm regular. RESPIRATORY: Clear to auscultation. GASTROINTESTINAL: Abdomen is soft. MUSCULOSKELETAL: No tenderness. No edema. DERMATOLOGIC: No skin rash. NEUROLOGIC: Alert and awake and oriented X3. No focal neurologic deficits. Moving all the extremities. PSYCHIATRIC: Mood and affect normal. LABORATORY DATA: Not done today. ASSESSMENT AND PLAN: 1. End-stage renal disease. Continue on peritoneal dialysis. 2. Hypertension. 3. Anemia. 4. Edema. We will continue on peritoneal dialysis as tolerated. Job ID: [id number]
[2018-08-05] MEDS: traMADol HCl 50 MG TAB PO PRN (19:51)
[2018-08-05] MEDS: Acetaminophen 325 MG TAB PO PRN (19:51)
[2018-08-05] MEDS: Atorvastatin Calcium 40 MG TAB PO SCH (19:52)
[2018-08-06 07:14] LABS: #Basophils 0.1 thou/uL (0.0-0.2); #Eosinphils 0.5 thou/uL (0.0-0.7); #Lymphocytes 0.7 thou/uL (1.20-3.40); #Monocytes 1.1 thou/uL (0.11-0.59); #Neutrophils 13.5 thou/uL (1.40-6.50); %Basophils 0.4 % (0.0-1.0); %Eosinophils 2.9 % (0.0-10.0); %Lymphocytes 4.3 % (21.0-51.0); %Monocytes 6.8 % (0.0-10.0); %Neutrophils 85.6 % (42.0-75.0); Hemoglobin 8.3 g/dL (12.0-16.0); Mean Corpuscular HGB CONC 31.3 g/dL (32.0-36.0); Mean Corpuscular Hemoglobin 32.6 pg (27.0-31.0); Mean Platelet Volume 7.5 fL (7.4-10.4); Platelet Count 270 thou/uL (130-400); RBC Distribution Width 15.1 % (11.5-14.5); Red Blood Cell (RBC) Count 2.55 mill/uL (4.20-5.40); White Blood Cell (WBC) Count 15.7 thou/uL (4.8-10.8)
[2018-08-06 07:36] LABS: Anion Gap 25 mmol/L (10-20); BUN (Urea Nitrogen) 90 mg/dL (9.8-20.1); Calc. Creatinine Clearance 5 mL/min (70-130); Calcium 8.1 mg/dL (7.8-10.44); Carbon Dioxide 22 mmol/L (23-31); Chloride 92 mmol/L (98-107); Estimated GFR-MDRD 3; Glucose 117 mg/dL (83-110); Sodium 135 mmol/L (136-145)
[2018-08-06] MEDS: traMADol HCl 50 MG TAB PO PRN ×2 (08:06→18:44)
[2018-08-06] MEDS: Heparin 5,000 UNITS/ML VIAL SC SCH ×2 (08:06→20:18)
[2018-08-06] MEDS: Nystatin Cream 15 GM TUBE TOP SCH ×3 (08:07→22:00)
--- NOTE | 2018-08-06 08:21 | PDOC.PN ---
- Subjective Encounter Start Date: 08/06/18 Encounter Start Time: 10:40 Subjective: Patient more alert and talkative today. Reports whole body pain and asking -: for pain meds. Wants to go home with peritoneal dialysis. - Objective Resuscitation Status - Order Detail: 08/01/18 11:05 Resuscitation Status Routine Resuscitation Status: DNAR: NO Resuscitation Discussed with: Patient MATTHEW Reviewed: Yes Vital Signs & Weight: Vital Signs (12 hours) Temp Pulse Resp BP Pulse Ox 08/06/18 07:48 97.5 F L 71 16 138/66 98 08/06/18 03:20 98.0 F 72 20 104/46 L 97 08/05/18 23:59 99.0 F 72 20 138/60 99 08/05/18 20:49 97.6 F 71 20 100/69 98 Weight Admit Weight 195 lb Weight 187 lb 7.04 oz I&O: 08/05/18 08/06/18 08/07/18 06:59 06:59 06:59 Intake Total 820 230 Output Total 0 0 Balance 820 230 Result Diagrams: 08/06/18 06:22 08/06/18 06:22 Additional Labs: Accuchecks 08/06/18 08/05/18 08/05/18 05:37 21:10 15:35 POC Glucose 121 H 287 H 144 H 08/05/18 11:20 POC Glucose 149 H Phys Exam - Physical Examination Constitutional: NAD HEENT: moist MMs Respiratory: no wheezing, no rales, no rhonchi Cardiovascular: RRR Gastrointestinal: soft, non-tender, positive bowel sounds Musculoskeletal: no edema TTP diffusely on lower extremities Neurological: moves all 4 limbs Psychiatric: normal affect Deviation from normal: oriented to person, knows in hospital, doesn't know year , understands situation decently Dx/Plan (1) Pain of right lower extremity Code(s): M79.604 - PAIN IN RIGHT LEG Status: Acute Comment: likely uremia and neuropathy, has chronic diffuse body pain as well (2) Acute metabolic encephalopathy Code(s): G93.41 - METABOLIC ENCEPHALOPATHY Status: Acute Comment: fluctuating, more clear today (3) End stage renal disease on dialysis Code(s): N18.6 - END STAGE RENAL DISEASE; Z99.2 - DEPENDENCE ON RENAL DIALYSIS Status: Chronic (4) CAD (coronary artery disease) Code(s): I25.10 - ATHSCL HEART DISEASE OF [place] CORONARY ARTERY W/O ANG PCTRS Status: Chronic Qualifiers: (5) Diabetes type 2, controlled Code(s): E11.9 - TYPE 2 DIABETES MELLITUS WITHOUT COMPLICATIONS Status: Chronic Qualifiers: Comment: continue accuchecks, insulin sliding scale (6) Diastolic CHF Code(s): I50.30 - UNSPECIFIED DIASTOLIC (CONGESTIVE) HEART FAILURE Status: Chronic Qualifiers: Comment: stable (7) GERD (gastroesophageal reflux disease) Code(s): K21.9 - GASTRO-ESOPHAGEAL REFLUX DISEASE WITHOUT ESOPHAGITIS Status: Chronic Qualifiers: Esophagitis presence: without esophagitis Qualified Code(s): K21.9 - Gastro -esophageal reflux disease without esophagitis (8) H/O aortic valve replacement Code(s): Z95.2 - PRESENCE OF PROSTHETIC HEART VALVE Status: Chronic (9) HLD (hyperlipidemia) Code(s): E78.5 - HYPERLIPIDEMIA, UNSPECIFIED Status: Chronic Qualifiers: (10) HTN (hypertension) Code(s): I10 - ESSENTIAL (PRIMARY) HYPERTENSION Status: Chronic Qualifiers: (11) Obesity (BMI 30-39.9) Code(s): E66.9 - OBESITY, UNSPECIFIED Status: Chronic (12) PVD (peripheral vascular disease) Code(s): I73.9 - PERIPHERAL VASCULAR DISEASE, UNSPECIFIED Status: Chronic - Plan cont current plan of care plan for family meeting with POA daughter about possibly home -: on hospice vs. peritoneal dialysis * . - Discharge Day Encounter end time: 10:50
--- NOTE | 2018-08-06 11:41 | PRG ---
DATE OF SERVICE: 08/06/2018 SUBJECTIVE: Patient was seen and examined at bedside and overnight events noted. Patient denies any shortness of breath or chest pain or palpitation. No history of nausea or vomiting or diarrhea or fever or chills or cramps. OBJECTIVE: GENERAL: This is a well-built elderly female, in no apparent distress. VITAL SIGNS: Temperature 97.5, pulse 71, respiratory rate 18, blood pressure 138/66. HEENT: Atraumatic, normocephalic. Oral mucosa is moist. NECK: Supple. CARDIOVASCULAR: S1, S2 heard. Rate and rhythm regular. RESPIRATORY: Clear to auscultation. GASTROINTESTINAL: Abdomen is soft. MUSCULOSKELETAL: No tenderness. No edema. DERMATOLOGIC: No skin rash. NEUROLOGIC: Alert and awake and oriented X3. No focal neurologic deficits. Moving all the extremities. PSYCHIATRIC: Mood and affect normal. LABORATORY DATA: Potassium is 4.0, BUN is 90, creatinine is 12.5. ASSESSMENT AND PLAN: 1. End-stage renal disease. Continue with peritoneal dialysis as tolerated. 2. Hypertension, stable. 3. Anemia. 4. Edema, controlled. We will continue on peritoneal dialysis as tolerated. Job ID: [id number]
[2018-08-06] MEDS: HumaLOG 300 UNITS/3 ML VIAL SC PRN (12:17)
[2018-08-06] MEDS: diphenhydrAMINE 50 MG CAP PO PRN (20:13)
[2018-08-06] MEDS: Atorvastatin Calcium 40 MG TAB PO SCH (20:14)
[2018-08-06] MEDS: Acetaminophen 325 MG TAB PO PRN (20:15)
[2018-08-07] MEDS: diphenhydrAMINE 50 MG CAP PO PRN ×2 (05:46→12:18)
[2018-08-07] MEDS: traMADol HCl 50 MG TAB PO PRN (05:46)
[2018-08-07] MEDS: Nystatin Cream 15 GM TUBE TOP SCH ×3 (09:47→20:05)
[2018-08-07] MEDS: Heparin 5,000 UNITS/ML VIAL SC SCH ×2 (09:47→20:07)
--- NOTE | 2018-08-07 11:32 | PDOC.PN ---
- Subjective Encounter Start Date: 08/07/18 Encounter Start Time: 11:30 Patient seen and examined, no new issues. No family at bedside. - Objective Resuscitation Status - Order Detail: 08/01/18 11:05 Resuscitation Status Routine Resuscitation Status: DNAR: NO Resuscitation Discussed with: Patient Vital Signs & Weight: Vital Signs (12 hours) Temp Pulse Resp BP Pulse Ox 08/07/18 08:00 98.1 F 75 16 142/63 H 92 L 08/07/18 05:00 98.4 F 70 16 127/57 L 95 08/07/18 00:00 98.5 F 72 16 137/70 95 Weight Admit Weight 195 lb Weight 187 lb 7.04 oz I&O: 08/06/18 08/07/18 08/08/18 06:59 06:59 06:59 Intake Total 230 480 Output Total 0 Balance 230 480 Result Diagrams: 08/06/18 06:22 08/06/18 06:22 Additional Labs: Accuchecks 08/07/18 08/07/18 08/06/18 10:52 05:38 20:35 POC Glucose 221 H 136 H 188 H 08/06/18 08/06/18 15:28 11:12 POC Glucose 115 H 250 H Phys Exam - Physical Examination Constitutional: NAD HEENT: PERRLA, moist MMs, sclera anicteric Neck: no nodes, no JVD, supple Respiratory: no wheezing, no rales, no rhonchi Cardiovascular: RRR, no significant murmur, no rub Gastrointestinal: soft, non-tender, no distention, positive bowel sounds Musculoskeletal: pulses present, edema present Dx/Plan (1) Pain Code(s): R52 - PAIN, UNSPECIFIED Status: Acute (2) Leg pain Status: Acute (3) Diabetes type 2, controlled Code(s): E11.9 - TYPE 2 DIABETES MELLITUS WITHOUT COMPLICATIONS Status: Chronic Qualifiers: Comment: continue accuchecks, insulin sliding scale (4) Diastolic CHF Code(s): I50.30 - UNSPECIFIED DIASTOLIC (CONGESTIVE) HEART FAILURE Status: Chronic Qualifiers: Comment: stable (5) End stage renal disease on dialysis Code(s): N18.6 - END STAGE RENAL DISEASE; Z99.2 - DEPENDENCE ON RENAL DIALYSIS Status: Chronic (6) HLD (hyperlipidemia) Code(s): E78.5 - HYPERLIPIDEMIA, UNSPECIFIED Status: Chronic Qualifiers: (7) HTN (hypertension) Code(s): I10 - ESSENTIAL (PRIMARY) HYPERTENSION Status: Chronic Qualifiers: (8) PVD (peripheral vascular disease) Code(s): I73.9 - PERIPHERAL VASCULAR DISEASE, UNSPECIFIED Status: Chronic - Plan * cont current plan of care * hospice decision pending * dialysis per renal * no family at bedside * will await patient and family decision on hospice care when done * no changes in plan of care othewise
[2018-08-07] MEDS: Scopolamine 1.5 mg/72 hour Patch TD SCH (12:17)
[2018-08-07] MEDS: HumaLOG 300 UNITS/3 ML VIAL SC PRN ×2 (12:18→18:45)
[2018-08-07] MEDS: Atorvastatin Calcium 40 MG TAB PO SCH (20:12)
[2018-08-08] MEDS: diphenhydrAMINE 50 MG CAP PO PRN ×2 (05:24→11:01)
[2018-08-08] MEDS: HumaLOG 300 UNITS/3 ML VIAL SC PRN (06:37)
[2018-08-08] MEDS: Heparin 5,000 UNITS/ML VIAL SC SCH ×2 (09:50→19:59)
[2018-08-08] MEDS: Nystatin Cream 15 GM TUBE TOP SCH ×3 (09:50→19:58)
[2018-08-08] MEDS: traMADol HCl 50 MG TAB PO PRN (11:01)
--- NOTE | 2018-08-08 11:34 | PDOC.PN ---
- Subjective Encounter Start Date: 08/08/18 Encounter Start Time: 11:32 Patient seen and examined, no other issues, no family at bedside, all questions answered. - Objective Resuscitation Status - Order Detail: 08/01/18 11:05 Resuscitation Status Routine Resuscitation Status: DNAR: NO Resuscitation Discussed with: Patient Vital Signs & Weight: Vital Signs (12 hours) Temp Pulse Resp BP Pulse Ox 08/08/18 07:46 98.1 F 78 18 144/82 H 93 L 08/08/18 05:14 97.7 F 80 18 175/51 H 98 08/08/18 00:00 98.8 F 81 16 156/61 H 98 Weight Admit Weight 195 lb Weight 187 lb 7.04 oz I&O: 08/07/18 08/08/18 08/09/18 06:59 06:59 06:59 Intake Total 480 100 Balance 480 100 Result Diagrams: 08/06/18 06:22 08/06/18 06:22 Additional Labs: Accuchecks 08/08/18 08/07/18 08/07/18 05:34 20:46 15:47 POC Glucose 179 H 166 H 199 H Phys Exam - Physical Examination Constitutional: NAD HEENT: PERRLA, moist MMs, sclera anicteric Neck: no nodes, no JVD, supple Respiratory: no wheezing, no rales, no rhonchi Cardiovascular: RRR, no significant murmur, no rub Gastrointestinal: soft, non-tender, no distention, positive bowel sounds Musculoskeletal: pulses present, edema present Dx/Plan (1) Pain Code(s): R52 - PAIN, UNSPECIFIED Status: Acute (2) Leg pain Status: Acute (3) Diabetes type 2, controlled Code(s): E11.9 - TYPE 2 DIABETES MELLITUS WITHOUT COMPLICATIONS Status: Chronic Qualifiers: Comment: continue accuchecks, insulin sliding scale (4) Diastolic CHF Code(s): I50.30 - UNSPECIFIED DIASTOLIC (CONGESTIVE) HEART FAILURE Status: Chronic Qualifiers: Comment: stable (5) End stage renal disease on dialysis Code(s): N18.6 - END STAGE RENAL DISEASE; Z99.2 - DEPENDENCE ON RENAL DIALYSIS Status: Chronic (6) HLD (hyperlipidemia) Code(s): E78.5 - HYPERLIPIDEMIA, UNSPECIFIED Status: Chronic Qualifiers: (7) HTN (hypertension) Code(s): I10 - ESSENTIAL (PRIMARY) HYPERTENSION Status: Chronic Qualifiers: (8) PVD (peripheral vascular disease) Code(s): I73.9 - PERIPHERAL VASCULAR DISEASE, UNSPECIFIED Status: Chronic - Plan * patient still wants hospice, arrangements pending * PD per renal * no changes in plan of care * DC once hospice arranged * case and plan d/w patient at length, she understood and agreed with this plan.
--- NOTE | 2018-08-08 13:26 | PRG ---
DATE OF SERVICE: 08/08/2018 SUBJECTIVE: Patient was seen and examined at bedside and overnight events noted. Patient denies any shortness of breath or chest pain or palpitation. No history of nausea or vomiting or diarrhea or fever or chills or cramps. OBJECTIVE: GENERAL: This is an obese female, in no apparent distress. VITAL SIGNS: Temperature 98.5. Heart rate 86. Respiratory rate 18. Blood pressure 142/96. HEENT: Atraumatic, normocephalic. Oral mucosa is moist NECK: Supple. CARDIOVASCULAR: S1, S2 heard. Rate and rhythm regular. RESPIRATORY: Clear to auscultation. GASTROINTESTINAL: Abdomen is soft. MUSCULOSKELETAL: No tenderness. No edema. DERMATOLOGIC: No skin rash. NEUROLOGIC: Alert and awake and oriented X3. No focal neurologic deficits. Moving all the extremities. PSYCHIATRIC: Mood and affect normal. LABORATORY DATA: Not done today. ASSESSMENT AND PLAN: 1. End-stage renal disease. Continue on peritoneal dialysis as tolerated. 2. Hypertension. 3. Anemia. 4. Edema, controlled. We will order labs in the morning. We will have a rehab screen. Job ID: [id number]
[2018-08-08] MEDS: Atorvastatin Calcium 40 MG TAB PO SCH (19:59)
[2018-08-09 05:26] LABS: Anion Gap 28 mmol/L (10-20); BUN (Urea Nitrogen) 90 mg/dL (9.8-20.1); Calc. Creatinine Clearance 5 mL/min (70-130); Calcium 8.1 mg/dL (7.8-10.44); Carbon Dioxide 19 mmol/L (23-31); Chloride 90 mmol/L (98-107); Estimated GFR-MDRD 3; Glucose 230 mg/dL (83-110); Potassium 4.7 mmol/L (3.5-5.1); Sodium 132 mmol/L (136-145)
[2018-08-09] MEDS: Acetaminophen 325 MG TAB PO PRN ×2 (08:46→17:08)
[2018-08-09] MEDS: traMADol HCl 50 MG TAB PO PRN ×2 (08:46→17:08)
[2018-08-09] MEDS: Heparin 5,000 UNITS/ML VIAL SC SCH ×2 (08:47→20:58)
[2018-08-09] MEDS: Nystatin Cream 15 GM TUBE TOP SCH ×3 (08:48→20:58)
--- NOTE | 2018-08-09 09:14 | PRG ---
DATE OF SERVICE: 08/07/2018 SUBJECTIVE: Patient was seen and examined at bedside and overnight events noted. Patient denies any shortness of breath or chest pain or palpitation. No history of nausea or vomiting or diarrhea or fever or chills or cramps. OBJECTIVE: GENERAL: This is an obese female, in no apparent distress. VITAL SIGNS: Temperature 97.7. Pulse 74. Respiratory rate 18. Blood pressure 148/70. HEENT: Atraumatic, normocephalic. Oral mucosa is moist NECK: Supple. CARDIOVASCULAR: S1, S2 heard. Rate and rhythm regular. RESPIRATORY: Clear to auscultation. GASTROINTESTINAL: Abdomen is soft. MUSCULOSKELETAL: No tenderness. No edema. DERMATOLOGIC: No skin rash. NEUROLOGIC: Alert and awake and oriented X3. No focal neurologic deficits. Moving all the extremities. PSYCHIATRIC: Mood and affect normal. LABORATORY DATA: None done today. ASSESSMENT AND PLAN: 1. End-stage renal disease. Continue on peritoneal dialysis as tolerated. 2. Hypertension. 3. Anemia. 4. Edema. I will remove fluid. Continue on peritoneal dialysis as tolerated. Job ID: [id number]
--- NOTE | 2018-08-09 09:51 | PDOC.PN ---
- Subjective Encounter Start Date: 08/09/18 Encounter Start Time: 11:00 Subjective: Patient reports significant bilateral lower extremity pain. No other -: complaints. Awake and alert today. - Objective Resuscitation Status - Order Detail: 08/01/18 11:05 Resuscitation Status Routine Resuscitation Status: DNAR: NO Resuscitation Discussed with: Patient MAR Reviewed: Yes Vital Signs & Weight: Vital Signs (12 hours) Temp Pulse Resp BP Pulse Ox 08/09/18 07:22 97.7 F 85 18 152/88 H 94 L 08/09/18 04:43 97.8 F 95 18 155/59 H 93 L 08/09/18 00:00 98.2 F 87 16 142/67 H 91 L Weight Admit Weight 195 lb Weight 187 lb 7.04 oz I&O: 08/08/18 08/09/18 08/10/18 06:59 06:59 06:59 Intake Total 100 Balance 100 Result Diagrams: 08/06/18 06:22 08/09/18 04:27 Additional Labs: Accuchecks 08/09/18 08/08/18 08/08/18 05:11 20:46 15:39 POC Glucose 152 H 157 H 120 H 08/08/18 11:38 POC Glucose 137 H Phys Exam - Physical Examination Constitutional: NAD HEENT: moist MMs Respiratory: no wheezing, no rales, no rhonchi, clear to auscultation bilateral Cardiovascular: RRR, no significant murmur Gastrointestinal: soft, positive bowel sounds severe TTP of entire BLE Neurological: non-focal, moves all 4 limbs Psychiatric: normal affect Deviation from normal: oriented to person, place, situation Dx/Plan (1) Pain of right lower extremity Code(s): M79.604 - PAIN IN RIGHT LEG Status: Acute Comment: likely uremia and neuropathy, has chronic diffuse body pain as well (2) Acute metabolic encephalopathy Code(s): G93.41 - METABOLIC ENCEPHALOPATHY Status: Acute Comment: cleared with dialysis (3) End stage renal disease on dialysis Code(s): N18.6 - END STAGE RENAL DISEASE; Z99.2 - DEPENDENCE ON RENAL DIALYSIS Status: Chronic (4) CAD (coronary artery disease) Code(s): I25.10 - ATHSCL HEART DISEASE OF [place] CORONARY ARTERY W/O ANG PCTRS Status: Chronic Qualifiers: (5) Diabetes type 2, controlled Code(s): E11.9 - TYPE 2 DIABETES MELLITUS WITHOUT COMPLICATIONS Status: Chronic Qualifiers: Comment: continue accuchecks, insulin sliding scale (6) Diastolic CHF Code(s): I50.30 - UNSPECIFIED DIASTOLIC (CONGESTIVE) HEART FAILURE Status: Chronic Qualifiers: Comment: stable (7) GERD (gastroesophageal reflux disease) Code(s): K21.9 - GASTRO-ESOPHAGEAL REFLUX DISEASE WITHOUT ESOPHAGITIS Status: Chronic Qualifiers: Esophagitis presence: without esophagitis Qualified Code(s): K21.9 - Gastro -esophageal reflux disease without esophagitis (8) H/O aortic valve replacement Code(s): Z95.2 - PRESENCE OF PROSTHETIC HEART VALVE Status: Chronic (9) HLD (hyperlipidemia) Code(s): E78.5 - HYPERLIPIDEMIA, UNSPECIFIED Status: Chronic Qualifiers: (10) HTN (hypertension) Code(s): I10 - ESSENTIAL (PRIMARY) HYPERTENSION Status: Chronic Qualifiers: (11) Obesity (BMI 30-39.9) Code(s): E66.9 - OBESITY, UNSPECIFIED Status: Chronic (12) PVD (peripheral vascular disease) Code(s): I73.9 - PERIPHERAL VASCULAR DISEASE, UNSPECIFIED Status: Chronic - Plan cont current plan of care Patient wants to try rehab and then home with PD, if fails again will -: transition to hospice at that time. Family all on same page at meeting -: Thursday night. * . - Discharge Day Encounter end time: 11:15
--- NOTE | 2018-08-09 10:33 | PRG ---
DATE OF SERVICE: 08/09/2018 SUBJECTIVE: Patient was seen and examined at bedside. She is complaining of severe leg pain. No nausea, vomiting. No shortness of breath. OBJECTIVE: GENERAL: This is an obese female, in no acute distress. VITAL SIGNS: Temperature 97.7, pulse 85, respiratory rate 18. Blood pressure 150/88. HEENT: Atraumatic, normocephalic. Oral mucosa is moist NECK: Supple. CARDIOVASCULAR: S1, S2 heard. Rate and rhythm regular. RESPIRATORY: Clear to auscultation. GASTROINTESTINAL: Abdomen is soft. MUSCULOSKELETAL: No tenderness. No edema. Cyanosis present in the lower extremity. DERMATOLOGIC: No skin rash. NEUROLOGIC: Alert and awake and oriented X3. No focal neurologic deficits. Moving all the extremities. PSYCHIATRIC: Mood and affect normal. LABORATORY DATA: Potassium 4.7, BUN is 90, creatinine is 12.7, hemoglobin 8.2. ASSESSMENT AND PLAN: 1. End-stage renal disease. Continue on peritoneal dialysis. 2. Hypertension. 3. Anemia. 4. Edema, I will remove fluid. PLAN: Continue on peritoneal dialysis as tolerated. Job ID: [id number]
[2018-08-09] MEDS: HumaLOG 300 UNITS/3 ML VIAL SC PRN (12:20)
[2018-08-09] MEDS: Atorvastatin Calcium 40 MG TAB PO SCH (20:58)
[2018-08-10] MEDS: traMADol HCl 50 MG TAB PO PRN (05:59)
[2018-08-10] MEDS: Morphine 4 MG/ML VIAL SLOW IVP PRN (06:37)
[2018-08-10] MEDS: Lorazepam 2 MG/ML VIAL SLOW IVP PRN (06:48)
[2018-08-10] MEDS: Heparin 5,000 UNITS/ML VIAL SC SCH ×2 (08:17→21:29)
[2018-08-10] MEDS: Nystatin Cream 15 GM TUBE TOP SCH ×3 (08:18→21:30)
--- NOTE | 2018-08-10 09:58 | PDOC.PN ---
- Subjective Encounter Start Date: 08/10/18 Encounter Start Time: 11:30 Subjective: Patient without pain in bilateral lower extremities. Some bleeding from -: right UE IV site. No other complaints. Eating well. - Objective Resuscitation Status - Order Detail: 08/01/18 11:05 Resuscitation Status Routine Resuscitation Status: DNAR: NO Resuscitation Discussed with: Patient MATTHEW Reviewed: Yes Vital Signs & Weight: Vital Signs (12 hours) Temp Pulse Resp BP Pulse Ox 08/10/18 07:19 97.7 F 66 16 142/75 H 98 08/10/18 05:01 98.4 F 66 16 151/92 H 98 08/10/18 00:00 97.6 F 66 18 151/73 H 98 Weight Admit Weight 195 lb Weight 187 lb 7.04 oz I&O: 08/09/18 08/10/18 08/11/18 06:59 06:59 06:59 Intake Total 500 Balance 500 Result Diagrams: 08/06/18 06:22 08/09/18 04:27 Additional Labs: Accuchecks 08/09/18 08/09/18 08/09/18 20:51 16:40 11:47 POC Glucose 129 H 120 H 222 H Phys Exam - Physical Examination Constitutional: NAD HEENT: moist MMs Respiratory: no wheezing, no rales, no rhonchi Cardiovascular: RRR, no significant murmur Gastrointestinal: soft, non-tender, positive bowel sounds Neurological: non-focal Psychiatric: normal affect, A&O x 3 Dx/Plan (1) Pain of right lower extremity Code(s): M79.604 - PAIN IN RIGHT LEG Status: Acute Comment: likely uremia and neuropathy, has chronic diffuse body pain as well (2) Acute metabolic encephalopathy Code(s): G93.41 - METABOLIC ENCEPHALOPATHY Status: Acute Comment: cleared with dialysis (3) End stage renal disease on dialysis Code(s): N18.6 - END STAGE RENAL DISEASE; Z99.2 - DEPENDENCE ON RENAL DIALYSIS Status: Chronic (4) CAD (coronary artery disease) Code(s): I25.10 - ATHSCL HEART DISEASE OF [place] CORONARY ARTERY W/O ANG PCTRS Status: Chronic Qualifiers: (5) Diabetes type 2, controlled Code(s): E11.9 - TYPE 2 DIABETES MELLITUS WITHOUT COMPLICATIONS Status: Chronic Qualifiers: Comment: continue accuchecks, insulin sliding scale (6) Diastolic CHF Code(s): I50.30 - UNSPECIFIED DIASTOLIC (CONGESTIVE) HEART FAILURE Status: Chronic Qualifiers: Comment: stable (7) GERD (gastroesophageal reflux disease) Code(s): K21.9 - GASTRO-ESOPHAGEAL REFLUX DISEASE WITHOUT ESOPHAGITIS Status: Chronic Qualifiers: Esophagitis presence: without esophagitis Qualified Code(s): K21.9 - Gastro -esophageal reflux disease without esophagitis (8) H/O aortic valve replacement Code(s): Z95.2 - PRESENCE OF PROSTHETIC HEART VALVE Status: Chronic (9) HLD (hyperlipidemia) Code(s): E78.5 - HYPERLIPIDEMIA, UNSPECIFIED Status: Chronic Qualifiers: (10) HTN (hypertension) Code(s): I10 - ESSENTIAL (PRIMARY) HYPERTENSION Status: Chronic Qualifiers: (11) Obesity (BMI 30-39.9) Code(s): E66.9 - OBESITY, UNSPECIFIED Status: Chronic (12) PVD (peripheral vascular disease) Code(s): I73.9 - PERIPHERAL VASCULAR DISEASE, UNSPECIFIED Status: Chronic - Plan cont current plan of care, PT/OT awaiting rehab * . - Discharge Day Encounter end time: 11:40
[2018-08-10] MEDS: Scopolamine 1.5 mg/72 hour Patch TD SCH (11:16)
--- NOTE | 2018-08-10 14:19 | PRG ---
DATE OF SERVICE: 08/10/2018 SUBJECTIVE: Patient was seen and examined at bedside and overnight events noted. Patient denies any shortness of breath or chest pain or palpitation. No history of nausea or vomiting or diarrhea or fever or chills or cramps. OBJECTIVE: GENERAL: This is an obese female, in no apparent distress. VITAL SIGNS: Temperature 97.8. Heart rate 81. Respiratory rate 18. Blood pressure 153/70. HEENT: Atraumatic, normocephalic. Oral mucosa is moist. NECK: Supple. CARDIOVASCULAR: S1, S2 heard. Rate and rhythm regular. RESPIRATORY: Clear to auscultation. GASTROINTESTINAL: Abdomen is soft. MUSCULOSKELETAL: No tenderness. No edema. DERMATOLOGIC: No skin rash. NEUROLOGIC: Alert and awake and oriented x3. No focal neurologic deficits. Moving all the extremities. PSYCHIATRIC: Mood and affect normal. LABORATORY DATA: Note done today. ASSESSMENT AND PLAN: 1. End-stage renal disease. Continue on peritoneal dialysis. 2. Severe peripheral vascular disease. Her right leg has severe pain and is cold on touch and cyanosis . We will consult Cardiovascular Surgery for further evaluation of peripheral vascular disease. 3. Hypertension. 4. Anemia. 5. Edema, controlled. Continue on dialysis as tolerated. Job ID: [id number]
[2018-08-10] MEDS: HumaLOG 300 UNITS/3 ML VIAL SC PRN (17:54)
[2018-08-10] MEDS: Atorvastatin Calcium 40 MG TAB PO SCH (21:29)
[2018-08-11] MEDS: Ondansetron PF 4 MG/2 ML Vial IVP PRN (01:15)
[2018-08-11] MEDS: Heparin 5,000 UNITS/ML VIAL SC SCH ×2 (08:50→21:19)
[2018-08-11] MEDS: Nystatin Cream 15 GM TUBE TOP SCH ×3 (08:51→21:19)
[2018-08-11] MEDS ORDERED: Senokot S 8.6-50 MG TAB PO PRN (11:47)
[2018-08-11] MEDS: Polyethylene Glycol 3350 17 GM Packet PO PRN (13:00)
[2018-08-11] MEDS: Acetaminophen 325 MG TAB PO PRN (13:00)
--- NOTE | 2018-08-11 13:54 | PDOC.PN ---
- Subjective Encounter Start Date: 08/11/18 Encounter Start Time: 11:00 Subjective: Patient reports some buttock pain this morning. Less leg pain today. Was -: having severe RLE pain yest when seen by Dr. Lamb and cyanotic appearing -: foot so Vasc surgery consulted. - Objective Resuscitation Status - Order Detail: 08/01/18 11:05 Resuscitation Status Routine Resuscitation Status: DNAR: NO Resuscitation Discussed with: Patient MAR Reviewed: Yes Vital Signs & Weight: Vital Signs (12 hours) Temp Pulse Resp BP Pulse Ox 08/11/18 12:32 97.8 F 80 14 162/77 H 96 08/11/18 08:00 97.8 F 65 16 139/78 97 08/11/18 04:00 97.4 F L 66 20 151/85 H 94 L Weight Admit Weight 195 lb Weight 187 lb 7.04 oz I&O: 08/10/18 08/11/18 08/12/18 06:59 06:59 06:59 Intake Total 500 500 Balance 500 500 Result Diagrams: 08/06/18 06:22 08/09/18 04:27 Additional Labs: Accuchecks 08/11/18 08/11/18 08/10/18 11:06 05:51 20:35 POC Glucose 162 H 178 H 121 H 08/10/18 08/10/18 15:47 05:54 POC Glucose 208 H 122 H Phys Exam - Physical Examination Constitutional: NAD HEENT: moist MMs Respiratory: no wheezing, no rales, no rhonchi Cardiovascular: RRR, no significant murmur Gastrointestinal: soft, positive bowel sounds RLE and foot possibly more dusky than previously, no detectable pulse Neurological: non-focal, moves all 4 limbs Psychiatric: normal affect, A&O x 3 Dx/Plan (1) Pain of right lower extremity Code(s): M79.604 - PAIN IN RIGHT LEG Status: Acute Comment: likely uremia and neuropathy, concern for progressive PVD with cyanosis, Vascular surgery consulted (2) Acute metabolic encephalopathy Code(s): G93.41 - METABOLIC ENCEPHALOPATHY Status: Acute Comment: cleared with dialysis (3) End stage renal disease on dialysis Code(s): N18.6 - END STAGE RENAL DISEASE; Z99.2 - DEPENDENCE ON RENAL DIALYSIS Status: Chronic (4) CAD (coronary artery disease) Code(s): I25.10 - ATHSCL HEART DISEASE OF [place] CORONARY ARTERY W/O ANG PCTRS Status: Chronic Qualifiers: (5) Diabetes type 2, controlled Code(s): E11.9 - TYPE 2 DIABETES MELLITUS WITHOUT COMPLICATIONS Status: Chronic Qualifiers: Comment: continue accuchecks, insulin sliding scale (6) Diastolic CHF Code(s): I50.30 - UNSPECIFIED DIASTOLIC (CONGESTIVE) HEART FAILURE Status: Chronic Qualifiers: Comment: stable (7) GERD (gastroesophageal reflux disease) Code(s): K21.9 - GASTRO-ESOPHAGEAL REFLUX DISEASE WITHOUT ESOPHAGITIS Status: Chronic Qualifiers: Esophagitis presence: without esophagitis Qualified Code(s): K21.9 - Gastro -esophageal reflux disease without esophagitis (8) H/O aortic valve replacement Code(s): Z95.2 - PRESENCE OF PROSTHETIC HEART VALVE Status: Chronic (9) HLD (hyperlipidemia) Code(s): E78.5 - HYPERLIPIDEMIA, UNSPECIFIED Status: Chronic Qualifiers: (10) HTN (hypertension) Code(s): I10 - ESSENTIAL (PRIMARY) HYPERTENSION Status: Chronic Qualifiers: (11) Obesity (BMI 30-39.9) Code(s): E66.9 - OBESITY, UNSPECIFIED Status: Chronic (12) PVD (peripheral vascular disease) Code(s): I73.9 - PERIPHERAL VASCULAR DISEASE, UNSPECIFIED Status: Chronic - Plan Approved for rehab. Will wait for vascular surgery consult. * . - Discharge Day Encounter end time: 11:20
--- NOTE | 2018-08-11 16:56 | CON ---
DATE OF CONSULTATION: 08/11/2018 PRIMARY CARE PHYSICIAN: Dr. Kerri Lira. CHIEF COMPLAINT: Bilateral leg pain. HISTORY OF PRESENT ILLNESS: The patient is a 77-year-old dialysis patient whom I saw about a year ago with gangrenous tip to the toe on her left foot that was something of an incidental finding when she got brought into the hospital to deal with loss of her dialysis access. Followup on that was problematic, but eventually I was able to arrange for arteriography and at that time, she underwent percutaneous revascularization re-establishing a palpable dorsalis pedis in her left foot and she was able to heal an amputation site on that foot. Since last Summer, she has been hospitalized multiple times and her general health dramatically deteriorated. She is now essentially bed-bound and has developed a decubitus ulcer and she was admitted about 10 days ago with complaints of diffuse pain in multiple areas of her body including her lower extremities and her torso. She was equivocal about whether to pursue hospice and shortly before planned discharge to an outside facility, we were requested to evaluate her for her leg pain and peripheral vascular disease. PAST MEDICAL HISTORY: Significant for diabetes, hypertension, end-stage renal disease. She had undergone a previous aortic valve replacement and coronary artery bypass procedure. HOME MEDICATIONS: Included; 1. Insulin. 2. Coreg. 3. Eliquis. 4. Hydralazine. 5. Lyrica. 6. Renvela. 7. Doxycycline. 8. Cefdinir. ALLERGIES: SHE HAS MULTIPLE ALLERGIES. REVIEW OF SYSTEMS: Most notable for her chronic pain and rapidly deteriorating physical condition. PHYSICAL EXAMINATION: GENERAL: She is a rather pathetic appearing woman and is obviously uncomfortable and appears extraordinarily frail. VITAL SIGNS: Heart rate is 80, blood pressure 162/77, temperature is 97.8. CHEST: She has surgical scar status post sternotomy. EXTREMITIES: Both of her feet are somewhat reddish to purplish, more so on the right than on the left. She no longer has a palpable dorsalis pedis pulse on the left foot, but other than few healing scratches or abrasions on her pretibial area and calf, I do not see any real wounds on her lower extremity. On the right side, she has multiple areas of breakdown of the skin on her lower leg and somewhat ischemic appearing skin all the way up to the very proximal lower leg. The foot is rather purplish, although it is still mobile and sensate. Pain makes very difficult to be able to examine her femoral pulses or examine the extent of her decubitus. LABORATORY DATA: Her most recent labs from about 5 days ago show a white count of 15.7, hemoglobin of 8.3, platelet count of 270,000. Her sugars have been running in the 150 to 200 range. Calcium of 8.1. She has chest x-ray suggests significant pulmonary edema. There is what appears to be probably venous stent in her left innominate. IMPRESSION AND RECOMMENDATIONS: Unfortunately, I really do not think that I got much to offer this woman beyond above knee amputations in which she is not particularly interested. It would appear that she is probably approaching the end of life and she and her family probably should give serious consideration to the hospice. Job ID: [id number]
--- NOTE | 2018-08-11 18:01 | PRG ---
DATE OF SERVICE: 08/11/2018 SUBJECTIVE: Patient was seen and examined at bedside and overnight events noted. Patient denies any shortness of breath or chest pain or palpitation. No history of nausea or vomiting or diarrhea or fever or chills or cramps. OBJECTIVE: GENERAL: This is a well-built female, in no apparent distress. VITAL SIGNS: Temperature . Heart rate . Respiratory rate 16. Blood pressure 162/77. HEENT: Atraumatic, normocephalic. Oral mucosa is moist NECK: Supple. CARDIOVASCULAR: S1, S2 heard. Rate and rhythm regular. RESPIRATORY: Clear to auscultation. GASTROINTESTINAL: Abdomen is soft. MUSCULOSKELETAL: No tenderness. No edema. DERMATOLOGIC: No skin rash. NEUROLOGIC: Alert and awake and oriented X3. No focal neurologic deficits. Moving all the extremities. PSYCHIATRIC: Mood and affect normal. LABORATORY DATA: None done today. ASSESSMENT AND PLAN: 1. End-stage renal disease. Continue peritoneal dialysis. 2. Peripheral vascular disease. Follow up with Cardiovascular Surgery. 3. Hypertension. 4. Anemia. 5. Edema, controlled. PLAN: Plan is to consult Cardiovascular Surgery. Job ID: [id number]
[2018-08-11] MEDS: traMADol HCl 50 MG TAB PO PRN (21:17)
[2018-08-11] MEDS: Atorvastatin Calcium 40 MG TAB PO SCH (21:19)
[2018-08-12] MEDS: Morphine 4 MG/ML VIAL SLOW IVP PRN ×2 (02:28→23:19)
[2018-08-12 06:16] LABS: Anion Gap 24 mmol/L (10-20); BUN (Urea Nitrogen) 92 mg/dL (9.8-20.1); Calc. Creatinine Clearance 6 mL/min (70-130); Calcium 7.3 mg/dL (7.8-10.44); Carbon Dioxide 22 mmol/L (23-31); Chloride 89 mmol/L (98-107); Estimated GFR-MDRD 3; Glucose 189 mg/dL (83-110); Potassium 4.3 mmol/L (3.5-5.1); Sodium 131 mmol/L (136-145)
[2018-08-12] MEDS: Heparin 5,000 UNITS/ML VIAL SC SCH ×2 (08:47→21:05)
[2018-08-12] MEDS: Nystatin Cream 15 GM TUBE TOP SCH ×3 (08:47→21:36)
--- NOTE | 2018-08-12 09:38 | PRG ---
DATE OF SERVICE: 08/12/2018 SUBJECTIVE: Patient was seen and examined at bedside and overnight events noted. Patient denies any shortness of breath or chest pain or palpitation. No history of nausea or vomiting or diarrhea or fever or chills or cramps. OBJECTIVE: GENERAL: This is an obese female in no apparent distress. VITAL SIGNS: Temperature 97.6. Heart rate 81. Respiratory rate 21. Blood pressure 119/70. HEENT: Atraumatic, normocephalic. Oral mucosa is moist. NECK: Supple. CARDIOVASCULAR: S1, S2 heard. Rate and rhythm regular. RESPIRATORY: Clear to auscultation. GASTROINTESTINAL: Abdomen is soft. MUSCULOSKELETAL: No tenderness. No edema. DERMATOLOGIC: No skin rash. NEUROLOGIC: Alert and awake and oriented X3. No focal neurologic deficits. Moving all the extremities. PSYCHIATRIC: Mood and affect normal. LABORATORY DATA: Potassium is 4.3, BUN is 92, creatinine is 11.07. ASSESSMENT AND PLAN: 1. End-stage renal disease. Continue on peritoneal dialysis as tolerated. 2. Peripheral vascular disease. The patient refuses acute kidney injury and is having severe peripheral vascular disease. Agree with hospice consult. 3. Hypertension. 4. Anemia. 5. Edema. 6. Very poor overall prognosis, not able to have rehab at this time and functional status is declining. Agree with hospice evaluation and hospice care at home for now. Job ID: [id number]
[2018-08-12] MEDS: Polyethylene Glycol 3350 17 GM Packet PO PRN (11:57)
[2018-08-12] MEDS: traMADol HCl 50 MG TAB PO PRN ×2 (11:57→21:05)
--- NOTE | 2018-08-12 15:57 | PDOC.PN ---
- Subjective Encounter Start Date: 08/12/18 Encounter Start Time: 10:15 Subjective: pt up in bed has pain to his lower ext - Objective Resuscitation Status - Order Detail: 08/01/18 11:05 Resuscitation Status Routine Resuscitation Status: DNAR: NO Resuscitation Discussed with: Patient Vital Signs & Weight: Vital Signs (12 hours) Temp Pulse Resp BP Pulse Ox 08/12/18 12:03 97.3 F L 72 18 188/72 H 96 08/12/18 07:31 97.8 F 73 16 159/72 H 90 L 08/12/18 04:07 97.6 F 81 20 119/70 95 Weight Admit Weight 195 lb Weight 187 lb 7.04 oz I&O: 08/11/18 08/12/18 08/13/18 06:59 06:59 06:59 Intake Total 500 100 Balance 500 100 Result Diagrams: 08/06/18 06:22 08/12/18 05:52 Additional Labs: Accuchecks 08/12/18 08/12/18 08/11/18 11:57 06:57 21:04 POC Glucose 184 H 194 H 155 H Phys Exam - Physical Examination Neck: no nodes, no JVD, supple, full ROM Respiratory: no wheezing, no rales, no rhonchi, wheezing present, clear to auscultation bilateral Cardiovascular: RRR, no significant murmur, no rub, gallop, irregular Gastrointestinal: soft, non-tender, no distention, positive bowel sounds right lower ext cool to touch Dx/Plan (1) Pain of right lower extremity Code(s): M79.604 - PAIN IN RIGHT LEG Status: Acute Comment: likely uremia and neuropathy, concern for progressive PVD with cyanosis, Vascular surgery consulted (2) CAD (coronary artery disease) Code(s): I25.10 - ATHSCL HEART DISEASE OF [place] CORONARY ARTERY W/O ANG PCTRS Status: Chronic Qualifiers: (3) Diabetes type 2, controlled Code(s): E11.9 - TYPE 2 DIABETES MELLITUS WITHOUT COMPLICATIONS Status: Chronic Qualifiers: Comment: continue accuchecks, insulin sliding scale (4) ESRD on peritoneal dialysis Code(s): N18.6 - END STAGE RENAL DISEASE; Z99.2 - DEPENDENCE ON RENAL DIALYSIS Status: Chronic (5) H/O aortic valve replacement Code(s): Z95.2 - PRESENCE OF PROSTHETIC HEART VALVE Status: Chronic - Plan pt has too much pain to her lower ext -: no plans for surgery. will talk to pt's family for possible -: hospice. * . Review of Systems - Review of Systems Respiratory: negative: Cough, Dry, Shortness of Breath, Hemoptysis, SOB with Excertion, Pleuritic Pain, Sputum, Wheezing Cardiovascular: negative: chest pain, palpitations, orthopnea, paroxysmal nocturnal dyspnea, edema, light headedness, other Gastrointestinal: negative: Nausea, Vomiting, Abdominal Pain, Diarrhea, Constipation, Melena, Hematochezia, Other - Medications/Allergies Allergies/Adverse Reactions: Allergies Allergy/AdvReac Type Severity Reaction Status Date / Time ciprofloxacin [From Cipro] Allergy Intermediate Nausea Verified 10/27/17 21:52 Penicillins Allergy Intermediate Hives Verified 10/27/17 21:52 codeine [Codeine] Allergy Anxiety Verified 10/27/17 21:52 Sulfa (Sulfonamide Allergy Verified 10/27/17 21:52 Antibiotics) sulfamethoxazole Allergy Verified 10/27/17 21:52 [From Bactrim] trimethoprim [From Bactrim] Allergy Verified 10/27/17 21:52 Medications: Current Medications Acetaminophen (Tylenol) 650 mg PO Q6H PRN PRN Reason: Pain Last Admin: 08/11/18 13:00 Dose: 650 mg Atorvastatin Calcium (Lipitor) 40 mg PO HS [facility] Last Admin: 08/11/18 21:19 Dose: 40 mg Dextrose/Water (Dextrose 50%) 25 gm SLOW IVP PRN PRN PRN Reason: Hypoglycemia Diphenhydramine HCl (Benadryl) 50 mg PO Q4H PRN PRN Reason: Itching & Hives (moderate) Last Admin: 08/08/18 11:01 Dose: 50 mg Glucagon (Glucagon) 1 mg IM PRN PRN PRN Reason: Hypoglycemia Heparin Sodium (Porcine) (Heparin) 5,000 units SC BID [facility] Last Admin: 08/12/18 08:47 Dose: 5,000 units Dextrose/Water (D5w) 1,000 mls @ 0 mls/hr IV .Q0M PRN PRN Reason: Hypoglycemia Insulin Human Lispro (Humalog) 0 units SC .AGGRESSIVE SLIDING PRN PRN Reason: Aggressive Correctional Scale Last Admin: 08/10/18 17:54 Dose: 6 unit Insulin Human Lispro (Humalog) 0 units SC .BEDTIME SLIDING SC PRN PRN Reason: Bedtime Correctional Scale Last Admin: 08/05/18 21:52 Dose: 3 unit Lorazepam (Ativan) 0.5 mg SLOW IVP Q6H PRN PRN Reason: Anxiety/Agitation Last Admin: 08/10/18 06:48 Dose: 0.5 mg Morphine Sulfate (Morphine) 2 mg SLOW IVP Q4H PRN PRN Reason: Moderate Pain (4-6) Last Admin: 08/12/18 02:28 Dose: 2 mg Nystatin (Mycostatin Cream) 0 gm TOP TID [facility] Last Admin: 08/12/18 08:47 Dose: 1 applic Ondansetron HCl (Zofran) 4 mg IVP Q6H PRN PRN Reason: Nausea/Vomiting Last Admin: 08/11/18 01:15 Dose: 4 mg Polyethylene Glycol (Miralax) 17 gm PO DAILYPRN PRN PRN Reason: Constipation Last Admin: 08/12/18 11:57 Dose: 17 gm Scopolamine (Transderm Scop) 1.5 mg TD Q3D [facility] Last Admin: 08/10/18 11:16 Dose: Not Given Senna/Docusate Sodium (Senokot S) 1 tab PO BID PRN PRN Reason: Constipation Last Admin: 08/11/18 21:19 Dose: 1 tab Sodium Chloride (Flush - Normal Saline) 10 ml IVF Q12HR PRN PRN Reason: Saline Flush Last Admin: 08/10/18 06:39 Dose: 10 ml Tramadol HCl (Ultram) 50 mg PO Q6H PRN PRN Reason: Pain Last Admin: 08/10/18 05:59 Dose: 50 mg Tramadol HCl (Ultram) 100 mg PO Q6H PRN PRN Reason: Severe Pain (7-10) Last Admin: 08/12/18 11:57 Dose: 100 mg Zolpidem Tartrate (Ambien) 5 mg PO HSPRN PRN PRN Reason: Insomnia
[2018-08-12] MEDS: Atorvastatin Calcium 40 MG TAB PO SCH (21:05)
[2018-08-13] MEDS: Heparin 5,000 UNITS/ML VIAL SC SCH ×2 (09:35→21:03)
[2018-08-13] MEDS: traMADol HCl 50 MG TAB PO PRN (09:35)
[2018-08-13] MEDS: Nystatin Cream 15 GM TUBE TOP SCH ×3 (09:36→21:01)
--- NOTE | 2018-08-13 10:17 | PRG ---
DATE OF SERVICE: 08/13/2018 SUBJECTIVE: Patient was seen and examined at bedside and overnight events noted. Patient denies any shortness of breath or chest pain or palpitation. No history of nausea or vomiting or diarrhea or fever or chills or cramps. OBJECTIVE: GENERAL: This is an obese female, in no apparent distress. VITAL SIGNS: Temperature 99.5. Heart rate 82. Respiratory rate 18. Blood pressure 134/75. HEENT: Atraumatic, normocephalic. Oral mucosa is moist. NECK: Supple. CARDIOVASCULAR: S1, S2 heard. Rate and rhythm regular. RESPIRATORY: Clear to auscultation. GASTROINTESTINAL: Abdomen is soft. MUSCULOSKELETAL: No tenderness. No edema. DERMATOLOGIC: No skin rash. NEUROLOGIC: Alert and awake and oriented x3. No focal neurologic deficits. Moving all the extremities. PSYCHIATRIC: Mood and affect normal. LABORATORY DATA: Not done today. ASSESSMENT AND PLAN: 1. End-stage renal disease. Continue on peritoneal dialysis as tolerated. 2. Peripheral vascular disease with options for medical management. 3. Hypertension. 4. Anemia. 5. Edema. The patient carries a very poor prognosis. I agree with palliative consult and initiating hospice care. Job ID: [id number]
[2018-08-13] MEDS: Morphine 4 MG/ML VIAL SLOW IVP PRN ×3 (11:46→21:03)
[2018-08-13] MEDS: Scopolamine 1.5 mg/72 hour Patch TD SCH (12:40)
[2018-08-13] MEDS ORDERED: Morphine 2 MG/ML SYRINGE SLOW IVP PRN (13:01)
--- NOTE | 2018-08-13 15:15 | PDOC.PN ---
- Subjective Encounter Start Date: 08/13/18 Encounter Start Time: 10:45 Subjective: pt up in bed complains of pain to her lower ext - Objective Resuscitation Status - Order Detail: 08/01/18 11:05 Resuscitation Status Routine Resuscitation Status: DNAR: NO Resuscitation Discussed with: Patient Vital Signs & Weight: Vital Signs (12 hours) Temp Pulse Resp BP Pulse Ox 08/13/18 11:24 98 F 76 16 136/75 94 L 08/13/18 07:29 97.5 F L 76 16 134/75 94 L 08/13/18 04:17 99.5 F 82 18 146/75 H 95 Weight Admit Weight 195 lb Weight 187 lb 7.04 oz I&O: 08/12/18 08/13/18 08/14/18 06:59 06:59 06:59 Intake Total 100 740 Balance 100 740 Result Diagrams: 08/06/18 06:22 08/12/18 05:52 Additional Labs: Accuchecks 08/13/18 08/13/18 08/12/18 11:06 05:30 20:15 POC Glucose 156 H 239 H 138 H 08/12/18 15:58 POC Glucose 188 H Phys Exam - Physical Examination Neck: no nodes, no JVD, supple, full ROM Respiratory: no wheezing, no rales, no rhonchi, wheezing present, clear to auscultation bilateral Cardiovascular: RRR, no significant murmur, no rub, gallop, irregular Gastrointestinal: soft, non-tender, no distention, positive bowel sounds purple discoloration noted to lower ext Dx/Plan (1) Pain of right lower extremity Code(s): M79.604 - PAIN IN RIGHT LEG Status: Acute Comment: likely uremia and neuropathy, concern for progressive PVD with cyanosis, Vascular surgery consulted (2) CAD (coronary artery disease) Code(s): I25.10 - ATHSCL HEART DISEASE OF [place] CORONARY ARTERY W/O ANG PCTRS Status: Chronic Qualifiers: (3) Diabetes type 2, controlled Code(s): E11.9 - TYPE 2 DIABETES MELLITUS WITHOUT COMPLICATIONS Status: Chronic Qualifiers: Comment: continue accuchecks, insulin sliding scale (4) ESRD on peritoneal dialysis Code(s): N18.6 - END STAGE RENAL DISEASE; Z99.2 - DEPENDENCE ON RENAL DIALYSIS Status: Chronic (5) H/O aortic valve replacement Code(s): Z95.2 - PRESENCE OF PROSTHETIC HEART VALVE Status: Chronic - Plan spoke with pt's daugher about pt's poor prognosis -: she has agreed on hospice. will consult case managment for -: inpatient hospice * . Review of Systems - Review of Systems Cardiovascular: negative: chest pain, palpitations, orthopnea, paroxysmal nocturnal dyspnea, edema, light headedness, other Gastrointestinal: negative: Nausea, Vomiting, Abdominal Pain, Diarrhea, Constipation, Melena, Hematochezia, Other - Medications/Allergies Allergies/Adverse Reactions: Allergies Allergy/AdvReac Type Severity Reaction Status Date / Time ciprofloxacin [From Cipro] Allergy Intermediate Nausea Verified 10/27/17 21:52 Penicillins Allergy Intermediate Hives Verified 10/27/17 21:52 codeine [Codeine] Allergy Anxiety Verified 10/27/17 21:52 Sulfa (Sulfonamide Allergy Verified 10/27/17 21:52 Antibiotics) sulfamethoxazole Allergy Verified 10/27/17 21:52 [From Bactrim] trimethoprim [From Bactrim] Allergy Verified 10/27/17 21:52 Medications: Current Medications Acetaminophen (Tylenol) 650 mg PO Q6H PRN PRN Reason: Pain Last Admin: 08/11/18 13:00 Dose: 650 mg Atorvastatin Calcium (Lipitor) 40 mg PO HS RADHA Last Admin: 08/12/18 21:05 Dose: 40 mg Dextrose/Water (Dextrose 50%) 25 gm SLOW IVP PRN PRN PRN Reason: Hypoglycemia Diphenhydramine HCl (Benadryl) 50 mg PO Q4H PRN PRN Reason: Itching & Hives (moderate) Last Admin: 08/08/18 11:01 Dose: 50 mg Glucagon (Glucagon) 1 mg IM PRN PRN PRN Reason: Hypoglycemia Heparin Sodium (Porcine) (Heparin) 5,000 units SC BID RADHA Last Admin: 08/13/18 09:35 Dose: 5,000 units Dextrose/Water (D5w) 1,000 mls @ 0 mls/hr IV .Q0M PRN PRN Reason: Hypoglycemia Insulin Human Lispro (Humalog) 0 units SC .AGGRESSIVE SLIDING PRN PRN Reason: Aggressive Correctional Scale Last Admin: 08/10/18 17:54 Dose: 6 unit Insulin Human Lispro (Humalog) 0 units SC .BEDTIME SLIDING SC PRN PRN Reason: Bedtime Correctional Scale Last Admin: 08/05/18 21:52 Dose: 3 unit Lorazepam (Ativan) 0.5 mg SLOW IVP Q6H PRN PRN Reason: Anxiety/Agitation Last Admin: 08/10/18 06:48 Dose: 0.5 mg Morphine Sulfate (Morphine) 2 mg SLOW IVP Q2H PRN PRN Reason: Mild-Moderate Pain (1-5) Morphine Sulfate (Morphine) 4 mg SLOW IVP Q2H PRN PRN Reason: Moderate to Severe Pain (6-10) Nystatin (Mycostatin Cream) 0 gm TOP TID [facility] Last Admin: 08/13/18 09:36 Dose: 1 applic Ondansetron HCl (Zofran) 4 mg IVP Q6H PRN PRN Reason: Nausea/Vomiting Last Admin: 08/11/18 01:15 Dose: 4 mg Polyethylene Glycol (Miralax) 17 gm PO DAILYPRN PRN PRN Reason: Constipation Last Admin: 08/12/18 11:57 Dose: 17 gm Scopolamine (Transderm Scop) 1.5 mg TD Q3D [facility] Last Admin: 08/13/18 12:40 Dose: Not Given Senna/Docusate Sodium (Senokot S) 1 tab PO BID PRN PRN Reason: Constipation Last Admin: 08/11/18 21:19 Dose: 1 tab Sodium Chloride (Flush - Normal Saline) 10 ml IVF Q12HR PRN PRN Reason: Saline Flush Last Admin: 08/13/18 09:35 Dose: 10 ml Tramadol HCl (Ultram) 100 mg PO Q6H PRN PRN Reason: Severe Pain (7-10) Last Admin: 08/13/18 09:35 Dose: 100 mg Zolpidem Tartrate (Ambien) 5 mg PO HSPRN PRN PRN Reason: Insomnia
[2018-08-13] MEDS: Ondansetron PF 4 MG/2 ML Vial IVP PRN (17:16)
[2018-08-13] MEDS: Atorvastatin Calcium 40 MG TAB PO SCH (21:01)
[2018-08-14] MEDS: Morphine 4 MG/ML VIAL SLOW IVP PRN (07:57)
[2018-08-14] MEDS: Nystatin Cream 15 GM TUBE TOP SCH (07:58)
[2018-08-14] MEDS: Heparin 5,000 UNITS/ML VIAL SC SCH (07:58)
[2018-08-14 08:14] VITALS: BP 146/71; TEMP 98.1
--- NOTE | 2018-08-14 10:20 | PRG ---
DATE OF SERVICE: 08/14/2018 SUBJECTIVE: Patient was seen and examined at bedside and overnight events noted. Patient denies any shortness of breath or chest pain or palpitation. No history of nausea or vomiting or diarrhea or fever or chills or cramps. OBJECTIVE: GENERAL: This is a well built female, in no apparent distress. VITAL SIGNS: Temperature 98.1. Heart rate . Respiratory rate 14. Blood pressure 146/71. HEENT: Atraumatic, normocephalic. Oral mucosa is moist NECK: Supple. CARDIOVASCULAR: S1, S2 heard. Rate and rhythm regular. RESPIRATORY: Clear to auscultation. GASTROINTESTINAL: Abdomen is soft. MUSCULOSKELETAL: No tenderness. No edema. DERMATOLOGIC: No skin rash. NEUROLOGIC: Alert and awake and oriented X3. No focal neurologic deficits. Moving all the extremities. PSYCHIATRIC: Mood and affect normal. LABORATORY DATA: Not done today. ASSESSMENT AND PLAN: 1. End-stage renal disease, on peritoneal dialysis. 2. Peripheral vascular disease. 3. Hypertension. 4. Anemia. 5. Edema. prognosis. Plan to transfer to inpatient hospice. We will sign off. Job ID: [id number]
--- NOTE | 2018-08-14 13:04 | PDOC.EVN ---
Event Note - Event Note Event Note: DC SUMMARY #[id number]
--- NOTE | 2018-08-14 13:18 | DIS ---
DATE OF ADMISSION: 08/01/2018 DATE OF DISCHARGE: 08/14/2018 ADMITTING DIAGNOSES: 1. Feeling fatigue and weakness. 2. End-stage renal disease. 3. Global body pain. 4. Metabolic bone disease. 5. Anemia. 6. Hypertension. 7. Diabetes. DISCHARGE DIAGNOSES: 1. Feeling fatigue and weakness. 2. End-stage renal disease. 3. Global body pain. 4. Metabolic bone disease. 5. Anemia. 6. Hypertension. 7. Diabetes. HOSPITAL COURSE: A 77-year-old female, who was admitted for significant chronic pain and steady decline. The patient was admitted on the 01 of August, and at time of admission, had significantly low blood pressures, being on midodrine three times a day with blood pressure still being in the 90s. The patient stated that she just wanted morphine for her pain. The patient at point in time of admission was told that targeting severe significant doses of morphine would cause her blood pressure to drop, which would end up having a morbid result for her. After lengthy discussion with the patient and family, and evaluation by Nephrology, Cardiology, Palliative Care, as well as Rehab screening and multiple days of admission, on multiple drugs, on different modalities of dialysis, the patient's blood pressure was not able to be increased. Overall, the patient's condition was deteriorating significantly further as well. After a lengthy discussion with the patient's daughter and the patient herself, decision was made to transition the patient to hospice care and discontinue dialysis altogether. The patient stated that she had lived 77 years and was okay with this decision, stated that the dialysis was just not worth it anymore. At point in time of discharge, the patient was cleared from all subspecialties. Case and plan were discussed with her daughter as well as the patient at length. They both understood and agreed with this plan disposition to Hospice. FOLLOWUP: Follow up with Hospice physician. DIET: As tolerated. ACTIVITY: As tolerated with assistance as needed. PROGNOSIS: Poor. CONDITION: Stable. Case and plan once again discussed with the patient and daughter at length. They understood and agreed with this plan. Job ID: [id number]
--- NOTE | 2018-08-16 15:38 | DIS ---
DATE OF ADMISSION: 08/01/2018 DATE OF DISCHARGE: 08/14/2018 DATE OF DISCHARGE: Will be 08/14/2018 DISCHARGE DIAGNOSES: As of the following; 1. Pain to the right lower extremity. 2. Coronary artery disease. 3. Diabetes. 4. End-stage renal disease, on dialysis. 5. Aortic valve replacement. HOSPITAL COURSE: The patient is a 77-year-old female who initially presented to the hospital on August 01 with complaints of pain all over. The patient was noted to have a significant physical decline and had a lot of pain especially to her lower extremities. The patient at that time was seen by Nephrology, Cardiology for her multiple symptoms. Cardiology did not think any interventions in terms for cardiac related, and thought that her cardiac status was stable. The patient also was found to be encephalopathic and this was thought to be most likely secondary to either her uremic state. She also had significant pain on her right lower extremity, which was thought initially possible due to neuropathy and at this time, arterial Dopplers were done which indicated significant stenosis to bilateral lower extremities. She was seen by CV Surgery who did not recommend any further intervention. The option was [id number] amputation. However, the patient was not interested in that. At this time, this was discussed with the family and the patient. The patient's daughter, Jaclyn, who was a [id number] for the patient decided to go ahead and go with hospice. At this time, she did understand that there will be no more dialysis and the patient was evaluated by the hospice team. She will be transferred to inpatient hospice. DISCHARGE MEDICATIONS: Her medications on discharge will be as of the following, 1. Hydralazine 50 mg p.o. t.i.d. 2. Renvela 1600 mg t.i.d. 3. Lyrica 75 mg at bedtime. 4. Protonix 40 mg daily. 5. Apixaban 5 mg b.i.d.. 6. Ultram 100 mg q.6 hours p.r.n. 7. Scopolamine 1.5 mg transdermal patch. 8. MiraLAX 17 g p.o. daily p.r.n. 9. Atorvastatin 40 mg at bedtime. 10. Ambien 5 mg at bedtime p.r.n. DISPOSITION: Again, she will be discharged to inpatient hospice tomorrow. Job ID: [id number]
== END 2018-08-14 10:22 | disposition hospice, inpatient (51) | DRG 73 ==
LOC: ERS 00:11 → ERHOLD 01:18 → SURG B 12:38
PROVIDERS: ADMIT Family Medicine; ATTEND Family Medicine
DX: E11.40 Type 2 diabetes mellitus with diabetic neuropathy, unspecified (principal); N18.6 End stage renal disease; G93.41 Metabolic encephalopathy; I21.A1 Myocardial infarction type 2; I13.2 Hypertensive heart and chronic kidney disease with heart failure and with stage 5 chronic kidney disease, or end stage renal disease; I50.32 Chronic diastolic (congestive) heart failure; L03.119 Cellulitis of unspecified part of limb; E11.51 Type 2 diabetes mellitus with diabetic peripheral angiopathy without gangrene; G63 Polyneuropathy in diseases classified elsewhere; E11.22 Type 2 diabetes mellitus with diabetic chronic kidney disease; Z99.2 Dependence on renal dialysis; D63.1 Anemia in chronic kidney disease; G89.29 Other chronic pain; Z66 Do not resuscitate; Z51.5 Encounter for palliative care; I25.10 Atherosclerotic heart disease of native coronary artery without angina pectoris; B85.0 Pediculosis due to Pediculus humanus capitis; L89.322 Pressure ulcer of left buttock, stage 2; L89.312 Pressure ulcer of right buttock, stage 2; I48.91 Unspecified atrial fibrillation; E78.5 Hyperlipidemia, unspecified; E88.89 Other specified metabolic disorders; K21.9 Gastro-esophageal reflux disease without esophagitis; E66.9 Obesity, unspecified; Z68.36 Body mass index [BMI] 36.0-36.9, adult; Z95.3 Presence of xenogenic heart valve; Z79.01 Long term (current) use of anticoagulants; Z79.4 Long term (current) use of insulin; Z88.1 Allergy status to other antibiotic agents; Z88.0 Allergy status to penicillin; Z88.2 Allergy status to sulfonamides; Z88.8 Allergy status to other drugs, medicaments and biological substances
CPT/HCPCS: 36415; 36416; 71045; 80048; 80053; 82553; 84484; 85025; 87040; 87070; 87205; 90945; 93005; 96372; 96374; 96376; G0257; J0692; J1630; J1644; J2060; J2270; J2405; J3370; J3490; J7050; Q0153